=== PATIENT | female | born 1995 | race Caucasian/White ===

== ENCOUNTER 2022-01-24 14:50 | Outpatient (CLI) | payer OTHER, SELFPAY ==
--- NOTE | 2022-01-24 14:55 | RAD_ITS ---
STUDY: X-RAY - LEFT SHOULDER REASON FOR EXAM: Female, 26 years old. Left shoulder pain. TECHNIQUE: 4 view(s) of the shoulder. COMPARISON: None. FINDINGS: Normal glenohumeral articulation. Normal acromioclavicular joint. Normal acromion. Normal humeral head and visualized proximal humerus. The soft tissue structures are unremarkable. Normal visualized pulmonary apex. RAD/Shoulder min 2 Views IMPRESSION: Normal x-ray examination of the shoulder. Electronically Signed: Calderon Pemberton MD at 9:14 EDT ,
== END 2022-01-24 23:59 | disposition home or self-care (01) ==
LOC: RAD 14:53
PROVIDERS: PCP Internal Medicine; Referring Provider Internal Medicine; Visit Provider Internal Medicine
DX: M25.512 Pain in left shoulder (principal)
CPT/HCPCS: 73030

== ENCOUNTER → 2022-02-28 | Outpatient (CLI) | payer OTHER, SELFPAY ==
[2022-03-02 22:06] LABS: Chlamydia By Nucleic Acid AMP Negative (Negative)
[2022-03-03 09:58] LABS: Gonococcus By Nucleic Acid AMP Negative (Negative)
[2022-03-07 13:19] LABS: HPV Reflexed? NOT INDICATED
== END | disposition home or self-care (01) ==
LOC: LABSPEC 16:58
PROVIDERS: PCP Internal Medicine; Visit Provider Nurse Practitioner Women's Health
DX: Z11.3 Encounter for screening for infections with a predominantly sexual mode of transmission (principal)
CPT/HCPCS: 87491; 87591; 88175; G0145

== ENCOUNTER 2022-04-06 15:00 | Outpatient (RCR) | payer OTHER, SELFPAY ==
--- NOTE | 2022-02-02 14:57 | HP.PTEVAL_ITS ---
Patient's Visit Information MARITA BARNES is a 26 year old F referred to Physical Therapy by Dr. Coby Carmona MD with a diagnosis of L shoulder pain, tendinitis. Date of Evaluation: 02/02/22 Physical Therapist: Charles Estes DPT - Visit Plan Frequency: 1-2x /Week Duration: 4 Weeks Plan: Start with GH mobs (inferior glides) to restore non painful OH motions. Add in scapular and lea scapular strengthneing. - Subjective Pt. is here today for her initial evaluation with diagnosis of L shoulder tendonitis. She reports having pain for years. She reports pain at anterior shoulder and down her arm to medial elbow at times. Pt. reports having difficulty sleeping, increased pain as the day goes on. No specific movement that causing increase symptoms. 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 Pt. does report some neck pain, but decreases with postural changes. Pt. reports some tingling, along ulnar aspect, but comes and goes. Pt. is hopeful to reduce symptoms in order to get back to all recreational acti vities without increase in symptoms. She does report having some weakness in her shoulder, but no distal weakness noted. P= - Pain L shoulder Pain Intensity (Out of 10): 1 Pain Intensity Range: 0, 5 - Objective POSTURE: Pt. has slight FH posture, slight rounded shoulder positioning bilaterally. Pt. is able to correct with VC/TCing. PALPATION: pt. has tenderness along biceps in bicpital groove. Pt. has pain at anterior sub acromial space. Slight tenderness along L UT. NEURO: normal throughout BUEs. ROM: Pt. has good ROM of bilateral shoulders, slight increase in symptoms with OH motions, otherwise normal. MMT: Pt. has slight weakness with shoulder ER and abd motions (4+/5), rest is 5/5 throughout L shoulder. 5/5 throughout R shoulder. - Special Tests L Shoulder External Rotation Lag Test - RC Tear: Negative L Shoulder Lift Off Test - Subscapular Tear: Negative L Shoulder Drop Sign - IS Test: Negative L Shoulder Empty Can - SS: Positive L Shoulder Belly Press - SupScap: Negative L Shoulder Neer - Impingement: Positive L Shoulder Rios Renard - Impingement: Positive L Shoulder Biceps Load Test - Labrum: Negative L Shoulder Yeargasons - SLAP: Negative L Shoulder Apprehension Test - Anterior Instability: Negative L Shoulder Speeds Test - Labrum/Biceps: Positive - Balance/Special Test Scores Quick DASH Score: 29.5450 - Goals Goal 1:: LTG: Pt. to be I with HEP for R RTC and periscapular strengthening. Goal Time Frame: 4-6 Weeks Goal 2:: STG: pt. to be able to sleep without increase in symptoms. Goal Time Frame: 2-4 Weeks Goal 3:: LTG: Pt. have no pain with all work and recreational activities. Goal Time Frame: 4-6 Weeks Goal 4:: LTG: pt. to have symmetrical strength of BUEs. Goal Time Frame: 4-6 Weeks Goal 5:: LTG: Pt. to have full motion of L shoulder with out increase in symptoms. Goal Time Frame: 4-6 Weeks - Rehabilitation Potential Physical Therapy Diagnosis: Pt. has signs and symptoms consistent with L shoulder tendinitis. Pt. has special testing suggesting RTC/biceps tenditis vs impingement. Pt. would benefit from scapular and periscapular strengthening to reduce positioning issues of her GH complex. Rehabilitation Potential: Excellent - Anticipated Interventions Patient/Client Instruction: Educate patient on: Condition, Plan of Care, Benefits of Fitness Program For the Purpose of:: To improve decision making, To facilitate caregiver knowledge, To improve self management, To prevent re-injury, To improve ability to perform tasks related to life management, To improve tolerance to ADL's Therapeutic Exercise to Include: Strength training, Power training, Body mechanics, Postural training, Flexibilty training, Passive ROM, Active ROM, Scapular Strength/Stabilization For the Purpose of:: To decrease pain, To increase ROM, To improve nutrient delivery to tissue, To improve muscle performance and motor function, To improve ability to perform ADL's, To improve gait and locomotor functions, To improve health of tissue, To increase flexibility/ROM Manual Therapy Techniques to Include: Mobilization, Passive ROM, Soft tissue mobilization For the Purpose of:: To decrease pain, To decrease swelling/inflammation, To increase ROM Thank you for the opportunity to evaluate your patient. For Medicare and Medicare HMO plans, please review the plan of care and approve it. It will need to be FAXED BACK to us at [phone] for Medicare purposes. For Medicare only, by signing this I certify the plan of care. Please let me know if there are questions or concerns regarding this plan of care. Physician Signature: Date:
--- NOTE | 2022-03-02 10:19 | HP.PTREVAL_ITS ---
Dr. Coby Carmona MD, It has been my pleasure to treat MARITA BARNES over the last 4 visits for L shoulder pain, tendinitis. Please see the progress note below for an update on the physical therapy plan of care! Subjective: Pt. reports having some soreness in her shoulder and scapular region 3/10 pain today. Mostly at proximal biceps, but does complain have some medial elbow pain at times. She has been doing HEP without issues. Objective/Function: AROM: Pt. has full ROM of L shoulder with mild irritation with functional ER. MMT: L shoulder: flexion 5/5 NE, abd 5-/5 mild increase NW, ER 5/5 NE, IR 5/5 mild increase NW, ext 5/5 NE. SPECIAL TESTING: + speeds test, + biceps load, + horn blowers. -. She does feel better with thoracic extended positioning, getting out of fwrd shoulder positioning. She is point tender to biceps tendon in bicipital groove. She reports some progress, but has not been able to be very consistent with exercises due to very packed schedule with school and work. Pt. to add in new exercises to HEP. Pt. consents. Plan Plan: Cont. with DFM, followed by thoracic extension for postural flexibility. Add in supine shoulder extended bicep curls to load proximal biceps tend to reinforce remodeling. Add in shoulder ER for stability. May use modalities if needed is short term. Add in 1-2 per week for a few weeks. She does have a week where she is at school so may have slightly more sporadic scheduling., Balance/Gait/Functional tests - Balance/Special Test Scores Quick DASH Score: 27.2725 Goals Goal 1:: LTG: Pt. to be I with HEP for R RTC and periscapular strengthening. Goal Time Frame: 4-6 Weeks Goal Progress: Progressing Goal 2:: STG: pt. to be able to sleep without increase in symptoms. Goal Time Frame: 2-4 Weeks Goal Progress: Progressing Goal 3:: LTG: Pt. have no pain with all work and recreational activities. Goal Time Frame: 4-6 Weeks Goal Progress: Progressing Goal 4:: LTG: pt. to have symmetrical strength of BUEs. Goal Time Frame: 4-6 Weeks Goal Progress: Progressing Goal 5:: LTG: Pt. to have full motion of L shoulder with out increase in symptoms. Goal Time Frame: 4-6 Weeks Goal Progress: Progressing Anticipated Interventions Patient/Client Instruction: Educate patient on: Condition, Plan of Care, Benefits of Fitness Program For the Purpose of:: To improve decision making, To facilitate caregiver knowle dge, To improve self management, To prevent re-injury, To improve ability to perform tasks related to life management, To improve tolerance to ADL's Therapeutic Exercise to Include: Strength training, Power training, Body mechanics, Postural training, Flexibilty training, Passive ROM, Active ROM, Scapular Strength/Stabilization For the Purpose of:: To decrease pain, To increase ROM, To improve nutrient delivery to tissue, To improve muscle performance and motor function, To improve ability to perform ADL's, To improve gait and locomotor functions, To improve health of tissue, To increase flexibility/ROM Manual Therapy Techniques to Include: Mobilization, Passive ROM, Soft tissue mobilization For the Purpose of:: To decrease pain, To decrease swelling/inflammation, To increase ROM Please do not hesitate to contact me at [phone] by phone or if you have questions or concerns regarding this new plan of care! Sincerely, TANNER DunhamT
--- NOTE | 2022-04-06 15:24 | HP.PTREVAL ---
Dr. Coby Carmona MD, It has been my pleasure to treat MARITA BARNES over the last 8 visits for L shoulder pain, tendinitis. Please see the progress note below for an update on the physical therapy plan of care! Subjective: Pt. reports overall being 70% better overall. She reports being compliant and I with HEP for scapular stability and stressing her proximal biceps tendon. Objective/Function: ROM: pt. has full ROM of her L shoulder with no pain with over pressure into all motions (flexion, extension, Abduction, functional ER, and functional IR.). MMT: Pt. has full symmetrical strength of bilateral UEs. Pt. reports mild soreness with ABD testing, increase NW. SPECIAL TESTING: Slight + speeds test, no other + with all RTC and labral testing. Overall she is doing well. She is to continue working on increasing resistances applied to proximal biceps along with strengthening her supraspinatus and other RTC musculature. She is able to complete all activities, but does notice some soreness when studying at school, patient describes being in a more slumped flexed posture while studying most likely reinforcing an impingement of her anterior shoulder with rest of her activities. Pt. reports understanding and agrees to work on this as well. Plan Plan: Pt. to trial exercises on her own for 3-4 weeks to determine if able to self manage. She is to return if unable to do so in this time frame. If I do not hear from her during this time I will DC back to physician. Balance/Gait/Functional tests - Balance/Special Test Scores Quick DASH Score: 6.8175 Goals Goal 1:: LTG: Pt. to be I with HEP for R RTC and periscapular strengthening. Goal Time Frame: 4-6 Weeks Goal Progress: Goal Met Goal 2:: STG: pt. to be able to sleep without increase in symptoms. Goal Time Frame: 2-4 Weeks Goal Progress: Goal Met Goal 3:: LTG: Pt. have no pain with all work and recreational activities. Goal Time Frame: 4-6 Weeks Goal Progress: Goal Met Goal 4:: LTG: pt. to have symmetrical strength of BUEs. Goal Time Frame: 4-6 Weeks Goal Progress: Goal Met Goal 5:: LTG: Pt. to have full motion of L shoulder with out increase in symptoms. Goal Time Frame: 4-6 Weeks Goal Progress: Goal Met Anticipated Interventions Patient/Client Instruction: Educate patient on: Condition, Plan of Care, Benefits of Fitness Program For the Purpose of:: To improve decision making, To facilitate caregiver knowledge, To improve self management, To prevent re-injury, To improve ability to perform tasks related to life management, To improve tolerance to ADL's Therapeutic Exercise to Include: Strength training, Power training, Body mechanics, Postural training, Flexibilty training, Passive ROM, Active ROM, Scapular Strength/Stabilization For the Purpose of:: To decrease pain, To increase ROM, To improve nutrient delivery to tissue, To improve muscle performance and motor function, To improve ability to perform ADL's, To improve gait and locomotor functions, To improve health of tissue, To increase flexibility/ROM Manual Therapy Techniques to Include: Mobilization, Passive ROM, Soft tissue mobilization For the Purpose of:: To decrease pain, To decrease swelling/inflammation, To increase ROM Please do not hesitate to contact me at [phone] by phone or if you have questions or concerns regarding this new plan of care! Sincerely, Charles Estes DPT
== END 2022-04-06 19:00 | disposition home or self-care (01) ==
LOC: PT 15:00
PROVIDERS: PCP Internal Medicine; Referring Provider Internal Medicine; Visit Provider Internal Medicine
DX: M75.22 Bicipital tendinitis, left shoulder
CPT/HCPCS: 97110; 97161; 97164

== ENCOUNTER → 2022-08-15 | Outpatient (CLI) | payer OTHER, SELFPAY ==
--- NOTE | 2022-08-15 16:31 | EKG12_ITS ---
Test Reason : HR HIGH Blood Pressure : / mmHG Vent. Rate : 102 BPM Atrial Rate : 102 BPM P-R Int : 142 ms QRS Dur : 078 ms QT Int : 324 ms P-R-T Axes : 044 018 028 degrees QTc Int : 422 ms Sinus tachycardia Otherwise normal ECG Confirmed by TONY MANUEL, LAUREL ([id number]), production editor KIRSTY PAINTING ([id number]) on 08/16/2022 11:01:31 AM Referred By: NOY Confirmed By:LAUREL JIMENEZ MD
[2022-08-15 17:20] LABS: Absolute Lymphocyte Count 3.05 X10^3/uL (0.83-4.51); Absolute Neutrophil Count 6.6 X10^3/uL (2.0-7.7); Basophil# 0.05 X10^3/uL; Basophil% 0.5 % (0-1); Eosinophil# 0.31 X10^3/uL; Eosinophils% 2.9 % (0-5); Hematocrit 41.2 % (37-47); Hemoglobin 13.6 g/dL (12.0-15.0); Lymphocyte # 3.05 X10^3/ul (0.83-4.51); Lymphocyte % 28.8 % (19-41); Mean Corpuscular Hgb 28.6 pg (27.0-32.0); Mean Corpuscular Volume 86.6 fL (81-99); Mean Platelet Vol. 9.7 fl (6.2-12.0); Monocyte# 0.59 X10^3/uL; Monocyte% 5.6 % (0-10); NRBC Flagged by Analyzer 0 % (0-5); Neutrophil # 6.56 X10^3/uL (2.7-7.7); Neutrophil % 61.9 % (47-70); Platelet Count 352 K/mm3 (150-450); RBC Distribution Width CV 11.8 % (11.6-14.6); RBC Distribution Width SD 37.4 fl (35.1-43.9); Red Blood Count 4.76 M/mm3 (4.2-5.4); White Blood Count 10.6 K/mm3 (4.4-11.0)
[2022-08-15 18:31] LABS: ALB/GLOB Ratio 0.8 RATIO (0.9-2.4); AST(SGOT) 12 U/L (15-37); Alanine Aminotransfer ALT/SGPT 20 U/L (13-56); Albumin, Serum 3.3 g/dL (3.2-5.0); Alkaline Phosphatase 80 U/L (45-117); Anion Gap 7 (5-15); BUN 11 mg/dL (7-18); BUN/Creat Ratio 14.3 RATIO (10-20); Calcium,Total 8.7 mg/dL (8.5-10.1); Chloride 104 mmol/L (98-107); Creatinine, Serum 0.77 mg/dL (0.55-1.02); EST Glomerular Filtration Rate 96 mL/min (>60); Est Glom Filt Rate - Afr Amer 116 mL/min (>60); Globulin 3.9 g/dL (2.2-4.2); Glucose 89 mg/dL (74-106); Potassium 3.5 mmol/L (3.5-5.1); Protein, Total 7.2 g/dL (6.4-8.2); Sodium Level 138 mmol/L (136-145)
== END | disposition home or self-care (01) ==
PROVIDERS: PCP Internal Medicine; Visit Provider Obstetrics & Gynecology
DX: R00.2 Palpitations (principal)
CPT/HCPCS: 36415; 80053; 85025; 93005

== ENCOUNTER → 2023-06-21 | Outpatient (CLI) | payer OTHER, SELFPAY ==
--- NOTE | 2023-06-21 09:20 | RAD_ITS ---
INDICATION: Right shoulder pain EXAMINATION/TECHNIQUE: X-RAY - RIGHT XR Shoulder Min 2 Views 4 VIEWS COMPARISON: None. FINDINGS: No acute fracture or dislocation. Joint spaces are intact. No significant degenerative or destructive changes. Soft tissues are unremarkable. Visualized right lung is clear. RAD/Shoulder min 2 Views IMPRESSION: No acute findings. Electronically Signed: Ignacio Sierra DO at 9:03 EDT ,
== END | disposition home or self-care (01) ==
LOC: RAD 09:18
PROVIDERS: PCP Internal Medicine; Referring Provider Internal Medicine; Visit Provider Internal Medicine
DX: M25.511 Pain in right shoulder (principal)
CPT/HCPCS: 73030

== ENCOUNTER 2023-09-04 10:00 | Outpatient (RCR) | payer OTHER, SELFPAY ==
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
--- NOTE | 2023-10-26 09:07 | HP.PT.NRP ---
Patient Information Patient Information: MARITA BOUDREAUX was seen in my office for initial evaluation on 06/26/23. The following Plan of Care was established for this patient: POC Established Initial Frequency: 2x /Week Initial Duration: 4 Weeks Anticipated Interventions Patient/Client Instruction: Educate patient on: Benefits of Fitness Program Therapeutic Exercise to Include: Strength training, Endurance training, Agility training, Body mechanics, Postural training, Flexibilty training, Neuromotor development, Passive ROM, Active ROM, Dynamic Lumbar Stabilization and Scapular Strength/Stabilization For the Purpose of:: To improve muscle performance and motor function TENS: Yes Cryotherapy (ice pack, ice massage): Yes Thermo therapy (hot pack): Yes Ultrasound (thermal/non thermal): Yes Last Seen Last Seen: This patient was last seen in our office . Pertinent comments regarding their Physical therapy will appear below: Patient appropriate to be d/c and continue home exercise program At this point I will be discontinuing this patient from physical therapy. I would be happy to see this patient again in the future if found appropriate by the physician. Thank you! Chela Almaguer DPT Balance/Gait/Functional tests Balance/Special Test Scores Quick DASH Score: 31.8185
== END 2023-09-04 19:00 | disposition home or self-care (01) ==
LOC: PT 10:00
PROVIDERS: PCP Internal Medicine; Referring Provider Internal Medicine; Visit Provider Internal Medicine
DX: M25.511 Pain in right shoulder (principal)
CPT/HCPCS: 97110; 97140; 97162; 97164

== ENCOUNTER → 2023-09-18 | Outpatient (CLI) | payer OTHER, SELFPAY ==
[2023-09-18 12:58] LABS: Absolute Lymphocyte Count 3.06 X10^3/uL (0.83-4.51); Absolute Neutrophil Count 6.2 X10^3/uL (2.0-7.7); Basophil# 0.05 X10^3/uL; Basophil% 0.5 % (0-1); Eosinophil# 0.11 X10^3/uL; Eosinophils% 1.1 % (0-5); Hematocrit 42.1 % (37-47); Hemoglobin 13.6 g/dL (12.0-15.0); Lymphocyte # 3.06 X10^3/ul (0.83-4.51); Mean Corp Hgb Conc 32.3 g/dL (32-36); Mean Corpuscular Hgb 27.8 pg (27.0-32.0); Mean Corpuscular Volume 86.1 fL (81-99); Mean Platelet Vol. 10.1 fl (6.2-12.0); Monocyte# 0.44 X10^3/uL; Monocyte% 4.5 % (0-10); NRBC Flagged by Analyzer 0 % (0-5); Neutrophil # 6.18 X10^3/uL (2.7-7.7); Neutrophil % 62.6 % (47-70); Platelet Count 332 K/mm3 (150-450); RBC Distribution Width CV 11.9 % (11.6-14.6); RBC Distribution Width SD 37.3 fl (35.1-43.9); Red Blood Count 4.89 M/mm3 (4.2-5.4); White Blood Count 9.9 K/mm3 (4.4-11.0)
[2023-09-18 13:37] LABS: Vitamin B12 317 pg/mL (211-911)
[2023-09-18 13:53] LABS: ALB/GLOB Ratio 0.9 RATIO (0.9-2.4); AST(SGOT) 13 U/L (15-37); Alanine Aminotransfer ALT/SGPT 16 U/L (13-56); Albumin, Serum 3.5 g/dL (3.2-5.0); Alkaline Phosphatase 78 U/L (45-117); Anion Gap 7 (5-15); BUN 11 mg/dL (7-18); BUN/Creat Ratio 12.2 RATIO (10-20); Calcium,Total 8.9 mg/dL (8.5-10.1); Chloride 104 mmol/L (98-107); EST Glomerular Filtration Rate 79 mL/min (>60); Est Glom Filt Rate - Afr Amer 96 mL/min (>60); Globulin 3.9 g/dL (2.2-4.2); Glucose 89 mg/dL (74-106); Protein, Total 7.4 g/dL (6.4-8.2); Sodium Level 137 mmol/L (136-145); Thyroid Stim Hormone (TSH) 2.57 uIU/mL (0.358-3.74)
== END | disposition home or self-care (01) ==
PROVIDERS: PCP Internal Medicine; Referring Provider Physician Assistant; Visit Provider Physician Assistant
DX: R00.0 Tachycardia, unspecified (principal)
CPT/HCPCS: 36415; 80053; 82607; 83735; 84443; 85025

== ENCOUNTER → 2023-09-22 | Outpatient (CLI) | payer OTHER, SELFPAY | END | disposition home or self-care (01) | LOC: PSN 10:48 | PROVIDERS: PCP Internal Medicine; Referring Provider Physician Assistant; Visit Provider Physician Assistant | DX: R00.0 Tachycardia, unspecified (principal); R00.2 Palpitations | CPT/HCPCS: 93225; 93226 ==

== ENCOUNTER → 2023-10-06 | Outpatient (CLI) | payer OTHER, SELFPAY ==
[2023-10-07 04:08] LABS: Thyroid Peroxidase AB < 9 IU/mL (0-34)
== END | disposition home or self-care (01) ==
LOC: LAB 10:25
PROVIDERS: PCP Internal Medicine; Referring Provider Internal Medicine Endocrinology, Diabetes & Metabolism; Visit Provider Internal Medicine Endocrinology, Diabetes & Metabolism
DX: E04.9 Nontoxic goiter, unspecified (principal)
CPT/HCPCS: 36415; 86376

== ENCOUNTER → 2025-02-28 | Outpatient (CLI) | payer OTHER, SELFPAY ==
[2025-02-28 16:07] LABS: Absolute Lymphocyte Count 2.48 X10^3/uL (0.83-4.51); Absolute Neutrophil Count 8.7 X10^3/uL (2.0-7.7); Basophil# 0.05 X10^3/uL; Basophil% 0.4 % (0-1); Eosinophil# 0.09 X10^3/uL; Eosinophils% 0.8 % (0-5); Hematocrit 38.6 % (37-47); Hemoglobin 13.2 g/dL (12.0-15.0); Lymphocyte # 2.48 X10^3/ul (0.83-4.51); Lymphocyte % 20.7 % (19-41); Mean Corp Hgb Conc 34.2 g/dL (32-36); Mean Corpuscular Hgb 29.3 pg (27.0-32.0); Mean Corpuscular Volume 85.6 fL (81-99); Mean Platelet Vol. 10.4 fl (6.2-12.0); Monocyte# 0.57 X10^3/uL; Monocyte% 4.8 % (0-10); NRBC Flagged by Analyzer 0 % (0-5); Neutrophil # 8.74 X10^3/uL (2.7-7.7); Neutrophil % 72.9 % (47-70); Platelet Count 284 K/mm3 (150-450); RBC Distribution Width CV 12.4 % (11.6-14.6); RBC Distribution Width SD 38.7 fl (35.1-43.9); Red Blood Count 4.51 M/mm3 (4.2-5.4)
[2025-02-28 16:22] LABS: Protein, Urine (Random) 16.9 mg/dL (0.0-12.0); Protein:Creat Ratio 76 mg/g CRE (0-200)
[2025-02-28 16:43] LABS: ALB/GLOB Ratio 1.6 RATIO (0.9-2.4); AST(SGOT) 15 U/L (<=31); Alanine Aminotransfer ALT/SGPT 19 U/L (<=34); Albumin, Serum 4.3 g/dL (3.5-5.0); Alkaline Phosphatase 68 U/L (35-104); Anion Gap 14 (5-15); BUN 12 mg/dL (4-19); BUN/Creat Ratio 16.6 RATIO (10-20); Calcium,Total 9.3 mg/dL (7.6-11.0); Carbon Dioxide 21.2 mmol/L (21.0-32.0); Chloride 99 mmol/L (98-108); EST Glomerular Filtration Rate 120 (>60); Globulin 2.7 g/dL (2.2-4.2); Glucose 75 mg/dL (70-99); HIV Nonreactive (Nonreactive); Hepatitis B Surface Antigen Nonreactive (Nonreactive); Hepatitis C Antibody Nonreactive (Nonreactive); Potassium 3.4 mmol/L (3.3-5.1); Rubella IgG REAC (Nonreactive); Sodium Level 135 mmol/L (133-145); Syphilis Antibodies Nonreactive (Nonreactive); Total Bilirubin 0.57 mg/dL (0.00-1.30)
[2025-02-28 16:52] LABS: Hemoglobin A1c 4.9 % (<=5.6)
[2025-03-03 21:07] LABS: Chlamydia By Nucleic Acid AMP Negative (Negative); Gonococcus By Nucleic Acid AMP Negative (Negative)
== END | disposition home or self-care (01) ==
PROVIDERS: PCP Internal Medicine; Referring Provider Obstetrics & Gynecology; Visit Provider Obstetrics & Gynecology
DX: O09.90 Supervision of high risk pregnancy, unspecified, unspecified trimester (principal); Z3A.00 Weeks of gestation of pregnancy not specified; Z12.4 Encounter for screening for malignant neoplasm of cervix
CPT/HCPCS: 36415; 80053; 82570; 83036; 84156; 85025; 86703; 86762; 86780; 86803; 86850; 86900; 86901; 87086; 87088; 87340; 87491; 87591; 88175; G0145

== ENCOUNTER → 2025-04-17 | Outpatient (CLI) | payer OTHER, SELFPAY ==
--- NOTE | 2025-04-17 13:44 | EKG12_ITS ---
Test Reason : HTN Blood Pressure : */* mmHG Vent. Rate : 92 BPM Atrial Rate : 92 BPM P-R Int : 148 ms QRS Dur : 70 ms QT Int : 338 ms P-R-T Axes : 36 52 7 degrees QTcB Int : 417 ms Normal sinus rhythm with sinus arrhythmia Normal ECG Confirmed by ANTONIO MANUEL, ROCIO ([id number]), editorial intern MICHAEL COLLINS ([id number]) on 04/18/2025 1:06:05 PM Referred By: Kaycee Pathak Confirmed By: ROCIO ALVAREZ MD
--- OUTSIDE RECORDS SUMMARY | 2025-04-17 14:46 | XMS RPT_ITS | CCD ---
Author Organization [facility] CliniSywy Care Team Providers Care Compliance Advisor Name Role Phone Morgan Ta Jalloh Primary Care Provider Dr. Coby Carmona Attending Provider [phone] Karena DICTAPHONE MECHANIC, ALICIA Miranda Attending Provider [phone] Dr. Coby Carmona Primary Care Provider [phone] Dr. Coby Carmona Referring Provider [phone] Dr. Coby Carmoan Primary Care Provider [phone] 0) Dr. Coby Carmona Referring Provider [phone] Dr. Kaycee Pathak Attending Provider [phone] [phone] Karena DICTAPHONE MECHANICALICIA Attending Provider [phone] [phone] Dr. Coby Carmona Attending Provider [phone] Dr. Coby Carmona Primary Care Provider 1(33 0) Dr. Coby Carmona Attending Provider [phone] Dr. Coby Carmona Referring Provider [phone] Dr. Coby Carmona Primary Care Provider 1(33 0) Dr. Coby Carmona Attending Provider [phone] Dr. Coby Carmona Referring Provider [phone] CHUY Avalos Attending Provider [phone]) NATALY Watkins Attending Provider 1(330) Dr. Alexey Good Attending Provider Dr. Coby Carmona Primary Care Provider [phone] Dr. Coby Carmona Referring Provider [phone] Mathew MANUEL, Dr. Tenorio Primary Care Provider Mathew MANUEL, Dr. Tenorio Referring Provider [phone] Karena ANGLIN-Marina, Ruth Attending Provider [phone] Yanet RN, Thuy Attending Provider [facility], Dr. Benoit Attending Provider Zo MANUEL, Dr. Benoit Referring Provider [phone] Georgette Avalos CNM Attending Provider [phone] Georgette Avalos Attending Unavailable Oleghe, Efewongbe Primary Care Unavailable Oleghe, Efewongbe Referring Unavailable Thuy Holt Attending Unavailable Oleghe, Efewongbe Primary Care Unavailable Oleghe, Efewongbe Primary Care Unavailable Kaycee Pathak Attending Unavailable Kaycee Pathak Referring Unavailable Ruth Thurston NP Attending Unavailable Oleghe, Efewongbe Primary Care Unavailable Oleghe, Efewongbe Referring Unavailable Oleghe, Efewongbe Primary Care Unavailable Kaycee Pathak Attending Unavailable Oleghe, Efewongbe Referring Unavailable Georgette Avalos Attending Unavailable Oleghe, Efewongbe Referring Unavailable Oleghe, Efewongbe Primary Care Unavailable Medications Current Medications Medication Drug Class(es) Dates Sig (Normalized) Sig (Original) docosahexaenoic acid 200 mg oral capsule (1 source) Start: 02-11-2025 Docosahexaenoic Acid ( Dha) 200 mg capsule Active mg PO February 11, 2025 12:00am Completed/Discontinued Medications Medication Drug Class(es) Dates Sig (Normalized) Sig (Original) citalopram 20 mg oral tablet (17 sources) Serotonin Reuptake Inhibitor Start: 02-28-2022 End: 05-26-2022 take 1 tablet by mouth once daily Citalopram (Celexa) 20 mg tablet Discontinued 20 mg PO DAILY 90 March 30, 2022 9:33am May 26, 2022 3:32pm Drospirenone-Ethin yl Estradiol (20 sources) Progestin, Estrogen Start: 09-06-2024 End: 02-11-2025 Drospirenone-Ethiny l Estradiol 3-0.03 mg tablet Discontinued 1 {tbl} PO DAILY September 06, 2024 12:14pm February 11, 2025 8:08am Start: 09-08-2023 End: 09-06-2024 Drospirenone-Ethinyl Estradi ol 3-0.03 mg tablet Discontinued 1 {tbl} PO DAILY September 08, 2023 5:11pm September 06, 2024 12:14pm Start: 09-08-2023 take 1 tablet by jia th once daily Drospirenone-Ethinyl Estradiol Active 1 TABLET PO DAILY September 08, 2023 4:11pm Start: 02-28-2022 End: 09-08-2023 Drospirenone-Ethinyl Estradi ol 3-0.03 mg tablet Discontinued 1 {tbl} PO DAILY February 28, 2022 2:49pm September 08, 2023 5:12pm Start: 02-28-2022 End: 09-08-2023 take 1 tablet by mouth once daily Drospirenone-Ethinyl Estradiol Discontinued 1 TABLET PO DAILY February 28, 2022 1:49pm September 08, 2023 4:12pm Start: 02-28-2022 take 1 tablet by jia th once daily Drospirenone-Ethinyl Estradiol Active 1 TABLET PO DAILY February 28, 2022 2:49pm Start: 01-24-2022 End: 02-28-2022 take 1 tablet by mouth once daily Drospirenone-Ethinyl Estradiol Discontinued 1 TABLET PO DAILY January 24, 2022 8:46am February 28, 2022 2:49pm Start: 01-24-2022 take 1 tablet by jia th once daily Drospirenone-Ethinyl Estradiol Active 1 TABLET PO DAILY January 24, 2022 8:46am Start: 01-24-2022 End: 01-24-2022 Drospirenone-Ethinyl Estradi ol (Karoline (28)) 3-0.02 mg tablet Discontinued 1 TABLET PO DAILY January 24, 2022 8:22am January 24, 2022 8:46am Start: 01-24-2022 End: 01-24-2022 take 3 tablets by mouth once daily Drospirenone-Ethinyl Estradiol (Karoline (28)) 3-0.02 mg tablet Discontinued 1 {tbl} PO DAILY January 24, 2022 12:00am January 24, 2022 8:46am Start: 01-24-2022 End: 02-28-2022 Drospirenone-Ethinyl Estradi ol 3-0.03 mg tablet Discontinued 1 {tbl} PO DAILY 84 January 24, 2022 12:00am February 28, 2022 2:49pm Start: 01-24-2022 End: 01-24-2022 Drospirenone-Ethinyl Estradi ol (Karoline (28)) 3-0.02 mg tablet Discontinued 1 TABLET PO DAILY January 23, 2022 11:00pm January 24, 2022 7:46am Start: 01-24-2022 End: 02-28-2022 take 1 tablet by mouth once daily Drospirenone-Ethinyl Estradiol Discontinued 1 TABLET PO DAILY January 23, 2022 11:00pm February 28, 2022 1:49pm Start: 01-24-2022 End: 01-24-2022 Drospirenone-Ethinyl Estradi ol (Karoline (28)) 3-0.02 mg tablet Discontinued 1 TABLET PO DAILY January 24, 2022 12:00am January 24, 2022 8:46am Start: 01-24-2022 End: 02-28-2022 take 1 tablet by mouth once daily Drospirenone-Ethinyl Estradiol Discontinued 1 TABLET PO DAILY 84 January 24, 2022 12:00am February 28, 2022 2:49pm Start: 04-24-2020 Drospirenone-E thinyl Estradiol 3-0.03 mg per tablet TAKE 1 TABLET ONCE DAILY 84 tablet 1 04/24/2020 Active Start: 10-04-2019 take 1 tablet by jia th once daily, then take 3 tablets by mouth once Drospirenone-Ethinyl Estradiol (JENNIFER) 3-0.03 mg per tablet Take 1 tablet by mouth once daily. 84 tablet 3 10/04/2019 Active Comment on above: Take 1 tablet by jia th once daily. TAKE 1 TABLET ONCE D AILY phentermine hydrochloride 37.5 mg oral capsule (20 sources) Sympathomimetic Amine Anorectic Start: End: take 1 capsule by mouth once daily 30 minutes after breakfast Phentermine (Adipex-P) 37.5 mg capsule Discontinued 37.5 mg PO DAILY July 28, 2022 9:16am August 15, 2022 3:33pm must administer 30 minutes before or 1-2 hours after breakfast weight 173. *note BMI incorrect on last script, patient has lost weight. 24 hr venlafaxine 37.5 mg extended release oral capsule (14 sources) Serotonin and Norepinephrine Reuptake Inhibitor Start: End: Venlafaxine 37.5 mg capsule,extended release 24hr Discontinued 37.5 mg PO As Directed September 30, 2022 1:00am June 21, 2023 8:34am 1 capsule daily x1 week then every other day x1 week Start: 05-26-2022 End: 09-30-2022 take 1 capsule by mouth once daily Venlafaxine (Effexor Xr) 75 mg capsule,extended release 24hr Discontinued 75 mg PO DAILY May 26, 2022 12:00am September 30, 2022 4:01pm Problems Active Problems Problem Classification Problem Date Documented Da te Episodic/Chronic Administrative/social admission (10 sources) Patient encounter status; Translations: [Encounter for examination for admission to educational institution] Episodic Anxiety disorders (12 sources) Anxiety; Translations: [Anxiety disorder, unspecified] Chronic Comment on above: start effexor stop c elexa Cardiac dysrhythmias (14 sources) Palpitations; Translations: [Palpitations] 09-15-2023 Episodic Essential hypertension (14 sources) Hypertensive disorder; Translations: [Essential (primary) hypertension] Onset: 02-21-2025 Chronic Comment on above: Nml BP readings x1ye ar, medicine in the past but not at present Menstrual disorders (1 source) Amenorrhea, unspecified; Translations: [Amenorrhea, unspecified] Onset: 02-21-2025 Chronic Other circulatory disease (10 sources) Elevated blood-pressure reading without diagnosis of hypertension; Translations: [Elevated blood-pressure reading, without diagnosis of hypertension] 01-24-2022 Episodic Other circulatory disease (3 sources) Elevated blood-pressure reading, without diagnosis of hypertension; Translations: [Elevated blood pressure reading without diagnosis of hypertension] Episodic Other circulatory disease (9 sources) Labile hypertension due to being in a clinical environment; Translations: [Elevated blood-pressure reading, without diagnosis of hypertension] 02-28-2022 Episodic Comment on above: Home BP readings WNL Other complications of (3 sources) Maternal obesity complicating , childbirth and the puerperium, antepartum; Translations: [Obesity complicating , unspecified trimester] 02-11-2025 Chronic Comment on above: BMI 38.7, HgBA1C ord ered with NOB Other complications of (2 sources) Obesity complicating , unspecified trimester; Translations: [Obesity complicating , unspecified trimester] Onset: 02-21-2025 Chronic Other complications of (3 sources) High risk ; Translations: [Supervision of high risk , unspecified, unspecified trimester] 02-28-2025 Episodic Comment on above: , KUNAL 10/12/25, : Radha Other complications of (2 sources) Supervision of high risk , unspecified, unspecified trimester; Translations: [Supervision of high risk , unspecified, unspecified trimester] Onset: 02-21-2025 Episodic Other connective tissue disease (10 sources) Tendinitis of shoulder region; Translations: [Other enthesopathies, not elsewhere classified] 01-24-2022 Episodic Other connective tissue disease (2 sources) Other enthesopathies, not elsewhere classified; Translations: [Disorders of bursae and tendons in shoulder region, unspecified] Episodic Other endocrine disorders (12 sources) Polycystic ovary syndrome; Translations: [Polycystic ovarian syndrome] 06-21-2023 Chronic Comment on above: hga1c. encouraged he althy weight gain Other endocrine disorders (13 sources) Polycystic ovarian syndrome; Translations: [Polycystic ovaries] Onset: 03-25-2025 Chronic Other non-traumatic joint disorders (4 sources) Shoulder pain; Translations: [Pain in left shoulder] Episodic Other non-traumatic joint disorders (8 sources) Pain in left shoulder; Translations: [Pain in joint, shoulder region] Episodic Other non-traumatic joint disorders (10 sources) Pain in right shoulder; Translations: [Right shoulder pain] 06-21-2023 Episodic Other nutritional; endocrine; and metabolic disorders (8 sources) Obesity; Translations: [Other obesity] 05-26-2022 Chronic Other nutritional; endocrine; and metabolic disorders (8 sources) Metabolic syndrome X; Translations: [Metabolic syndrome] 08-15-2022 Chronic Comment on above: Likely secondary to PCOS, discussed weight management/ s/p Adipex stopped due to elev HR. following intermittent fasting 16:8 every day. EKG and labs ordered. no meds at this point but consider metformin in future. Other nutritional; endocrine; and metabolic disorders (4 sources) Metabolic syndrome; Translations: [Dysmetabolic syndrome X] Chronic Other nutritional; endocrine; and metabolic disorders (4 sources) Other obesity; Translations: [Obesity, unspecified] Chronic Other nutritional; endocrine; and metabolic disorders (2 sources) Obesity, unspecified; Translations: [Obesity, unspecified] 10-06-2023 Chronic Other and delivery including normal (3 sources) ; Translations: [Encounter for supervision of normal , unspecified, unspecified trimester] 03-25-2025 Episodic Comment on above: Discussed genetic/ca rrier testing - undecided Other screening for suspected conditions (not mental disorders or infectious disease) (2 sources) Encounter for other screening follow-up; Translations: [Encounter for screening for malignant neoplasm of cervix] Onset: 02-21-2025 Episodic Residual codes; unclassified (1 source) 12 weeks gestation of ; Translations: [12 weeks gestation of ] Onset: 03-25-2025 Episodic Residual codes; unclassified (1 source) 8 weeks gestation of ; Translations: [8 weeks gestation of ] Onset: 02-28-2025 Episodic Spondylosis; intervertebral disc disorders; other back problems (14 sources) Chronic back pain ; Translations: [Dorsalgia, unspecified] Episodic Unclassified (2 sources) Patient encounter status; Translations: [Routine cervical smear] Onset: 04-26-2016 04-26-2016 Past or Other Problems Problem Classification Problem Date Documented Date Episodic/Chronic Contraceptive and procreative management (1 source) Oral contraception; Translations: [Oral contraceptive pill surveillance] Onset: 04-26-2016 04-26-2016 Episodic Results Test Name Value Interpretation Reference Range Facility Textile Technical Officer Office Visit Reporton 03-25-2025 Textile Technical Officer Office Visit Report [facility] [address], [address] [place] [id number] OFFICE VISIT Date of Service: 03/25/25 MR#: [id number] Acct: [id number] Name: MARITA BERGERON Rep #: [id number] : 1995 Provider: CHUY Li ams Age/Sex: 29/F Location[place] [facility] Status: Signed Intake Vital Signs 09/06/24 10:59 02/28/25 13:03 03/25/25 13:40 Height 4 ft 10 in 4 ft 10 in 4 ft 10 in Weight: 186 lb 4 oz BMI 38.9 BP 138/87 H Intake Visit Reasons: 11 wk OB Chief Complaint: 11wk 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: No Is patient in pain?: No Allergies No Known Allergies Allergy (Verified 03/25/25 13:38) Medications ???Medication ???Instructions ???Recorded ???Confirmed ???Type docosahexaenoic acid 200 mg mg PO 02/11/25 03/25/25 History capsule ( DHA) Last Menstrual Period: 12/29/24 : No Have you fallen in the past year?: No PFSH PFSH Medical History Palpitations Sinus tachycardia by electrocardiogram Hypertension PCOS (polycystic ovarian syndrome) Chronic back pain Surgical History S/P wisdom tooth extraction Family History Grandmother Myocardial infarction Diabetes Grandfather Myocardial infarction Grandmother Colon cancer Social History adopted: No household members: spouse housing: house current occupational status: employed 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 current occupational exposures/hazards: No pets and animals: Yes (Not managing litterbox) pets and animals: cat(s) history of recent travel: No sexually active: Yes Smoking Status: Never smoker alcohol intake: current alcohol intake frequency: holidays/special occasions only details: Not while substance use type: does not use well-balanced diet: about half the time caffeine: Yes Type: tea eating out: 1-3 times/week during the past year weight has: remained stable what type of physical activity do you participate in: walking and weight training frequency: 3-4 times per week duration: 15-30 minutes/day josselyn/adventism: Baptism seatbelt use: always do you feel safe at home: Yes 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 OB Visit KUNAL Calculator Estimated Delivery Date Method Current WG Current Estimate 10/06/25 LMP (Certain) 12w 1d Other Estimates 10/12/25 Ultrasound #1 11w 2d Expected Delivery Route/Plan Labor Preferences- CB/BF classes: [] labor support person: [] labor intervention preferences: [] pain management options preferred: [] cut cord/dad catch: [] : [] PP control planned: [] discussed possible routes of delivery and associated risks: [] special requests: [] Specific Issue/Plans Covid status: [] Flu vaccine: [] Tdap vaccine: [] Rhogam: [] LARC form signed: [] Problem list reviewed and updated with the most current plan of care details and appropriate orders placed. Relevant counseling for the gestational age provided. Continue routine care and follow up unless otherwise noted in visit notes/problem list details Initial Weight: Not Recorded Date -???-???-???-???-??? -???-???-???-???-??? -???-???- EGA Weight BP Urine Prot -???-???-???-???-??? -???-???-???-???-??? -???-???- Glucose FHR FuHt Pres Dilation -???-???-???-???-??? -???-???-???-???-??? -???-???- Effaced St Visit Note 02/28/25 -???-???-???-???-??? -???-???-???-???-??? -???-???- 8w 4d 186 lb 8 oz 123/80 -???-???-???-???-??? -???-???-???-???-??? -???-???- 170 -???-???-???-???-??? -???-???-???-???-??? -???-???- SM- crl 1.4 cm not cons with lmp 03/25/25 -???-???-???-???-??? -???-???-???-???-??? -???-???- 12w 1d 186 lb 4 oz 138/87 Negative -???-???-???-???-??? -???-???-???-???-??? -???-???- Negative 168 -???-???-???-???-??? -???-???-???-???-??? -???-???- KW- no vb/cr amping. US ordered. start asa 81 mg. ACOG First Trimester First Trimester: Discussed ROS Const Reports system reviewed and no additional complaints, except as documented Eyes Reports system reviewed and no additional complaints, except as documented ENT Reports system reviewed and no additional complaints, except as documented Card Reports system reviewed and no additional complaints, except as documented Resp Report (more content not included)... Normal [facility] PAP I-G w/rfx hrHPV-Aptimaon 03-04-2025 ADEQ Comment Normal . [facility] Comment on above: Order Comment: Speci men Comment: [id number] Specimen Comment: Source.............Cervix Specimen Comment: Other.............. Specimen Comment: No. of containers..01 ThinPrep Vial Result Comment: Sati sfactory for evaluation. Endocervical and/or squamous metaplastic cells (endocervical component) are present. Performed By: #### L 7000.1800, M100.2200, L7400.0353, L501.0900 #### [facility] [address] [place], [place], [address] COMM . Normal . [facility] Comment on above: Order Comment: Speci men Comment: [id number] Specimen Comment: Source.............Cervix Specimen Comment: Other.............. Specimen Comment: No. of containers..01 ThinPrep Vial Performed By: #### L 7000.1800, M100.2200, L7400.0353, L501.0900 #### [facility] [address] [place], [place], [id number] COMMENT Comment Normal . [facility] Comment on above: Order Comment: Speci men Comment: [id number] Specimen Comment: Source.............Cervix Specimen Comment: Other.............. Specimen Comment: No. of containers..01 ThinPrep Vial Result Comment: This liquid based ThinPrep(R) pap test was screened with the use of an image guided system. Performed By: #### L 0.1800, M100.2200, L7400.0353, L501.0900 #### [facility] [address] [place], [place], [address] DIAG Comment Normal . [facility] Comment on above: Order Comment: Speci men Comment: [id number] Specimen Comment: Source.............Cervix Specimen Comment: Other.............. Specimen Comment: No. of containers..01 ThinPrep Vial Result Comment: NEGA TIVE FOR INTRAEPITHELIAL LESION OR MALIGNANCY. Performed By: #### L 7000.1800, M100.2200, L7400.0353, L501.0900 #### [facility] [address] [place], [place], [id number] HPV RFLX Comment Normal . [facility] Comment on above: Order Comment: Speci men Comment: [id number] Specimen Comment: Source.............Cervix Specimen Comment: Other.............. Specimen Comment: No. of containers..01 ThinPrep Vial Result Comment: The HPV DNA reflex criteria were not met with this specimen result therefore, no HPV testing was performed. Performed at: [address] [id number] Cigar Maker: Neda Marie MD, Phone: [phone] Performed By: #### L 7000.1800, M100.2200, L7400.0353, L501.0900 #### [facility] [address] [place], [place], [id number] PAPSMR Comment Normal . [facility] Comment on above: Order Comment: Speci men Comment: [id number] Specimen Comment: Source.............Cervix Specimen Comment: Other.............. Specimen Comment: No. of containers..01 ThinPrep Vial Result Comment: The Pap smear is a screening test designed to aid in the detection of premalignant and malignant conditions of the uterine cervix. It is not a diagnostic procedure and should not be used as the sole means of detecting cervical cancer. Both false-positive and false-negative reports do occur. Performed By: #### L 7000.1800, M100.2200, L7400.0353, L501.0900 #### [facility] [address] [place], [place], [id number] PERFORM Comment Normal . [facility] Comment on above: Order Comment: Speci men Comment: [id number] Specimen Comment: Source.............Cervix Specimen Comment: Other.............. Specimen Comment: No. of containers..01 ThinPrep Vial Result Comment: Brenda Alexandre, Airplane Flight Attendant Performed By: #### L 7000.1800, M100.2200, L7400.0353, L501.0900 #### [facility] [address] [place], [address] Chlamydia/GC RASHEED aptimaon CHLAMY,NUC ACID Negative Normal Negative [facility] Comment on above: Performed By: #### L 7000.1800, M100.2200, L7400.0353, L501.0900 #### [facility] [address] [place], [address] GC BY NUC ACID Negative Normal Negative [facility] Comment on above: Result Comment: Perf ormed at: =G - [facility] [address] [id number] Cigar Maker: Neda Marie MD, Phone: [phone] Performed By: #### L 7000.1800, M100.2200, L7400.0353, L501.0900 #### [facility] [address] [place], [address] Urine Cultureon 03-01-2025 [facility] Mixed Gram Positive Organisms [place] Count 80,000-100,000 MIXC Mixed contaminants. Submit a new specimen if indicated. Normal [facility] Comment on above: Performed By: #### L 7000.1800, M100.2200, L7400.0353, L501.0900 #### [facility] [address] [place], [address] Absolute lymphocyte countOrd ered By: Kaycee Pathak on 02-28-2025 Lymphocytes Auto (Unsp spec) [#/Vol] 2.48 10*3/uL 0.83-4.51 [facility] Absolute neutrophil countOrd ered By: Kaycee Alyanabella on 02-28-2025 Neutrophils (Bld) [#/Vol] 8.7 10*3/uL High 2.0-7.7 [facility] Anion gap in Serum or Plasma Ordered By: Kaycee Annguille on 02-28-2025 Anion gap [Moles/Vol] 14 mmol/L 5-15 [facility] Automated lymphocyte count a s percentage of total leukocytesOrdered By: Kaycee Annguille on 02-28-2025 Lymphocytes/100 WBC Auto (Unsp spec) 20.7 % 19- [facility] BUN/creatinine ratioOrdered By: Kaycee Annguille on 02-28-2025 Urea nitrogen/Creatinine [Mass ratio] 16.6 mg/mg 10-20 [facility] Basophil percentageOrdered B y: Kaycee Zo on 02-28-2025 Basophils/100 WBC (Bld) 0.4 % 0-1 [facility] Bilirubin, totalOrdered By: Kayceenorma Pathak on 02-28-2025 Bilirubin [Mass/Vol] 0.57 mg/dL 0.00-1.30 [facility] CBC W/Diff, Automatedon Absolute Lymph 2.48 X10 3/uL Normal 0.83-4.51 [facility] Comment on above: Performed By: #### L 3890.6301, BTS, L509.8002, L3890.6006, L509.4006, L100.0100, L501.9985, L500.4050, L3890.6102 #### [facility] [address] [place], [address] Absolute Neut 8.7 X10 3/uL High 2.0-7.7 [facility] Comment on above: Performed By: #### L 3890.6301, BTS, L509.8002, L3890.6006, L509.4006, L100.0100, L501.9985, L500.4050, L3890.6102 #### [facility] [address] [place], [address] Basophils/100 WBC (Bld) 0.4 % Normal 0-1 [facility] Comment on above: Performed By: #### L 3890.6301, BTS, L509.8002, L3890.6006, L509.4006, L100.0100, L501.9985, L500.4050, L3890.6102 #### [facility] [facility] Laboratory [address] [place], [place], [phone] ([phone] Eosinophils/100 WBC (Bld) 0.8 % Normal 0-5 [facility] Comment on above: Performed By: #### L 3890.6301, BTS, L509.8002, L3890.6006, L509.4006, L100.0100, L501.9985, L500.4050, L3890.6102 #### [facility] Laboratory [address] [place], [address] (203) Erythrocyte distribution width (RBC) [Ratio] 12.4 % Normal 11.6-14.6 [facility] Comment on above: Performed By: #### L 3890.6301, BTS, L509.8002, L3890.6006, L509.4006, L100.0100, L501.9985, L500.4050, L3890.6102 #### [facility] Laboratory [address] [place], [address] (826) Hematocrit (Bld) [Volume fraction] 38.6 % Normal 37-47 [facility] Comment on above: Performed By: #### L 3890.6301, BTS, L509.8002, L3890.6006, L509.4006, L100.0100, L501.9985, L500.4050, L3890.6102 #### [facility] [address] [place], [address] (608) Hemoglobin (Bld) [Mass/Vol] 13.2 g/dL Normal 12.0-15.0 [facility] Comment on above: Performed By: #### L 3890.6301, BTS, L509.8002, L3890.6006, L509.4006, L100.0100, L501.9985, L500.4050, L3890.6102 #### [facility] Laboratory [address] [place], [address] IG% 0.400 Normal 0.0-0.9 [facility] Comment on above: Result Comment: IG% - Immature Granulocytes (promyelocytes, myelocytes and metamyelocytes) > 1% indicates that a LEFT SHIFT is Present. Performed By: #### L 3890.6301, BTS, L509.8002, L3890.6006, L509.4006, L100.0100, L501.9985, L500.4050, L3890.6102 #### [facility] [address] [place], [address] Lymphocytes/100 WBC (Bld) 20.7 % Normal 19-41 [facility] Comment on above: Performed By: #### L 3890.6301, BTS, L509.8002, L3890.6006, L509.4006, L100.0100, L501.9985, L500.4050, L3890.6102 #### [facility] Laboratory [address] [place], [address] MCH (RBC) [Entitic mass] 29.3 pg Normal 27.0-32.0 [facility] Comment on above: Performed By: #### L 3890.6301, BTS, L509.8002, L3890.6006, L509.4006, L100.0100, L501.9985, L500.4050, L3890.6102 #### [facility] [address] [place], [address] MCHC (RBC) [Mass/Vol] 34.2 g/dL Normal 32-36 [facility] Comment on above: Performed By: #### L 3890.6301, BTS, L509.8002, L3890.6006, L509.4006, L100.0100, L501.9985, L500.4050, L3890.6102 #### [facility] Laboratory [address] [place], [address] MCV (RBC) [Entitic vol] 85.6 fL Normal 81-99 [facility] Comment on above: Performed By: #### L 3890.6301, BTS, L509.8002, L3890.6006, L509.4006, L100.0100, L501.9985, L500.4050, L3890.6102 #### [facility] [address] [place], [address] Monocytes/100 WBC (Bld) 4.8 % Normal 0-10 [facility] Comment on above: Performed By: #### L 3890.6301, BTS, L509.8002, L3890.6006, L509.4006, L100.0100, L501.9985, L500.4050, L3890.6102 #### [facility] [address] [facility] [place], [address] Neutrophils/100 WBC (Bld) 72.9 % High 47-70 [facility] Comment on above: Performed By: #### L 3890.6301, BTS, L509.8002, L3890.6006, L509.4006, L100.0100, L501.9985, L500.4050, L3890.6102 #### [facility] Laboratory [address] [facility] [place], [address] Nucleated RBC (Bld) [#/Vol] 0 10*3/uL Normal 0-5 [facility] Comment on above: Performed By: #### L 3890.6301, BTS, L509.8002, L3890.6006, L509.4006, L100.0100, L501.9985, L500.4050, L3890.6102 #### [facility] [address] [place], [address] ( Platelet mean volume (Bld) [Entitic vol] 10.4 fL Normal 6.2-12.0 [facility] Comment on above: Performed By: #### L 3890.6301, BTS, L509.8002, L3890.6006, L509.4006, L100.0100, L501.9985, L500.4050, L3890.6102 #### [facility] [address] [place], [address] (905) Platelets (Bld) [#/Vol] 284 10*3/uL Normal 150-450 [facility] Comment on above: Performed By: #### L 3890.6301, BTS, L509.8002, L3890.6006, L509.4006, L100.0100, L501.9985, L500.4050, L3890.6102 #### [facility] [address] [place], [address] RBC (Bld) [#/Vol] 4.51 10*6/uL Normal 4.2-5.4 [facility] Comment on above: Performed By: #### L 3890.6301, BTS, L509.8002, L3890.6006, L509.4006, L100.0100, L501.9985, L500.4050, L3890.6102 #### [facility] [address] [place], [address] ( RDW SD 38.7 fl Normal 35.1-43.9 [facility] Comment on above: Performed By: #### L 3890.6301, BTS, L509.8002, L3890.6006, L509.4006, L100.0100, L501.9985, L500.4050, L3890.6102 #### [facility] Laboratory [address] [place], [address] WBC (Bld) [#/Vol] 12.0 10*3/uL High 4.4-11.0 [facility] Comment on above: Performed By: #### L 3890.6301, BTS, L509.8002, L3890.6006, L509.4006, L100.0100, L501.9985, L500.4050, L3890.6102 #### [facility] Laboratory [address] [place], [place], [phone] Carbon dioxide, total [Moles /volume] in Central venous bloodOrdered By: Kaycee Pathak on 02-28-2025 CO2 [Moles/Vol] 21.2 mmol/L 21.0-32.0 [facility] Cervical or vagninal specime n microscopic examination by cytology stain (reported asOrdered By: Kaycee Pathak on 02-28-2025 Cytology report Cyto stain Doc (Cvx/Vag) Comment . [facility] Comment on above: The Pap smear is a s creening test designed to aid in thedetection of premalignant and malignant conditions of theuterine cervix. It is not a diagnostic procedure andshould not be used as the sole means of detecting cervicalcancer. Both false-positive and false-negative reports dooccur. Chlamydia trachomatis rRNA d etection by probe and target amplification methodOrdered By: Kaycee Pathak on 02-28-2025 C. trachomatis rRNA RASHEED+probe Ql (Unsp spec) Negative Negative [facility] Chloride assayOrdered By: Akbar Pathak on 02-28-2025 Chloride [Moles/Vol] 99 mmol/L 98-108 [facility] Comprehensive Metabolic Prof ilon 02-28-2025 Albumin [Mass/Vol] 4.3 g/dL Normal 3.5-5.0 [facility] Comment on above: Performed By: #### L 3890.6301, BTS, L509.8002, L3890.6006, L509.4006, L100.0100, L501.9985, L500.4050, L3890.6102 #### [facility] [address] [place], [place], [id number] Albumin/Globulin [Mass ratio] 1.6 {ratio} Normal 0.9-2.4 [facility] Comment on above: Performed By: #### L 3890.6301, BTS, L509.8002, L3890.6006, L509.4006, L100.0100, L501.9985, L500.4050, L3890.6102 #### [facility] Laboratory [address] [place], [place], [id number] ALK PHOS 68 U/L Normal 35-104 [facility] Comment on above: Performed By: #### L 3890.6301, BTS, L509.8002, L3890.6006, L509.4006, L100.0100, L501.9985, L500.4050, L3890.6102 #### [facility] Laboratory [address] [place], [place], [id number] ALT [Catalytic activity/Vol] 19 U/L Normal <=34 [facility] Comment on above: Performed By: #### L 3890.6301, BTS, L509.8002, L3890.6006, L509.4006, L100.0100, L501.9985, L500.4050, L3890.6102 #### [facility] Laboratory [address] [place], [place], [id number] AST [Catalytic activity/Vol] 15 U/L Normal <=31 [facility] Comment on above: Performed By: #### L 3890.6301, BTS, L509.8002, L3890.6006, L509.4006, L100.0100, L501.9985, L500.4050, L3890.6102 #### [facility] Laboratory [address] [place], [address] Bilirubin [Mass/Vol] 0.57 mg/dL Normal 0.00-1.30 [facility] Comment on above: Performed By: #### L 3890.6301, BTS, L509.8002, L3890.6006, L509.4006, L100.0100, L501.9985, L500.4050, L3890.6102 #### [facility] [address] [place], [address] BUN/CRE 16.6 RATIO Normal 10-20 [facility] Comment on above: Performed By: #### L 3890.6301, BTS, L509.8002, L3890.6006, L509.4006, L100.0100, L501.9985, L500.4050, L3890.6102 #### [facility] Laboratory [address] [place], [address] Calcium [Mass/Vol] 9.3 mg/dL Normal 7.6-11.0 [facility] Comment on above: Performed By: #### L 3890.6301, BTS, L509.8002, L3890.6006, L509.4006, L100.0100, L501.9985, L500.4050, L3890.6102 #### [facility] Laboratory [address] [place], [address] Chloride [Moles/Vol] 99 mmol/L Normal 98-108 [facility] Comment on above: Performed By: #### L 3890.6301, BTS, L509.8002, L3890.6006, L509.4006, L100.0100, L501.9985, L500.4050, L3890.6102 #### [facility] [address] [place], [address] CO2 [Moles/Vol] 21.2 mmol/L Normal 21.0-32.0 [facility] Comment on above: Performed By: #### L 3890.6301, BTS, L509.8002, L3890.6006, L509.4006, L100.0100, L501.9985, L500.4050, L3890.6102 #### [facility] Laboratory [address] [place], [address] Creatinine [Mass/Vol] 0.70 mg/dL Normal 0.70-1.20 [facility] Comment on above: Performed By: #### L 3890.6301, BTS, L509.8002, L3890.6006, L509.4006, L100.0100, L501.9985, L500.4050, L3890.6102 #### [facility] Laboratory [address] [place], [place], [phone] (665) GAP 14 Normal 5-15 [facility] Comment on above: Performed By: #### L 3890.6301, BTS, L509.8002, L3890.6006, L509.4006, L100.0100, L501.9985, L500.4050, L3890.6102 #### [facility] Laboratory [address] [place], [address] GFR/1.73 sq M.predicted among non-blacks MDRD (S/P/Bld) [Vol rate/Area] 120 mL/min/{1.73_m2} Normal >60 [facility] Comment on above: Result Comment: mL/m in/1.73m2 CKD-EPI Creatinine Equation (2020) Performed By: #### L 3890.6301, BTS, L509.8002, L3890.6006, L509.4006, L100.0100, L501.9985, L500.4050, L3890.6102 #### [facility] Laboratory [address] [place], [place], [phone] (332) Globulin (S) [Mass/Vol] 2.7 g/dL Normal 2.2-4.2 [facility] Comment on above: Performed By: #### L 3890.6301, BTS, L509.8002, L3890.6006, L509.4006, L100.0100, L501.9985, L500.4050, L3890.6102 #### [facility] Laboratory [address] [place], [address] Glucose [Mass/Vol] 75 mg/dL Normal 70-99 [facility] Comment on above: Performed By: #### L 3890.6301, BTS, L509.8002, L3890.6006, L509.4006, L100.0100, L501.9985, L500.4050, L3890.6102 #### [facility] Laboratory [address] [place], [address] Potassium [Moles/Vol] 3.4 mmol/L Normal 3.3-5.1 [facility] Comment on above: Performed By: #### L 3890.6301, BTS, L509.8002, L3890.6006, L509.4006, L100.0100, L501.9985, L500.4050, L3890.6102 #### [facility] Laboratory [address] [place], [address] Sodium [Moles/Vol] 135 mmol/L Normal 133-145 [facility] Comment on above: Performed By: #### L 3890.6301, BTS, L509.8002, L3890.6006, L509.4006, L100.0100, L501.9985, L500.4050, L3890.6102 #### [facility] Laboratory [address] [place], [address] T PROT 7.0 g/dL Normal 5.9-8.4 [facility] Comment on above: Performed By: #### L 3890.6301, BTS, L509.8002, L3890.6006, L509.4006, L100.0100, L501.9985, L500.4050, L3890.6102 #### [facility] Laboratory [address] [place], [place], [id number] Urea nitrogen [Mass/Vol] 12 mg/dL Normal 4-19 [facility] Comment on above: Performed By: #### L 3890.6301, BTS, L509.8002, L3890.6006, L509.4006, L100.0100, L501.9985, L500.4050, L3890.6102 #### [facility] Laboratory [address] [facility] [place], [place], [id number] Eosinophil percentageOrdered By: Kaycee Pathak on 02-28-2025 Eosinophils/100 WBC (Bld) 0.8 % 0-5 [facility] Erythrocyte distribution wid th ratioOrdered By: Kaycee Pathak on 02-28-2025 Erythrocyte distribution width (RBC) [Ratio] 12.4 % 11.6-14.6 [facility] Erythrocyte distribution wid th standard deviationOrdered By: Kaycee Pathak on 02-28-2025 Erythrocyte distribution width (RBC) [Ratio] 38.7 fl 35.1-43.9 [facility] Glomerular filtration rate ( GFR) estimation/1.73 sq m using serum, plasma, or whole bOrdered By: Kaycee Pathak on 02-28-2025 GFR/1.73 sq M.predicted among non-blacks MDRD (S/P/Bld) [Vol rate/Area] 120 mL/min/{1.73_m2} >60 [facility] Comment on above: mL/min/1.73m2 CKD-EP I Creatinine Equation (2020) HIVon 02-28-2025 HIV Non-Reactive Normal Nonreactive [facility] Comment on above: Result Comment: Non- Reactive Reactive Repeatedly reactive samples must be confirmed according to CDC recommended confirmatory algorithms. The subresults for either HIVAG or AHIV can be used as an aid in the selection of the confirmation algorithm for reactive samples. Send out specimens with Reactive results to [facility] for confirmation. Order the HIV antibody detection and differentiation: lc#[id number] Performed By: #### L 3890.6301, BTS, L509.8002, L3890.6006, L509.4006, L100.0100, L501.9985, L500.4050, L3890.6102 ####[facility] [id number] [place], [address] Hematocrit Auto (Bld) [Volum e fraction]Ordered By: Kaycee Pathak on 02-28-2025 Hematocrit (Bld) [Volume fraction] 38.6 % 37-47 [facility] Hemoglobin A1con 02-28-2025 HbA1c (Bld) [Mass fraction] 4.9 % Normal <=5.6 [facility] Comment on above: Result Comment: Norm al < 5.7 % Prediabetic 5.7 - 6.4 % Diabetic >or= 6.5 % Please note range changes. Performed By: #### L 3890.6301, BTS, L509.8002, L3890.6006, L509.4006, L100.0100, L501.9985, L500.4050, L3890.6102 ####[facility] [id number] [place], [address] Hemoglobin A1c percentageOrd ered By: Kaycee Pathak on 02-28-2025 HbA1c (Bld) [Mass fraction] 4.9 % <5.7 [facility] Comment on above: Normal < 5.7 % Predi abetic 5.7 - 6.4 % Diabetic >or= 6.5 % Please note range changes. Hemoglobin measurementOrdere d By: Kaycee Pathak on 02-28-2025 Hemoglobin (Bld) [Mass/Vol] 13.2 g/dL 12.0-15.0 [facility] Hepatitis C Antibodyon 02-28 Hepatitis C Ab Non-Reactive Normal Nonreactive [facility] Comment on above: Result Comment: Reac tive: Presumptive evidence of antibodies to HCV. Follow CDC recommendations for supplemental testing. Non-Reactive: Antibodies to HCV were not detected; does not exclude the possibility of exposure to HCV Reactive Results are presumptive evidence of antibodies to HCV. Follow CDC recommendations for supplemental testing. Order confirmation testing: HCV Quant by PCR testing - HCVPCR lc#[id number] Non Reactive: < 0.8 Equivocal: >/= 0.8 to < 1.0 Reactive: >/= 1.0 The CDC requires that a reactive/equivocal HCV antibody result be sent out for confirmation. HCV Quant by PCR testing. Performed By: #### L 3890.6301, BTS, L509.8002, L3890.6006, L509.4006, L100.0100, L501.9985, L500.4050, L3890.6102 ####[facility] [id number] [place], [address] Immature granulocytes/100 WB C Auto (Bld)Ordered By: Kaycee Pathak on 02-28-2025 Immature granulocytes/100 WBC (Bld) 0.400 % 0.0-0.9 [facility] Comment on above: IG% - Immature Granu locytes (promyelocytes, myelocytes and metamyelocytes) > 1% indicates that a LEFT SHIFT is Present. L3890.6102on 02-28-2025 HEP B Surf Ag Non-Reactive Normal Nonreactive [facility] Comment on above: Result Comment: Reac tive: Presumptive evidence of HBV. Repeatedly reactive samples must be confirmed using a neutralization test ([employer] HBsAg Confirmatory Test) Non-Reactive: HBsAg not detected; does not exclude the possibility of exposure to HBV Performed By: #### L 3890.6301, BTS, L509.8002, L3890.6006, L509.4006, L100.0100, L501.9985, L500.4050, L3890.6102 ####[facility] [id number] [place], [place], [id number] L509.4006on 02-28-2025 Rubella IgG REAC Normal Nonreactive [facility] Comment on above: Result Comment: Anti body Result: Interpretation Non-Reactive: Non-Immune Reactive: Immune The following results were obtained with the [employer] Rubella IgG assay. Results from assays of other manufacturers cannot be used interchangeably. Performed By: #### L 3890.6301, BTS, L509.8002, L3890.6006, L509.4006, L100.0100, L501.9985, L500.4050, L3890.6102 ####[facility] [id number] [place], [address] Laboratory - Chemistry and C hemistry - challengeOrdered By: Kaycee Pathak on 02-28-2025 AST [Catalytic activity/Vol] 15 U/L <32 [facility] Laboratory - CytologyOrdered By: Kaycee Pathak on 02-28-2025 Airplane Flight Attendant Cyto stain Nom (Cvx/Vag) [ID] Comment . [facility] Comment on above: Eleazar Yo tolcallie Laboratory - Microbiology an d Antimicrobial susceptibilityOrdered By: Kaycee Pathak on 02-28-2025 HBV surface Ag Ql (S) Non-Reactive Nonreactive [facility] Comment on above: Reactive: Presumptiv e evidence of HBV. Repeatedly reactive samples must be confirmed using a neutralization test ([employer] HBsAg Confirmatory Test)Non-Reactive: HBsAg not detected; does not exclude the possibility of exposure to HBV Laboratory - Miscellaneous t estsOrdered By: Kaycee Pathak on 02-28-2025 Service comment (Unsp spec) [Interp] . . [facility] MCV (mean corpuscular volume ) determinationOrdered By: Kaycee Pathak on 02-28-2025 MCV (RBC) [Entitic vol] 85.6 fL 81-99 [facility] Mean corpuscular hemoglobin (MCH) determinationOrdered By: Kaycee Pathak on 02-28-2025 MCH (RBC) [Entitic mass] 29.3 pg 27.0-32.0 [facility] Mean corpuscular hemoglobin concentration (MCHC) determinationOrdered By: Kaycee Pathak on 02-28-2025 MCHC (RBC) [Mass/Vol] 34.2 g/dL 32-36 [facility] Mean platelet volume determi nationOrdered By: Kaycee Pathak on 02-28-2025 Platelet mean volume (Bld) [Entitic vol] 10.4 fL 6.2-12.0 [facility] Monocyte percentageOrdered B y: Kaycee Pathak on 02-28-2025 Monocytes/100 WBC (Bld) 4.8 % 0-10 [facility] Neisseria gonorrhoeae nuclei c acid detection by amplified probe techniqueOrdered By: Kaycee Pathak on 02-28-2025 N. gonorrhoeae DNA RASHEED+probe Ql (Unsp spec) Negative Negative [facility] Comment on above: Performed at: =[address] [id number] Director: Neda Marie MD, Phone: [phone] Neutrophil percentageOrdered By: Kaycee Pathak on 02-28-2025 Neutrophils/100 WBC (Bld) 72.9 % High 47-70 [facility] No Panel InformationOrdered By: Kaycee Pathak on 02-28-2025 Pap Smear Specimen Adequacy Comment . [facility] Comment on above: Satisfactory for bobby luation. Endocervical and/or squamous metaplasticcells (endocervical component) are present. HIV (1&2) Antibody Non-Reactive Nonreactive [facility] Comment on above: Non-ReactiveReactive Repeatedly reactive samples must be confirmed according to CDC recommended confirmatory algorithms. The subresults for either HIVAG or AHIV can be used as an aid in the selection of the confirmation algorithm for reactive samples.Send out specimens with Reactive results to [facility] for confirmation.Order the HIV antibody detection and differentiation: #[id number] Nucleated red blood cell per centageOrdered By: Kaycee Pathak on 02-28-2025 Nucleated RBC/100 WBC (Bld) [Ratio] 0 % 0-5 [facility] Textile Technical Officer Office Visit Reporton 02-28-2025 Textile Technical Officer Office Visit Report [facility] [address], [address] [place] [address] OFFICE VISIT Date of Service: 02/28/25 MR#: [id number] Acct: [id number] Name: CAMERONDAYAMI BOUDREAUXMARITAKRISTA STEPHENSON Rep #: [id number] : 1995 Provider: Dr. 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 current occupational exposures/hazards: No pets and animals: Yes (Not managing litterbox) pets and animals: cat(s) history of recent travel: No sexually active: Yes Smoking Status: Never smoker alcohol intake: current alcohol intake frequency: holidays/special occasions only details: Not while substance use type: does not use well-balanced diet: about half the time caffeine: Yes Type: tea eating out: 1-3 times/week during the past year weight has: remained stable what type of physical activity do you participate in: walking and weight training frequency: 3-4 times per week duration: 15-30 minutes/day josselyn/adventism: Baptism seatbelt use: always do you feel safe at home: Yes 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: : 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 OB Visit KUNAL Calculator Estimated Delivery Date Method Current WG Current Estimate 10/06/25 LMP (Certain) 8w 4d Other Estimates 10/12/25 Ultrasound #1 7w 5d Estimated Due Date: 10/06/25 Expected Delivery Route/Plan Labor Preferences- CB/BF classes: [] labor support person: [] labor intervention preferences: [] pain management options preferred: [] cut cord/dad catch: [] : [] PP control planned: [] discussed possible routes of delivery and associated risks: [] special requests: [] Specific Issue/Plans Covid status: [] Flu vaccine: [] Tdap vaccine: [] Rhogam: [] LARC form signed: [] Problem list reviewed and updated with the most current plan of care details and appropriate orders placed. Relevant counseling for the gestational age provided. Continue routine care and follow up unless otherwise noted in visit notes/problem list details Initial Weight: Not Recorded Date -???-???-???-???-??? -???-???-???-???-??? -???-???- EGA Weight BP Urine Prot -???-???-???-???-??? -???-???-???-???-??? -???-???- Glucose FHR FuHt Pres Dilation -???-???-???-???-??? -???-???-???-???-??? -???-???- Effaced St Visit Note 02/28/25 -???-???-???-???-??? -???-???-???-???-??? -???-???- 8w 4d 186 lb 8 oz 123/80 -???-???-???-???-??? -???-???-???-???-??? -???-???- 170 -???-???-???-???-??? -???-???-???-???-??? -???-???- SM- crl 1.4 cm not cons with lmp Menstrual History Last Menstrual Period: 12/29/24 Reported LMP: definite Normal amount/duration: Yes Frequency in days: 29 On hormonal BC at conception: No hCG+: 01/28/25 Antepartum Record Genetic Screening: Congenital Heart Defect: Other, Neural Tube Defect: Other, Hemoglobinopathy Or Carrier: Other, Cystic Fibrosis: Other, Chromosome Abnormality: Other, Segundo-Sachs: Other, Hemophilia: Other, Intellectual Disability/Autism: Other, Recurrent Loss/Stillbirth: Other, Other Structural Defect: Other, Other Genetic Disease: Other and Maternal Metabolic Disorder: Other Infection History: Live with someone with TB or Exposed to TB: (more content not included)... Normal [facility] Platelet countOrdered By: Akbar Pathak on 02-28-2025 Platelets (Bld) [#/Vol] 284 10*3/uL 150-450 [facility] Potassium measurement (mass/ volume)Ordered By: Kaycee Pathak on 02-28-2025 Potassium (Unsp spec) [Mass/Vol] 3.4 mmol/L 3.3-5.1 [facility] Protein+Creatinine Ratio,Uri neon 02-28-2025 PROT:CRE RATIO 76 mg/g CRE Normal 0-200 [facility] Comment on above: Performed By: #### L 7000.1800, M100.2200, L7400.0353, L501.0900 #### [facility] Laboratory [address] [place], [place], [id number] Protein (U) [Mass/Vol] 16.9 mg/dL High 0.0-12.0 [facility] Comment on above: Performed By: #### L 7000.1800, M100.2200, L7400.0353, L501.0900 #### [facility] Laboratory [address] [place], [address] UR CREAT 223.00 mg/dL High 28.00-217.00 [facility] Comment on above: Performed By: #### L 7000.1800, M100.2200, L7400.0353, L501.0900 #### [facility] Laboratory [address] [place], [address] RBC Auto (Bld) [#/Vol]Ordere d By: Kaycee Pathak on 02-28-2025 RBC (Bld) [#/Vol] 4.51 10*6/uL 4.2-5.4 [facility] Random urine creatinine mann urement (mass/volume)Ordered By: Kaycee Pathak on 02-28-2025 Creatinine Unsp time (U) [Mass/Vol] 223.00 mg/dL High 28.00-217.00 [facility] Serum creatinine measurement (mass/volume)Ordered By: Kaycee Pathak on 02-28-2025 Creatinine [Mass/Vol] 0.70 mg/dL 0.70-1.20 [facility] Serum globulin measurementOr dered By: Kaycee Pathak on 02-28-2025 Globulin (S) [Mass/Vol] 2.7 g/dL 2.2-4.2 [facility] Serum glucose measurement (m ass/volume)Ordered By: Kaycee Pathak on 02-28-2025 Glucose [Mass/Vol] 75 mg/dL 70-99 [facility] Serum or plasma alanine mendoza otransferase (ALT) measurementOrdered By: Kaycee Pathak on 02-28-2025 ALT [Catalytic activity/Vol] 19 U/L <35 [facility] Serum or plasma albumin mann urement (mass/volume)Ordered By: Kaycee Pathak on 02-28-2025 Albumin [Mass/Vol] 4.3 g/dL 3.5-5.0 [facility] Serum or plasma albumin/glob ulin mass ratioOrdered By: Kaycee Pathak on 02-28-2025 Albumin/Globulin [Mass ratio] 1.6 {ratio} 0.9-2.4 [facility] Serum or plasma alkaline peng sphatase measurementOrdered By: Kaycee Pathak on 02-28-2025 ALP [Catalytic activity/Vol] 68 U/L 35-104 [facility] Serum or plasma calcium mann urement (mass/volume)Ordered By: Kaycee Pathak on 02-28-2025 Calcium [Mass/Vol] 9.3 mg/dL 7.6-11.0 [facility] Serum or plasma urea nitroge n measurement (mass/volume)Ordered By: Kaycee Pathak on 02-28-2025 Urea nitrogen [Mass/Vol] 12 mg/dL 4-19 [facility] Sodium levelOrdered By: Dorian Pathak on 02-28-2025 Sodium [Moles/Vol] 135 mmol/L 133-145 [facility] Syphilis Antibodieson 2024 Syphilis Abs Non-Reactive Normal Nonreactive [facility] Comment on above: Performed By: #### L 3890.6301, BTS, L509.8002, L3890.6006, L509.4006, L100.0100, L501.9985, L500.4050, L3890.6102 ####[facility] [id number] [facility] [place], [place], [id number] Total proteinOrdered By: Casimiro Pathak on 02-28-2025 Protein [Mass/Vol] 7.0 g/dL 5.9-8.4 [facility] Type AND Screenon 02-28-2025 Ab SCREEN GEL Negative Normal [facility] Comment on above: Order Comment: PN Performed By: #### L 3890.6301, BTS, L509.8002, L3890.6006, L509.4006, L100.0100, L501.9985, L500.4050, L3890.6102 #### [facility] Laboratory [address] [place], [address] Urine cultureOrdered By: Casimiro Pathak on 02-28-2025 Bacteria identified Cx Nom (U) Positive Abnormal [facility] Urine protein measurement (m ass/volume)Ordered By: Kaycee Alyony on 02-28-2025 Protein (U) [Mass/Vol] 16.9 mg/dL High 0.0-12.0 [facility] Urine protein/creatinine mas s ratioOrdered By: Kaycee Annguille on 02-28-2025 Protein/Creatinine (U) [Mass ratio] 76 mg/g CRE 0-200 [facility] White blood cell (WBC) count Ordered By: Kaycee Zo on 02-28-2025 WBC (Bld) [#/Vol] 12.0 10*3/uL High 4.4-11.0 [facility] Laboratory - Chemistry and C hemistry - challengeOrdered By: Kaycee Pathak on 02-11-2025 HCG ( test) Ql (U) Positive [facility] Office Visit Reporton 2024 Office Visit Report [facility] [address] [place] [address] OFFICE VISIT Date of Service: MR#: [id number] Acct: [id number] Patient: MARITA BERGERON Rep # : [id number] : 1995 Provider: Thuy Holt RN Age/Sex: 29/F Location: [facility] Status: Signed Intake Vital Signs 09/06/24 10:59 02/11/25 08:43 Height 4 ft 10 in 4 ft 10 in Weight: 185 lb 8 oz BMI 38.7 BP 120/72 Intake Visit Reasons: Amb Documentation Chief Complaint: In person PN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: No Is patient in pain?: No Allergies No Known Allergies Allergy (Verified 02/11/25 08:07) Medications ???Medication ???Instructions ???Recorded ???Confirmed ???Type docosahexaenoic acid 200 mg mg PO 02/11/25 02/11/25 History capsule ( DHA) Is last menstrual period known: Yes Post menopausal: No Patient : Yes Nurse's Note: Pt here for PNOB. Office UPT: positive/negative. Vitals WNL. PNOB questions completed. Problem list, allergies, and medications updated. Results POC Urine Office , Urine Positive Last Edit by Thuy Holt RN on 02/11/25 08:45 Assessment and Plan Assessment and Plan (1) Amenorrhea: Orders: Orders POC Urine Today N91.2 - Amenorrhea, unspecified CBC W/Diff, Automated Today O09.90 - Supervision of high risk , unspecified, unspecified trimester Type Screen Today O09.90 - Supervision of high risk , unspecified, unspecified trimester Rubella IgG Today O09.90 - Supervision of high risk , unspecified, unspecified trimester Hepatitis C Antibody Today O09.90 - Supervision of high risk , unspecified, unspecified trimester Hepatitis B Surface Antigen Today O09.90 - Supervision of high risk , unspecified, unspecified trimester Culture, Urine Today O09.90 - Supervision of high risk , unspecified, unspecified trimester Syphilis Antibodies Today O09.90 - Supervision of high risk , unspecified, unspecified trimester Chlamydia/GC RASHEED aptima Today O09.90 - Supervision of high risk , unspecified, unspecified trimester HIV Today O09.90 - Supervision of high risk , unspecified, unspecified trimester Hemoglobin A1c Today O09.90 - Supervision of high risk , unspecified, unspecified trimester, O99.210 - Obesity complicating , unspecified trimester Comprehensive Metabolic Profil Today I10 - Essential (primary) hypertension, O09.90 - Supervision of high risk , unspecified, unspecified trimester Protein+Creatinine Ratio,Urine Today I10 - Essential (primary) hypertension, O09.90 - Supervision of high risk , unspecified, unspecified trimester PAP I-G w/rfx hrHPV-Aptima Today Z12.4 - Encounter for screening for malignant neoplasm of cervix Plan confirmed and NOB scheduled. 02/11/25 1057 Date Ruth Thurston NP DICTAPHONE MECHANIC-C Pauly Signature: Date (if applicable) CC: Normal [facility] Textile Technical Officer Office Visit Reporton 09-06-2024 Textile Technical Officer Office Visit Report [facility] [address] [place] [address], [address] [place] [address] OFFICE VISIT Date of Service: 09/06/24 MR#: [id number] Acct: [id number] Name: MARITA BERGERON Rep #: [id number] : 1995 Provider: CHUY Li ams Age/Sex: 29/F Location: [facility] Status: Signed Intake Vital Signs 09/08/23 15:58 10/06/23 08:47 09/06/24 10:56 09/06/24 10:59 Height 4 ft 10 in 4 ft 10 in 4 ft 10 in 4 ft 10 in Weight: 190 lb 6 oz 179 lb BMI 39.7 37.4 BP 126/82 H 117/80 Blood Pressure Location Rt brachial Position Sitting Respiration 18 Pulse 78 Pulse Source Monitor Temp 98.7 F Pulse Oximetry (%) 98 Oxygen Delivery Method room air 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) Strawhat Inspector And Packer Required: No Is patient in pain?: No Allergies No Known Allergies Allergy (Verified 09/06/24 10:57) Medications ???Medication ???Instructions ???Recorded ???Confirmed ???Type drospirenone 3 mg-ethinyl 1 tab PO DAILY #84 tabs 09/06/24 09/06/24 Rx estradiol 0.03 mg tablet Is last menstrual period known: Yes Last Menstrual Period: 08/09/24 Post menopausal: No Patient : No : No Control Method[facility] Medical History Obesity Preventative health care Right shoulder pain Encounter for school health examination Hypertension Elevated blood-pressure reading without diagnosis of hypertension PCOS (polycystic ovarian syndrome) Chronic back pain Shoulder tendinitis Left shoulder pain Family History Other CVA (cerebral vascular accident) Colon cancer Diabetes Heart disease Social History household members: spouse current occupational status: employed 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 Smoking Status: Never smoker alcohol intake: current alcohol intake frequency: holidays/special occasions only substance use type: does not use what type of physical activity do you participate in: walking frequency: 1-2 times per week seatbelt use: always do you feel safe at home: Yes 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: - Joah History 0 Elective abortions Hx Para Spontaneous abortions Hx # Term Pregnancies Ectopic pregnancies Hx # Pregnancies Multiple births # of living children HPI Encounter for routine gynecological examination Details: MARITA BOUDREAUX is a 29 year old who presents for annual exam. considering TTC in the next year. Last PAP: 2021 History of abnormal PAP: Last mammogram: due at 40 History of abnormal mammogram: Colon cancer screening: due at 45 Other preventative health care screenings: Mathew Female Reproductive History Last Menstrual Period: 08/09/24 Cycle Length: 21-35 Bleeding Duration: 3 Questions: metorrhagia: Yes, sexually active: Yes, dyspareunia: No and PCB: No Menopausal Symptoms: No hot flashes, No night sweats and No mood changes ROS Const Constitutional: Reports system reviewed and no additional complaints, except as documented; Denies night sweats Cardio Card: Reports system reviewed and no additional complaints, except as documented Resp Resp: Reports system reviewed and no additional complaints, except as documented GI GI: Reports system reviewed and no additional complaints, except as documented : Reports system reviewed and no additional complaints, except as documented; Denies difficulty voiding, dysuria, hot flashes or urinary frequency Skin Skin/Breast: Reports system reviewed and no additional complaints, except as documented Neuro Neuro: Reports system reviewed and no additional complaints, except as documented Psych Psych: Reports system reviewed and no additional complaints, except as documented; Denies anhedonia, anxiety or depression Exam Const General: cooperative, healthy appearing, comfortable and no acute distress Orientation: alert, awake and oriented x3 Neck Neck: normal visual inspection and full ROM Thyroid: thyroid normal Chest Breast inspection: normal inspection of the breasts and normal inspection of the axillae Breast palpation: normal palpation of the breasts and normal palpation of the axillae Resp Effort Inspection: normal respiratory effort, able to speak in complete sentences and symmetric chest movement GI Inspection: normal to inspection Palpation: soft Rectal Exam: visual inspection normal External Female Exam: normal external appearance and normal appearance of the urethra Urethra: normal appearance of the urethra Speculum Exam - Vagina: normal appearance of the vagina and normal vaginal discharge Speculum Exam - Cervix: normal appearance of the cervix and nontender (more content not included)... Normal [facility] Serum or plasma thyroperoxid ase antibody assay (units/volume)Ordered By: Alexey Good on 10-06-2023 TPO Ab Qn [IU]/mL 0-34 [facility] Comment on above: Performed at: [address] [id number] Director: Nilo Flores PhD, Phone: [phone] Absolute lymphocyte countOrd ered By: Ralph Bateman on 09-18-2023 Lymphocytes Auto (Unsp spec) [#/Vol] 3.06 10*3/uL 0.83-4.51 [facility] Basophil percentageOrdered B y: Ralph Bateman on 09-18-2023 Basophils/100 WBC (Bld) 0.5 % 0-1 [facility] Bilirubin [Mass/Vol] 0.40 mg/dL 0.20-1.00 [facility] Comment on above: For patients on eltr ombopag therapy, use of Dimension [place] TBIL is not recommended. Chloride [Moles/Vol] 104 mmol/L 98-107 [facility] Eosinophils/100 WBC (Bld) 1.1 % 0-5 [facility] Glucose [Mass/Vol] 89 mg/dL 74-106 [facility] Neutrophils (Bld) [#/Vol] 6.2 10*3/uL 2.0-7.7 [facility] Neutrophils/100 WBC (Bld) 62.6 % 47-70 [facility] Potassium [Moles/Vol] 4.0 mmol/L 3.5-5.1 [facility] Protein [Mass/Vol] 7.4 g/dL 6.4-8.2 [facility] Sodium [Moles/Vol] 137 mmol/L 136-145 [facility] WBC (Bld) [#/Vol] 9.9 10*3/uL 4.4-11.0 [facility] Blood erythrocytes count (nu mber/volume)Ordered By: Ralph Bateman on 09-18-2023 RBC (Bld) [#/Vol] 4.89 10*6/uL 4.2-5.4 [facility] Blood hemoglobin measurement (mass/volume)Ordered By: Ralph Bateman on 09-18-2023 Hemoglobin (Bld) [Mass/Vol] 13.6 g/dL 12.0-15.0 [facility] Blood lymphocytes/100 leukoc ytesOrdered By: Ralph Bateman on 09-18-2023 Lymphocytes/100 WBC (Bld) 31.0 % 19-41 [facility] Blood monocytes/100 leukocyt esOrdered By: Ralph Bateman on 09-18-2023 Monocytes/100 WBC (Bld) 4.5 % 0-10 [facility] Blood platelet mean volumeOr dered By: Ralph Bateman on 09-18-2023 Platelet mean volume (Bld) [Entitic vol] 10.1 fL 6.2-12.0 [facility] Determination of erythrocyte mean corpuscular volume (MCV)Ordered By: Ralph Bateman on 09-18-2023 MCV (RBC) [Entitic vol] 86.1 fL 81-99 [facility] Hematocrit Auto (Bld) [Volum e fraction]Ordered By: Ralph Bateman on 09-18-2023 Hematocrit (Bld) [Volume fraction] 42.1 % 37-47 [facility] Laboratory - Chemistry and C hemistry - challengeOrdered By: Ralph Bateman on 09-18-2023 ALP [Catalytic activity/Vol] 78 U/L 45-117 [facility] ALT [Catalytic activity/Vol] 16 U/L 13-56 [facility] CO2 [Moles/Vol] 26.0 mmol/L 21.0-32.0 [facility] Cobalamin (Vitamin B12) [Mass/Vol] 317 pg/mL 211-911 [facility] Globulin (S) [Mass/Vol] 3.9 g/dL 2.2-4.2 [facility] Magnesium [Mass/Vol] 2.0 mg/dL 1.6-2.6 [facility] Urea nitrogen/Creatinine [Mass ratio] 12.2 mg/mg 08-18 [facility] Laboratory - Hematology and Cell countsOrdered By: Ralph Bateman on 09-18-2023 Erythrocyte distribution width (RBC) [Entitic vol] 37.3 fL 35.1-43.9 [facility] Erythrocyte distribution width (RBC) [Ratio] 11.9 % 11.6-14.6 [facility] Immature granulocytes/100 WBC (Bld) 0.300 % 0.0-0.9 [facility] Comment on above: IG% - Immature Granu locytes (promyelocytes, myelocytes and metamyelocytes) > 1% indicates that a LEFT SHIFT is Present. MCH (RBC) [Entitic mass] 27.8 pg 27.0-32.0 [facility] Nucleated RBC/100 WBC (Bld) [Ratio] 0 % 0-5 [facility] MCHC Auto (RBC) [Mass/Vol]Or dered By: Ralph Bateman on 09-18-2023 MCHC (RBC) [Mass/Vol] 32.3 g/dL 32-36 [facility] No Panel InformationOrdered By: Ralph Bateman on 09-18-2023 Estimated GFR (MDRD) Amer 96 mL/min >60 [facility] Comment on above: GFR Calc Estimated GFR (MDRD) Non-Af Amer 79 mL/min >60 [facility] Comment on above: Non- GFR Calc Thyroid Stimulating Hormone (TSH) 2.57 uIU/mL 0.358-3.74 [facility] Platelets bldOrdered By: Kj Bateman on 09-18-2023 Platelets (Bld) [#/Vol] 332 10*3/uL 150-450 [facility] Serum or plasma albumin mann urement (mass/volume)Ordered By: Ralph Bateman on 09-18-2023 Albumin [Mass/Vol] 3.5 g/dL 3.2-5.0 [facility] Serum or plasma albumin/glob ulin mass ratioOrdered By: Ralph Bateman on 09-18-2023 Albumin/Globulin [Mass ratio] 0.9 {ratio} 0.9-2.4 [facility] Serum or plasma calcium mann urement (mass/volume)Ordered By: Ralph Bateman on 09-18-2023 Calcium [Mass/Vol] 8.9 mg/dL 8.5-10.1 [facility] Serum or plasma creatinine m easurement (mass/volume)Ordered By: Ralph Bateman on 09-18-2023 Creatinine [Mass/Vol] 0.90 mg/dL 0.55-1.02 [facility] Comment on above: The validity of the calculated GFR & GFRAA in patients over 70 years has not been determined. Clinical correlation is essential. Serum or plasma urea nitroge n measurement (mass/volume)Ordered By: Ralph Bateman on 09-18-2023 Urea nitrogen [Mass/Vol] 11 mg/dL 7-18 [facility] Thin prep Papanicolaou smear with manual screeningOrdered By: Ralph Bateman on 09-18-2023 Thin prep Papanicolaou smear with manual screening 13 U/L 15-37 [facility] Thin prep Papanicolaou smear with manual screening 7 5-15 [facility] Absolute lymphocyte countOrd ered By: HEALTH ASSESSMENT on 06-12-2023 Lymphocytes Auto (Unsp spec) [#/Vol] 2.28 10*3/uL 0.83-4.51 [facility] Absolute reticulocyte countO rdered By: HEALTH ASSESSMENT on 06-12-2023 Reticulocytes (Bld) [#/Vol] 0.00 10*3/uL 0-5 [facility] Basophil percentageOrdered B y: HEALTH ASSESSMENT on 06-12-2023 Basophil percentage 3.2 mg/dL 2.5-4.9 [facility] Bilirubin [Mass/Vol] 0.40 mg/dL 0.20-1.00 [facility] Comment on above: For patients on eltr ombopag therapy, use of Dimension [place] TBIL is not recommended. Chloride [Moles/Vol] 105 mmol/L 98-107 [facility] Cholesterol [Mass/Vol] 173 mg/dL <200 [facility] Comment on above: <200 mg/dL Desirable 200-240 mg/dL Borderline >240 mg/dL High Risk Glucose [Mass/Vol] 84 mg/dL 74-106 [facility] LDH [Catalytic activity/Vol] 127 U/L 84-246 [facility] Neutrophils (Bld) [#/Vol] 6.5 10*3/uL 2.0-7.7 [facility] Potassium [Moles/Vol] 3.9 mmol/L 3.5-5.1 [facility] Protein [Mass/Vol] 7.3 g/dL 6.4-8.2 [facility] Sodium [Moles/Vol] 135 mmol/L 136-145 [facility] Triglyceride [Mass/Vol] 162 mg/dL <199 [facility] Comment on above: The drugs N-Acetylcy steine and Metamizole may falsely depress this assay.Serum Triglycerides Reference Interval Normal <150 mg/dL Borderline high 150 - 199 mg/dL High 200 - 499 mg/dL Very High > or = 500 mg/dL WBC (Bld) [#/Vol] 9.3 10*3/uL 4.4-11.0 [facility] Blood erythrocytes count (nu mber/volume)Ordered By: HEALTH ASSESSMENT on 06-12-2023 RBC (Bld) [#/Vol] 4.80 10*6/uL 4.2-5.4 [facility] Blood hemoglobin measurement (mass/volume)Ordered By: HEALTH ASSESSMENT on 06-12-2023 Hemoglobin (Bld) [Mass/Vol] 13.5 g/dL 12.0-15.0 [facility] Blood leukocytes count corre cted for nucleated erythrocytes (number/volume)Ordered By: HEALTH ASSESSMENT on 06-12-2023 WBC corrected for nucl RBC (Bld) [#/Vol] DICTAPHONE MECHANIC [facility] Blood platelet mean volumeOr dered By: HEALTH ASSESSMENT on 06-12-2023 Platelet mean volume (Bld) [Entitic vol] 10.4 fL 6.2-12.0 [facility] Determination of erythrocyte mean corpuscular volume (MCV)Ordered By: HEALTH ASSESSMENT on 06-12-2023 MCV (RBC) [Entitic vol] 86.7 fL 81-99 [facility] Direct bilirubinOrdered By: HEALTH ASSESSMENT on 06-12-2023 Bilirubin.direct [Mass/Vol] 0.11 mg/dL 0.00-0.30 [facility] Hematocrit Auto (Bld) [Volum e fraction]Ordered By: HEALTH ASSESSMENT on 06-12-2023 Hematocrit (Bld) [Volume fraction] 41.6 % 37-47 [facility] Laboratory - Chemistry and C hemistry - challengeOrdered By: HEALTH ASSESSMENT on 06-12-2023 ALP [Catalytic activity/Vol] 72 U/L 45-117 [facility] ALT [Catalytic activity/Vol] 17 U/L 13-56 [facility] Cholesterol.total/Choles terol in HDL [Mass ratio] 3.40 {ratio} [facility] [employer] CO2 [Moles/Vol] 23.0 mmol/L 21.0-32.0 [facility] Globulin (S) [Mass/Vol] 3.9 g/dL 2.2-4.2 [facility] Urea nitrogen/Creatinine [Mass ratio] 16.0 mg/mg 10-20 [facility] Laboratory - Hematology and Cell countsOrdered By: HEALTH ASSESSMENT on 06-12-2023 Erythrocyte distribution width (RBC) [Entitic vol] 38.6 fL 35.1-43.9 [facility] Erythrocyte distribution width (RBC) [Ratio] 12.2 % 11.6-14.6 [facility] MCH (RBC) [Entitic mass] 28.1 pg 27.0-32.0 [facility] Nucleated RBC/100 WBC (Bld) [Ratio] 0 % 0-5 [facility] MCHC Auto (RBC) [Mass/Vol]Or dered By: HEALTH ASSESSMENT on 06-12-2023 MCHC (RBC) [Mass/Vol] 32.5 g/dL 32-36 [facility] No Panel InformationOrdered By: HEALTH ASSESSMENT on 06-12-2023 Estimated Creatinine Clearance Calc DICTAPHONE MECHANIC [facility] Estimated GFR (MDRD) Amer 108 mL/min >60 [facility] Comment on above: GFR Calc Estimated GFR (MDRD) Non-Af Amer 90 mL/min >60 [facility] Comment on above: Non- GFR Calc Immature Granulocyte % (Auto) DICTAPHONE MECHANIC [facility] Platelets bldOrdered By: ROS [facility] ASSESSMENT on 06-12-2023 Platelets (Bld) [#/Vol] 336 10*3/uL 150-450 [facility] Review by pathologistOrdered By: HEALTH ASSESSMENT on 06-12-2023 Pathologist review Jose (Unsp spec) [Interp] DICTAPHONE MECHANIC [facility] Segmented neutrophils/100 WB C Auto (Bld)Ordered By: HEALTH ASSESSMENT on 06-12-2023 Segmented neutrophils/100 WBC (Bld) 69.8 % 47-70 [facility] Serum or plasma albumin mann urement (mass/volume)Ordered By: HEALTH ASSESSMENT on 06-12-2023 Albumin [Mass/Vol] 3.4 g/dL 3.2-5.0 [facility] Serum or plasma albumin/glob ulin mass ratioOrdered By: HEALTH ASSESSMENT on 06-12-2023 Albumin/Globulin [Mass ratio] 0.9 {ratio} 0.9-2.4 [facility] Serum or plasma calcium mann urement (mass/volume)Ordered By: HEALTH ASSESSMENT on 06-12-2023 Calcium [Mass/Vol] 9.0 mg/dL 8.5-10.1 [facility] Serum or plasma cholesterol in HDL measurement (mass/volume)Ordered By: HEALTH ASSESSMENT on 06-12-2023 Cholesterol in HDL [Mass/Vol] 51 mg/dL >40 [facility] Comment on above: The drugs N-Acetylcy steine and Metamizole may falsely depress this assay. Reference Range HDL <40 mg/dL Low HDL Cholesterol HDL >or= 60 mg/dL High HDL Cholesterol Serum or plasma cholesterol in VLDL measurement (mass/volume)Ordered By: HEALTH ASSESSMENT on 06-12-2023 Cholesterol in VLDL [Mass/Vol] 32 mg/dL 5-40 [facility] Serum or plasma creatinine m easurement (mass/volume)Ordered By: HEALTH ASSESSMENT on 06-12-2023 Creatinine [Mass/Vol] 0.81 mg/dL 0.55-1.02 [facility] Comment on above: The validity of the calculated GFR & GFRAA in patients over 70 years has not been determined. Clinical correlation is essential. Serum or plasma low density lipoprotein (LDL) cholesterol measurement (mass/volume)Ordered By: HEALTH ASSESSMENT on 06-12-2023 Cholesterol in LDL [Mass/Vol] 90 mg/dL 0-130 [facility] Serum or plasma urea nitroge n measurement (mass/volume)Ordered By: HEALTH ASSESSMENT on 06-12-2023 Urea nitrogen [Mass/Vol] 13 mg/dL 7-18 [facility] Serum or plasma uric acid me asurement (mass/volume)Ordered By: HEALTH ASSESSMENT on 06-12-2023 Urate [Mass/Vol] 5.0 mg/dL 2.6-6.0 [facility] Comment on above: The drugs N-Acetylcy steine and Metamizole may falsely depress this assay. Thin prep Papanicolaou smear with manual screeningOrdered By: HEALTH ASSESSMENT on 06-12-2023 Thin prep Papanicolaou smear with manual screening 12 U/L 15-37 [facility] Thin prep Papanicolaou smear with manual screening 7 5-15 [facility] Absolute lymphocyte counton 08-15-2022 Lymphocytes Auto (Unsp spec) [#/Vol] 3.05 10*3/uL 0.83-4.51 [facility] Work Phone: Basophil percentageon 2021 Basophils/100 WBC (Bld) 0.5 % 0-1 [facility] Work Phone: Bilirubin [Mass/Vol] 0.30 mg/dL 0.20-1.00 [facility] Work Phone: Comment on above: For patients on eltr ombopag therapy, use of Dimension [place] TBIL is not recommended. Chloride [Moles/Vol] 104 mmol/L 98-107 [facility] Work Phone: Eosinophils/100 WBC (Bld) 2.9 % 0-5 [facility] Work Phone: Glucose [Mass/Vol] 89 mg/dL 74-106 [facility] Work Phone: Neutrophils (Bld) [#/Vol] 6.6 10*3/uL 2.0-7.7 [facility] Work Phone: Neutrophils/100 WBC (Bld) 61.9 % 47-70 [facility] Work Phone: Potassium [Moles/Vol] 3.5 mmol/L 3.5-5.1 [facility] Work Phone: Protein [Mass/Vol] 7.2 g/dL 6.4-8.2 [facility] Work Phone: Sodium [Moles/Vol] 138 mmol/L 136-145 [facility] Work Phone: WBC (Bld) [#/Vol] 10.6 10*3/uL 4.4-11.0 [facility] Work Phone: Blood erythrocytes count (nu mber/volume)on 08-15-2022 RBC (Bld) [#/Vol] 4.76 10*6/uL 4.2-5.4 [facility] Work Phone: Blood hemoglobin measurement (mass/volume)on 08-15-2022 Hemoglobin (Bld) [Mass/Vol] 13.6 g/dL 12.0-15.0 [facility] Work Phone: [phone] Blood lymphocytes/100 leukoc yteson 08-15-2022 Lymphocytes/100 WBC (Bld) 28.8 % 19-41 [facility] Work Phone: [phone] Blood monocytes/100 leukocyt eson 08-15-2022 Monocytes/100 WBC (Bld) 5.6 % 0-10 [facility] Work Phone: Blood platelet mean volumeon 08-15-2022 Platelet mean volume (Bld) [Entitic vol] 9.7 fL 6.2-12.0 [facility] Work Phone: Determination of erythrocyte mean corpuscular volume (MCV)on 08-15-2022 MCV (RBC) [Entitic vol] 86.6 fL 81-99 [facility] Work Phone: Hematocrit Auto (Bld) [Volum e fraction]on 08-15-2022 Hematocrit (Bld) [Volume fraction] 41.2 % 37-47 [facility] Work Phone: Laboratory - Chemistry and C hemistry - challengeon 08-15-2022 ALP [Catalytic activity/Vol] 80 U/L 45-117 [facility] Work Phone: ALT [Catalytic activity/Vol] 20 U/L 13-56 [facility] Work Phone: CO2 [Moles/Vol] 27.0 mmol/L 21.0-32.0 [facility] Work Phone: Globulin (S) [Mass/Vol] 3.9 g/dL 2.2-4.2 [facility] Work Phone: Urea nitrogen/Creatinine [Mass ratio] 14.3 mg/mg 1020 [facility] Work Phone: [phone] Laboratory - Hematology and Cell countson 08-15-2022 Erythrocyte distribution width (RBC) [Entitic vol] 37.4 fL 35.1-43.9 [facility] Work Phone: [phone] Erythrocyte distribution width (RBC) [Ratio] 11.8 % 11.6-14.6 [facility] Work Phone: [phone] Immature granulocytes/100 WBC (Bld) 0.300 % 0.0-0.9 [facility] Work Phone: [phone] Comment on above: IG% - Immature Granu locytes (promyelocytes, myelocytes and metamyelocytes) > 1% indicates that a LEFT SHIFT is Present. MCH (RBC) [Entitic mass] 28.6 pg 27.0-32.0 [facility] Work Phone: [phone] Nucleated RBC/100 WBC (Bld) [Ratio] 0 % 0-5 [facility] Work Phone: [phone] MCHC Auto (RBC) [Mass/Vol]on 08-15-2022 MCHC (RBC) [Mass/Vol] 33.0 g/dL 32-36 [facility] Work Phone: [phone] Panel Informationon 08-15 Estimated GFR (MDRD) Amer 116 mL/min >60 [facility] Work Phone: [phone] Comment on above: GFR Calc Estimated GFR (MDRD) Non-Af Amer 96 mL/min >60 [facility] Work Phone: [phone] Comment on above: Non- GFR Calc Platelets bldon 08-15-2022 Platelets (Bld) [#/Vol] 352 10*3/uL 150-450 [facility] Work Phone: [phone] Serum or plasma albumin mann urement (mass/volume)on 08-15-2022 Albumin [Mass/Vol] 3.3 g/dL 3.2-5.0 [facility] Work Phone: [phone] Serum or plasma albumin/glob ulin mass ratioon 08-15-2022 Albumin/Globulin [Mass ratio] 0.8 {ratio} 0.9-2.4 [facility] Work Phone: Serum or plasma calcium mann urement (mass/volume)on 08-15-2022 Calcium [Mass/Vol] 8.7 mg/dL 8.5-10.1 [facility] Work Phone: Serum or plasma creatinine m easurement (mass/volume)on 08-15-2022 Creatinine [Mass/Vol] 0.77 mg/dL 0.55-1.02 [facility] Work Phone: Comment on above: The validity of the calculated GFR & GFRAA in patients over 70 years has not been determined. Clinical correlation is essential. Serum or plasma urea nitroge n measurement (mass/volume)on 08-15-2022 Urea nitrogen [Mass/Vol] 11 mg/dL 7-18 [facility] Work Phone: Thin prep Papanicolaou smear with manual screeningon 08-15-2022 Thin prep Papanicolaou smear with manual screening 12 U/L 15-37 [facility] Work Phone: Thin prep Papanicolaou smear with manual screening 7 5-15 [facility] Work Phone: No Panel Informationon 07-16 Hepatitis B Surface Antibody Non-Reactive [facility] Work Phone: Comment on above: Non Reactive: Incons istent with immunity less than <10 mIU/mL Reactive: Consistent with immunity greater than or equal to 10 mIU/mL Chlamydia trachomatis rRNA d etection by probe and target amplification methodon 02-28-2022 C. trachomatis rRNA RASHEED+probe Ql (Unsp spec) Negative Negative [facility] Work Phone: Laboratory - Microbiology an d Antimicrobial susceptibilityon 02-28-2022 N. gonorrhoeae DNA RASHEED+probe Ql (Unsp spec) Negative Negative [facility] Work Phone: Comment on above: Performed at: =[address] [id number] Director: Neda Marie MD, Phone: [phone] Absolute lymphocyte counton 01-24-2022 Lymphocytes Auto (Unsp spec) [#/Vol] 2.72 10*3/uL 0.83-4.51 [facility] Work Phone: Absolute reticulocyte counto n 01-24-2022 Reticulocytes (Bld) [#/Vol] 0.00 10*3/uL 0-5 [facility] Work Phone: Basophil percentageon 2021 Basophil percentage 2.7 mg/dL 2.5-4.9 [facility] Work Phone: Bilirubin [Mass/Vol] 0.30 mg/dL 0.20-1.00 [facility] Work Phone: Comment on above: For patients on eltr ombopag therapy, use of Dimension [place] TBIL is not recommended. Chloride [Moles/Vol] 106 mmol/L 98-107 [facility] Work Phone: Cholesterol [Mass/Vol] 174 mg/dL <200 [facility] Work Phone: Comment on above: <200 mg/dL Desirable 200-240 mg/dL Borderline >240 mg/dL High Risk Glucose [Mass/Vol] 77 mg/dL 74-106 [facility] Work Phone: Neutrophils (Bld) [#/Vol] 5.6 10*3/uL 2.0-7.7 [facility] Work Phone: Potassium [Moles/Vol] 3.7 mmol/L 3.5-5.1 [facility] Work Phone: Protein [Mass/Vol] 7.9 g/dL 6.4-8.2 [facility] Work Phone: Sodium [Moles/Vol] 137 mmol/L 136-145 [facility] Work Phone: Triglyceride [Mass/Vol] 153 mg/dL [facility] Work Phone: Comment on above: The drugs N-Acetylcy steine and Metamizole may falsely depress this assay.Serum Triglycerides Reference Interval Normal <150 mg/dL Borderline high 150 - 199 mg/dL High 200 - 499 mg/dL Very High > or = 500 mg/dL WBC (Bld) [#/Vol] 8.8 10*3/uL 4.4-11.0 [facility] Work Phone: Bilirubin Test strip Ql (U)o n 01-24-2022 Bilirubin Ql (U) Negative Negative [facility] Work Phone: Blood erythrocytes count (nu mber/volume)on 01-24-2022 RBC (Bld) [#/Vol] 4.97 10*6/uL 4.2-5.4 [facility] Work Phone: Blood hemoglobin measurement (mass/volume)on 01-24-2022 Hemoglobin (Bld) [Mass/Vol] 14.6 g/dL 12.0-15.0 [facility] Work Phone: Blood platelet mean volumeon 01-24-2022 Platelet mean volume (Bld) [Entitic vol] 11.0 fL 6.2-12.0 [facility] Work Phone: Determination of erythrocyte mean corpuscular volume (MCV)on 01-24-2022 MCV (RBC) [Entitic vol] 85.7 fL 81-99 [facility] Work Phone: Direct bilirubinon Bilirubin.direct [Mass/Vol] 0.11 mg/dL 0.00-0.30 [facility] Work Phone: Hematocrit Auto (Bld) [Volum e fraction]on 01-24-2022 Hematocrit (Bld) [Volume fraction] 42.6 % 37-47 [facility] Work Phone: Ketones Test strip Ql (U)on 01-24-2022 Ketones Ql (U) Negative Negative [facility] Work Phone: Laboratory - Chemistry and C hemistry - challengeon 01-24-2022 ALP [Catalytic activity/Vol] 71 U/L 45-117 [facility] Work Phone: [phone] ALT [Catalytic activity/Vol] 16 U/L 13-56 [facility] Work Phone: [phone] Cholesterol.total/Choles terol in HDL [Mass ratio] 3.30 {ratio} [facility] Work Phone: [phone] CO2 [Moles/Vol] 22.0 mmol/L 21.0-32.0 [facility] Work Phone: [phone] Globulin (S) [Mass/Vol] 4.2 g/dL 2.2-4.2 [facility] Work Phone: [phone] Urea nitrogen/Creatinine [Mass ratio] 14.2 mg/mg 10-20 [facility] Work Phone: [phone] Laboratory - Hematology and Cell countson 01-24-2022 Erythrocyte distribution width (RBC) [Entitic vol] 36.4 fL 35.1-43.9 [facility] Work Phone: [phone] Erythrocyte distribution width (RBC) [Ratio] 11.7 % 11.6-14.6 [facility] Work Phone: [phone] MCH (RBC) [Entitic mass] 29.4 pg 27.0-32.0 [facility] Work Phone: [phone] Nucleated RBC/100 WBC (Bld) [Ratio] 0 % 0-5 [facility] Work Phone: [phone] MCHC Auto (RBC) [Mass/Vol]on 01-24-2022 MCHC (RBC) [Mass/Vol] 34.3 g/dL 32-[address] [facility] Work Phone: [phone] Nitrite Test strip Ql (U)on 01-24-2022 Nitrite Ql (U) Negative Negative [facility] Work Phone: [phone] Panel Informationon 01-24 Estimated GFR (MDRD) Amer 104 mL/min >60 [facility] Work Phone: [phone] Comment on above: GFR Calc Estimated GFR (MDRD) Non-Af Amer 86 mL/min >60 [facility] Work Phone: [phone] Comment on above: Non- GFR Calc Platelets bldon 01-24-2022 Platelets (Bld) [#/Vol] 317 10*3/uL 150-450 [facility] Work Phone: [phone] Protein Test strip Ql (U)on 01-24-2022 Protein Ql (U) Negative Negative [facility] Work Phone: [phone] Segmented neutrophils/100 WB C Auto (Bld)on 01-24-2022 Segmented neutrophils/100 WBC (Bld) 64.0 % 47-70 [facility] Work Phone: [phone] Serum or plasma albumin mann urement (mass/volume)on 01-24-2022 Albumin [Mass/Vol] 3.7 g/dL 3.2-5.0 [facility] Work Phone: [phone] Serum or plasma albumin/glob ulin mass ratioon 01-24-2022 Albumin/Globulin [Mass ratio] 0.9 {ratio} 0.9-2.4 [facility] Work Phone: [phone] Serum or plasma calcium mann urement (mass/volume)on 01-24-2022 Calcium [Mass/Vol] 8.9 mg/dL 8.5-10.1 [facility] Work Phone: [phone] Serum or plasma cholesterol in HDL measurement (mass/volume)on 01-24-2022 Cholesterol in HDL [Mass/Vol] 52 mg/dL [facility] Work Phone: Comment on above: The drugs N-Acetylcy steine and Metamizole may falsely depress this assay. Reference Range HDL <40 mg/dL Low HDL Cholesterol HDL >or= 60 mg/dL High HDL Cholesterol Serum or plasma cholesterol in VLDL measurement (mass/volume)on 01-24-2022 Cholesterol in VLDL [Mass/Vol] 31 mg/dL 5-40 [facility] Work Phone: [phone] Serum or plasma creatinine m easurement (mass/volume)on 01-24-2022 Creatinine [Mass/Vol] 0.84 mg/dL 0.55-1.02 [facility] Work Phone: Comment on above: The validity of the calculated GFR & GFRAA in patients over 70 years has not been determined. Clinical correlation is essential. Serum or plasma low density lipoprotein (LDL) cholesterol measurement (mass/volume)on 01-24-2022 Cholesterol in LDL [Mass/Vol] 91 mg/dL 0-130 [facility] Work Phone: Serum or plasma urea nitroge n measurement (mass/volume)on 01-24-2022 Urea nitrogen [Mass/Vol] 12 mg/dL 7-18 [facility] Work Phone: Serum or plasma uric acid me asurement (mass/volume)on 01-24-2022 Urate [Mass/Vol] 5.3 mg/dL 2.6-6.0 [facility] Work Phone: Comment on above: The drugs N-Acetylcy steine and Metamizole may falsely depress this assay. Thin prep Papanicolaou smear with manual screeningon 01-24-2022 Thin prep Papanicolaou smear with manual screening 13 U/L 15-37 [facility] Work Phone: Thin prep Papanicolaou smear with manual screening 9 5-15 [facility] Work Phone: Thin prep Papanicolaou smear with manual screening 169 U/L 84-246 [facility] Work Phone: Urine blood detectionon 12-29 RBC Ql (U) Negative Negative [facility] Work Phone: Urine clarityon 01-24-2022 Clarity (U) Clear Clear [facility] Work Phone: Urine color determinationon 01-24-2022 Color (U) Yellow Yellow [facility] Work Phone: Urine glucose detectionon Glucose Ql (U) Normal mg/dl Normal [facility] Work Phone: Urine leukocyte esterase det ection by dipstickon 01-24-2022 Leukocyte esterase Test strip Ql (U) 25 /ul Negative [facility] Work Phone: Urine pHon 01-24-2022 pH (U) 5.0 [pH] [facility] Work Phone: Urine specific gravity measu rementon 01-24-2022 Specific gravity (U) [Rel density] 1.010 [facility] Work Phone: Urobilinogen Auto test strip Ql (U)on 01-24-2022 Urobilinogen Ql (U) Normal mg/dl Normal [facility] Work Phone: OBSOLETEon 10-07-2020 OBSOLETE Refill (AGGYNBMG) MARITA BARNES ([id number]) 1995 F Date Time Provider Department 10/07/20 JASMINE ONEILL During your visit today, we recorded the following information about you: Allergies As of Date: 10/07/2020 (No Known Allergies) Date Reviewed: 10/04/2019 Reviewed by: Jasmine Oneill - Fully Assessed Reason for Visit: Refill Request [94] Refill Request [94] Reason For Visit History Recorded Prescriptions as of 10/07/2020 Sig: DROSPIRENONE 3 MG-ETHINYL EST* TAKE 1 TABLET ONCE DAILY DROSPIRENONE 3 MG-ETHINYL EST* Take 1 tablet by mouth once d* Problem List As Of Date 10/07/2020 Noted Resolved Oral contraceptive pill surveillance [Z30.41] 04/26/2016 Routine cervical smear [Z12.4] 04/26/2016 Visit for pelvic exam [Z01.419] 08/28/2018 Encounter Status:Closed by MECCA ROMERO on 10/28/20 [facility] OBSOLETEon 04-24-2020 OBSOLETE Refill (AGOBHUD) CAMERONMARITA ([id number]) 1995 F Date Time Provider Department 04/24/20 JASMINE ONEILL During your visit today, we recorded the following information about you: Amalia Grier RN 04/24/2020 8:29 AM Signed Due for annual 09/2020. Allergies As of Date: 04/24/2020 (No Known Allergies) Date Reviewed: 10/04/2019 Reviewed by: Jasmine Oneill - Fully Assessed Reason for Visit: Refill Request [94] Order(s):Drospirenon e-Ethinyl Estradiol 3-0.03 mg per tabletTAKE 1 TABLET ONCE DAILYDisp: 84 tabletRfl: 1 Prescriptions as of 04/24/2020 Sig: DROSPIRENONE 3 MG-ETHINYL EST* TAKE 1 TABLET ONCE DAILY DROSPIRENONE 3 MG-ETHINYL EST* Take 1 tablet by mouth once d* Problem List As Of Date 04/24/2020 Noted Resolved Oral contraceptive pill surveillance [Z30.41] 04/26/2016 Routine cervical smear [Z12.4] 04/26/2016 Visit for pelvic exam [Z01.419] 08/28/2018 Prescriptions ordered this encounter Disp Refills Start End DROSPIRENONE 3 MG-ETHINYL ESTRADIOL * 84 t* 1 04/24/2020 Sig: TAKE 1 TABLET ONCE DAILY Medications Discontinued During This Encounter Drospirenone-Ethinyl Estradiol 3-0.0* 84 t* 0 01/31/2020 04/24/2020 Sig: TAKE 1 TABLET ONCE DAILY Disc: Reason for discontinue is not on file. Encounter Status:Closed by JASMINE ONEILL MD on 04/24/20 [facility] OBSOLETEon 01-31-2020 OBSOLETE Refill (DARSHANA) CAMERONMARITA ([id number]) 1995 F Date Time Provider Department 01/31/20 JASMINE ONEILL During your visit today, we recorded the following information about you: Sera Mcbride LPN 01/31/2020 8:09 AM Signed Pharmacy faxed requesting the following refill Refill(s) Requested: Pending Prescriptions Disp Refills DROSPIRENONE 3 MG-ETHINYL ESTRADIOL 0.03 MG TABLET 84 tablet 0 Sig: TAKE 1 TABLET ONCE DAILY DAISY: Yes ALLERGIES No Known Allergies (home) [phone] (cell) Last Visit date: Visit date not found Future appointment: Visit date not found The patients preferred pharmacy has been captured for this encounter? yes Request is for script(s) to be escript to pharmacy. Sera Mcbride LPN Allergies As of Date: 01/31/2020 (No Known Allergies) Date Reviewed: 10/04/2019 Reviewed by: Jasmine Oneill - Fully Assessed Reason for Visit: Refill Request [94] Order(s):Drospirenon e-Ethinyl Estradiol 3-0.03 mg per tabletTAKE 1 TABLET ONCE DAILYDisp: 84 tabletRfl: 0 Prescriptions as of 01/31/2020 Sig: DROSPIRENONE 3 MG-ETHINYL EST* TAKE 1 TABLET ONCE DAILY DROSPIRENONE 3 MG-ETHINYL EST* Take 1 tablet by mouth once d* Problem List As Of Date 01/31/2020 Noted Resolved Oral contraceptive pill surveillance [Z30.41] 04/26/2016 Routine cervical smear [Z12.4] 04/26/2016 Visit for pelvic exam [Z01.419] 08/28/2018 Prescriptions ordered this encounter Disp Refills Start End DROSPIRENONE 3 MG-ETHINYL ESTRADIOL * 84 t* 0 01/31/2020 Sig: TAKE 1 TABLET ONCE DAILY Medications Discontinued During This Encounter Drospirenone-Ethinyl Estradiol 3-0.0* 84 t* 0 10/07/2019 01/31/2020 Route: ORAL Sig: Take 1 tablet by mouth once daily. Disc: Reason for discontinue is not on file. Encounter Status:Closed by JASMINE ONEILL MD on 01/31/20 Normal [facility] Pap,Cyto Gynon 10-04-2019 Pap,Cyto Spray Rig Operator Test performed at [place] [address] NAME: MARITA BARNES REQUESTING: JASMINE ONEILL M.D. SPECIMEN: TP CX REFLEX TO HPV ASCUS Relevant History: LMP: 09/26/2019 SPECIMEN ADEQUACY SATISFACTORY FOR EVALUATION. ENDOCERVICAL/TRANSFO RMATION ZONE COMPONENTS ABSENT. INTERPRETATION/RESUL T NEGATIVE FOR INTRAEPITHELIAL LESION OR MALIGNANCY. Electronically signed: 10/09/2019 Screened by: DIVYA BOYD(ASCP) Signed Out by: DIVYA BOYD(ASCP) The Pap test serves as a screening tool for early detection of cervical cancer. The Pap test does not represent a final diagnostic test for cervical cancer. Furthermore, the Pap test was not designed to screen for other malignancies (endometrial, ovarian cancer, etc....). False negatives and false positives have occurred. If clinically indicated, further patient evaluation is recommended. Printed on: October 09, 2019 Page 1 of 1 Normal [facility] Comment on above: Performed By: #### C YTOP #### [place] [address] Vital Signs Date Time Vital Sign Value Performing Clinician Giuseppe ramirez 03-25-2025 13:40-0400 Body height 147.[address] Coby Carmona MD Work Phone: [facility] 03-25-2025 13:40-0400 Body mass index (BMI) [Ratio] 38.9 kg/m2 Dr. Coby Carmona MD Work Phone: [facility] 03-25-2025 13:40-0400 Body weight 84.[address] Coby Carmona MD Work Phone: [facility] 03-25-2025 13:40-0400 Diastolic blood pressure 87 mm[Hg] Dr. Coby Carmona MD Work Phone: [facility] 03-25-2025 13:40-0400 Systolic blood pressure 138 mm[Hg] Dr. Coby Carmona MD Work Phone: [facility] 02-28-2025 13:03-0400 Body mass index (BMI) [Ratio] 38.9 kg/m2 Dr. Coby Carmona MD Work Phone: [facility] 02-28-2025 13:03-0400 Body weight 84.[address] Coby Carmona MD Work Phone: [facility] 02-28-2025 13:03-0400 Diastolic blood pressure 80 mm[Hg] Dr. Coby Carmona MD Work Phone: [facility] 02-28-2025 13:03-0400 Systolic blood pressure 123 mm[Hg] Dr. Coby Carmona MD Work Phone: [facility] 02-11-2025 08:43-0400 Body mass index (BMI) [Ratio] 38.7 kg/m2 Dr. Coby Carmona MD Work Phone: [facility] 02-11-2025 08:43-0400 Body weight 84.[address] Coby Carmona MD Work Phone: [facility] 02-11-2025 08:43-0400 Diastolic blood pressure 72 mm[Hg] Dr. Coby Carmona MD Work Phone: [facility] 02-11-2025 08:43-0400 Systolic blood pressure 120 mm[Hg] Dr. Coby Carmona MD Work Phone: [facility] 10-06-2023 08:47-0500 Body height 147.[address] Coby Carmona Work Phone: [facility] 10-06-2023 08:47-0500 Body mass index (BMI) [Ratio] 39.7 kg/m2 Dr. Coby Carmona Work Phone: [facility] 10-06-2023 08:47-0500 Body temperature 98.7 [degF] Dr. Coby Carmona Work Phone: [facility] 10-06-2023 08:47-0500 Body weight 86.[address] Coby Carmona Work Phone: [facility] 10-06-2023 08:47-0500 Diastolic blood pressure 82 mm[Hg] Dr. Coby Carmona Work Phone: [facility] 10-06-2023 08:47-0500 Heart rate 78 /min Dr. Coby Carmona Work Phone: [facility] 10-06-2023 08:47-0500 Respiratory rate 18 /min Dr. Coby Carmona Work Phone: [facility] 10-06-2023 08:47-0500 SaO2% (BldA) [Mass fraction] 98 % Dr. Coby Carmona Work Phone: [facility] 10-06-2023 08:47-0500 Systolic blood pressure 126 mm[Hg] Dr. Coby Carmona Work Phone: [facility] 09-15-2023 15:31-0500 Body height 147.[address] Coby Carmona Work Phone: [facility] 09-15-2023 15:31-0500 Body mass index (BMI) [Ratio] 39.5 kg/m2 Dr. Coby Carmona Work Phone: [facility] 09-15-2023 15:31-0500 Body temperature 98.8 [degF] Dr. Coby Carmona Work Phone: [facility] 09-15-2023 15:31-0500 Body weight 85.[address] Coby Carmona Work Phone: [facility] 09-15-2023 15:31-0500 Diastolic blood pressure 78 mm[Hg] Dr. Coby Carmona Work Phone: [facility] 09-15-2023 15:31-0500 Heart rate 98 /min Dr. Coby Carmona Work Phone: [facility] 09-15-2023 15:31-0500 Respiratory rate 16 /min Dr. Coby Carmona Work Phone: [facility] 09-15-2023 15:31-0500 SaO2% (BldA) [Mass fraction] 98 % Dr. Coby Carmona Work Phone: [facility] 09-15-2023 15:31-0500 Systolic blood pressure 122 mm[Hg] Dr. Coby Carmona Work Phone: [facility] 09-08-2023 15:57-0500 Body mass index (BMI) [Ratio] 39.9 kg/m2 Dr. Coby Carmona Work Phone: [facility] 09-08-2023 15:57-0500 Body weight 86.[address] Coby Carmona Work Phone: [facility] 09-08-2023 15:57-0500 Diastolic blood pressure 88 mm[Hg] Dr. Coby Carmona Work Phone: [facility] 09-08-2023 15:57-0500 Systolic blood pressure 124 mm[Hg] Dr. Coby Carmona Work Phone: [facility] 06-21-2023 08:35-0400 Body height 147.[address] Coby Carmona Work Phone: [facility] 06-21-2023 08:35-0400 Body mass index (BMI) [Ratio] 38.6 kg/m2 Dr. Coby Carmona Work Phone: [facility] 06-21-2023 08:35-0400 Body temperature 96.2 [degF] Dr. Coby Carmona Work Phone: [facility] 06-21-2023 08:35-0400 Body weight 83.[address] Coby Carmona Work Phone: [facility] 06-21-2023 08:35-0400 Diastolic blood pressure 86 mm[Hg] Dr. Coby Carmona Work Phone: [facility] 06-21-2023 08:35-0400 Heart rate 96 /min Dr. Coby Carmona Work Phone: [facility] 06-21-2023 08:35-0400 Respiratory rate 18 /min Dr. Coby Carmona Work Phone: [facility] 06-21-2023 08:35-0400 SaO2% (BldA) [Mass fraction] 99 % Dr. Coby Carmona Work Phone: [facility] 06-21-2023 08:35-0400 Systolic blood pressure 126 mm[Hg] Dr. Coby Carmona Work Phone: [facility] 08-15-2022 15:32-0400 Body height 147.[address] Coby Carmona Work Phone: [facility] Work Phone: 08-15-2022 15:32-0400 Heart rate 107 /min Dr. Coby Carmona Work Phone: [facility] Work Phone: 08-15-2022 15:32-0400 Body mass index (BMI) [Ratio] 37 kg/m2 Dr. Coby Carmona Work Phone: [facility] Work Phone: 08-15-2022 15:32-0400 Body weight 80.[address] Coby Carmona Work Phone: [facility] Work Phone: 08-15-2022 15:32-0400 Diastolic blood pressure 89 mm[Hg] Dr. Coby Carmona Work Phone: [facility] Work Phone: 08-15-2022 15:32-0400 Systolic blood pressure 126 mm[Hg] Dr. Coby Carmona Work Phone: [facility] Work Phone: 08-04-2022 13:24-0400 Body mass index (BMI) [Ratio] 37 kg/m2 Dr. Coby Carmona Work Phone: [facility] Work Phone: 08-04-2022 13:24-0400 Body temperature 97.7 [degF] Dr. Coby Carmona Work Phone: [facility] Work Phone: 08-04-2022 13:24-0400 Body weight 80.[address] Coby Carmona Work Phone: [facility] Work Phone: 08-04-2022 13:24-0400 Diastolic blood pressure 78 mm[Hg] Dr. Coby Carmona Work Phone: [facility] Work Phone: 08-04-2022 13:24-0400 Heart rate 101 /min Dr. Coby Carmona Work Phone: [facility] Work Phone: 08-04-2022 13:24-0400 Respiratory rate 14 /min Dr. Coby Carmona Work Phone: [facility] Work Phone: 08-04-2022 13:24-0400 SaO2% (BldA) [Mass fraction] 99 % Dr. Coby Carmona Work Phone: [facility] Work Phone: 08-04-2022 13:24-0400 Systolic blood pressure 114 mm[Hg] Dr. Coby Carmona Work Phone: [facility] Work Phone: 07-28-2022 08:55-0400 Body mass index (BMI) [Ratio] 36.2 kg/m2 Dr. Coby Carmona Work Phone: [facility] Work Phone: 07-28-2022 08:55-0400 Body weight 78.[address] Coby Carmona Work Phone: [facility] Work Phone: 07-28-2022 08:55-0400 Diastolic blood pressure 78 mm[Hg] Dr. Coby Carmona Work Phone: [facility] Work Phone: 07-28-2022 08:55-0400 Heart rate 80 /min Dr. Coby Carmona Work Phone: [facility] Work Phone: 07-28-2022 08:55-0400 Systolic blood pressure 112 mm[Hg] Dr. Coby Carmona Work Phone: [facility] Work Phone: 07-05-2022 11:19-0400 Body mass index (BMI) [Ratio] 33.3 kg/m2 Dr. Coby Carmona Work Phone: [facility] Work Phone: 07-05-2022 11:19-0400 Body weight [address] Coby Carmona Work Phone: [facility] Work Phone: 07-05-2022 11:19-0400 Diastolic blood pressure 75 mm[Hg] Dr. Coby Carmona Work Phone: [facility] Work Phone: 07-05-2022 11:19-0400 Systolic blood pressure 117 mm[Hg] Dr. Coby Carmona Work Phone: [facility] Work Phone: 05-26-2022 15:12-0400 Body mass index (BMI) [Ratio] 37.8 kg/m2 Dr. Coby Carmona Work Phone: [facility] Work Phone: 05-26-2022 15:12-0400 Body weight 82.[address] Coby Carmona Work Phone: [facility] Work Phone: 05-26-2022 15:12-0400 Diastolic blood pressure 86 mm[Hg] Dr. Coby Carmona Work Phone: [facility] Work Phone: 05-26-2022 15:12-0400 Systolic blood pressure 120 mm[Hg] Dr. Coby Carmona Work Phone: [facility] Work Phone: 02-28-2022 14:41-0400 Body height 147.[address] Coby Carmona Work Phone: [facility] Work Phone: 02-28-2022 14:41-0400 Body mass index (BMI) [Ratio] 36.6 kg/m2 Dr. Coby Carmona Work Phone: [facility] Work Phone: 02-28-2022 14:41-0400 Body weight 79.[address] Coby Carmona Work Phone: [facility] Work Phone: 02-28-2022 14:41-0400 Diastolic blood pressure 86 mm[Hg] Dr. Coby Carmona Work Phone: [facility] Work Phone: 02-28-2022 14:41-0400 Systolic blood pressure 138 mm[Hg] Dr. Coby Carmona Work Phone: [facility] Work Phone: 01-24-2022 08:23-0400 Body height 147.[address] Coby Carmona Work Phone: [facility] Work Phone: 01-24-2022 08:23-0400 Body mass index (BMI) [Ratio] 36.6 kg/m2 Dr. Coby Carmona Work Phone: [facility] Work Phone: 01-24-2022 08:23-0400 Body temperature 96.7 [degF] Dr. Coby Carmona Work Phone: [facility] Work Phone: 01-24-2022 08:23-0400 Body weight 79.[address] Coby Carmona Work Phone: [facility] Work Phone: 01-24-2022 08:23-0400 Diastolic blood pressure 80 mm[Hg] Dr. Coby Carmona Work Phone: [facility] Work Phone: 01-24-2022 08:23-0400 Heart rate 112 /min Dr. Coby Carmona Work Phone: [facility] Work Phone: 01-24-2022 08:23-0400 Respiratory rate 16 /min Dr. Coby Carmona Work Phone: [facility] Work Phone: 01-24-2022 08:23-0400 SaO2% (BldA) [Mass fraction] 99 % Dr. Coby Carmona Work Phone: [facility] Work Phone: 01-24-2022 08:23-0400 Systolic blood pressure 132 mm[Hg] Dr. Coby Carmona Work Phone: [facility] Work Phone: Encounters Encounter Date Encounter Type Care Provider Facility Start: 03-25-2025 End: 03-25-2025 Patient encounter procedure Georgette Avalos CNM -[facility] Work Phone: Start: 03-25-2025 End: 03-25-[address] Coby Carmona MD Work Phone: [facility] Work Phone: Start: 02-28-2025 End: 02-28-[address] Kaycee Pathak MD -[facility] Start: 02-28-2025 End: 02-28-[address] Kaycee Pathak MD -[facility] Work Phone: Start: 02-28-2025 End: 02-28-2025 ambulatory Aleena Mathew [place] Start: 02-28-2025 End: 02-28-2025 ambulatory Coby Carmona Facility:[facility] Start: 02-11-2025 Non-patient / Non-visit Thuy sharif RN -[facility] Work Phone: Start: 02-11-2025 End: 02-11-2025 Patient encounter procedure Ruth Thurston DICTAPHONE MECHANIC-C -[facility] Work Phone: Start: 02-11-2025 End: 02-11-2025 ambulatory Ruth Thurston NP [facility] Start: 09-06-2024 Encounter for gynecological examination (general) (routine) without abnormal findings Georgette Avalos [facility] Start: 09-06-2024 End: 09-06-2024 ambulatory Georgette Avalos [facility] Start: 10-06-2023 End: 10-06-[address] Coby Carmona Work Phone: [facility] Work Phone: Start: 10-06-2023 End: 10-06-[address] [facility] Start: 10-06-2023 End: 10-06-[address] Coby Carmona Work Phone: [facility] Endocrinology Work Phone: Start: 09-22-2023 End: 09-22-[address] Coby Carmona Work Phone: [facility] Work Phone: Start: 09-22-2023 End: 09-22-[address] [facility] Work [facility]: Start: 09-18-2023 End: 09-18-[address] Coby Carmona Work Phone: [facility] Work Phone: Start: 09-18-2023 End: 09-18-[address] [facility] Start: 09-15-2023 End: 09-15-[address] Coby Carmona Work Phone: [facility] Internal Medicine Work Phone: Start: 09-08-2023 End: 09-08-[address] Coby Carmona Work Phone: [facility] Women's Care Work Phone: Start: 09-04-2023 End: 09-04-[address] Coby Carmona Work Phone: [facility] Work Phone: Start: 09-04-2023 End: 09-04-[address] Coby Carmona Work Phone: [facility]-Physical Therapy Work Phone: Start: 09-04-[address] Carlos Carmona Work Phone: [facility]-Physical Therapy Work Phone: Start: 06-26-[address] Carlos Carmona Work Phone: [facility]-Physical Therapy Work Phone: Start: 06-21-2023 End: 06-21-[address] Coby Carmona Work Phone: [facility] Work Phone: Start: 06-21-[address] Coby Carmona Work Phone: [facility] Start: 06-21-2023 End: 06-21-2023 Encounter for general adult medical examination without abnormal findings Dr. Coby Carmona Work Phone: [facility] Start: 06-21-2023 End: 06-21-[address] Coby Carmona Work Phone: [facility] Internal Medicine Work Phone: Start: 06-12-[address] Kiley Carmona Work Phone: [facility]-Laboratory Work Phone: Start: 08-15-2022 End: 08-15-[address] Coby Carmona Work Phone: [facility] Work Phone: Start: 08-15-2022 End: 08-15-[address] Coby Santos Phone: [facility]-Pulmonary Services/Neurology Start: 08-15-2022 End: 08-15-[address] Coby Santos Phone: [facility] Start: 08-04-2022 End: 08-04-[address] Coby Santos Phone: [facility] Internal Medicine Start: 07-28-2022 End: 07-28-[address] Coby Santos Phone: [facility] Start: 07-15-[address] Kiley Santos Phone: [facility]-Employee Health Start: 07-05-2022 End: 07-05-[address] Coby Santos Phone: [facility] Start: 05-26-2022 End: 05-26-[address] Coby Santos Phone: [facility] Start: 03-02-[address] Carlos Santos Phone: [facility]-Physical Therapy Start: 02-28-2022 End: 02-28-[address] Coby Santos Phone: [facility]-Laboratory, Specimen Start: 02-28-2022 End: 02-28-[address] Coby Santos Phone: [facility] Start: 02-02-[address] Carlos Santos Phone: [facility]-Physical Therapy Start: 01-24-2022 End: 01-24-[address] Coby Carmona Work Phone: [facility]-Radiology, [facility] Start: 01-24-[address] Kiley Carmona Work Phone: [facility] Start: 01-24-2022 End: 01-24-[address] Coby Carmona Work Phone: [facility] Internal Medicine Start: 10-07-2020 End: 10-07-2020 Refill Jasmine Oneill Work Phone: [facility] Comment on above: Refill Request; Refi ll Request Procedures Date Procedure Procedure Detail Performing Clinician Start: 02-28-2025 Liquid based cervica l cytology screening Dr. Coby Carmona MD Work Phone: Comment on above: NEGATIVE FOR INTRAEP ITHELIAL LESION OR MALIGNANCY. This liquid based Th inPrep(R) pap test was screened withthe use of an image guided system. The HPV DNA reflex c riteria were not met with this specimenresult therefore, no HPV testing was performed.Performed at: [address] [id number] Director: Neda Marie MD, Phone: [phone] Start: 02-28-2025 Hepatitis C antibody measurement Dr. Coby Carmona MD Work Phone: Comment on above: Reactive: Presumptiv e evidence of antibodies to HCV. Follow CDC recommendations for supplemental testing.Non-Reactive: Antibodies to HCV were not detected; does not exclude the possibility of exposure to HCVReactive Results are presumptive evidence of antibodies to HCV. Follow CDC recommendations for supplemental testing.Order confirmation testing: HCV Quant by PCR testing - HCVPCR #[id number] Non Reactive: < 0.8 Equivocal: >/= 0.8 to < 1.0 Reactive: >/= 1.0The CDC requires that a reactive/equivocal HCV antibody result be sent out for confirmation. HCV Quant by PCR testing. Start: 02-28-[address] Coby Carmona MD Work Phone: Comment on above: Antibody Result: Int erpretationNon-Reactive: Non- ImmuneReactive: ImmuneThe following results were obtained with the [employer] Rubella IgG assay. Results from assays of other manufacturers cannot be used interchangeably. Start: 02-28-2025 Serologic test for syphilis Dr. Coby Carmona MD Work Phone: Start: 02-28-[address] Carlos Carmona MD Work Phone: Start: 06-21-2023 Plain X-ray of shoulder Dr. Coby Carmona Work Phone: Start: 01-24-2022 Plain X-ray of shoulder Dr. Coby Carmona Work Phone: Plan of Treatment Date Care Activity Detail Author Start: 06-21-2023 Patient referral [facility] Work Phone: Start: 10-04-2022 PAP TESTING PAP TESTING [facility] Start: 01-24-2022 Patient referral [facility] Work Phone: Start: 06-30-2020 Influenza vaccination INFLUENZA (#1) [facility] Start: 2014 Urine microalbumin profile DTAP,TDAP,TD (1 - Tdap) [facility] Start: 2013 HEPATITIS C SCREENING HEPATITIS C SCREENING [facility] Start: 2013 HIV SCREENING HIV SCREENING [facility] Start: 2006 HPV VACCINE (1 - 2-dose series) HPV VACCINE (1 - 2-dose series) [facility] Electrocardiographic procedure [facility] anatomy study [facility] Patient referral [facility] Work Phone: Immunizations Immunization Date Immunization Notes Care Provider Fa cili 08-30-2024 influenza, seasonal, injectable, preservative free Dr. Coby Carmona MD Work Phone: [facility] 08-07-2023 influenza, injectabl e, quadrivalent, preservative free Dr. Coby Carmona Work Phone: [facility] 2022 Hepatitis B vaccine (recombinant), CpG adjuvanted Dr. Coby Carmona Work Phone: [facility] 07-20-2022 Hepatitis B vaccine (recombinant), CpG adjuvanted Dr. Coby Carmona Work Phone: [facility] 07-15-2022 influenza, injectabl e, quadrivalent, preservative free Dr. Coby Carmona Work Phone: [facility] 07-15-2022 influenza, seasonal, injectable Dr. Coby Carmona Work Phone: [facility] Payers Date Payer Category Payer Unknown [id number] 2025 Unknown [id number] 2024 Self-pay [id number] 2018 Unknown [employer] PPO [id number] 2018-Present PPO [id number] Unknown [id number] Unknown [employer] [id number] Unknown [facility] [id number] Unknown [id number] Unknown [id number] Unknown [id number] Unknown [id number] Unknown [id number] Unknown [id number] Social History Date Type Detail Facility Start: 10-04-2019 End: 02-11-2025 Tobacco smoking status NHIS Never smoker [facility] Start: 10-04-2019 Tobacco use and exposure Never used [facility] Start: 10-04-2019 Alcohol intake 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 alcohol (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) [facility] Start: 1995 Sex Assigned At Not on file [facility] Start: 01-24-2022 End: 10-06-2023 Tobacco smoking status NEIS Unknown if ever smoked [facility] Start: 1995 Sex Assigned At Female W [facility] Clinical Notes 10-26-2023 to 03-25-2025 Note Date & Type Note Facility 03-25-2025 Progress note [place] Medical Services 03-25-2025 Progress note Note Date/Time March 25, 2025 2:15pm [facility] [address], [address] [place] [address] OFFICE VISIT Date of Service: 03/25/25 MR#: [id number] Acct: [id number] Name: MARITA BERGERON Rep #: [id number] : 1995 Provider: CHUY Avalos Age/Sex: 29/F Location: [facility] Status: Signed Intake Vital Signs 09/06/24 10:59 02/28/25 13:03 03/25/25 13:40 Height 4 ft 10 in 4 ft 10 in 4 ft 10 in Weight: 186 lb 4 oz BMI 38.9 BP 138/87 H Intake Visit Reasons: 11 wk OB Chief Complaint: 11wk 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: No Is patient in pain?: No Allergies No Known Allergies Allergy (Verified 03/25/25 13:38) Medications ?Medication ?Instructions ?Recorded ?Confirmed ?Type docosahexaenoic acid 200 mg mg PO 02/11/25 03/25/25 Hi story capsule ( DHA) Last Menstrual Period: 12/29/24 : No Have you fallen in the past year?: No PFSH PFSH Medical History Palpitations Sinus tachycardia by electrocardiogram Hypertension PCOS (polycystic ovarian syndrome) Chronic back pain Surgical History S/P wisdom tooth extraction Family History Grandmother Myocardial infarction Diabetes Grandfather Myocardial infarction Grandmother Colon cancer Social History adopted: No household members: spouse housing: house current occupational status: employed 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 current occupational exposures/hazards: No pets and animals: Yes (Not managing litterbox) pets and animals: cat(s) history of recent travel: No sexually active: Yes Smoking Status: Never smoker alcohol intake: current alcohol intake frequency: holidays/special occasions only details: Not while substance use type: does not use well-balanced diet: about half the time caffeine: Yes Type: tea eating out: 1-3 times/week during the past year weight has: remained stable what type of physical activity do you participate in: walking and weight training frequency: 3-4 times per week duration: 15-30 minutes/day josselyn/adventism: Baptism seatbelt use: always do you feel safe at home: Yes 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 OB Visit KUNAL Calculator Estimated Delivery Date Method Current WG Current Estimate 10/06/25 LMP (Certain) 12w 1d Other Estimates 10/12/25 Ultrasound #1 11w 2d Expected Delivery Route/Plan Labor Preferences- CB/BF classes: [] labor support person: [] labor intervention preferences: [] pain management options preferred: [] cut cord/dad catch: [] : [] PP control planned: [] discussed possible routes of delivery and associated risks: [] special requests: [] Specific Issue/Plans Covid status: [] Flu vaccine: [] Tdap vaccine: [] Rhogam: [] LARC form signed: [] Problem list reviewed and updated with the most current plan of care details and appropriate orders placed. Relevant counseling for the gestational age provided. Continue routine care and follow up unless otherwise noted in visit notes/problem list details Initial Weight: Not Recorded Date -?-?-?-?-?-?-?-?-?-?-?-?- EGA Weight BP Urine Prot -?-?-?-?-?-?-?-?-?-?-?-?- Glucose FHR FuHt Pres Dilation -?-?-?-?-?-?-?-?-?-?-?-?- Effaced St Visit Note 02/28/25 -?-?-?-?-?-?-?-?-?-?-?-?- 8w 4d 186 lb 8 oz 123/80 -?-?-?-?-?-?-?-?-?-?-?-?- 170 -?-?-?-?-?-?-?-?-?-?-?-?- SM- crl 1.4 cm n ot cons with lmp 03/25/25 -?-?-?-?-?-?-?-?-?-?-?-?- 12w 1d 186 lb 4 oz 138/87 Nega tive -?-?-?-?-?-?-?-?-?-?-?-?- Negative 168 -?-?-?-?-?-?-?-?-?-?-?-?- KW- no vb/crampi ng. US ordered. start asa 81 mg. ACOG First Trimester First Trimester: Discussed ROS Const Reports system reviewed and no additional complaints, except as documented Eyes Reports system reviewed and no additional complaints, except as documented ENT Reports system reviewed and no additional complaints, except as documented Card Reports system reviewed and no additional complaints, except as documented Resp Reports system reviewed and no additional complaints, except as documented GI Reports system reviewed and no additional complaints, except as documented, Denies nausea and Denies vomiting Reports system reviewed and no additional complaints, except as documented Musc Reports system reviewed and no additional complaints, except as documented Skin/Breast Reports system reviewed and no additional complaints, except as documented Neuro Yes system reviewed and no additional complaints, except as documented Psych Reports system reviewed and no additional complaints, except as documented Endo Reports system reviewed and no additional complaints, except as documented Otoniel/Lymph Reports system reviewed and no additional complaints, except as documented Aller/Immun Reports system reviewed and no additional complaints, except as documented Exam Const General: cooperative, healthy appearing and no acute distress Orientation: alert, awake and oriented x3 Neck Neck: normal visual inspection and full ROM Resp Effort & Inspection: normal respiratory effort, able to speak in complete sentences and symmetric chest movement GI Inspection: normal to inspection Palpation: soft and other Other: gravid Skin General: no rashes or lesions noted Neuro General: patient alert, patient awake and patient oriented x3 Cognition: normal cognition Speech: speech normal Gait: normal gait Motor: muscle tone normal throughout Extrem General: normal to inspection and full ROM Psych Appearance: grossly normal Mental Status: mental status grossly normal Mood: congruent mood Affect: normal affect Speech and Movement: speech and movement normal Attitude: cooperative Thought Process: normal Thought Content: normal Judgment: judgment good Results POC Urinalysis 2 Dip (Clinic) Office Urine Glucose Negative Last Edit by Fallon Disla on 03/25/25 13:45 Office Urine Protein Negative Last Edit by Fallon Disla on 03/25/25 13:45 Coding Level of Care Code OB Routine Diagnoses Obesity affecting O99.210 Supervision of high-risk O09.90 12 weeks gestation of Z3A.12 Weeks of gestation: 12 weeks Hypertension I10 PCOS (polycystic ovarian syndrome) E28.2 Assessment and Plan Assessment and Plan (1) Obesity affecting : Status: Acute Comment: BMI 38.7, HgBA1C ordered with NOB (2) Supervision of high-risk : Status: Acute Comment: , KUNAL 10/12/25, : Radha (3) : Status: Acute Qualifiers: Weeks of gestation: 12 weeks Qualified Code(s): Z3A.12 - 12 weeks gestation of Comment: Discussed genetic/carrier testing - undecided (4) Hypertension: Status: Chronic Comment: Nml BP readings x1year, medicine in the past but not at present (5) PCOS (polycystic ovarian syndrome): Status: Chronic Comment: hga1c. encouraged healthy weight gain Orders: Orders POC Urinalysis 2 Dip (Clinic) Today OB Anatomy Scan Today O09.90 - Supervision of high risk , unspecified, unspecified trimester, Z36.2 - Encounter for other screening follow-up Plan Details Additional Comments: ACOG trimester education reviewed and updated. see problem list details for updated plan management information and see below for orders placed at this visit. [place] appropriate handout given. Clinical Quality Measures Falls Risk Screening/Assistive Devices Have you fallen in the past year?: No 03/25/25 1415 <Electronically signed by Georgette abarca CNM> Date _ Georgette Avalos CNM Cosigner Signature: Date (if applicable) CC: ~ [facility] Work Phone: 1(547) 409-737705-02-2025 Evaluation note* Diagnosis Onset Date Resolution Status Admit Date Obesity affecting acute February 28, 2025 12:56pm acute February 28, 2025 12:56pm Supervision of high-risk acute February 28, 2025 12 :56pm Hypertension chronic February 28 12:56pm PCOS (polycystic ovarian syndrome) chronic February 28, 2025 12 :56pm Obesity affecting acute March 25, 2025 1:36pm acute March 25, 2025 1:36pm Supervision of high-risk acute March 25, 2025 1 :36pm Hypertension chronic March 25 1:36pm PCOS (polycystic ovarian syndrome) chronic March 25, 2025 1 :36pm [facility] Work Phone: 1(466) 131-418712-28-2023 Discharge summary Author Chela Almaguer [facility] October 26, 2023 9:07am Note Date/Time October 26, 2023 9:08am [facility] Physical Therapy [facility] [address] [place] [address]. [address] [place] [address] / REHABILITATION SERVICES DISCHARGE SUMMARY MR#: [id number] Acct: [id number] Name: MARITA BERGERON Rep #: [id number] : 1995 28 From: Chela HART T Referring Dr.: Dr. Coby Carmona MD Status : REG RCR Insurance: [employer] SELF PAY INSURANCE Patient Information Patient Information: MARITA BOUDREAUX was seen in my office for initial evaluation on 06/26/23. The following Plan of Care was established for this patient: POC Established Initial Frequency: 2x /Week Initial Duration: 4 Weeks Anticipated Interventions Patient/Client Instruction: Educate patient on: Benefits of Fitness Program Therapeutic Exercise to Include: Strength training, Endurance training, Agility training, Body mechanics, Postural training, Flexibilty training, Neuromotor development, Passive ROM, Active ROM, Dynamic Lumbar Stabilization and Scapular Strength/Stabilization For the Purpose of:: To improve muscle performance and motor function TENS: Yes Cryotherapy (ice pack, ice massage): Yes Thermo therapy (hot pack): Yes Ultrasound (thermal/non thermal): Yes Last Seen Last Seen: This patient was last seen in our office . Pertinent comments regarding their Physical therapy will appear below: Patient appropriate to be d/c and continue home exercise program At this point I will be discontinuing this patient from physical therapy. I would be happy to see this patient again in the future if found appropriate by the physician. Thank you! Chela Almaguer, TANNERT Balance/Gait/Functional tests Balance/Special Test Scores Quick DASH Score: 31.8175 <Electronically signed by Chela Almaguer DPT> 10/26/23 0907 CC: Dr. Coby Carmona MD ~ ELR Signed [facility] Work Phone: Evaluation note* Diagnosis Onset Date Resolution Status Elevated blood-pressure read ing without diagnosis of hypertension acute Chronic back pain chronic Left shoulder pain chronic PCOS (polycystic ovarian syndrome) chronic Shoulder tendinitis chronic [facility] Work Phone: Evaluation note* Diagnosis Onset Date Resolution Status Elevated blood-pressure read ing without diagnosis of hypertension acute Chronic back pain chronic Left shoulder pain chronic PCOS (polycystic ovarian syndrome) chronic Shoulder tendinitis chronic Anxiety acute White coat syndrome without diagnosis of hypertension acute [facility] Work Phone: Evaluation note* Diagnosis Onset Date Resolution Status Anxiety acute Metabolic syndrome acute Other obesity acute Chronic back pain chronic Hypertension chronic PCOS (polycystic ovarian syndrome) chronic Other obesity acute Encounter for school health examination acute Metabolic syndrome acute PCOS (polycystic ovarian syndrome) [facility] Work Phone: Evaluation note* Diagnosis Onset Date Resolution Status Preventative health care acu te PCOS (polycystic ovarian syndrome) chronic Right shoulder pain chronic [facility] Work Phone: Evaluation note* Diagnosis Onset Date Resolution Status Preventative health care acu te PCOS (polycystic ovarian syndrome) chronic Right shoulder pain chronic Encounter for routine gynecological examination noneactive Sinus tachycardia by electrocardiogram acute [facility] Work Phone: Evaluation note* Diagnosis Onset Date Resolution Status Preventative health care acu te PCOS (polycystic ovarian syndrome) chronic Right shoulder pain chronic Encounter for routine gynecological examination noneactive Sinus tachycardia by electrocardiogram acute Obesity chronic PCOS (polycystic ovarian syndrome) chronic [facility] Work Phone: Evaluation note* Diagnosis Onset Date Resolution Status Encounter for routine gynecological examination noneactive Sinus tachycardia by electrocardiogram acute Obesity chronic PCOS (polycystic ovarian syndrome) [facility] Work Phone: [facility] Work Phone: [facility] Work Phone: Reason for referral (narrative)No reason for referral information availableHenry [facility] Work Phone: Summary Purpose Family History No Family History Records Found Relationship Condition Age at Onset Recorded Date/T lurdes Not Specified Malignant neoplasm of colon Unknown Diabetes mellitus Unknown Cardiac disease Unknown Cerebrovascular accident (CVA) Unknown Relationship Condition Age at Onset Recorded Date/T lurdes grandmother Myocardial infarction Unknown Diabetes mellitus Unknown grandfather Myocardial infarction Unknown grandmother Malignant neoplasm of colon Unknown Advance Directives No Advanced Directives Records FoundNo Advanced Directives Records FoundNo Advanced Directives Records Found Chief Complaint and Reason for Visit 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 PN / RX HERE Reason for Visit Elevated blood-press ure reading without diagnosis of hypertension Chronic back pain Left shoulder pain PCOS (polycystic ovarian syndrome) Shoulder tendinitis Anxiety White coat syndrome without diagnosis of hypertension Chief Complaint PCOS concerns ADIPEX ADIPEX r/s from last week, school physical 3M F/U PALPS Reason for Visit Anxiety Metabolic syndrome Other obesity Chronic back pain Hypertension PCOS (polycystic ovarian syndrome) Other obesity Encounter for school health examination Metabolic syndrome PCOS (polycystic ovarian syndrome) Chief Complaint 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 Tachycardia, unspecified PCOS Reason for Visit Encounter for routin e gynecological examination Sinus tachycardia by electrocardiogram Obesity PCOS (polycystic ovarian syndrome) Chief Complaint Admit Date PNOB nurse visit February 11, 2025 7:5 6am Amb Documentation February 11, 2025 8:0 7am NOB LMP 12/29February 28, 2025 12:56p m 11 wk OB March 25, 2025 1:36p m Reason for Visit Admit Date Obesity affecting February 28 12:56pm February 28, 2025 12:56p m Supervision of high-risk February 282024 12:56pm Hypertension February 28, 2025 12:56p m PCOS (polycystic ovarian syndrome) February 282024 12:56pm Obesity affecting March 25 1:36pm March 25, 2025 1:36p m Supervision of high-risk February 282024 1:36pm Hypertension March 25, 2025 1:36p m PCOS (polycystic ovarian syndrome) May 2 7th, 2025 1:36pm Additional Source Comments INFORMATION SOURCE (unrecogn ized section and content) DATE CREATED AUTHOR 10/10/2019 [facility] DATE CREATED AUTHOR AUTHOR'S ORGANIZ ATION 10/29/2020 [facility] DATE CREATED AUTHOR AUTHOR'S ORGANIZ ATION 03/26/2025 [facility] Source Comments (unrecognize d section and content) In the event this informatio n is protected by the Federal Confidentiality of Alcohol and Drug Abuse Patient Records regulations: The Federal rules restrict any use of the information to criminally investigate or prosecute any alcohol or drug abuse patient.[facility] Reason for Visit (unrecogniz ed section and content) Reason Onset Date Comments Refill Request Refill Request 10/28/2020 Goals (unrecognized section and content) Goals may be documented in a n alternate sectionGoals may be documented in an alternate sectionGoals may be documented in an alternate sectionGoals may be documented in an alternate sectionGoals may be documented in an alternate sectionGoals may be documented in an alternate sectionGoals may be documented in an alternate sectionGoals may be documented in an alternate sectionGoals may be documented in an alternate sectionGoals may be documented in an alternate section Care Teams (unrecognized sec tion and content) Team Status: Active Member Role Status Dates Dr. Coby Carmona MD Primary Care Provider Active Team Status: Inactive Member Role Status Dates Dr. Coby Carmona MD Primary Care Mariama wang, Attending Provider, Referring Provider Active Team Status: Active Member Role Status Dates Dr. Coby Carmona MD Primary Care Provider Active Health Risk Assessment Attending Provider, Referring Mariama wang Active Team Status: Active Member Role Status Dates Dr. Coby Carmona MD Primary Care Provider, Atten ding Provider Active Team Status: Inactive Member Role Status Dates Dr. Coby Carmona MD Primary Care Provider, Refer ring Provider Active Georgette Avalos CNM Attending Provider Active Team Status: Inactive Member Role Status Dates Dr. Coby Carmona MD Primary Care Provider, Refer ring Provider Active Ralph INGRAM PA Attending Provider Active Team Status: Active Member Role Status Dates Dr. Coby Carmona MD Primary Care P rovider, Attending Provider, Referring Provider Active Team Status: Inactive Member Role Status Dates Dr. Coby Carmona MD Primary Care Provider Active Ralph INGRAM PA Attending Provider, Referring Prov ider Active Team Status: Active Member Role Status Dates Dr. Coby Carmona MD Primary Care Provider Active Ralph INGRAM PA Attending Provider, Referring Prov ider Active Team Status: Inactive Member Role Status Dates Dr. Coby Carmona MD Primary Care Provider, Refer ring Provider Active Dr. Alexey Good MD Attending Provider Active Team Status: Inactive Member Role Status Dates Dr. Coby Carmona MD Primary Care Provider Active Dr. Alexey Good MD Attending Provider, Referring Provi kd Active Team Status: Inactive Member Role Status Dates Dr. Coby Carmona MD Primary Care Provider Active Start: February 11, 2025 End: February 11, 2025 Dr. Coby Carmona MD Referring Provider Active Start: February 11, 2025 End: February 11, 2025 Ruth Thurston NP, DICTAPHONE MECHANIC-C Attending Provider Active Start: February 11, 2025 End: February 11, 2025 Team Status: Active Member Role Status Dates Dr. Coby Carmona MD Primary Care Provider Active Start: February 11, 2025 Thuy Holt RN Attending Provider Active St art: February 11, 2025 Team Status: Inactive Member Role Status Dates Dr. Coby Carmona MD Primary Care Provider Active Start: February 28, 2025 End: February 28, 2025 Dr. Coby Carmona MD Referring Provider Active Start: February 28, 2025 End: February 28, 2025 Dr. Kaycee Pathak MD Attending Provider Active Start: February 28, 2025 End: February 28, 2025 Team Status: Inactive Member Role Status Dates Dr. Coby Carmona MD Primary Care Provider Active Start: February 28, 2025 End: February 28, 2025 Dr. Kaycee Pathak MD Attending Provider Active Start: February 28, 2025 End: February 28, 2025 Dr. Kaycee Pathak MD Referring Provider Active Start: February 28, 2025 End: February 28, 2025 Team Status: Inactive Member Role Status Dates Dr. Coby Carmona MD Primary Care Provider Active Start: March 25, 2025 End: March 25, 2025 Dr. Coby Carmona MD Referring Provider Active Start: March 25, 2025 End: March 25, 2025 Georgette Avalos CNM Attending Provider Active S tart: March 25, 2025 End: March 25, 2025 FOR RECORDS PERTAINING TO PATIENTS WHO ARE OR HAVE BEEN ENROLLED IN A CHEMICAL DEPENDENCY/SUBSTANCEABUSE PROGRAM, SOME INFORMATION MAY BE OMITTED. This clinical summary was aggregated from multiple sources. Caution should be exercised in using it in the provision of clinical care. This summary normalizes information from multiple sources, and as a consequence, information in this document may materially change the coding, format and clinical context of patient data. In addition, data may be omitted in some cases. CLINICAL DECISIONS SHOULD BE BASED ON THE PRIMARY CLINICAL RECORDS. [employer] [facility]. provides no warranty or guarantee of the accuracy or completeness of information in this document.
== END | disposition home or self-care (01) ==
LOC: PSN 13:42
PROVIDERS: PCP Internal Medicine; Referring Provider Obstetrics & Gynecology; Visit Provider Obstetrics & Gynecology
DX: O09.90 Supervision of high risk pregnancy, unspecified, unspecified trimester (principal); I10 Essential (primary) hypertension; Z3A.00 Weeks of gestation of pregnancy not specified
CPT/HCPCS: 93005

== ENCOUNTER → 2025-05-26 | Outpatient (CLI) | payer OTHER, SELFPAY ==
--- NOTE | 2025-05-26 15:23 | US_ITS ---
PROCEDURE: OB ANATOMY SCAN 05/26/2025 REASON FOR EXAM: ANATOMY SCAN 18-20WKS TECHNIQUE: OB ANATOMY SCAN COMPARISON: None FINDINGS LMP: December 29, 2024. Number: 1 Position: Transverse lie right Placental Position: Posterior and not low-lying Placental Abnormalities: No evidence of previa. DIMENSIONS: Biparietal Diameter: 4.82 cm: 20 weeks and 4 days: 31%/ Head Circumference: 17.59 cm: 20 weeks and 1 day: 9%/ Abdominal Circumference: 15.47 cm: 20 weeks and 5 days: 32nd percentile. Femur Length: 3.19 cm: 20 weeks and 0 days: 12th percentile/ ESTIMATED WEIGHT: 350 g plus/-53 g ESTIMATED WEIGHT PERCENTILE (24+ weeks): 18 ESTIMATED GESTATIONAL AGE: Baseline: 21 weeks and 0 days By Ultrasound: 20 weeks and 2 days ESTIMATED DATE OF DELIVERY: Baseline: October 06, 2025 By Ultrasound: October 11, 2025 BIOPHYSICAL ASSESSMENT: Amniotic Fluid Volume: 6.2 cm Amniotic Fluid Index: Within normal limits. (8-24 cm normal range) Cardiac Motion: 153 beats per minute (average) Trunk and Limb Motion: Present. MATERNAL ANATOMY: Adnexa: Neither maternal ovary is successfully identified. Cervical Length (if measured): 4.2 cm ANATOMY: Spine: Unremarkable Cranium: Unremarkable Cerebellum: Unremarkable Cisterna Magna: Unremarkable Cavum Septum Pellucidi: Unremarkable Lateral Ventricles: Unremarkable Choroid Plexus: Unremarkable Midline Falx: Nuchal Fold: Unremarkable Heart: Unremarkable Stomach: Unremarkable Kidneys: Unremarkable Bladder: Unremarkable Umbilical Cord: Normal placental insertion. cord insertion not seen well. Extremities: Unremarkable US/OB Anatomy Scan IMPRESSION: Single live intrauterine gestation with a mean gestational age of 20 weeks and 2 days. Reading Location: [id number]
== END | disposition home or self-care (01) ==
LOC: US 15:21
PROVIDERS: PCP Internal Medicine; Referring Provider Advanced Practice Midwife; Visit Provider Advanced Practice Midwife
DX: O09.90 Supervision of high risk pregnancy, unspecified, unspecified trimester (principal); Z3A.00 Weeks of gestation of pregnancy not specified
CPT/HCPCS: 76805

== ENCOUNTER → 2025-07-09 | Outpatient (CLI) | payer OTHER, SELFPAY ==
[2025-07-09 16:32] LABS: Hematocrit 36.7 % (37-47); Hemoglobin 12.3 g/dL (12.0-15.0); Immature Granulocytes Count 0.080 X10^3/uL (0.0-0.0); Mean Corp Hgb Conc 33.5 g/dL (32-36); Mean Corpuscular Volume 88.0 fL (81-99); Mean Platelet Vol. 11.1 fl (6.2-12.0); NRBC Flagged by Analyzer 0 % (0-5); Platelet Count 243 K/mm3 (150-450); RBC Distribution Width CV 12.9 % (11.6-14.6); RBC Distribution Width SD 41.2 fl (35.1-43.9); Red Blood Count 4.17 M/mm3 (4.2-5.4); White Blood Count 12.9 K/mm3 (4.4-11.0)
[2025-07-09 17:15] LABS: Glucose Challenge Gest 1H 50g 145 mg/dL (70-140); HIV Nonreactive (Nonreactive); Syphilis Antibodies Nonreactive (Nonreactive)
== END | disposition home or self-care (01) ==
LOC: BWCLAB 14:16
PROVIDERS: PCP Internal Medicine; Referring Provider Obstetrics & Gynecology; Visit Provider Obstetrics & Gynecology
DX: O09.92 Supervision of high risk pregnancy, unspecified, second trimester (principal); Z3A.00 Weeks of gestation of pregnancy not specified
CPT/HCPCS: 36415; 82950; 85025; 86703; 86780

== ENCOUNTER → 2025-07-18 | Outpatient (CLI) | payer OTHER, SELFPAY ==
--- OUTSIDE RECORDS SUMMARY | 2025-07-18 07:08 | XMS RPT_ITS | CCD ---
Author Organization [facility] Care Team Providers Care County Administrator Name Role Phone Ta Mora Primary Care Provider Dr. Coby Carmona Attending Provider [phone] Karena TRACTOR OPERATOR HELPER, ALICIA Miranda Attending Provider [phone] [phone] Dr. Coby Carmona Primary Care Provider 1(33 0) Dr. Coby Carmona Referring Provider [phone])2 Dr. Coby Carmona Primary Care Provider 1(33 0) Dr. Coby Carmona Referring Provider [phone])2 Dr. Kaycee Pathak Attending Provider 1(330 ) Karena ANGLIN, ALICIA Miranda Attending Provider 1(330 ) Dr. [...] 0) Dr. Coby Carmona Referring Provider [phone] Mathew MANUEL, Dr. Tenorio Primary Care Provider Mathew MANUEL, Dr. Tenorio Referring Provider 1(33 0) Karena TRACTOR OPERATOR HELPER-C, Ruth Attending Provider [phone] Thuy Holt RN Attending Provider Unavailabl pawel Pathak MD, Dr. Benoit Attending Provider [phone] Zo MANUEL, Dr. Benoit Referring Provider [phone] Robbie VERA, Georgette Attending Provider 1(330) Carrie MANUEL, Dr. Marrero Attending Provider Robbie VERA, Georgette Referring Provider 1(330) Shawn Alonso DO, Dr. Nation Attending Provider Mathew MANUEL, Dr. Tenorio Primary Care Provider Mathew MANUEL, Dr. Tenorio Referring Provider 1([phone]) Zo MANUEL, Dr. Benoit Attending Provider Zo MANUEL, Dr. Benoit Referring Provider Karena TRACTOR OPERATOR HELPER-C, Ruth Attending Provider 1(330) Shawn Alonso DO, Dr. Nation Referring Provider Oleghe, Efewongbe Primary Care Unavailable [place] TRACTOR OPERATOR HELPER Ruth Referring Unavailable [place] TRACTOR OPERATOR HELPER, Ruth Attending Unavailable Oleghe, Efewongbe Primary Care Unavailable Georgette Avalos Referring Unavailable Georgette Avalos Attending Unavailable Oleghe, Efewongbe Primary Care Unavailable Kaycee Pathak Referring Unavailable Kaycee Pathak Attending Unavailable Oleghe, Efewongbe Primary Care Unavailable Kaycee Pathak Referring Unavailable Kaycee Pathak Attending Unavailable Thuy Holt Attending Unavailable Oleghe, Efewongbe Primary Care Unavailable Oleghe, Efewongbe Referring Unavailable Oleghe, Efewongbe Primary Care Unavailable Georgette Avalos Attending Unavailable Oleghe, Efewongbe Primary Care Unavailable Oleghe, Efewongbe Referring Unavailable Chapis Chavez Attending Unavailabl e Oleghe, Efewongbe Primary Care Unavailable Oleghe, Efewongbe Referring Unavailable Georgette Avalos Attending Unavailable Oleghe, Efewongbe Referring Unavailable Ruth Thurston NP Attending Unavailable Oleghe, Efewongbe Primary Care Unavailable Oleghe, Efewongbe Referring Unavailable Kaycee Pathak Attending Unavailable Oleghe, Efewongbe Primary Care Unavailable Oleghe, Efewongbe Primary Care Unavailable Oleghe, Efewongbe Referring Unavailable Georgette Avalos Attending Unavailable Oleghe, Efewongbe Primary Care Unavailable Oleghe, Efewongbe Referring Unavailable Ruth Thurston NP Attending Unavailable Oleghe, Efewongbe Primary Care Unavailable Oleghe, Efewongbe Referring Unavailable Kaycee Pathak Attending Unavailable Oleghe, Efewongbe Primary Care Unavailable Kaycee Pathak Referring Unavailable Janes Butler Attending Unavailable Oleghe, Efewongbe Primary Care Unavailable Chapis Chavez Referring Unavailabl e Chapis Chavez Attending Unavailabl e Medications Current Medications Medication Drug Class(es) Dates Sig (Normalized) Sig (Original) aspirin 81 mg oral tablet (2 sources) Platelet Aggregation Inhibitor, Nonsteroidal Anti-inflammatory Drug Start: 06-11-2025 take 1 tablet by mouth once daily Aspirin 81 mg tablet Active 81 mg PO daily June 11, 2025 12:00am docosahexaenoic acid 200 mg oral capsule (7 sources) Start: 02-11-2025 Docosahexaenoic Acid ( Dha) 200 mg capsule Active mg PO February 11, 2025 12:00am Completed/Discontinued Medications Medication Drug Class(es) Dates Sig (Normalized) Sig (Original) citalopram 20 mg oral tablet (20 sources) Serotonin Reuptake Inhibitor Start: 02-28-2022 End: 05-26-2022 take 1 tablet by mouth once daily Citalopram (Celexa) 20 mg tablet Discontinued 20 mg PO DAILY 90 3 March 30, 2022 9:33am May 26, 2022 3:32pm Drospirenone-Ethin yl Estradiol (20 sources) Progestin, Estrogen Start: 09-06-2024 End: 02-11-2025 Drospirenone-Ethiny l Estradiol 3-0.03 mg tablet Discontinued 1 {tbl} PO DAILY 84 September 06, 2024 12:14pm February 11, 2025 8:08am Start: 09-06-2024 End: 02-11-2025 Drospirenone-Ethinyl Estradi ol 3-0.03 mg tablet Discontinued 1 {tbl} PO DAILY 84 September 06, 2024 12:14pm February 11, 2025 8:08am Start: 09-08-2023 End: 09-06-2024 Drospirenone-Ethinyl Estradi ol 3-0.03 mg tablet Discontinued 1 {tbl} PO DAILY 84 September 08, 2023 5:11pm September 06, 2024 12:14pm Start: 09-08-2023 End: 09-06-2024 Drospirenone-Ethinyl Estradi ol 3-0.03 mg tablet Discontinued 1 {tbl} PO DAILY September 08, 2023 5:11pm September 06, 2024 12:14pm Start: 09-08-2023 take 1 tablet by jia th once daily Drospirenone-Ethinyl Estradiol Active 1 TABLET PO DAILY September 08, 2023 4:11pm Start: 02-28-2022 End: 09-08-2023 Drospirenone-Ethinyl Estradi ol 3-0.03 mg tablet Discontinued 1 {tbl} PO DAILY 84 February 28, 2022 2:49pm September 08, 2023 5:12pm Start: 02-28-2022 End: 09-08-2023 Drospirenone-Ethinyl Estradi ol [...] 28, 2022 2:49pm Start: 01-24-2022 End: 01-24-2022 take 3 tablets by mouth once daily Drospirenone-Ethinyl Estradiol (Karoline (28)) 3-0.02 mg tablet Discontinued 1 {tbl} PO DAILY January 24, 2022 12:00am January 24, 2022 8:46am Start: 01-24-2022 End: 02-28-2022 Drospirenone-Ethinyl Estradi ol 3-0.03 mg tablet Discontinued 1 {tbl} PO DAILY January 24, 2022 12:00am February 28, 2022 [...] 28, 2022 9:16am August 15, 2022 3:33pm BMI 37.9 must administer 30 minutes before or 1-2 hours after breakfast weight 173. *note BMI incorrect on last script, patient has lost weight. 24 hr venlafaxine 37.5 mg extended release oral capsule (20 sources) Serotonin and Norepinephrine Reuptake Inhibitor Start: End: 023 Venlafaxine 37.5 mg capsule,extended release 24hr Discontinued 37.5 mg PO As Directed 14 September 30, 2022 1:00am June 21, 2023 8:34am 1 capsule daily x1 week then every other day x1 week Start: 05-26-2022 End: 09-30-2022 take 1 capsule by mouth once daily Venlafaxine (Effexor Xr) 75 mg capsule,extended release 24hr Discontinued 75 mg PO DAILY 28 10May 26, 2022 12:00am September 30, 2022 4:01pm Problems Active Problems Problem Classification Problem Date Documented Da te Episodic/Chronic Administrative/social admission (16 sources) Patient encounter status; Translations: [Encounter for examination for admission to educational institution] Episodic Anxiety disorders (18 sources) Anxiety; Translations: [Anxiety disorder, unspecified] Chronic Comment on above: start effexor stop c elexa Cardiac dysrhythmias (20 sources) Palpitations; Translations: [Palpitations] 09-15-2023 Episodic Essential hypertension (20 sources) Hypertensive disorder; Translations: [Essential (primary) hypertension] Onset: 02-21-2025 Chronic Comment on above: Nml BP readings x1ye ar, medicine in the past but not at present Menstrual disorders (1 source) Amenorrhea, unspecified; Translations: [Amenorrhea, unspecified] Onset: 02-21-2025 Chronic Other circulatory disease (16 sources) Elevated blood-pressure reading without diagnosis of hypertension; Translations: [Elevated blood-pressure reading, without diagnosis of hypertension] 01-24-2022 Episodic Other circulatory disease (3 sources) Elevated blood-pressure reading, without diagnosis of hypertension; Translations: [Elevated blood pressure reading without diagnosis of hypertension] Episodic Other circulatory disease (15 sources) Labile hypertension due to being in a clinical environment; Translations: [Elevated blood-pressure reading, without diagnosis of hypertension] 02-28-2022 Episodic Comment on above: Home BP readings WNL Other complications of (20 sources) Maternal obesity complicating , childbirth and the puerperium, antepartum; Translations: [Obesity complicating , unspecified trimester] 02-11-2025 Chronic Comment on above: BMI 38.7, HgBA1C ord ered with NOB Other complications of (1 source) Obesity complicating , second trimester; Translations: [Obesity complicating , second trimester] Onset: 07-09-2025 Chronic Other complications of (2 sources) Obesity complicating , unspecified trimester; Translations: [Obesity complicating , unspecified trimester] Onset: 02-21-2025 Chronic Other complications of (20 sources) High risk ; Translations: [Supervision of high risk , unspecified, unspecified trimester] 02-28-2025 Episodic Comment on above: , KUNAL 10/12/25, : Radha PRR , KUNAL , boy : Radha Other complications of (2 sources) Supervision of high risk , unspecified, second trimester; Translations: [Supervision of high risk , unspecified, second trimester] Onset: 07-09-2025 Episodic Other complications of (2 sources) Supervision of high risk , unspecified, unspecified trimester; Translations: [Supervision of high risk , unspecified, unspecified trimester] Onset: 02-21-2025 Episodic Other connective tissue disease (16 sources) Tendinitis of shoulder region; Translations: [Other enthesopathies, not elsewhere classified] 01-24-2022 Episodic Other connective tissue disease (2 sources) Other enthesopathies, not elsewhere classified; Translations: [Disorders of bursae and tendons in shoulder region, unspecified] Episodic Other endocrine disorders (20 sources) Polycystic ovary syndrome; Translations: [Polycystic ovarian syndrome] 06-21-2023 Chronic Comment on above: hga1c. encouraged he althy weight gain Other endocrine disorders (13 sources) Polycystic ovarian syndrome; Translations: [Polycystic ovaries] Onset: 07-09-2025 Chronic Other non-traumatic joint disorders (4 sources) Shoulder pain; Translations: [Pain in left shoulder] Episodic Other non-traumatic joint disorders (14 sources) Pain in left shoulder; Translations: [Pain in joint, shoulder region] Episodic Other non-traumatic joint disorders (16 sources) Pain in right shoulder; Translations: [Right shoulder pain] 06-21-2023 Episodic Other nutritional; endocrine; and metabolic disorders (14 sources) Obesity; Translations: [Other obesity] 05-26-2022 Chronic Other nutritional; endocrine; and metabolic disorders (14 sources) Metabolic syndrome X; Translations: [Metabolic syndrome] [...] 10-06-2023 Chronic Other and delivery including normal (20 sources) ; Translations: [Encounter for supervision of normal , unspecified, unspecified trimester] 03-25-2025 Episodic Comment on above: Discussed genetic/ca rrier testing - undecided Discussed genetic/ca rrier/ntd testing - declined. normal anatomy, Disc ussed genetic/carrier/ntd testing - declined. Other screening for suspected conditions (not mental disorders or infectious disease) (3 sources) Encounter for screening for diabetes mellitus; Translations: [Encounter for other screening follow-up] Onset: 02-21-2025 Episodic Residual codes; unclassified (1 source) 27 weeks gestation of ; Translations: [27 weeks gestation of ] Onset: 07-09-2025 Episodic Residual codes; unclassified (1 source) 19 weeks gestation of ; Translations: [19 weeks gestation of ] Onset: 05-16-2025 Episodic Spondylosis; intervertebral disc disorders; other back problems (20 sources) Chronic back pain ; Translations: [Dorsalgia, unspecified] Episodic Unclassified (2 sources) Patient encounter status; Translations: [Routine cervical smear] Onset: 04-26-2016 04-26-2016 Past or Other Problems Problem Classification Problem Date Documented Date Episodic/Chronic Contraceptive and procreative management (1 source) Oral contraception; Translations: [Oral contraceptive pill surveillance] Onset: 04-26-2016 04-26-2016 Episodic Residual codes; unclassified (1 source) 12 weeks gestation of ; Translations: [12 weeks gestation of ] Onset: 03-25-2025 Episodic Residual codes; unclassified (1 source) 8 weeks gestation of ; Translations: [8 weeks gestation of ] Onset: 02-28-2025 Episodic Results Test Name Value Interpretation Reference Range Facility CBC W/Diff, Automatedon 09-1 Absolute Lymph 2.04 X10 3/uL Normal 0.83-4.51 [facility] Comment on above: Performed By: #### L 3890.6006, L100.0100, L509.8002, L501.0250 ####[facility] [address] [place], [address] Absolute Neut 10.1 X10 3/uL High 2.0-7.7 [facility] Comment on above: Performed By: #### L 3890.6006, L100.0100, L509.8002, L501.0250 ####[facility] [address] [place], [address] Basophils/100 WBC (Bld) 0.2 % Normal 0-1 [facility] Comment on above: Performed By: #### L 3890.6006, L100.0100, L509.8002, L501.0250 ####[facility] [address] [place], [address] Eosinophils/100 WBC (Bld) 0.7 % Normal 0-5 [facility] Comment on above: Performed By: #### L 3890.6006, L100.0100, L509.8002, L501.0250 ####[facility] [address] [place], [address] Erythrocyte distribution width (RBC) [Ratio] 12.9 % Normal 11.6-14.6 [facility] Comment on above: Performed By: #### L 3890.6006, L100.0100, L509.8002, L501.0250 ####[facility] [address] [place], [address] Hematocrit (Bld) [Volume fraction] 36.7 % Low 37-47 [facility] Comment on above: Performed By: #### L 3890.6006, L100.0100, L509.8002, L501.0250 ####[facility] [address] [place], [address] Hemoglobin (Bld) [Mass/Vol] 12.3 g/dL Normal 12.0-15.0 [facility] Comment on above: Performed By: #### L 3890.6006, L100.0100, L509.8002, L501.0250 ####[facility] [address] [place], [address] IG% 0.600 Normal 0.0-0.9 [facility] Comment on above: Result Comment: IG% - Immature Granulocytes (promyelocytes, myelocytes and metamyelocytes) > 1% indicates that a LEFT SHIFT is Present. Performed By: #### L 3890.6006, L100.0100, L509.8002, L501.0250 ####[facility] [address] [place], [address] Lymphocytes/100 WBC (Bld) 15.8 % Low 19-41 [facility] Comment on above: Performed By: #### L 3890.6006, L100.0100, L509.8002, L501.0250 ####[facility] [address] [place], [address] MCH (RBC) [Entitic mass] 29.5 pg Normal 27.0-32.0 [facility] Comment on above: Performed By: #### L 3890.6006, L100.0100, L509.8002, L501.0250 ####[facility] [address] [place], [address] MCHC (RBC) [Mass/Vol] 33.5 g/dL Normal 32-36 [facility] Comment on above: Performed By: #### L 3890.6006, L100.0100, L509.8002, L501.0250 ####[facility] [address] [place], [address] MCV (RBC) [Entitic vol] 88.0 fL Normal 81-99 [facility] Comment on above: Performed By: #### L 3890.6006, L100.0100, L509.8002, L501.0250 ####[facility] [address] [place], [address] Monocytes/100 WBC (Bld) 4.0 % Normal 0-10 [facility] Comment on above: Performed By: #### L 3890.6006, L100.0100, L509.8002, L501.0250 ####[facility] [address] [place], [address] Neutrophils/100 WBC (Bld) 78.7 % High 47-70 [facility] Comment on above: Performed By: #### L 3890.6006, L100.0100, L509.8002, L501.0250 ####[facility] [address] [place], [address] Nucleated RBC (Bld) [#/Vol] 0 10*3/uL Normal 0-5 [facility] Comment on above: Performed By: #### L 3890.6006, L100.0100, L509.8002, L501.0250 ####[facility] [address] [place], [address] Platelet mean volume (Bld) [Entitic vol] 11.1 fL Normal 6.2-12.0 [facility] Comment on above: Performed By: #### L 3890.6006, L100.0100, L509.8002, L501.0250 ####[facility] [address] [place], [address] Platelets (Bld) [#/Vol] 243 10*3/uL Normal 150-450 [facility] Comment on above: Performed By: #### L 3890.6006, L100.0100, L509.8002, L501.0250 ####[facility] [address] [place], [address] RBC (Bld) [#/Vol] 4.17 10*6/uL Low 4.2-5.4 [facility] Comment on above: Performed By: #### L 3890.6006, L100.0100, L509.8002, L501.0250 ####[facility] [address] [place], [address] RDW SD 41.2 fl Normal 35.1-43.9 [facility] Comment on above: Performed By: #### L 3890.6006, L100.0100, L509.8002, L501.0250 ####[facility] [address] [place], [address] WBC (Bld) [#/Vol] 12.9 10*3/uL High 4.4-11.0 [facility] Comment on above: Performed By: #### L 3890.6006, L100.0100, L509.8002, L501.0250 ####[facility] [address] [place], [address] Glucose Challenge Gest 1H 50 jaspal 07-09-2025 GLU GEST 50g 1H 145 mg/dL High 70-140 [facility] Comment on above: Performed By: #### L 3890.6006, L100.0100, L509.8002, L501.0250 ####[facility] [address] [place], [address] HIVon 07-09-2025 HIV Non-Reactive Normal Nonreactive [facility] Comment on above: Result Comment: Non- Reactive Reactive Repeatedly reactive samples must be confirmed according to CDC recommended confirmatory algorithms. The subresults for either HIVAG or AHIV can be used as an aid in the selection of the confirmation algorithm for reactive samples. Send out specimens with Reactive results to [facility] for confirmation. Order the HIV antibody detection and differentiation: [id number] Performed By: #### L 3890.6006, L100.0100, L509.8002, L501.0250 ####[facility] [address] [place], [address] Digital Composer Office Visit Reporton 07-09-2025 Digital Composer Office Visit Report [facility] [address], [address] [place] [address] OFFICE VISIT Date of Service: 07/09/25 MR#: [id number] Acct: [id number] Name: MARITA BERGERON Rep #: [id number] : 1995 Provider: CHUY Li ams Age/Sex: 29/F Location: [facility] [place] Status: Signed Intake Vital Signs 05/16/25 14:39 06/11/25 14:12 07/09/25 14:27 Height 4 ft 10 in 4 ft 10 in 4 ft 10 in Weight: 190 lb 7 oz BMI 39.8 BP 136/83 H Intake Visit Reasons: 27wk ob/glucose Chief Complaint: 27wk OB/Glucose Respooler Required: No Is patient in pain?: No Allergies No Known Allergies Allergy (Verified 07/09/25 14:24) Medications ???Medication ???Instructions ???Recorded ???Confirmed ???Type docosahexaenoic acid 200 mg mg PO 02/11/25 07/09/25 History capsule ( DHA) aspirin 81 mg tablet 81 mg PO QDAY 06/11/25 07/09/25 Hi story Last Menstrual Period: 12/29/24 : No PFSH PFSH Medical History Palpitations Sinus tachycardia by electrocardiogram Hypertension PCOS (polycystic ovarian syndrome) Chronic back pain Surgical History S/P wisdom tooth extraction Family History Grandmother Myocardial infarction Diabetes Grandfather Myocardial infarction Grandmother Colon cancer Social History adopted: No household members: spouse housing: house current occupational status: 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 OB Visit KUNAL Calculator Estimated Delivery Date Method Current WG Current Estimate 10/06/25 LMP (Certain) 27w 2d Other Estimates 10/12/25 Ultrasound #1 26w 3d Expected Delivery Route/Plan Labor Preferences- CB/BF classes: [...] in visit notes/problem list details Initial Weight: 186 lb Date -???-???-???-???-??? -???-???-???-???-??? -???-???- EGA Weight BP Urine Prot -???-???-???-???-??? -???-???-???-???-??? -???-???- Glucose FHR FuHt Pres Dilation -???-???-???-???-??? -???-???-???-???-??? -???-???- Effaced St Visit Note 02/28/25 -???-???-???-???-??? -???-???-???-???-??? -???-???- 8w 4d 186 lb 8 oz (+8 oz) 123/80 -???-???-???-???-??? -???-???-???-???-??? -???-???- 170 -???-???-???-???-??? -???-???-???-???-??? -???-???- SM- crl 1.4 cm not cons with lmp 03/25/25 -???-???-???-???-??? -???-???-???-???-??? -???-???- 12w 1d 186 lb 4 oz (+4 oz) 138/87 Negative -???-???-???-???-??? -???-???-???-???-??? -???-???- Negative 168 -???-???-???-???-??? -???-???-???-???-??? -???-???- KW- no vb/cr amping. US ordered. start asa 81 mg. 04/21/25 -???-???-???-???-??? -???-???-???-???-??? -???-???- 16w 0d 188 lb (+2 lb) 118/78 -???-???-???-???-??? -???-???-???-???-??? -???-???- 151 -???-???-???-???-??? -???-???-???-???-??? -???-???- MH-No VB. Fe els well. No nausea. Denies concerns 05/16/25 -???-???-???-???-??? -???-???-???-???-??? -???-???- 19w 4d 189 lb 2 oz (+3 lb 2 oz) 126/81 N (more content not included)... Normal [facility] Syphilis Antibodieson 2024 Syphilis Abs Non-Reactive Normal Nonreactive [facility] Comment on above: Performed By: #### L 3890.6006, L100.0100, L509.8002, L501.0250 ####[facility] [address] [place], [address] Laboratory - Chemistry and C hemistry - challengeOrdered By: Chapis Alonso on 06-11-2025 Glucose Ql (U) Negative [facility] Laboratory - UrinalysisOrder ed By: Chapis Alonso on 06-11-2025 Protein Ql (U) Negative [facility] Digital Composer Office Visit Reporton 06-11-2025 Digital Composer Office Visit Report [facility], [address] [place] [address] OFFICE VISIT Date of Service: 06/11/25 MR#: [id number] Acct: [id number] Name: MARITA BERGERON Rep #: [id number] : 1995 Provider: Dr. Chapis Smith DO Age/Sex: 29/F Location: [facility] Status: Signed Intake Vital Signs 04/21/25 14:54 05/16/25 14:39 06/11/25 14:11 06/11/25 14:12 Height 4 ft 10 in 4 ft 10 in 4 ft 10 in 4 ft 10 in Weight: 190 lb 5 oz BMI 39.7 BP 120/78 Intake Visit Reasons: 23 wk ob Respooler Required: No Is patient in pain?: No Allergies No Known Allergies Allergy (Verified 06/11/25 14:11) Medications ???Medication ???Instructions ???Recorded ???Confirmed ???Type docosahexaenoic acid 200 mg mg PO 02/11/25 06/11/25 History capsule ( DHA) aspirin 81 mg tablet 81 mg PO QDAY 06/11/25 06/11/25 Hi story Last Menstrual Period: 12/29/24 Zika: Zika virus screening: Negative : No PFSH PFSH Medical History Palpitations Sinus tachycardia by electrocardiogram Hypertension PCOS (polycystic ovarian syndrome) Chronic back pain Surgical History S/P wisdom tooth extraction Family History Grandmother Myocardial infarction Diabetes Grandfather Myocardial infarction Grandmother Colon cancer Social History adopted: No household members: spouse housing: house current occupational status: employed 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 OB Visit KUNAL Calculator Estimated Delivery Date Method Current WG Current Estimate 10/06/25 LMP (Certain) 23w 2d Other Estimates 10/12/25 Ultrasound #1 22w 3d Expected Delivery Route/Plan Labor Preferences- CB/BF classes: [...] amping. US ordered. start asa 81 mg. 04/21/25 -???-???-???-???-??? -???-???-???-???-??? -???-???- 16w 0d 188 lb 118/78 -???-???-???-???-??? -???-???-???-???-??? -???-???- 151 -???-???-???-???-??? -???-???-???-???-??? -???-???- MH-No VB. Fe els well. No nausea. Denies concerns 05/16/25 -???-???-???-???-??? -???-???-???-???-??? -???-???- 19w 4d 189 lb 2 oz (more content not included)... Normal [facility] OB Anatomy Scanon 05-26-2025 OB Anatomy Scan [facility] Imaging [place] [address] OB Anatomy Scan MR#: [id number] Acct: [id number] Name: MARITA BERGERON Rep #: [id number] : 1995 F 29 From: Bernardo phan MD PCP: Dr. Coby Carmona MD Status: REG CLI Study: OB Anatomy Scan Date of Exam: 05/26/25 Exam# [id number] Ordering Dr: Georgette Avalos CNM PROCEDURE: OB ANATOMY SCAN 05/26/2025 REASON FOR EXAM: ANATOMY SCAN 18-20WKS TECHNIQUE: OB ANATOMY SCAN COMPARISON: None FINDINGS LMP: December 29, 2024. Number: 1 Position: Transverse lie right Placental Position: Posterior and not low-lying Placental Abnormalities: No evidence of previa. DIMENSIONS: Biparietal Diameter: 4.82 cm: 20 weeks and 4 days: 31%/ Head Circumference: 17.59 cm: 20 weeks and 1 day: 9%/ Abdominal Circumference: 15.47 cm: 20 weeks and 5 days: 32nd percentile. Femur Length: 3.19 cm: 20 weeks and 0 days: 12th percentile/ ESTIMATED WEIGHT: 350 g plus/-53 g ESTIMATED WEIGHT PERCENTILE (24+ weeks): 18 ESTIMATED GESTATIONAL AGE: Baseline: 21 weeks and 0 days By Ultrasound: 20 weeks and 2 days ESTIMATED DATE OF DELIVERY: Baseline: October 06, 2025 By Ultrasound: October 11, 2025 BIOPHYSICAL ASSESSMENT: Amniotic Fluid Volume: 6.2 cm Amniotic Fluid Index: Within normal limits. (8-24 cm normal range) Cardiac Motion: 153 beats per minute (average) Trunk and Limb Motion: Present. MATERNAL ANATOMY: Adnexa: Neither maternal ovary is successfully identified. Cervical Length (if measured): 4.2 cm ANATOMY: Spine: Unremarkable Cranium: Unremarkable Cerebellum: Unremarkable Cisterna Magna: Unremarkable Cavum Septum Pellucidi: Unremarkable Lateral Ventricles: Unremarkable Choroid Plexus: Unremarkable Midline Falx: Nuchal Fold: Unremarkable Heart: Unremarkable Stomach: Unremarkable Kidneys: Unremarkable Bladder: Unremarkable Umbilical Cord: Normal placental insertion. cord insertion not seen well. Extremities: Unremarkable US/OB Anatomy Scan IMPRESSION: Single live intrauterine gestation with a mean gestational age of 20 weeks and 2 days. Reading Location: [facility] CC: CHUY Avalos; Dr. Coby Carmona MD Service Station Attendant: Signed Normal [facility] Laboratory - Chemistry and C hemistry - challengeOrdered By: Kaycee Pathak on 05-16-2025 Glucose Ql (U) Negative [facility] - UrinalysisOrder ed By: Kaycee Pathak on 05-16-2025 Protein Ql (U) Negative [facility] Digital Composer Office Visit Reporton 05-16-2025 Digital Composer Office Visit Report [facility] [address], [address] [place] [address] OFFICE VISIT Date of Service: 05/16/25 MR#: [id number] Acct: [id number] Name: MARITA BERGERON Rep #: [id number] : 1995 Provider: Dr. Kaycee snow MD Age/Sex: 29/F Location: [facility] Status: Signed Intake Vital Signs 03/25/25 13:40 03/25/25 14:18 04/21/25 14:54 05/16/25 14:39 Height 4 ft 10 in 4 ft 10 in 4 ft 10 in 4 ft 10 in Weight: 189 lb 2 oz BMI 39.5 BP 126/81 H Intake Visit Reasons: 19 wk ob Respooler Required: No Is patient in pain?: No Allergies No Known Allergies Allergy (Verified 05/16/25 14:39) Medications ???Medication ???Instructions ???Recorded ???Confirmed ???Type docosahexaenoic acid 200 mg mg PO 02/11/25 05/16/25 History capsule ( DHA) Last Menstrual Period: 12/29/24 Zika: Zika virus screening: Negative : No PFSH PFSH Medical History Palpitations Sinus tachycardia by electrocardiogram Hypertension PCOS (polycystic ovarian syndrome) Chronic back pain Surgical History S/P wisdom tooth extraction Family History Grandmother Myocardial infarction Diabetes Grandfather Myocardial infarction Grandmother Colon cancer Social History adopted: No household members: spouse housing: house current occupational status: employed 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 OB Visit KUNAL Calculator Estimated Delivery Date Method Current WG Current Estimate 10/06/25 LMP (Certain) 19w 4d Other Estimates 10/12/25 Ultrasound #1 18w 5d Expected Delivery Route/Plan Labor Preferences- CB/BF classes: [...] amping. US ordered. start asa 81 mg. 04/21/25 -???-???-???-???-??? -???-???-???-???-??? -???-???- 16w 0d 188 lb 118/78 -???-???-???-???-??? -???-???-???-???-??? -???-???- 151 -???-???-???-???-??? -???-???-???-???-??? -???-???- -No VB. Fe els well. No nausea. Denies concerns 05/16/25 -???-???-???-???-??? -???-???-???-???-??? -???-???- 19w 4d 189 lb 2 oz 126/81 -???-???-???-???-??? -???-???-???-???-??? -???-???- 145 -???-??? (more content not included)... Normal [facility] Digital Composer Office Visit Reporton 04-21-2025 Digital Composer Office Visit Report [facility] [address], [address] [place] [address] OFFICE VISIT Date of Service: 04/21/25 MR#: [id number] Acct: [id number] Name: CAMERON BOUDREAUXMARITA SEEMA Rep #: [id number] : 1995 Provider: ALICIA torres Age/Sex: 29/F Location: [facility] Status: Signed Intake Vital Signs 02/28/25 13:03 03/25/25 14:18 04/21/25 14:54 Height 4 ft 10 in 4 ft 10 in 4 ft 10 in Weight: 188 lb BMI 39.2 BP 118/78 Intake Visit Reasons: 15 wk ob Chief Complaint: 15 Week OB Respooler Required: No Is patient in pain?: No Allergies No Known Allergies Allergy (Verified 04/21/25 14:54) Medications ???Medication ???Instructions ???Recorded ???Confirmed ???Type docosahexaenoic acid 200 mg mg PO 02/11/25 04/21/25 History capsule ( DHA) Last Menstrual Period: 12/29/24 Zika: Zika virus screening: Negative : No PFSH PFSH Medical History Palpitations Sinus tachycardia by electrocardiogram Hypertension PCOS (polycystic ovarian syndrome) Chronic back pain Surgical History S/P wisdom tooth extraction Family History Grandmother Myocardial infarction Diabetes Grandfather Myocardial infarction Grandmother Colon cancer Social History adopted: No household members: spouse housing: house current occupational status: employed 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 OB Visit KUNAL Calculator Estimated Delivery Date Method Current WG Current Estimate 10/06/25 LMP (Certain) 16w 0d Other Estimates 10/12/25 Ultrasound #1 15w 1d Expected Delivery Route/Plan Labor Preferences- CB/BF classes: [...] amping. US ordered. start asa 81 mg. 04/21/25 -???-???-???-???-??? -???-???-???-???-??? -???-???- 16w 0d 188 lb 118/78 -???-???-???-???-??? -???-???-???-???-??? -???-???- 151 -???-???-???-???-??? -???-???-???-???-??? -???-???- MH-No VB. Fe els well. No nausea. Denies concerns ACOG First Trimester First Trimester: Discussed ROS Const Reports system reviewed and no additional complaints, except as docum (more content not included)... Normal [facility] Electrocardiogram reportOrde red By: Colton Ibanez on 04-18-2025 EKG study [facility] Cardiovascular Services [address] [place] [address] 12 Lead EKG 04/17/25 1353 MR#: [id number] Acct: [id number] Name: MARITA BERGERON p #:[id number] : 1995 29 From: Colton torrez MD Attending Dr: Dr. Kaycee Pathak MD Status: REG CLI Ordering Dr: Kaycee Pathak MD Robert e: 04/17/25 Location: [facility] Sex: F C Admitted: Test Reason : HTN Blood Pressure : */* mmHG Vent. Rate : 92 BPM Atrial Rate : 92 BPM P-R Int : 148 ms QRS Dur : 70 ms QT Int : 338 ms P-R-T Axes : 36 52 7 degrees QTcB Int : 417 ms Normal sinus rhythm with sinus arrhythmia Normal ECG Confirmed by ANTONIO MANUEL, ROCIO ([id number]), editor farm journal MICHAEL COLLINS ([id number]) on 04/18/2025 1:06:05 PM Referred By: Kaycee Pathak Confirmed By: ROCIO IBANEZ MD 04/18/25 1306 Date _ Colton Ibanez MD CC: Dr. Coby Carmona MD; Dr. Kaycee Pathak MD ~ [facility] Other Phone: 12 Lead EKGon 04-17-2025 12 Lead EKG [facility] [address] [place] [address] 12 Lead EKG 04/17/25 1353 MR#: [id number] Acct: [id number] Name: MARITA BERGERON Rep #: [id number] : 1995 29 From: Colton Ibanez MD Attending Dr: Dr. Kaycee Pathak MD Status: REG CLI Ordering Dr: Kaycee Pathak MD Date: 04/17/25 Location: [facility] Sex: F C Admitted: Test Reason : HTN Blood Pressure : */* mmHG Vent. Rate : 92 BPM Atrial Rate : 92 BPM P-R Int : 148 ms QRS Dur : 70 ms QT Int : 338 ms P-R-T Axes : 36 52 7 degrees QTcB Int : 417 ms Normal sinus rhythm with sinus arrhythmia Normal ECG Confirmed by ROCIO IBANEZ MD ([id number]), editor farm journal MICHAEL COLLINS ([id number]) on 04/18/2025 1:06:05 PM Referred By: Kaycee Pathak Confirmed By: ROCIO IBANEZ MD 04/18/25 1306 Date Colton Ibanez MD CC: Dr. Coby Carmona MD; Dr. Kaycee Pathak MD Signed Normal [facility] Laboratory - Chemistry and C hemistry - challengeOrdered By: Georgette Avalos on 03-25-2025 Glucose Ql (U) Negative [facility] - UrinalysisOrder ed By: Georgette Avalos on 03-25-2025 Protein Ql (U) Negative [facility] Digital Composer Office Visit Reporton 03-25-2025 Digital Composer Office Visit Report [facility] [address], [address] [place] [address] OFFICE VISIT Date of Service: 03/25/25 MR#: [id number] Acct: [id number] Name: MARITA BERGERON Rep #: [id number] : 1995 Provider: CHUY Li ams Age/Sex: 29/F Location: [facility] Status: Signed Intake Vital Signs 09/06/24 10:59 02/28/25 13:03 03/25/25 13:40 Height 4 ft 10 in 4 ft 10 in 4 ft 10 in Weight: 186 lb 4 oz BMI 38.9 BP 138/87 H Intake Visit Reasons: 11 wk OB Chief Complaint: 11wk OB Respooler Required: No Is patient in pain?: No [...] occupational status: employed 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 Normal [facility] PAP I-G w/rfx hrHPV-Aptimaon 03-04-2025 ADEQ Comment Normal . [facility] Comment on above: Order Comment: Speci men Comment: [id number] Comment: Source.............CervixSpecimen Comment: Other..............Specimen Comment: No. of containers..01 ThinPrep Vial Result Comment: Sati sfactory for evaluation. Endocervical and/or squamous metaplastic cells (endocervical component) are present. Performed By: #### L 7000.1800, M100.2200, L7400.0353, L501.0900 ####[facility] [address] [place], [place], [id number] COMM . Normal . [facility] Comment on above: Order Comment: [facility] Comment: [id number] Comment: Source.............CervixSpecimen Comment: Other..............Specimen Comment: No. of containers..01 ThinPrep Vial Performed By: #### L 7000.1800, M100.2200, L7400.0353, L501.0900 ####[facility] [address] [place], [place], [id number] COMMENT Comment Normal . [facility] Comment on above: Order Comment: Speci men Comment: [id number] Comment: Source.............CervixSpecimen Comment: Other..............Specimen Comment: No. of containers..01 ThinPrep Vial Result Comment: This liquid based ThinPrep(R) pap test was screened with the use of an image guided system. Performed By: #### L 7000.1800, M100.2200, L7400.0353, L501.0900 ####[facility] [address] [place], [address] DIAG Comment Normal . [facility] Comment on above: Order Comment: Speci men Comment: [id number] Comment: Source.............CervixSpecimen Comment: Other..............Specimen Comment: No. of containers..01 ThinPrep Vial Result Comment: NEGA TIVE FOR INTRAEPITHELIAL LESION OR MALIGNANCY. Performed By: #### L 7000.1800, M100.2200, L7400.0353, L501.0900 ####[facility] [address] [place], [place], [phone] HPV RFLX Comment Normal . [facility] Comment on above: Order Comment: Speci men Comment: [id number] Comment: Source.............CervixSpecimen Comment: Other..............Specimen Comment: No. of containers..01 ThinPrep Vial Result Comment: The HPV DNA reflex criteria were not met with this specimen result therefore, no HPV testing was performed. Performed at: [address] [id number] [address] Justice: Neda Marie MD, Phone: [phone] Performed By: #### L 7000.1800, M100.2200, L7400.0353, L501.0900 ####[facility] [address] [place], [place], [address] PAPSMR Comment Normal . [facility] Comment on above: Order Comment: Speci men Comment: [id number] Comment: Source.............CervixSpecimen Comment: Other..............Specimen Comment: No. of containers..01 ThinPrep Vial Result [...] By: #### L 7000.1800, M100.2200, L7400.0353, L501.0900 ####[facility] [address] [place], [place], [phone] PERFORM Comment Normal . [facility] Comment on above: Order Comment: Speci men Comment: [id number] Comment: Source.............CervixSpecimen Comment: Other..............Specimen Comment: No. of containers..01 ThinPrep Vial Result Comment: Brenda Alexandre, Waiter/[employer] Performed By: #### L 7000.1800, M100.2200, L7400.0353, L501.0900 ####[facility] [address] [place], [address] Chlamydia/GC RASHEED aptimaon CHLAMY,NUC ACID Negative Normal Negative [facility] Comment on above: Performed By: #### L 7000.1800, M100.2200, L7400.0353, L501.0900 ####[facility] [address] [place], [address] GC BY NUC ACID Negative Normal Negative [facility] Comment on above: Result Comment: Perf ormed at: =G - [facility] [id number] Justice: Neda Marie MD, Phone: [phone] Performed By: #### L 7000.1800, M100.2200, L7400.0353, L501.0900 ####[facility] [address] [place], [place], [phone] Urine Cultureon 03-01-2025 URC Mixed Gram Positive Organisms Magdalena Count 80,000-100,000 MIXC Mixed contaminants. Submit a new specimen if indicated. Normal [facility] Comment on above: Performed By: #### L 7000.1800, M100.2200, L7400.0353, L501.0900 ####[facility] [address] [place], [place], [phone] Absolute lymphocyte countOrd ered By: Kaycee Pathak on 02-28-2025 Lymphocytes Auto (Unsp spec) [#/Vol] 2.48 10*3/uL 0.83-4.51 [facility] Absolute neutrophil countOrd ered By: Kaycee Pathak on 02-28-2025 Neutrophils (Bld) [#/Vol] 8.7 10*3/uL High 2.0-7.7 [facility] Anion gap in Serum or Plasma Ordered By: Kaycee Pathak on 02-28-2025 Anion gap [Moles/Vol] 14 mmol/L 5-15 [facility] Automated lymphocyte count a s percentage of total leukocytesOrdered By: Kaycee Pathak on 02-28-2025 Lymphocytes/100 WBC Auto (Unsp spec) 20.7 % 19-41 [facility] BUN/creatinine ratioOrdered By: Kaycee Pathak on 02-28-2025 Urea nitrogen/Creatinine [Mass ratio] 16.6 mg/mg 10-20 [facility] Basophil percentageOrdered B y: Kaycee Pathak on 02-28-2025 Basophils/100 WBC (Bld) 0.4 % 0-1 [facility] Bilirubin, totalOrdered By: Kaycee Pathak on 02-28-2025 Bilirubin [Mass/Vol] 0.57 mg/dL 0.00-1.30 [facility] CBC W/Diff, Automatedon 05-0 2-2024 Absolute Lymph 2.48 X10 3/uL Normal 0.83-4.51 [facility] Comment on above: Performed By: #### L 500.4050, L3890.6102, L3890.6301, BTS, L509.8002, L3890.6006, L509.4006, L100.0100, L501.9985 #### [facility] [address] [place], [address] Absolute Neut 8.7 X10 3/uL High 2.0-7.7 [facility] Comment on above: Performed By: #### L 500.4050, L3890.6102, L3890.6301, BTS, L509.8002, L3890.6006, L509.4006, L100.0100, L501.9985 #### [facility] [address] [place], [address] Basophils/100 WBC (Bld) 0.4 % Normal 0-1 [facility] Comment on above: Performed By: #### L 500.4050, L3890.6102, L3890.6301, BTS, L509.8002, L3890.6006, L509.4006, L100.0100, L501.9985 #### [facility] [address] [place], [address] Eosinophils/100 WBC (Bld) 0.8 % Normal 0-5 [facility] Comment on above: Performed By: #### L 500.4050, L3890.6102, L3890.6301, BTS, L509.8002, L3890.6006, L509.4006, L100.0100, L501.9985 #### [facility] [address] [place], [address] Erythrocyte distribution width (RBC) [Ratio] 12.4 % Normal 11.6-14.6 [facility] Comment on above: Performed By: #### L 500.4050, L3890.6102, L3890.6301, BTS, L509.8002, L3890.6006, L509.4006, L100.0100, L501.9985 #### [facility] [address] [facility] [place], [address] Hematocrit (Bld) [Volume fraction] 38.6 % Normal 37-47 [facility] Comment on above: Performed By: #### L 500.4050, L3890.6102, L3890.6301, BTS, L509.8002, L3890.6006, L509.4006, L100.0100, L501.9985 #### [facility] [address] [facility] [place], [address] Hemoglobin (Bld) [Mass/Vol] 13.2 g/dL Normal 12.0-15.0 [facility] Comment on above: Performed By: #### L 500.4050, L3890.6102, L3890.6301, BTS, L509.8002, L3890.6006, L509.4006, L100.0100, L501.9985 #### [facility] [address] [facility] [place], [address] IG% 0.400 Normal 0.0-0.9 [facility] Comment on above: Result Comment: IG% - Immature Granulocytes (promyelocytes, myelocytes and metamyelocytes) > 1% indicates that a LEFT SHIFT is Present. Performed By: #### L 500.4050, L3890.6102, L3890.6301, BTS, L509.8002, L3890.6006, L509.4006, L100.0100, L501.9985 #### [facility] [address] [facility] [place], [address] Lymphocytes/100 WBC (Bld) 20.7 % Normal 19-41 [facility] Comment on above: Performed By: #### L 500.4050, L3890.6102, L3890.6301, BTS, L509.8002, L3890.6006, L509.4006, L100.0100, L501.9985 #### [facility] [address] [place], [address] MCH (RBC) [Entitic mass] 29.3 pg Normal 27.0-32.0 [facility] Comment on above: Performed By: #### L 500.4050, L3890.6102, L3890.6301, BTS, L509.8002, L3890.6006, L509.4006, L100.0100, L501.9985 #### [facility] [address] [facility] [place], [address] MCHC (RBC) [Mass/Vol] 34.2 g/dL Normal 32-36 [facility] Comment on above: Performed By: #### L 500.4050, L3890.6102, L3890.6301, BTS, L509.8002, L3890.6006, L509.4006, L100.0100, L501.9985 #### [facility] [address] [facility] [place], [address] MCV (RBC) [Entitic vol] 85.6 fL Normal 81-99 [facility] Comment on above: Performed By: #### L 500.4050, L3890.6102, L3890.6301, BTS, L509.8002, L3890.6006, L509.4006, L100.0100, L501.9985 #### [facility] [address] [place], [address] Monocytes/100 WBC (Bld) 4.8 % Normal 0-10 [facility] [place] [facility] Comment on above: Performed By: #### L 500.4050, L3890.6102, L3890.6301, BTS, L509.8002, L3890.6006, L509.4006, L100.0100, L501.9985 #### [facility] [address] [place], [address] Neutrophils/100 WBC (Bld) 72.9 % High 47-70 [facility] Comment on above: Performed By: #### L 500.4050, L3890.6102, L3890.6301, BTS, L509.8002, L3890.6006, L509.4006, L100.0100, L501.9985 #### [facility] [address] [facility] [place], [address] Nucleated RBC (Bld) [#/Vol] 0 10*3/uL Normal 0-5 [facility] Comment on above: Performed By: #### L 500.4050, L3890.6102, L3890.6301, BTS, L509.8002, L3890.6006, L509.4006, L100.0100, L501.9985 #### [facility] [address] [place], [address] Platelet mean volume (Bld) [Entitic vol] 10.4 fL Normal 6.2-12.0 [facility] Comment on above: Performed By: #### L 500.4050, L3890.6102, L3890.6301, BTS, L509.8002, L3890.6006, L509.4006, L100.0100, L501.9985 #### [facility] [address] [place], [address] Platelets (Bld) [#/Vol] 284 10*3/uL Normal 150-450 [facility] Comment on above: Performed By: #### L 500.4050, L3890.6102, L3890.6301, BTS, L509.8002, L3890.6006, L509.4006, L100.0100, L501.9985 #### [facility] [address] [place], [address] RBC (Bld) [#/Vol] 4.51 10*6/uL Normal 4.2-5.4 [facility] Comment on above: Performed By: #### L 500.4050, L3890.6102, L3890.6301, BTS, L509.8002, L3890.6006, L509.4006, L100.0100, L501.9985 #### [facility] [address] [place], [address] (403) RDW SD 38.7 fl Normal 35.1-43.9 [facility] Comment on above: Performed By: #### L 500.4050, L3890.6102, L3890.6301, BTS, L509.8002, L3890.6006, L509.4006, L100.0100, L501.9985 #### [facility] [address] [place], [address] WBC (Bld) [#/Vol] 12.0 10*3/uL High 4.4-11.0 [facility] Comment on above: Performed By: #### L 500.4050, L3890.6102, L3890.6301, BTS, L509.8002, L3890.6006, L509.4006, L100.0100, L501.9985 #### [facility] [address] [place], [address] Carbon dioxide, total [Moles /volume] in Central venous bloodOrdered By: Kaycee Pathak on 02-28-2025 CO2 [Moles/Vol] 21.2 mmol/L 21.0-32.0 [facility] Cervical or vagninal specime n microscopic examination by cytology stain (reported asOrdered By: Kaycee Pathak on 02-28-2025 Cytology report Cyto stain Doc (Cvx/Vag) Comment . [facility] Comment on above: The Pap smear is [...] rRNA RASHEED+probe Ql (Unsp spec) Negative Negative [facility] Chloride assayOrdered By: Akbar Pathak on 02-28-2025 Chloride [Moles/Vol] 99 mmol/L 98-108 [facility] Comprehensive Metabolic Prof ilon 02-28-2025 Albumin [Mass/Vol] 4.3 g/dL Normal 3.5-5.0 [facility] Comment on above: Performed By: #### L 500.4050, L3890.6102, L3890.6301, BTS, L509.8002, L3890.6006, L509.4006, L100.0100, L501.9985 #### [facility] [address] [place], [address] Albumin/Globulin [Mass ratio] 1.6 {ratio} Normal 0.9-2.4 [facility] Comment on above: Performed By: #### L 500.4050, L3890.6102, L3890.6301, BTS, L509.8002, L3890.6006, L509.4006, L100.0100, L501.9985 #### [facility] [address] [place], [address] ALK PHOS 68 U/L Normal 35-104 [facility] Comment on above: Performed By: #### L 500.4050, L3890.6102, L3890.6301, BTS, L509.8002, L3890.6006, L509.4006, L100.0100, L501.9985 #### [facility] [address] [place], [address] ALT [Catalytic activity/Vol] 19 U/L Normal <=34 [facility] Comment on above: Performed By: #### L 500.4050, L3890.6102, L3890.6301, BTS, L509.8002, L3890.6006, L509.4006, L100.0100, L501.9985 #### [facility] [address] [place], [address] AST [Catalytic activity/Vol] 15 U/L Normal <=31 [facility] Comment on above: Performed By: #### L 500.4050, L3890.6102, L3890.6301, BTS, L509.8002, L3890.6006, L509.4006, L100.0100, L501.9985 #### [facility] [address] [place], [address] Bilirubin [Mass/Vol] 0.57 mg/dL Normal 0.00-1.30 [facility] Comment on above: Performed By: #### L 500.4050, L3890.6102, L3890.6301, BTS, L509.8002, L3890.6006, L509.4006, L100.0100, L501.9985 #### [facility] [address] [place], [address] BUN/CRE 16.6 RATIO Normal 10-20 [facility] Comment on above: Performed By: #### L 500.4050, L3890.6102, L3890.6301, BTS, L509.8002, L3890.6006, L509.4006, L100.0100, L501.9985 #### [facility] [address] [place], [address] Calcium [Mass/Vol] 9.3 mg/dL Normal 7.6-11.0 [facility] Comment on above: Performed By: #### L 500.4050, L3890.6102, L3890.6301, BTS, L509.8002, L3890.6006, L509.4006, L100.0100, L501.9985 #### [facility] [address] [place], [address] Chloride [Moles/Vol] 99 mmol/L Normal 98-108 [facility] Comment on above: Performed By: #### L 500.4050, L3890.6102, L3890.6301, BTS, L509.8002, L3890.6006, L509.4006, L100.0100, L501.9985 #### [facility] [address] [place], [address] CO2 [Moles/Vol] 21.2 mmol/L Normal 21.0-32.0 [facility] Comment on above: Performed By: #### L 500.4050, L3890.6102, L3890.6301, BTS, L509.8002, L3890.6006, L509.4006, L100.0100, L501.9985 #### [facility] [address] [place], [address] Creatinine [Mass/Vol] 0.70 mg/dL Normal 0.70-1.20 [facility] Comment on above: Performed By: #### L 500.4050, L3890.6102, L3890.6301, BTS, L509.8002, L3890.6006, L509.4006, L100.0100, L501.9985 #### [facility] [address] [place], [address] GAP 14 Normal 5-15 [facility] Comment on above: Performed By: #### L 500.4050, L3890.6102, L3890.6301, BTS, L509.8002, L3890.6006, L509.4006, L100.0100, L501.9985 #### [facility] [address] [place], [address] GFR/1.73 sq M.predicted among non-blacks MDRD (S/P/Bld) [Vol rate/Area] 120 mL/min/{1.73_m2} Normal >60 [facility] Comment on above: Result Comment: mL/m in/1.73m2 CKD-EPI Creatinine Equation (2020) Performed By: #### L 500.4050, L3890.6102, L3890.6301, BTS, L509.8002, L3890.6006, L509.4006, L100.0100, L501.9985 #### [facility] [address] [place], [address] Globulin (S) [Mass/Vol] 2.7 g/dL Normal 2.2-4.2 [facility] Comment on above: Performed By: #### L 500.4050, L3890.6102, L3890.6301, BTS, L509.8002, L3890.6006, L509.4006, L100.0100, L501.9985 #### [facility] [address] [place], [address] Glucose [Mass/Vol] 75 mg/dL Normal 70-99 [facility] Comment on above: Performed By: #### L 500.4050, L3890.6102, L3890.6301, BTS, L509.8002, L3890.6006, L509.4006, L100.0100, L501.9985 #### [facility] [address] [place], [address] Potassium [Moles/Vol] 3.4 mmol/L Normal 3.3-5.1 [facility] Comment on above: Performed By: #### L 500.4050, L3890.6102, L3890.6301, BTS, L509.8002, L3890.6006, L509.4006, L100.0100, L501.9985 #### [facility] [address] [place], [address] Sodium [Moles/Vol] 135 mmol/L Normal 133-145 [facility] Comment on above: Performed By: #### L 500.4050, L3890.6102, L3890.6301, BTS, L509.8002, L3890.6006, L509.4006, L100.0100, L501.9985 #### [facility] [address] [place], [address] T PROT 7.0 g/dL Normal 5.9-8.4 [facility] Comment on above: Performed By: #### L 500.4050, L3890.6102, L3890.6301, BTS, L509.8002, L3890.6006, L509.4006, L100.0100, L501.9985 #### [facility] [address] [place], [address] Urea nitrogen [Mass/Vol] 12 mg/dL Normal 4-19 [facility] Comment on above: Performed By: #### L 500.4050, L3890.6102, L3890.6301, BTS, L509.8002, L3890.6006, L509.4006, L100.0100, L501.9985 #### [facility] [address] [place], [address] Eosinophil percentageOrdered By: Kaycee Pathak on 02-28-2025 Eosinophils/100 WBC (Bld) 0.8 % 0-5 [facility] Erythrocyte distribution wid th ratioOrdered By: Kaycee Pathak on 02-28-2025 Erythrocyte distribution width (RBC) [Ratio] 12.4 % 11.6-14.6 [facility] Erythrocyte distribution wid th standard deviationOrdered By: Kaycee Pathak on 02-28-2025 Erythrocyte distribution width (RBC) [Ratio] 38.7 fl 35.1-43.9 [facility] Glomerular filtration rate ( GFR) estimation/1.73 sq m using serum, plasma, or whole bOrdered By: Kaycee Pathak on 02-28-2025 GFR/1.73 sq M.predicted among non-blacks MDRD (S/P/Bld) [Vol rate/Area] 120 mL/min/{1.73_m2} >60 [facility] Comment on above: mL/min/1.73m2 CKD-EP I Creatinine Equation (2020) HIVon 02-28-2025 HIV Non-Reactive Normal Nonreactive [facility] Comment on above: Result Comment: Non- Reactive Reactive Repeatedly reactive samples must be confirmed according to CDC recommended confirmatory algorithms. The subresults for either HIVAG or AHIV can be used as an aid in the selection of the confirmation algorithm for reactive samples. Send out specimens with Reactive results to [facility] for confirmation. Order the HIV antibody detection and differentiation: lc#[id number] Performed By: #### L 500.4050, L3890.6102, L3890.6301, BTS, L509.8002, L3890.6006, L509.4006, L100.0100, L501.9985 #### [facility] [address] [place], [address] Hematocrit Auto (Bld) [Volum e fraction]Ordered By: Kaycee Pathak on 02-28-2025 Hematocrit (Bld) [Volume fraction] 38.6 % 37-47 [facility] Hemoglobin A1con 02-28-2025 HbA1c (Bld) [Mass fraction] 4.9 % Normal <=5.6 [facility] Comment on above: Result Comment: Norm al < 5.7 % Prediabetic 5.7 - 6.4 % Diabetic >or= 6.5 % Please note range changes. Performed By: #### L 500.4050, L3890.6102, L3890.6301, BTS, L509.8002, L3890.6006, L509.4006, L100.0100, L501.9985 ####[facility] [address] [place], [place], [address] Hemoglobin A1c percentageOrd ered By: Kaycee Pathak on 02-28-2025 HbA1c (Bld) [Mass fraction] 4.9 % <5.7 [facility] Comment on above: Normal < 5.7 % Predi abetic 5.7 - 6.4 % Diabetic >or= 6.5 % Please note range changes. Hemoglobin measurementOrdere d By: Kaycee Pathak on 02-28-2025 Hemoglobin (Bld) [Mass/Vol] 13.2 g/dL 12.0-15.0 [facility] Hepatitis C Antibodyon 02-28 Hepatitis C Ab Non-Reactive Normal Nonreactive [facility] Comment on above: Result Comment: Reac tive: Presumptive evidence of antibodies to HCV. Follow CDC recommendations for supplemental testing. Non-Reactive: Antibodies to HCV were not detected; does not exclude the possibility of exposure to HCV Reactive Results are presumptive evidence of antibodies to HCV. Follow CDC recommendations for supplemental testing. Order confirmation testing: HCV Quant by PCR testing - HCVPCR #[id number] Non Reactive: < 0.8 Equivocal: >/= 0.8 to < 1.0 Reactive: >/= 1.0 The CDC requires that a reactive/equivocal HCV antibody result be sent out for confirmation. HCV Quant by PCR testing. Performed By: #### L 500.4050, L3890.6102, L3890.6301, BTS, L509.8002, L3890.6006, L509.4006, L100.0100, L501.9985 #### [facility] [address] [place], [address] Immature granulocytes/100 WB C Auto (Bld)Ordered By: Kaycee Pathak on 02-28-2025 Immature granulocytes/100 WBC (Bld) 0.400 % 0.0-0.9 [facility] Comment on above: IG% - Immature Granu locytes (promyelocytes, myelocytes and metamyelocytes) > 1% indicates that a LEFT SHIFT is Present. L3890.6102on 02-28-2025 HEP B Surf Ag Non-Reactive Normal Nonreactive [facility] Comment on above: Result Comment: Reac tive: Presumptive evidence of HBV. Repeatedly reactive samples must be confirmed using a neutralization test ([employer] HBsAg Confirmatory Test) Non-Reactive: HBsAg not detected; does not exclude the possibility of exposure to HBV Performed By: #### L 500.4050, L3890.6102, L3890.6301, BTS, L509.8002, L3890.6006, L509.4006, L100.0100, L501.9985 #### [facility] [address] [place], [place], [address] L509.4006on 02-28-2025 Rubella IgG REAC Normal Nonreactive [facility] Comment on above: Result Comment: Anti body Result: Interpretation Non-Reactive: Non-Immune Reactive: Immune The following results were obtained with the [employer] Rubella IgG assay. Results from assays of other manufacturers cannot be used interchangeably. Performed By: #### L 500.4050, L3890.6102, L3890.6301, BTS, L509.8002, L3890.6006, L509.4006, L100.0100, L501.9985 #### [facility] [address] [place], [address] Laboratory - Chemistry and C hemistry - challengeOrdered By: Kaycee Pathak on 02-28-2025 AST [Catalytic activity/Vol] 15 U/L <32 [facility] - CytologyOrdered By: Kaycee Pathak on 02-28-2025 [employer] Cyto stain Nom (Cvx/Vag) [ID] Comment . [facility] Comment on above: [facility] Laboratory - Microbiology an d Antimicrobial susceptibilityOrdered By: Kaycee Pathak on 02-28-2025 HBV surface Ag Ql (S) Non-Reactive Nonreactive [facility] Comment on above: Reactive: Presumptiv e evidence of HBV. Repeatedly reactive samples must be confirmed using a neutralization test ([employer] HBsAg Confirmatory Test)Non-Reactive: HBsAg not detected; does not exclude the possibility of exposure to HBV Laboratory - Miscellaneous t estsOrdered By: Kaycee Pathak on 02-28-2025 Service comment (Unsp spec) [Interp] . . [facility] MCV (mean corpuscular volume ) determinationOrdered By: Kaycee Pathak on 02-28-2025 MCV (RBC) [Entitic vol] 85.6 fL 81-99 [facility] Mean corpuscular hemoglobin (MCH) determinationOrdered By: Kaycee Pathak on 02-28-2025 MCH (RBC) [Entitic mass] 29.3 pg 27.0-32.0 [facility] Mean corpuscular hemoglobin concentration (MCHC) determinationOrdered By: Kaycee Pathak on 02-28-2025 MCHC (RBC) [Mass/Vol] 34.2 g/dL 32-36 [facility] Mean platelet volume determi nationOrdered By: Kaycee Pathak on 02-28-2025 Platelet mean volume (Bld) [Entitic vol] 10.4 fL 6.2-12.0 [facility] Monocyte percentageOrdered B y: Kaycee Pathak on 02-28-2025 Monocytes/100 WBC (Bld) 4.8 % 0-10 [facility] Neisseria gonorrhoeae nuclei c acid detection by amplified probe techniqueOrdered By: Kaycee Pathak on 02-28-2025 N. gonorrhoeae DNA RASHEED+probe Ql (Unsp spec) Negative Negative [facility] Comment on above: Performed at: =[address] [id number] Director: Neda Marie MD, Phone: [phone] Neutrophil percentageOrdered By: Kaycee Pathak on 02-28-2025 Neutrophils/100 WBC (Bld) 72.9 % High 47-70 [facility] No Panel InformationOrdered By: Kaycee Pathak on 02-28-2025 Pap Smear Specimen Adequacy Comment . [facility] Comment on above: Satisfactory for bobby luation. Endocervical and/or squamous metaplasticcells (endocervical component) are present. HIV (1&2) Antibody Non-Reactive Nonreactive [facility] Comment on above: Non-ReactiveReactive Repeatedly reactive samples must be confirmed according to CDC recommended confirmatory algorithms. The subresults for either HIVAG or AHIV can be used as an aid in the selection of the confirmation algorithm for reactive samples.Send out specimens with Reactive results to [facility] for confirmation.Order the HIV antibody detection and differentiation: #[id number] Nucleated red blood cell per centageOrdered By: Kaycee Pathak on 02-28-2025 Nucleated RBC/100 WBC (Bld) [Ratio] 0 % 0-5 [facility] Digital Composer Office Visit Reporton 02-28-2025 Digital Composer Office Visit Report [facility] [address], [address] [place] [address] OFFICE VISIT Date of Service: 02/28/25 MR#: [id number] Acct: [id number] Name: CAMERON BOUDREAUXMARITA SEEMA Rep #: [id number] : 1995 Provider: Dr. Kaycee snow MD Age/Sex: 29/F Location: [facility] Status: Signed Intake Vital Signs 09/06/24 10:59 02/11/25 08:43 02/28/25 13:03 Height 4 ft 10 in 4 ft 10 in 4 ft 10 in Weight: 186 lb 8 oz BMI 38.9 BP 123/80 H Intake Visit Reasons: NOB LMP 3/2 Respooler Required: No Is patient in pain?: No Allergies No Known Allergies Allergy (Verified 02/28/25 13:04) Medications ???Medication ???Instructions ???Recorded ???Confirmed ???Type docosahexaenoic acid 200 mg mg PO 02/11/25 02/28/25 History capsule ( DHA) Last Menstrual Period: 12/29/24 Zika: Zika virus screening: Negative : No PFSH PFSH Medical History (Updated 02/28/25 @ 13:[address] 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 Normal [facility] Platelet countOrdered By: Akbar Pathak on 02-28-2025 Platelets (Bld) [#/Vol] 284 10*3/uL 150-450 [facility] Potassium measurement (mass/ volume)Ordered By: Kaycee Pathak on 02-28-2025 Potassium (Unsp spec) [Mass/Vol] 3.4 mmol/L 3.3-5.1 [facility] Protein+Creatinine Ratio,Uri neon 02-28-2025 PROT:CRE RATIO 76 mg/g CRE Normal 0-200 [facility] Comment on above: Performed By: #### L 7000.1800, M100.2200, L7400.0353, L501.0900 ####[facility] [address] [place], [address] Protein (U) [Mass/Vol] 16.9 mg/dL High 0.0-12.0 [facility] Comment on above: Performed By: #### L 7000.1800, M100.2200, L7400.0353, L501.0900 ####[facility] [address] [place], [address] UR CREAT 223.00 mg/dL High 28.00-217.00 [facility] Comment on above: Performed By: #### L 7000.1800, M100.2200, L7400.0353, L501.0900 ####[facility] [address] [place], [address] RBC Auto (Bld) [#/Vol]Ordere d By: Kaycee Pathak on 02-28-2025 RBC (Bld) [#/Vol] 4.51 10*6/uL 4.2-5.4 [facility] Random urine creatinine mann urement (mass/volume)Ordered By: Kaycee Pathak on 02-28-2025 Creatinine Unsp time (U) [Mass/Vol] 223.00 mg/dL High 28.00-217.00 [facility] Serum creatinine measurement (mass/volume)Ordered By: Kaycee Pathak on 02-28-2025 Creatinine [Mass/Vol] 0.70 mg/dL 0.70-1.20 [facility] Serum globulin measurementOr dered By: Kaycee Pathak on 02-28-2025 Globulin (S) [Mass/Vol] 2.7 g/dL 2.2-4.2 [facility] Serum glucose measurement (m ass/volume)Ordered By: Kaycee Pathak on 02-28-2025 Glucose [Mass/Vol] 75 mg/dL 70-99 [facility] Serum or plasma alanine mendoza otransferase (ALT) measurementOrdered By: Kaycee Pathak on 02-28-2025 ALT [Catalytic activity/Vol] 19 U/L <35 [facility] Serum or plasma albumin mann urement (mass/volume)Ordered By: Kaycee Pathak on 02-28-2025 Albumin [Mass/Vol] 4.3 g/dL 3.5-5.0 [facility] Serum or plasma albumin/glob ulin mass ratioOrdered By: Kaycee Pathak on 02-28-2025 Albumin/Globulin [Mass ratio] 1.6 {ratio} 0.9-2.4 [facility] Serum or plasma alkaline peng sphatase measurementOrdered By: Kaycee Pathak on 02-28-2025 ALP [Catalytic activity/Vol] 68 U/L 35-104 [facility] Serum or plasma calcium mann urement (mass/volume)Ordered By: Kaycee Pathak on 02-28-2025 Calcium [Mass/Vol] 9.3 mg/dL 7.6-11.0 [facility] Serum or plasma urea nitroge n measurement (mass/volume)Ordered By: Kaycee Pathak on 02-28-2025 Urea nitrogen [Mass/Vol] 12 mg/dL 4-19 [facility] Sodium levelOrdered By: Dorian Pathak on 02-28-2025 Sodium [Moles/Vol] 135 mmol/L 133-145 [facility] Syphilis Antibodieson 2024 Syphilis Abs Non-Reactive Normal Nonreactive [facility] Comment on above: Performed By: #### L 500.4050, L3890.6102, L3890.6301, BTS, L509.8002, L3890.6006, L509.4006, L100.0100, L501.9985 #### [facility] [address] [place], [address] Total proteinOrdered By: Casimiro Pathak on 02-28-2025 Protein [Mass/Vol] 7.0 g/dL 5.9-8.4 [facility] Type AND Screenon 02-28-2025 Ab SCREEN GEL Negative Normal [facility] Comment on above: Order Comment: PN Performed By: #### L 500.4050, L3890.6102, L3890.6301, BTS, L509.8002, L3890.6006, L509.4006, L100.0100, L501.9985 #### [facility] [address] [place], [address] Urine cultureOrdered By: Casimiro Pathak on 02-28-2025 Bacteria identified Cx Nom (U) Positive Abnormal [facility] Urine protein measurement (m ass/volume)Ordered By: Kaycee Pathak on 02-28-2025 Protein (U) [Mass/Vol] 16.9 mg/dL High 0.0-12.0 [facility] Urine protein/creatinine mas s ratioOrdered By: Kaycee Pathak on 02-28-2025 Protein/Creatinine (U) [Mass ratio] 76 mg/g CRE 0-200 [facility] White blood cell (WBC) count Ordered By: Kaycee Pathak on 02-28-2025 WBC (Bld) [#/Vol] 12.0 10*3/uL High 4.4-11.0 [facility] - Chemistry and C hemistry - challengeOrdered By: Kaycee Pathak on 02-11-2025 HCG ( test) Ql (U) Positive [facility] Office Visit Reporton 2024 Office Visit Report [facility] [address] [place] [address] OFFICE VISIT Date of Service: MR#: [id number] Acct: [id number] Patient: CAMERON BOUDREAUXMARITA Rep # : [id number] : 1995 Provider: Thuy Holt RN Age/Sex: 29/F Location: [facility] Status: Signed Intake Vital Signs 09/06/24 10:59 02/11/25 08:43 Height 4 ft 10 in 4 ft 10 in Weight: 185 lb 8 oz BMI 38.7 BP 120/72 Intake Visit Reasons: Amb Documentation Chief Complaint: In person PNOB Respooler Required: No Is patient in pain?: No [...] and NOB scheduled. 02/11/25 1057 Date [place] TRACTOR OPERATOR HELPER TRACTOR OPERATOR HELPER-C Cosigner Signature: Date (if applicable) CC: Normal 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) Respooler Required: No Is patient in pain?: No Allergies No Known Allergies Allergy (Verified 09/06/24 10:57) Medications ???Medication ???Instructions ???Recorded ???Confirmed ???Type drospirenone 3 mg-ethinyl 1 tab PO DAILY #84 tabs 09/06/24 09/06/24 Rx estradiol 0.03 mg tablet Is last menstrual period known: Yes Last Menstrual Period: 08/09/24 Post menopausal: No Patient : No : No Control Method: OCP PFSH Medical History Obesity Preventative health care Right shoulder pain Encounter for school health examination Hypertension Elevated blood-pressure reading without diagnosis of hypertension PCOS (polycystic ovarian syndrome) Chronic back pain Shoulder tendinitis Left shoulder pain Family History Other CVA (cerebral vascular accident) Colon cancer Diabetes Heart disease Social History household members: spouse current occupational status: employed 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 Normal [facility] Serum or plasma thyroperoxid ase antibody assay (units/volume)Ordered By: Alexey Good on 10-06-2023 TPO Ab Qn [IU]/mL 0-34 [facility] Comment on above: Performed at: [address] [id number] Director: Nilo Flores PhD, Phone: [phone] Absolute lymphocyte countOrd ered By: Ralph Bateman on 09-18-2023 Lymphocytes Auto (Unsp spec) [#/Vol] 3.06 10*3/uL 0.83-4.51 [facility] Basophil percentageOrdered B y: Ralph Bateman on 09-18-2023 Basophils/100 WBC (Bld) 0.5 % 0-1 [facility] Bilirubin [Mass/Vol] 0.40 mg/dL 0.20-1.00 [facility] Comment on above: For patients on eltr ombopag therapy, use of Dimension [place] TBIL is not recommended. Chloride [Moles/Vol] 104 mmol/L 98-107 [facility] Eosinophils/100 WBC (Bld) 1.1 % 0-5 [facility] Glucose [Mass/Vol] 89 mg/dL 74-106 [facility] Neutrophils (Bld) [#/Vol] 6.2 10*3/uL 2.0-7.7 [facility] Neutrophils/100 WBC (Bld) 62.6 % 47-70 [facility] Potassium [Moles/Vol] 4.0 mmol/L 3.5-5.1 [facility] Protein [Mass/Vol] 7.4 g/dL 6.4-8.2 [facility] Sodium [Moles/Vol] 137 mmol/L 136-145 [facility] WBC (Bld) [#/Vol] 9.9 10*3/uL 4.4-11.0 [facility] Blood erythrocytes count (nu mber/volume)Ordered By: Ralph Bateman on 09-18-2023 RBC (Bld) [#/Vol] 4.89 10*6/uL 4.2-5.4 [facility] Blood hemoglobin measurement (mass/volume)Ordered By: Ralph Bateman on 09-18-2023 Hemoglobin (Bld) [Mass/Vol] 13.6 g/dL 12.0-15.0 [facility] Blood lymphocytes/100 leukoc ytesOrdered By: Ralph Bateman on 09-18-2023 Lymphocytes/100 WBC (Bld) 31.0 % 19-41 [facility] Blood monocytes/100 leukocyt esOrdered By: Ralph Bateman on 09-18-2023 Monocytes/100 WBC (Bld) 4.5 % 0-10 [facility] Blood platelet mean volumeOr dered By: Ralph Bateman on 09-18-2023 Platelet mean volume (Bld) [Entitic vol] 10.1 fL 6.2-12.0 [facility] Determination of erythrocyte mean corpuscular volume (MCV)Ordered By: Ralph Bateman on 09-18-2023 MCV (RBC) [Entitic vol] 86.1 fL 81-99 [facility] Hematocrit Auto (Bld) [Volum e fraction]Ordered By: Ralph Bateman on 09-18-2023 Hematocrit (Bld) [Volume fraction] 42.1 % 37-47 [facility] - Chemistry and C hemistry - challengeOrdered By: Ralph Bateman on 09-18-2023 ALP [Catalytic activity/Vol] 78 U/L 45-117 [facility] ALT [Catalytic activity/Vol] 16 U/L 13-56 [facility] CO2 [Moles/Vol] 26.0 mmol/L 21.0-32.0 [facility] Cobalamin (Vitamin B12) [Mass/Vol] 317 pg/mL 211-911 [facility] Globulin (S) [Mass/Vol] 3.9 g/dL 2.2-4.2 [facility] Magnesium [Mass/Vol] 2.0 mg/dL 1.6-2.6 [facility] Urea nitrogen/Creatinine [Mass ratio] 12.2 mg/mg 10-20 [facility] Laboratory - Hematology and Cell countsOrdered By: Ralph Bateman on 09-18-2023 Erythrocyte distribution width (RBC) [Entitic vol] 37.3 fL 35.1-43.9 [facility] Erythrocyte distribution width (RBC) [Ratio] 11.9 % 11.6-14.6 [facility] Immature granulocytes/100 WBC (Bld) 0.300 % 0.0-0.9 [facility] Comment on above: IG% - Immature Granu locytes (promyelocytes, myelocytes and metamyelocytes) > 1% indicates that a LEFT SHIFT is Present. MCH (RBC) [Entitic mass] 27.8 pg 27.0-32.0 [facility] Nucleated RBC/100 WBC (Bld) [Ratio] 0 % 0-5 [facility] MCHC Auto (RBC) [Mass/Vol]Or dered By: Ralph Bateman on 09-18-2023 MCHC (RBC) [Mass/Vol] 32.3 g/dL 32-36 [facility] No Panel InformationOrdered By: Ralph Bateman on 09-18-2023 Estimated GFR (MDRD) Amer 96 mL/min >60 [facility] Comment on above: GFR Calc Estimated GFR (MDRD) Non-Af Amer 79 mL/min >60 [facility] Comment on above: Non- GFR Calc Thyroid Stimulating Hormone (TSH) 2.57 uIU/mL 0.358-3.74 [facility] Platelets bldOrdered By: Kj mireles Fransico on 09-18-2023 Platelets (Bld) [#/Vol] 332 10*3/uL 150-450 [facility] Serum or plasma albumin mann urement (mass/volume)Ordered By: Ralph Bateman on 09-18-2023 Albumin [Mass/Vol] 3.5 g/dL 3.2-5.0 [facility] Serum or plasma albumin/glob ulin mass ratioOrdered By: Ralph Bateman on 09-18-2023 Albumin/Globulin [Mass ratio] 0.9 {ratio} 0.9-2.4 [facility] Serum or plasma calcium mann urement (mass/volume)Ordered By: Ralph Bateman on 09-18-2023 Calcium [Mass/Vol] 8.9 mg/dL 8.5-10.1 [facility] Serum or plasma creatinine m easurement (mass/volume)Ordered By: Ralph Bateman on 09-18-2023 Creatinine [Mass/Vol] 0.90 mg/dL 0.55-1.02 [facility] Comment on above: The validity of the calculated GFR & GFRAA in patients over 70 years has not been determined. Clinical correlation is essential. Serum or plasma urea nitroge n measurement (mass/volume)Ordered By: Ralph Bateman on 09-18-2023 Urea nitrogen [Mass/Vol] 11 mg/dL 7-18 [facility] Thin prep Papanicolaou smear with manual screeningOrdered By: Ralph Bateman on 09-18-2023 Thin prep Papanicolaou smear with manual screening 13 U/L 15-37 [facility] Thin prep Papanicolaou smear with manual screening 7 5-15 [facility] Absolute lymphocyte countOrd ered By: HEALTH ASSESSMENT on 06-12-2023 Lymphocytes Auto (Unsp spec) [#/Vol] 2.28 10*3/uL 0.83-4.51 [facility] Absolute reticulocyte countO rdered By: HEALTH ASSESSMENT on 06-12-2023 Reticulocytes (Bld) [#/Vol] 0.00 10*3/uL 0-5 [facility] Basophil percentageOrdered B y: HEALTH ASSESSMENT on 06-12-2023 Basophil percentage 3.2 mg/dL 2.5-4.9 [facility] Bilirubin [Mass/Vol] 0.40 mg/dL 0.20-1.00 [facility] Comment on above: For patients on eltr ombopag therapy, use of Dimension [place] TBIL is not recommended. Chloride [Moles/Vol] 105 mmol/L 98-107 [facility] Cholesterol [Mass/Vol] 173 mg/dL <200 [facility] Comment on above: <200 mg/dL Desirable 200-240 mg/dL Borderline >240 mg/dL High Risk Glucose [Mass/Vol] 84 mg/dL 74-106 [facility] LDH [Catalytic activity/Vol] 127 U/L 84-246 [facility] Neutrophils (Bld) [#/Vol] 6.5 10*3/uL 2.0-7.7 [facility] Potassium [Moles/Vol] 3.9 mmol/L 3.5-5.1 [facility] Protein [Mass/Vol] 7.3 g/dL 6.4-8.2 [facility] Sodium [Moles/Vol] 135 mmol/L 136-145 [facility] Triglyceride [Mass/Vol] 162 mg/dL <199 [facility] Comment on above: The drugs N-Acetylcy steine and Metamizole may falsely depress this assay.Serum Triglycerides Reference Interval Normal <150 mg/dL Borderline high 150 - 199 mg/dL High 200 - 499 mg/dL Very High > or = 500 mg/dL WBC (Bld) [#/Vol] 9.3 10*3/uL 4.4-11.0 [facility] Blood erythrocytes count (nu mber/volume)Ordered By: HEALTH ASSESSMENT on 06-12-2023 RBC (Bld) [#/Vol] 4.80 10*6/uL 4.2-5.4 [facility] Blood hemoglobin measurement (mass/volume)Ordered By: HEALTH ASSESSMENT on 06-12-2023 Hemoglobin (Bld) [Mass/Vol] 13.5 g/dL 12.0-15.0 [facility] Blood leukocytes count corre cted for nucleated erythrocytes (number/volume)Ordered By: HEALTH ASSESSMENT on 06-12-2023 WBC corrected for nucl RBC (Bld) [#/Vol] [employer] OPERATOR HELPER [facility] Blood platelet mean volumeOr dered By: HEALTH ASSESSMENT on 06-12-2023 Platelet mean volume (Bld) [Entitic vol] 10.4 fL 6.2-12.0 [facility] Determination of erythrocyte mean corpuscular volume (MCV)Ordered By: HEALTH ASSESSMENT on 06-12-2023 MCV (RBC) [Entitic vol] 86.7 fL 81-99 [facility] Direct bilirubinOrdered By: HEALTH ASSESSMENT on 06-12-2023 Bilirubin.direct [Mass/Vol] 0.11 mg/dL 0.00-0.30 [facility] Hematocrit Auto (Bld) [Volum e fraction]Ordered By: HEALTH ASSESSMENT on 06-12-2023 Hematocrit (Bld) [Volume fraction] 41.6 % 37-47 [facility] Laboratory - Chemistry and C hemistry - challengeOrdered By: HEALTH ASSESSMENT on 06-12-2023 ALP [Catalytic activity/Vol] 72 U/L 45-117 [facility] ALT [Catalytic activity/Vol] 17 U/L 13-56 [facility] Cholesterol.total/Choles terol in HDL [Mass ratio] 3.40 {ratio} [facility] CO2 [Moles/Vol] 23.0 mmol/L 21.0-32.0 [facility] Globulin (S) [Mass/Vol] 3.9 g/dL 2.2-4.2 [facility] Urea nitrogen/Creatinine [Mass ratio] 16.0 mg/mg 10-20 [facility] Laboratory - Hematology and Cell countsOrdered By: HEALTH ASSESSMENT on 06-12-2023 Erythrocyte distribution width (RBC) [Entitic vol] 38.6 fL 35.1-43.9 [facility] Erythrocyte distribution width (RBC) [Ratio] 12.2 % 11.6-14.6 [facility] MCH (RBC) [Entitic mass] 28.1 pg 27.0-32.0 [facility] Nucleated RBC/100 WBC (Bld) [Ratio] 0 % 0-5 [facility] MCHC Auto (RBC) [Mass/Vol]Or dered By: HEALTH ASSESSMENT on 06-12-2023 MCHC (RBC) [Mass/Vol] 32.5 g/dL 32-36 [facility] No Panel InformationOrdered By: HEALTH ASSESSMENT on 06-12-2023 Estimated Creatinine Clearance Calc [employer]CTOR OPERATOR HELPER [facility] Estimated GFR (MDRD) Amer 108 mL/min >60 [facility] Comment on above: GFR Calc Estimated GFR (MDRD) Non-Af Amer 90 mL/min >60 [facility] Comment on above: Non- GFR Calc Immature Granulocyte % (Auto) TRACTOR OPERATOR HELPER [facility] Platelets bldOrdered By: ROS LT ASSESSMENT on 06-12-2023 Platelets (Bld) [#/Vol] 336 10*3/uL 150-450 [facility] Review by pathologistOrdered By: HEALTH ASSESSMENT on 06-12-2023 Pathologist review Jose (Unsp spec) [Interp] [employer] OPERATOR HEL[employer] [facility] Segmented neutrophils/100 WB C Auto (Bld)Ordered By: HEALTH ASSESSMENT on 06-12-2023 Segmented neutrophils/100 WBC (Bld) 69.8 % 47-70 [facility] Serum or plasma albumin mann urement (mass/volume)Ordered By: HEALTH ASSESSMENT on 06-12-2023 Albumin [Mass/Vol] 3.4 g/dL 3.2-5.0 [facility] Serum or plasma albumin/glob ulin mass ratioOrdered By: HEALTH ASSESSMENT on 06-12-2023 Albumin/Globulin [Mass ratio] 0.9 {ratio} 0.9-2.4 [facility] Serum or plasma calcium mann urement (mass/volume)Ordered By: HEALTH ASSESSMENT on 06-12-2023 Calcium [Mass/Vol] 9.0 mg/dL 8.5-10.1 [facility] Serum or plasma cholesterol in HDL measurement (mass/volume)Ordered By: HEALTH ASSESSMENT on 06-12-2023 Cholesterol in HDL [Mass/Vol] 51 mg/dL >40 [facility] Comment on above: The drugs N-Acetylcy steine and Metamizole may falsely depress this assay. Reference Range HDL <40 mg/dL Low HDL Cholesterol HDL >or= 60 mg/dL High HDL Cholesterol Serum or plasma cholesterol in VLDL measurement (mass/volume)Ordered By: HEALTH ASSESSMENT on 06-12-2023 Cholesterol in VLDL [Mass/Vol] 32 mg/dL 5-40 [facility] Serum or plasma creatinine m easurement (mass/volume)Ordered By: HEALTH ASSESSMENT on 06-12-2023 Creatinine [Mass/Vol] 0.81 mg/dL 0.55-1.02 [facility] Comment on above: The validity of the calculated GFR & GFRAA in patients over 70 years has not been determined. Clinical correlation is essential. Serum or plasma low density lipoprotein (LDL) cholesterol measurement (mass/volume)Ordered By: HEALTH ASSESSMENT on 06-12-2023 Cholesterol in LDL [Mass/Vol] 90 mg/dL 0-130 [facility] Serum or plasma urea nitroge n measurement (mass/volume)Ordered By: HEALTH ASSESSMENT on 06-12-2023 Urea nitrogen [Mass/Vol] 13 mg/dL 7-18 [facility] Serum or plasma uric acid me asurement (mass/volume)Ordered By: HEALTH ASSESSMENT on 06-12-2023 Urate [Mass/Vol] 5.0 mg/dL 2.6-6.0 [facility] Comment on above: The drugs N-Acetylcy steine and Metamizole may falsely depress this assay. Thin prep Papanicolaou smear with manual screeningOrdered By: HEALTH ASSESSMENT on 06-12-2023 Thin prep Papanicolaou smear with manual screening 12 U/L 15-37 [facility] Thin prep Papanicolaou smear with manual screening 7 5-15 [facility] Absolute lymphocyte counton 08-15-2022 Lymphocytes Auto (Unsp spec) [#/Vol] 3.05 10*3/uL 0.83-4.51 [facility] Work Phone: Basophil percentageon 2021 Basophils/100 WBC (Bld) 0.5 % 0-1 [facility] Work Phone: Bilirubin [Mass/Vol] 0.30 mg/dL 0.20-1.00 [facility] Work Phone: Comment on above: For patients on eltr ombopag therapy, use of Dimension [place] TBIL is not recommended. Chloride [Moles/Vol] 104 mmol/L 98-107 [facility] Work Phone: Eosinophils/100 WBC (Bld) 2.9 % 0-5 [facility] Work Phone: Glucose [Mass/Vol] 89 mg/dL 74-106 [facility] Work Phone: Neutrophils (Bld) [#/Vol] 6.6 10*3/uL 2.0-7.7 [facility] Work Phone: Neutrophils/100 WBC (Bld) 61.9 % 47-70 [facility] Work Phone: Potassium [Moles/Vol] 3.5 mmol/L 3.5-5.1 [facility] Work [facility]: Protein [Mass/Vol] 7.2 g/dL 6.4-8.2 [facility] Work Phone: Sodium [Moles/Vol] 138 mmol/L 136-145 [facility] Work Phone: WBC (Bld) [#/Vol] 10.6 10*3/uL 4.4-11.0 [facility] Work Phone: Blood erythrocytes count (nu mber/volume)on 08-15-2022 RBC (Bld) [#/Vol] 4.76 10*6/uL 4.2-5.4 [facility] Work Phone: Blood hemoglobin measurement (mass/volume)on 08-15-2022 Hemoglobin (Bld) [Mass/Vol] 13.6 g/dL 12.0-15.0 [facility] Work Phone: Blood lymphocytes/100 leukoc yteson 08-15-2022 Lymphocytes/100 WBC (Bld) 28.8 % 19-41 [facility] Work Phone: Blood monocytes/100 leukocyt eson 08-15-2022 Monocytes/100 WBC (Bld) 5.6 % 0-10 [facility] Work Phone: Blood platelet mean volumeon 08-15-2022 Platelet mean volume (Bld) [Entitic vol] 9.7 fL 6.2-12.0 [facility] Work Phone: Determination of erythrocyte mean corpuscular volume (MCV)on 08-15-2022 MCV (RBC) [Entitic vol] 86.6 fL 81-99 [facility] Work Phone: [phone] Hematocrit Auto (Bld) [Volum e fraction]on 08-15-2022 Hematocrit (Bld) [Volume fraction] 41.2 % 37-47 [facility] Work Phone: [phone] Laboratory - Chemistry and C hemistry - challengeon 08-15-2022 ALP [Catalytic activity/Vol] 80 U/L 45-117 [facility] Work Phone: [phone] ALT [Catalytic activity/Vol] 20 U/L 13-56 [facility] Work Phone: [phone] CO2 [Moles/Vol] 27.0 mmol/L 21.0-32.0 [facility] Work Phone: [phone] Globulin (S) [Mass/Vol] 3.9 g/dL 2.2-4.2 [facility] Work Phone: [phone] Urea nitrogen/Creatinine [Mass ratio] 14.3 mg/mg 10-20 [facility] Work Phone: [phone] Laboratory - Hematology and Cell countson 08-15-2022 Erythrocyte distribution width (RBC) [Entitic vol] 37.4 fL 35.1-43.9 [facility] Work Phone: [phone] Erythrocyte distribution width (RBC) [Ratio] 11.8 % 11.6-14.6 [facility] Work Phone: [phone] Immature granulocytes/100 WBC (Bld) 0.300 % 0.0-0.9 [facility] Work Phone: [phone] Comment on above: IG% - Immature Granu locytes (promyelocytes, myelocytes and metamyelocytes) > 1% indicates that a LEFT SHIFT is Present. MCH (RBC) [Entitic mass] 28.6 pg 27.0-32.0 [facility] Work Phone: [phone] Nucleated RBC/100 WBC (Bld) [Ratio] 0 % 0-5 [facility] Work Phone: [phone] MCHC Auto (RBC) [Mass/Vol]on 08-15-2022 MCHC (RBC) [Mass/Vol] 33.0 g/dL 32-36 [facility] Work Phone: No Panel Informationon 08-15 Estimated GFR (MDRD) Amer 116 mL/min >60 [facility] Work Phone: Comment on above: GFR Calc Estimated GFR (MDRD) Non-Af Amer 96 mL/min >60 [facility] Work Phone: Comment on above: Non- GFR Calc Platelets bldon 08-15-2022 Platelets (Bld) [#/Vol] 352 10*3/uL 150-450 [facility] Work Phone: Serum or plasma albumin mann urement (mass/volume)on 08-15-2022 Albumin [Mass/Vol] 3.3 g/dL 3.2-5.0 [facility] Work Phone: Serum or plasma albumin/glob ulin mass ratioon 08-15-2022 Albumin/Globulin [Mass ratio] 0.8 {ratio} 0.9-2.4 [facility] Work Phone: Serum or plasma calcium mann urement (mass/volume)on 08-15-2022 Calcium [Mass/Vol] 8.7 mg/dL 8.5-10.1 [facility] Work Phone: Serum or plasma creatinine m easurement (mass/volume)on 08-15-2022 Creatinine [Mass/Vol] 0.77 mg/dL 0.55-1.02 [facility] Work Phone: Comment on above: The validity of the calculated GFR & GFRAA in patients over 70 years has not been determined. Clinical correlation is essential. Serum or plasma urea nitroge n measurement (mass/volume)on 08-15-2022 Urea nitrogen [Mass/Vol] 11 mg/dL 7-18 [facility] Work Phone: Thin prep Papanicolaou smear with manual screeningon 08-15-2022 Thin prep Papanicolaou smear with manual screening 12 U/L 15-37 [facility] Work Phone: [phone] Thin prep Papanicolaou smear with manual screening 7 5-15 [facility] Work Phone: [phone] No Panel Informationon 07-16 Hepatitis B Surface Antibody Non-Reactive [facility] Work Phone: Comment on above: Non Reactive: Incons istent with immunity less than <10 mIU/mL Reactive: Consistent with immunity greater than or equal to 10 mIU/mL Chlamydia trachomatis rRNA d etection by probe and target amplification methodon 02-28-2022 C. trachomatis rRNA RASHEED+probe Ql (Unsp spec) Negative Negative [facility] Work Phone: Laboratory - Microbiology an d Antimicrobial susceptibilityon 02-28-2022 N. gonorrhoeae DNA RASHEED+probe Ql (Unsp spec) Negative Negative [facility] Work Phone: Comment on above: Performed at: [address] [id number] Director: Neda Marie MD, Phone: [phone] Absolute lymphocyte counton 01-24-2022 Lymphocytes Auto (Unsp spec) [#/Vol] 2.72 10*3/uL 0.83-4.51 [facility] Work Phone: Absolute reticulocyte counto n 01-24-2022 Reticulocytes (Bld) [#/Vol] 0.00 10*3/uL 0-5 [facility] Work Phone: Basophil percentageon 2021 Basophil percentage 2.7 mg/dL 2.5-4.9 [facility] Work Phone: [phone] Bilirubin [Mass/Vol] 0.30 mg/dL 0.20-1.00 [facility] Work Phone: [phone] Comment on above: For patients on eltr ombopag therapy, use of Dimension [place] TBIL is not recommended. Chloride [Moles/Vol] 106 mmol/L 98-107 [facility] Work Phone: [phone] Cholesterol [Mass/Vol] 174 mg/dL <200 [facility] Work Phone: Comment on above: <200 mg/dL Desirable 200-240 mg/dL Borderline >240 mg/dL High Risk Glucose [Mass/Vol] 77 mg/dL 74-106 [facility] Work Phone: [phone] Neutrophils (Bld) [#/Vol] 5.6 10*3/uL 2.0-7.7 [facility] Work Phone: [phone] Potassium [Moles/Vol] 3.7 mmol/L 3.5-5.1 [facility] Work Phone: [phone] Protein [Mass/Vol] 7.9 g/dL 6.4-8.2 [facility] Work Phone: [phone] Sodium [Moles/Vol] 137 mmol/L 136-145 [facility] Work Phone: [phone] Triglyceride [Mass/Vol] 153 mg/dL [facility] Work Phone: [phone] Comment on above: The drugs N-Acetylcy steine and Metamizole may falsely depress this assay.Serum Triglycerides Reference Interval Normal <150 mg/dL Borderline high 150 - 199 mg/dL High 200 - 499 mg/dL Very High > or = 500 mg/dL WBC (Bld) [#/Vol] 8.8 10*3/uL 4.4-11.0 [facility] Work Phone: [phone] Bilirubin Test strip Ql (U)o n 01-24-2022 Bilirubin Ql (U) Negative Negative [facility] Work Phone: [phone] Blood erythrocytes count (nu mber/volume)on 01-24-2022 RBC (Bld) [#/Vol] 4.97 10*6/uL 4.2-5.4 [facility] Work Phone: [phone] Blood hemoglobin measurement (mass/volume)on 01-24-2022 Hemoglobin (Bld) [Mass/Vol] 14.6 g/dL 12.0-15.0 [facility] Work Phone: [phone] Blood platelet mean volumeon 01-24-2022 Platelet mean volume (Bld) [Entitic vol] 11.0 fL 6.2-12.0 [facility] Work Phone: Determination of erythrocyte mean corpuscular volume (MCV)on 01-24-2022 MCV (RBC) [Entitic vol] 85.7 fL 81-99 [facility] Work Phone: Direct bilirubinon Bilirubin.direct [Mass/Vol] 0.11 mg/dL 0.00-0.30 [facility] Work Phone: Hematocrit Auto (Bld) [Volum e fraction]on 01-24-2022 Hematocrit (Bld) [Volume fraction] 42.6 % 37-47 [facility] Work Phone: Ketones Test strip Ql (U)on 01-24-2022 Ketones Ql (U) Negative Negative [facility] Work Phone: Laboratory - Chemistry and C hemistry - challengeon 01-24-2022 ALP [Catalytic activity/Vol] 71 U/L 45-117 [facility] Work Phone: [phone] ALT [Catalytic activity/Vol] 16 U/L 13-56 [facility] Work Phone: [phone] Cholesterol.total/Choles terol in HDL [Mass ratio] 3.30 {ratio} [facility] Work Phone: CO2 [Moles/Vol] 22.0 mmol/L 21.0-32.0 [facility] Work Phone: [phone] Globulin (S) [Mass/Vol] 4.2 g/dL 2.2-4.2 [facility] Work Phone: Urea nitrogen/Creatinine [Mass ratio] 14.2 mg/mg 10-20 [facility] Work Phone: [phone] Laboratory - Hematology and Cell countson 01-24-2022 Erythrocyte distribution width (RBC) [Entitic vol] 36.4 fL 35.1-43.9 [facility] Work Phone: [phone] Erythrocyte distribution width (RBC) [Ratio] 11.7 % 11.6-14.6 [facility] Work Phone: MCH (RBC) [Entitic mass] 29.4 pg 27.0-32.0 [facility] Work Phone: [phone] Nucleated RBC/100 WBC (Bld) [Ratio] 0 % 0-5 [facility] Work Phone: [phone] MCHC Auto (RBC) [Mass/Vol]on 01-24-2022 MCHC (RBC) [Mass/Vol] 34.3 g/dL 32-36 [facility] Work Phone: [phone] Nitrite Test strip Ql (U)on 01-24-2022 Nitrite Ql (U) Negative Negative [facility] Work Phone: No Panel Informationon 01-24 Estimated GFR (MDRD) Amer 104 mL/min >60 [facility] Work Phone: Comment on above: GFR Calc Estimated GFR (MDRD) Non-Af Amer 86 mL/min >60 [facility] Work Phone: Comment on above: Non- GFR Calc Platelets bldon 01-24-2022 Platelets (Bld) [#/Vol] 317 10*3/uL 150-450 [facility] Work Phone: Protein Test strip Ql (U)on 01-24-2022 Protein Ql (U) Negative Negative [facility] Work Phone: [phone] Segmented neutrophils/100 WB C Auto (Bld)on 01-24-2022 Segmented neutrophils/100 WBC (Bld) 64.0 % 47-70 [facility] Work Phone: [phone] Serum or plasma albumin mann urement (mass/volume)on 01-24-2022 Albumin [Mass/Vol] 3.7 g/dL 3.2-5.0 [facility] Work Phone: [phone] Serum or plasma albumin/glob ulin mass ratioon 01-24-2022 Albumin/Globulin [Mass ratio] 0.9 {ratio} 0.9-2.4 [facility] Work Phone: [phone] Serum or plasma calcium mann urement (mass/volume)on 01-24-2022 Calcium [Mass/Vol] 8.9 mg/dL 8.5-10.1 [facility] Work Phone: Serum or plasma cholesterol in HDL measurement (mass/volume)on 01-24-2022 Cholesterol in HDL [Mass/Vol] 52 mg/dL [facility] Work Phone: Comment on above: The drugs N-Acetylcy steine and Metamizole may falsely depress this assay. Reference Range HDL <40 mg/dL Low HDL Cholesterol HDL >or= 60 mg/dL High HDL Cholesterol Serum or plasma cholesterol in VLDL measurement (mass/volume)on 01-24-2022 Cholesterol in VLDL [Mass/Vol] 31 mg/dL 5-40 [facility] Work Phone: Serum or plasma creatinine m easurement (mass/volume)on 01-24-2022 Creatinine [Mass/Vol] 0.84 mg/dL 0.55-1.02 [facility] Work Phone: Comment on above: The validity of the calculated GFR & GFRAA in patients over 70 years has not been determined. Clinical correlation is essential. Serum or plasma low density lipoprotein (LDL) cholesterol measurement (mass/volume)on 01-24-2022 Cholesterol in LDL [Mass/Vol] 91 mg/dL 0-130 [facility] Work Phone: Serum or plasma urea nitroge n measurement (mass/volume)on 01-24-2022 Urea nitrogen [Mass/Vol] 12 mg/dL 7-18 [facility] Work Phone: [phone] Serum or plasma uric acid me asurement (mass/volume)on 01-24-2022 Urate [Mass/Vol] 5.3 mg/dL 2.6-6.0 [facility] Work Phone: Comment on above: The drugs N-Acetylcy steine and Metamizole may falsely depress this assay. Thin prep Papanicolaou smear with manual screeningon 01-24-2022 Thin prep Papanicolaou smear with manual screening 13 U/L 15-37 [facility] Work Phone: Thin prep Papanicolaou smear with manual screening 9 5-15 [facility] Work Phone: Thin prep Papanicolaou smear with manual screening 169 U/L 84-246 [facility] Work Phone: Urine blood detectionon 12-29 RBC Ql (U) Negative Negative [facility] Work Phone: Urine clarityon 01-24-2022 Clarity (U) Clear Clear [facility] Work Phone: Urine color determinationon 01-24-2022 Color (U) Yellow Yellow [facility] Work Phone: Urine glucose detectionon Glucose Ql (U) Normal mg/dl Normal [facility] Work Phone: Urine leukocyte esterase det ection by dipstickon 01-24-2022 Leukocyte esterase Test strip Ql (U) 25 /ul Negative [facility] Work Phone: Urine pHon 01-24-2022 pH (U) 5.0 [pH] [facility] Work Phone: Urine specific gravity measu rementon 01-24-2022 Specific gravity (U) [Rel density] 1.010 [facility] Work Phone: Urobilinogen Auto test strip Ql (U)on 01-24-2022 Urobilinogen Ql (U) Normal mg/dl Normal [facility] Work Phone: OBSOLETEon 10-07-2020 OBSOLETE Refill (AGGYNBMG) MARITA BARNES ([id number]) 1995 F Date Time Provider Department 10/07/20 JASMINE ONEILLG During your visit today, we recorded the [...] Encounter Status:Closed by MECCA ROMERO on 10/28/20 [facility] OBSOLETEon 04-24-2020 OBSOLETE Refill (DARSHANA) MARITA BARNES ([id number]) 1995 F Date Time Provider Department 04/24/20 [...] Status:Closed by JASMINE ONEILL MD on 04/24/20 [facility] OBSOLETEon 01-31-2020 OBSOLETE Refill (DARSHANA) MARITA BARNES ([id number]) 1995 F Date Time Provider Department 01/31/20 JASMINE ONEILL During your visit today, we recorded the following information about you: Sera Mcbride LPN 01/31/2020 8:09 AM Signed Pharmacy faxed requesting the following refill Refill(s) Requested: Pending Prescriptions Disp Refills DROSPIRENONE 3 MG-ETHINYL ESTRADIOL 0.03 MG TABLET 84 tablet 0 Sig: TAKE 1 TABLET ONCE DAILY DAISY: Yes ALLERGIES No Known Allergies (home) [phone] (cell) Last Visit date: Visit date not [...] by JASMINE ONEILL MD on 01/31/20 Normal [facility] Pap,Cyto Gynon 10-04-2019 Pap,Cyto Electrical Calibrator Test performed at [place] [address] NAME: MARITA BARNES REQUESTING: JASMINE ONEILL M.D. [...] 09, 2019 Page 1 of 1 Normal [facility] Comment on above: Performed By: #### C YTOP #### [address] [address] Vital Signs Date Time Vital Sign Value Performing Clinician Giuseppe ramirez 07-09-2025 14:27-0400 Body height 147.[address] Coby Carmona MD Work Phone: [facility] 07-09-2025 14:27-0400 Body mass index (BMI) [Ratio] 39.8 kg/m2 Dr. Coby Carmona MD Work Phone: [facility] 07-09-2025 14:27-0400 Body weight 86.[address] Coby Carmona MD Work Phone: [facility] 07-09-2025 14:27-0400 Diastolic blood pressure 83 mm[Hg] Dr. Coby Carmona MD Work Phone: [facility] 07-09-2025 14:27-0400 Systolic blood pressure 136 mm[Hg] Dr. Coby Carmona MD Work Phone: [facility] 06-11-2025 14:12-0400 Body height 147.[address] Coby Carmona MD Work Phone: [facility] 06-11-2025 14:11-0400 Body mass index (BMI) [Ratio] 39.7 kg/m2 Dr. Coby Carmona MD Work Phone: [facility] 06-11-2025 14:11-0400 Body weight 86.[address] Coby Carmona MD Work Phone: [facility] 06-11-2025 14:11-0400 Diastolic blood pressure 78 mm[Hg] Dr. Coby Carmona MD Work Phone: [facility] 06-11-2025 14:11-0400 Systolic blood pressure 120 mm[Hg] Dr. Coby Carmona MD Work Phone: [facility] 05-16-2025 14:39-0400 Body height 147.[address] Coby Carmona MD Work Phone: [facility] 05-16-2025 14:39-0400 Body mass index (BMI) [Ratio] 39.5 kg/m2 Dr. Coby Carmona MD Work Phone: [facility] 05-16-2025 14:39-0400 Body weight 85.[address] Coby Carmona MD Work Phone: [facility] 05-16-2025 14:39-0400 Diastolic blood pressure 81 mm[Hg] Dr. Coby Carmona MD Work Phone: [facility] 05-16-2025 14:39-0400 Systolic blood pressure 126 mm[Hg] Dr. Coby Carmona MD Work Phone: [facility] 04-21-2025 14:54-0400 Body height 147.[address] Coby Carmona MD Work Phone: [facility] 04-21-2025 14:54-0400 Body mass index (BMI) [Ratio] 39.2 kg/m2 Dr. Coby Carmona MD Work Phone: [facility] 04-21-2025 14:54-0400 Body weight 85.[address] Coby Carmona MD Work Phone: [facility] 04-21-2025 14:54-0400 Diastolic blood pressure 78 mm[Hg] Dr. Coby Carmona MD Work Phone: [facility] 04-21-2025 14:54-0400 Systolic blood pressure 118 mm[Hg] Dr. Coby Carmona MD Work Phone: [facility] 03-25-2025 13:40-0400 Body height 147.[address] Coby Carmona MD Work Phone: [facility] 03-25-2025 13:40-0400 Body mass index (BMI) [Ratio] 38.9 kg/m2 Dr. Coby Carmona MD Work Phone: [facility] 03-25-2025 13:40-0400 Body weight 84.[address] Coby Carmona MD Work Phone: [facility] 03-25-2025 13:40-0400 Diastolic blood pressure 87 mm[Hg] Dr. Coby Carmona MD Work Phone: [facility] 03-25-2025 13:40-0400 Systolic blood pressure 138 mm[Hg] Dr. Coby Carmona MD Work Phone: [facility] 02-28-2025 13:03-0400 Body mass index (BMI) [Ratio] 38.9 kg/m2 Dr. Coby Carmona MD Work Phone: [facility] 02-28-2025 13:03-0400 Body weight 84.[address] Coby Carmona MD Work Phone: [facility] 02-28-2025 13:03-0400 Diastolic blood pressure 80 mm[Hg] Dr. Coby Carmona MD Work Phone: [facility] 02-28-2025 13:03-0400 Systolic blood pressure 123 mm[Hg] Dr. Coby Carmona MD Work Phone: [facility] 02-11-2025 08:43-0400 Body mass index (BMI) [Ratio] 38.7 kg/m2 Dr. Coby Carmona MD Work Phone: [facility] 02-11-2025 08:43-0400 Body weight 84.[address] Coby Carmona MD Work Phone: [facility] 02-11-2025 08:43-0400 Diastolic blood pressure 72 mm[Hg] Dr. Coby Carmona MD Work Phone: [facility] 02-11-2025 08:43-0400 Systolic blood pressure 120 mm[Hg] Dr. Coby Carmona MD Work Phone: [facility] 10-06-2023 08:47-0500 Body height 147.[address] Coby Carmona Work Phone: [facility] 10-06-2023 08:47-0500 Body mass index (BMI) [Ratio] 39.7 kg/m2 Dr. Coby Carmona Work Phone: [facility] 10-06-2023 08:47-0500 Body temperature 98.7 [degF] Dr. Coby Carmona Work Phone: [facility] 10-06-2023 08:47-0500 Body weight 86.[address] Coby Carmona Work Phone: [facility] 10-06-2023 08:47-0500 Diastolic blood pressure 82 mm[Hg] Dr. Coby Carmona Work Phone: [facility] 10-06-2023 08:47-0500 Heart rate 78 /min Dr. Coby Carmona Work Phone: [facility] 10-06-2023 08:47-0500 Respiratory rate 18 /min Dr. Coby Carmona Work Phone: [facility] 10-06-2023 08:47-0500 SaO2% (BldA) [Mass fraction] 98 % Dr. Coby Carmona Work Phone: [facility] 10-06-2023 08:47-0500 Systolic blood pressure 126 mm[Hg] Dr. Coby Carmona Work Phone: [facility] 09-15-2023 15:31-0500 Body height 147.[address] Coby Carmona Work Phone: [facility] 09-15-2023 15:31-0500 Body mass index (BMI) [Ratio] 39.5 kg/m2 Dr. Coby Carmona Work Phone: [facility] 09-15-2023 15:31-0500 Body temperature 98.8 [degF] Dr. Coby Carmona Work Phone: [facility] 09-15-2023 15:31-0500 Body weight 85.[address] Coby Carmona Work Phone: [facility] 09-15-2023 15:31-0500 Diastolic blood pressure 78 mm[Hg] Dr. Coby Carmona Work Phone: [facility] 09-15-2023 15:31-0500 Heart rate 98 /min Dr. Coby Carmona Work Phone: [facility] 09-15-2023 15:31-0500 Respiratory rate 16 /min Dr. Coby Carmona Work Phone: [facility] 09-15-2023 15:31-0500 SaO2% (BldA) [Mass fraction] 98 % Dr. Coby Carmona Work Phone: [facility] 09-15-2023 15:31-0500 Systolic blood pressure 122 mm[Hg] Dr. Coby Carmona Work Phone: [facility] 09-08-2023 15:57-0500 Body mass index (BMI) [Ratio] 39.9 kg/m2 Dr. Coby Carmona Work Phone: [facility] 09-08-2023 15:57-0500 Body weight 86.[address] Coby Carmona Work Phone: [facility] 09-08-2023 15:57-0500 Diastolic blood pressure 88 mm[Hg] Dr. Coby Carmona Work Phone: [facility] 09-08-2023 15:57-0500 Systolic blood pressure 124 mm[Hg] Dr. Coby Carmona Work Phone: [facility] 06-21-2023 08:35-0400 Body height 147.[address] Coby Carmona Work Phone: [facility] 06-21-2023 08:35-0400 Body mass index (BMI) [Ratio] 38.6 kg/m2 Dr. Coby Carmona Work Phone: [facility] 06-21-2023 08:35-0400 Body temperature 96.2 [degF] Dr. Coby Carmona Work Phone: [facility] 06-21-2023 08:35-0400 Body weight 83.[address] Coby Carmona Work Phone: [facility] 06-21-2023 08:35-0400 Diastolic blood pressure 86 mm[Hg] Dr. Coby Carmona Work Phone: [facility] 06-21-2023 08:35-0400 Heart rate 96 /min Dr. Coby Carmona Work Phone: [facility] 06-21-2023 08:35-0400 Respiratory rate 18 /min Dr. Coby Carmona Work Phone: [facility] 06-21-2023 08:35-0400 SaO2% (BldA) [Mass fraction] 99 % Dr. Coby Carmona Work Phone: [facility] 06-21-2023 08:35-0400 Systolic blood pressure 126 mm[Hg] Dr. Coby Carmona Work Phone: [facility] 08-15-2022 15:32-0400 Body height 147.[address] Coby Carmona Work Phone: [facility] Work Phone: 08-15-2022 15:32-0400 Heart rate 107 /min Dr. Coby Carmona Work Phone: [facility] Work Phone: 08-15-2022 15:32-0400 Body mass index (BMI) [Ratio] 37 kg/m2 Dr. Coby Carmona Work Phone: [facility] Work Phone: 08-15-2022 15:32-0400 Body weight 80.[address] Coby Carmona Work Phone: [facility] Work Phone: 08-15-2022 15:32-0400 Diastolic blood pressure 89 mm[Hg] Dr. Coby Carmona Work Phone: [facility] Work Phone: 08-15-2022 15:32-0400 Systolic blood pressure 126 mm[Hg] Dr. Coby Carmona Work Phone: [facility] Work Phone: 08-04-2022 13:24-0400 Body mass index (BMI) [Ratio] 37 kg/m2 Dr. Coby Carmona Work Phone: [facility] Work Phone: 08-04-2022 13:24-0400 Body temperature 97.7 [degF] Dr. Coby Carmona Work Phone: [facility] Work Phone: 08-04-2022 13:24-0400 Body weight 80.[address] Coby Carmona Work Phone: [facility] Work Phone: 08-04-2022 13:24-0400 Diastolic blood pressure 78 mm[Hg] Dr. Coby Carmona Work Phone: [facility] Work Phone: 08-04-2022 13:24-0400 Heart rate 101 /min Dr. Coby Carmona Work Phone: [facility] Work Phone: 08-04-2022 13:24-0400 Respiratory rate 14 /min Dr. Coby Carmona Work Phone: [facility] Work Phone: 08-04-2022 13:24-0400 SaO2% (BldA) [Mass fraction] 99 % Dr. Coby Carmona Work Phone: [facility] Work Phone: 08-04-2022 13:24-0400 Systolic blood pressure 114 mm[Hg] Dr. Coby Carmona Work Phone: [facility] Work Phone: 07-28-2022 08:55-0400 Body mass index (BMI) [Ratio] 36.2 kg/m2 Dr. Coby Carmona Work Phone: [facility] Work Phone: 07-28-2022 08:55-0400 Body weight 78.[address] Coby Carmona Work Phone: [facility] Work Phone: 07-28-2022 08:55-0400 Diastolic blood pressure 78 mm[Hg] Dr. Coby Carmona Work Phone: [facility] Work Phone: 07-28-2022 08:55-0400 Heart rate 80 /min Dr. Coby Carmona Work Phone: [facility] Work Phone: 07-28-2022 08:55-0400 Systolic blood pressure 112 mm[Hg] Dr. Coby Carmona Work Phone: [facility] Work Phone: 07-05-2022 11:19-0400 Body mass index (BMI) [Ratio] 33.3 kg/m2 Dr. Coby Carmona Work Phone: [facility] Work Phone: 07-05-2022 11:19-0400 Body weight [address] Coby Carmona Work Phone: [facility] Work Phone: 07-05-2022 11:19-0400 Diastolic blood pressure 75 mm[Hg] Dr. Coby Carmona Work Phone: [facility] Work Phone: 07-05-2022 11:19-0400 Systolic blood pressure 117 mm[Hg] Dr. Coby Carmona Work Phone: [facility] Work Phone: 05-26-2022 15:12-0400 Body mass index (BMI) [Ratio] 37.8 kg/m2 Dr. Coby Carmona Work Phone: [facility] Work Phone: 05-26-2022 15:12-0400 Body weight 82.[address] Coby Carmona Work Phone: [facility] Work Phone: 05-26-2022 15:12-0400 Diastolic blood pressure 86 mm[Hg] Dr. Coby Carmona Work Phone: [facility] Work Phone: 05-26-2022 15:12-0400 Systolic blood pressure 120 mm[Hg] Dr. Coby Carmona Work Phone: [facility] Work Phone: 02-28-2022 14:41-0400 Body height 147.[address] Coby Carmona Work Phone: [facility] Work Phone: 02-28-2022 14:41-0400 Body mass index (BMI) [Ratio] 36.6 kg/m2 Dr. Coby Carmona Work Phone: [facility] Work Phone: 02-28-2022 14:41-0400 Body weight 79.[address] Coby Carmona Work Phone: [facility] Work Phone: 02-28-2022 14:41-0400 Diastolic blood pressure 86 mm[Hg] Dr. Coby Carmona Work Phone: [facility] Work Phone: 02-28-2022 14:41-0400 Systolic blood pressure 138 mm[Hg] Dr. Coby Carmona Work Phone: [facility] Work Phone: 01-24-2022 08:23-0400 Body height 147.[address] Coby Carmona Work Phone: [facility] Work Phone: 01-24-2022 08:23-0400 Body mass index (BMI) [Ratio] 36.6 kg/m2 Dr. Coby Carmona Work Phone: [facility] Work Phone: 01-24-2022 08:23-0400 Body temperature 96.7 [degF] Dr. Coby Carmona Work Phone: [facility] Work Phone: 01-24-2022 08:23-0400 Body weight 79.[address] Coby Carmona Work Phone: [facility] Work Phone: 01-24-2022 08:23-0400 Diastolic blood pressure 80 mm[Hg] Dr. Coby Carmona Work Phone: [facility] Work Phone: 01-24-2022 08:23-0400 Heart rate 112 /min Dr. Coby Carmona Work Phone: [facility] Work Phone: 01-24-2022 08:23-0400 Respiratory rate 16 /min Dr. Coby Carmona Work Phone: [facility] Work Phone: 01-24-2022 08:23-0400 SaO2% (BldA) [Mass fraction] 99 % Dr. Coby Carmona Work Phone: [facility] Work Phone: 01-24-2022 08:23-0400 Systolic blood pressure 132 mm[Hg] Dr. Coby Carmona Work Phone: [facility] Work Phone: Encounters Encounter Date Encounter Type Care Provider Facility Start: 07-18-2025 ambulatory Coby Argueta ty:[facility] Start: 07-09-2025 End: 07-09-2025 Patient encounter procedure Georgette Avalos CNM -[facility] Work Phone: Start: 07-09-2025 End: 07-09-[address] Coby Carmona MD Work Phone: -[facility] Start: 06-11-2025 End: 06-11-[address] Chapis Chavez DO -[facility] Work Phone: Start: 06-11-2025 End: 06-11-[address] Coby Carmona MD Work Phone: -[facility] Start: 05-26-2025 End: 05-26-[address] Coby Carmona MD Work Phone: [facility] Start: 05-26-2025 End: 05-26-2025 Patient encounter procedure Georgette Avalos CNM -[facility] Work Phone: Start: 05-26-2025 End: 05-26-2025 ambulatory Coby Carmona Facility:[facility] Start: 05-16-2025 End: 05-16-[address] Kaycee Pathak MD -[facility] Work Phone: Start: 05-16-2025 End: 05-16-[address] Coby Carmona MD Work Phone: -[facility] Start: 04-21-2025 End: 04-21-2025 Patient encounter procedure Ruth VARGAS -[facility] Work Phone: Start: 04-21-2025 End: 04-21-[address] Coby Carmona MD Work Phone: [facility] Work Phone: Start: 04-17-2025 End: 04-17-2025 Non-patient / Non-visit Dr. Janes Butler MD -[facility] Work Phone: Start: 04-17-2025 End: 04-17-[address] Coby Carmona MD Work Phone: [facility] Work Phone: Start: 04-17-2025 End: 04-17-[address] Kaycee Pathak MD -Pulmonary Services/Neurology Work Phone: Start: 04-17-2025 End: 04-17-2025 ambulatory Cristoburlingtonbooker Carmona Facility:[facility] Start: 03-25-2025 End: 03-25-2025 Patient encounter procedure Georgette Avalos CNM -[facility] Work Phone: Start: 03-25-2025 End: 03-25-[address] Coby Carmona MD Work Phone: [facility] Work Phone: Start: 02-28-2025 End: 02-28-[address] Kaycee Pathak MD -[facility] Start: 02-28-2025 End: 02-28-[address] Kaycee Pathak MD -[facility] Work Phone: Start: 02-28-2025 End: 02-28-2025 ambulatory [facility] Facility:[facility] Start: 02-28-2025 End: 02-28-2025 ambulatory [facility] Facility:[facility] Start: 02-11-2025 Non-patient / Non-visit Thuy sharif RN -[facility] Work Phone: Start: 02-11-2025 End: 02-11-2025 Patient encounter procedure Ruth VARGAS -[facility] Work Phone: Start: 02-11-2025 End: 02-11-2025 ambulatory [facility] Facility:[facility] Start: 09-06-2024 Encounter for gynecological examination (general) (routine) without abnormal findings Georgette Avalos [facility] Start: 09-06-2024 End: 09-06-2024 ambulatory [facility] Facility:[facility] Start: 10-06-2023 End: 10-06-[address] Coby Carmona Work Phone: [facility] Work Phone: Start: 10-06-2023 End: 10-06-[address] Coby Carmona Work Phone: [facility]Laboratory Work Phone: Start: 10-06-2023 End: 10-06-[address] Coby Carmona Work Phone: [facility] Work Phone: Start: 09-22-2023 End: 09-22-[address] Coby Carmona Work Phone: [facility] Work Phone: Start: 09-22-2023 End: 09-22-[address] Coby Carmona Work Phone: [facility]-Pulmonary Services/Neurology Work Phone: Start: 09-18-2023 End: 09-18-[address] Coby Carmona Work Phone: [facility] Work Phone: Start: 09-18-2023 End: 09-18-[address] Coby Carmona Work Phone: [facility] Work Phone: Start: 09-15-2023 End: 09-15-[address] Coby Carmona Work Phone: [facility] Work Phone: Start: 09-08-2023 End: 09-08-[address] Coby Carmona Work Phone: [facility] Work Phone: Start: 09-04-2023 End: 09-04-[address] Coby Carmona Work Phone: [facility] Work Phone: Start: 09-04-2023 End: 09-04-[address] Coby Carmona Work Phone: [facility]-Physical Therapy Work Phone: Start: 09-04-[address] Carlos Carmona Work Phone: [facility] Work Phone: Start: 06-26-[address] Carlos Carmona Work Phone: [facility] Work Phone: Start: 06-21-2023 End: 06-21-[address] Coby Carmona Work Phone: [facility] Work Phone: Start: 06-21-[address] Coby Carmona Work Phone: [facility] Start: 06-21-2023 End: 06-21-2023 Encounter for general adult medical examination without abnormal findings Dr. Coby Carmona Work Phone: [facility] Start: 06-21-2023 End: 06-21-[address] Coby Carmona Work Phone: [facility] Work Phone: Start: 06-12-[address] Kiley Carmona Work Phone: [facility] Work Phone: Start: 08-15-2022 End: 08-15-[address] Coby Carmona Work Phone: [facility] Work Phone: Start: 08-15-2022 End: 08-15-[address] Coby Carmona Work Phone: [facility]-Pulmonary Services/Neurology Start: 08-15-2022 End: 08-15-[address] Coby Carmona Work Phone: [facility] Start: 08-04-2022 End: 08-04-[address] Coby Carmona Work Phone: [facility] Start: 07-28-2022 End: 07-28-[address] Coby Carmona Work Phone: [facility] Start: 07-15-[address] [facility] Start: 07-05-2022 End: 07-05-[address] Coby Carmona Work Phone: [facility] Start: 05-26-2022 End: 05-26-[address] Coby Carmona Work Phone: [facility] Start: 03-02-[address] [facility] Start: 02-28-2022 End: 02-28-[address] Coby Carmona Work Phone: [facility]-Laboratory, Specimen Start: 02-28-2022 End: 02-28-[address] Coby Carmona Work Phone: [facility] Start: 02-02-[address] [facility] Start: 01-24-2022 End: 01-24-[address] Coby Carmona Work Phone: [facility]-Radiology, [facility] Start: 01-24-[address] Kiley [facility] Start: 01-24-2022 End: 01-24-[address] Coby Carmona Work Phone: [facility] Start: 10-07-2020 End: 10-07-2020 Refill Jasmine Oneill Work Phone: [facility] Comment on above: Refill Request; Refi ll Request Procedures Date Procedure Procedure Detail Performing Clinician Start: 05-26-[address] Coby Carmona MD Work Phone: Start: 02-28-2025 Liquid based cervica l cytology screening Dr. Coby Carmona MD Work Phone: Comment on above: NEGATIVE FOR INTRAEP ITHELIAL LESION OR MALIGNANCY. This liquid based Th inPrep(R) pap test was screened withthe use of an image guided system. The HPV DNA reflex c riteria were not met with this specimenresult therefore, no HPV testing was performed.Performed at: [address] [id number] Director: Neda Marie MD, Phone: [phone] Start: 02-28-2025 Hepatitis C antibody measurement Dr. [...] HCV Quant by PCR testing - HCVPCR #[id number] Non Reactive: < 0.8 Equivocal: >/= 0.8 [...] Treatment Date Care Activity Detail Author Start: 07-09-2025 CBC W Auto Differential panel - Blood [facility] Start: 07-09-2025 Measurement of glucose 2 hours after glucose challenge for glucose tolerance test [facility] Start: 07-09-2025 Serologic test for syphilis [facility] Start: 07-09-2025 [facility] Start: 06-21-2023 Patient referral [facility] Work Phone: Start: 10-04-2022 PAP TESTING PAP TESTING [facility] Start: 01-24-2022 Patient referral [facility] Work Phone: Start: 06-30-2020 Influenza vaccination INFLUENZA (#1) [facility] Start: 2014 Urine microalbumin profile DTAP,TDAP,TD (1 - Tdap) [facility] Start: 2013 HEPATITIS C SCREENING HEPATITIS C SCREENING [facility] Start: 2013 HIV SCREENING HIV SCREENING [facility] Start: 2006 HPV VACCINE (1 - 2-dose series) HPV VACCINE (1 - 2-dose series) [facility] CBC W Auto Different ial panel - Blood [facility] Electrocardiographic procedure [facility] Erythrocyte mean cor puscular volume determination [facility] anatomy study [facility] Hematocrit [Volume F raction] of Blood [facility] Hemoglobin [Mass/vol ume] in Blood [facility] Leukocytes [#/volume] in Blood [facility] Mean corpuscular hem oglobin concentration determination [facility] Mean corpuscular hem oglobin determination [facility] Measurement of gluco se 2 hours after glucose challenge for glucose tolerance test [facility] Neutrophil count [facility] Neutrophil percent d ifferential count [facility] Patient referral [facility] Work Phone: Platelets [#/volume] in Blood [facility] Red blood cell count [facility] Red cell distributio n width determination [facility] Serologic test for syphilis [facility] Immunizations Immunization Date Immunization Notes Care Provider Sofie hillbarbara 08-30-2024 influenza, seasonal, injectable, preservative free Dr. Coby Carmona MD Work Phone: [facility] 08-07-2023 influenza, injectabl e, quadrivalent, preservative free Dr. Coby Carmona Work Phone: [facility] 2022 Hepatitis B vaccine (recombinant), CpG adjuvanted Dr. Coby Carmona Work Phone: [facility] 07-20-2022 Hepatitis B vaccine (recombinant), CpG adjuvanted Dr. Coby Carmona Work Phone: [facility] 07-15-2022 influenza, injectabl e, quadrivalent, preservative free Dr. Coby Carmona Work Phone: [facility] 07-15-2022 influenza, seasonal, injectable Dr. Coby Carmona Work Phone: [facility] Payers Date Payer Category Payer Unknown [id number] 2025 Unknown [id number] 2024 Self-pay [id number] 2018 Unknown JIMENEZ PAYNE PPO [id number] 2018-Present PPO [id number] Unknown [id number] Unknown [id number] Unknown [facility] [id number] Unknown [id number] Unknown [id number] [id number] Unknown [id number] 2.16.840.1.163676.3.579.2.462 Unknown [id number] 2.16.840.1.022369.3.579.2.462 Unknown [id number] 2.16.840.1.813024.3.579.2.462 Unknown [id number] 2.16.840.1.663607.3.579.2.462 Unknown [id number] 2.16.840.1.758323.3.579.2.462 Unknown [id number] 2.16.840.1.925544.3.579.2.462 Unknown [id number] 2.16.840.1.164950.3.579.2.462 Unknown [id number] 2.16.840.1.579697.3.579.2.462 Unknown [id number] 2.16.840.1.346366.3.579.2.462 Unknown [id number] 2.16.840.1.742335.3.579.2.462 Unknown [id number] 2.16.840.1.422499.3.579.2.462 Unknown [id number] 2.16.840.1.832277.3.579.2.462 Unknown [id number] [id number] Social History Date Type Detail Facility Start: 10-04-2019 End: 03-25-2025 Tobacco smoking status NHIS Never smoker [facility] Start: 10-04-2019 Tobacco use and exposure Never used [facility] Start: 10-04-2019 Alcohol intake Current non-dr physician/allergy/immunology of alcohol (finding) [facility] Start: 1995 Sex Assigned At Not on file [facility] Start: 01-24-2022 End: 10-06-2023 Tobacco smoking status NHIS Unknown if ever smoked [facility] Start: 1995 Sex Assigned At Female W [facility] Clinical Notes 10-26-2023 to 07-09-2025 Note Date & Type Note Facility 07-09-2025 Progress note [facility] 07-09-2025 Progress note Note Date/Time July 09, 2025 3:03pm [facility] [address], [address] [place] [address] OFFICE VISIT Date of Service: 07/09/25 MR#: [id number] Acct: [id number] Name: MARITA BERGERON Rep #: [id number] : 1995 Provider: CHUY Avalos Age/Sex: 29/F Location: [facility] Status: Signed Intake Vital Signs 05/16/25 14:39 06/11/25 14:12 07/09/25 14:27 Height 4 ft 10 in 4 ft 10 in 4 ft 10 in Weight: 190 lb 7 oz BMI 39.8 BP 136/83 H Intake Visit Reasons: 27wk ob/glucose Chief Complaint: 27wk OB/Glucose Respooler Required: No Is patient in pain?: No Allergies No Known Allergies Allergy (Verified 07/09/25 14:24) Medications ?Medication ?Instructions ?Recorded ?Confirmed ?Type docosahexaenoic acid 200 mg mg PO 02/11/25 07/09/25 Hi story capsule ( DHA) aspirin 81 mg tablet 81 mg PO QDAY 06/11/2507/09 History Last Menstrual Period: 12/29/24 : No PFSH PFSH Medical History Palpitations Sinus tachycardia by electrocardiogram Hypertension PCOS (polycystic ovarian syndrome) Chronic back pain Surgical History S/P wisdom tooth extraction Family History Grandmother Myocardial infarction Diabetes Grandfather Myocardial infarction Grandmother Colon cancer Social History adopted: No household members: spouse housing: house current occupational status: 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 OB Visit KUNAL Calculator Estimated Delivery Date Method Current WG Current Estimate 10/06/25 LMP (Certain) 27w 2d Other Estimates 10/12/25 Ultrasound #1 26w 3d Expected Delivery Route/Plan Labor Preferences- CB/BF classes: [...] in visit notes/problem list details Initial Weight: 186 lb Date -?-?-?-?-?-?-?-?-?-?-?-?- EGA Weight BP Urine Prot -?-?-?-?-?-?-?-?-?-?-?-?- Glucose FHR FuHt Pres Dilation -?-?-?-?-?-?-?-?-?-?-?-?- Effaced St Visit Note 02/28/25 -?-?-?-?-?-?-?-?-?-?-?-?- 8w 4d 186 lb 8 oz (+8 oz) 123/80 -?-?-?-?-?-?-?-?-?-?-?-?- 170 -?-?-?-?-?-?-?-?-?-?-?-?- SM- crl 1.4 cm n ot cons with lmp 03/25/25 -?-?-?-?-?-?-?-?-?-?-?-?- 12w 1d 186 lb 4 oz (+4 oz) 138/87 Negative -?-?-?-?-?-?-?-?-?-?-?-?- Negative 168 -?-?-?-?-?-?-?-?-?-?-?-?- KW- no vb/crampi ng. US ordered. start asa 81 mg. 04/21/25 -?-?-?-?-?-?-?-?-?-?-?-?- 16w 0d 188 lb (+2 lb) 118/78 -?-?-?-?-?-?-?-?-?-?-?-?- 151 -?-?-?-?-?-?-?-?-?-?-?-?- MH-No VB. Feels well. No nausea. Denies concerns 05/16/25 -?-?-?-?-?-?-?-?-?-?-?-?- 19w 4d 189 lb 2 oz (+3 lb 2 oz) 126/81 Negative -?-?-?-?-?-?-?-?-?-?-?-?- Negative 145 -?-?-?-?-?-?-?-?-?-?-?-?- SM- no vb lof go od fm no reuglar ctx 06/11/25 -?-?-?-?-?-?-?-?-?-?-?-?- 23w 2d 190 lb 5 oz (+4 lb 5 oz) 120/78 Negative -?-?-?-?-?-?-?-?-?-?-?-?- Negative 141 -?-?-?-?-?-?-?-?-?-?-?-?- JV- some pubic b one pain and going to see a pelvic floor therapist that is her friend. no lof, vaginal bleeding, and ++ fm. glucola next visit. 07/09/25 -?-?-?-?-?-?-?-?-?-?-?-?- 27w 2d 190 lb 7 oz (+4 lb 7 oz) 136/83 Negative -?-?-?-?-?-?-?-?-?-?-?-?- Negative 165 29 -?-?-?-?-?-?-?-?-?-?-?-?- KW- no vb/lof/ct x. good fm. 28 week labs today. LARC today. tdap next visit. ACOG First Trimester First Trimester: Discussed ROS [...] Negative Last Edit by Fallon Disla on 07/09/25 14:36 Office Urine Protein Negative Last Edit by Fallon Disla on 07/09/25 14:36 Coding Level of Care Code OB Routine Diagnoses Obesity affecting in second trimester, unspecified obesity type O99.212 Obesity type affecting : unspecified obesity Trimester: second trimester Supervision of high risk in second trimester O09.92 Trimester: second trimester 27 weeks gestation of Z3A.27 Weeks of gestation: 27 weeks Hypertension, unspecified type I10 Hypertension type: unspecified PCOS (polycystic ovarian syndrome) E28.2 Assessment and Plan Assessment and Plan (1) Obesity affecting : Status: Acute Qualifiers: Obesity type affecting : unspecified obesity Trimester: second trimester Qualified Code(s): O99.212 - Obesity complicating , second trimester Comment: BMI 38.7, HgBA1C ordered with NOB (2) Supervision of high-risk : Status: Acute Qualifiers: Trimester: second trimester Qualified Code(s): O09.92 - Supervision of high risk , unspecified, second trimester Comment: PRR , KUNAL 10/12/25, boy : Radha (3) : Status: Acute Qualifiers: Weeks of gestation: 27 weeks Qualified Code(s): Z3A.27 - 27 weeks gestation of Comment: normal anatomy, Discussed genetic/carrier/ntd testing - declined. (4) Hypertension: Status: Chronic Qualifiers: Hypertension type: unspecified Qualified Code(s): I10 - Essential (primary) hypertension Comment: Nml BP readings x1year, medicine in the past but not at present (5) PCOS (polycystic ovarian syndrome): Status: Chronic Comment: hga1c. encouraged healthy weight gain Orders: Orders POC Urinalysis 2 Dip (Clinic) Today Plan Details Additional Comments: ACOG trimester education reviewed and updated. see problem list details for updated plan management information and see below for orders placed at this visit. GA appropriate handout given. 07/09/25 1503 <Electronically signed by Georgette abarca CNM> Date _ Georgette Avalos CNM Cosigner Signature: Date (if applicable) CC: ~ [facility] Work Phone: 1(383) 568-979907-29-2025 Radiology Diagnostic study note [facility] Imaging Services [address] [place] [address] OB Anatomy Scan MR#: [id number] Acct: [id number] Name: MARITA BERGERONNE Rep #: [id number] : 1995 From: Quintin Lambert MD PCP: Dr. Coby Carmona MD Status: R EG CLI Study:OB Anatomy Scan Date of Exam: 04/30 06/23 Exam# [id number] Ordering Dr: Georgette Avalos CNM PROCEDURE: OB ANATOMY SCAN 05/26/2025 REASON FOR EXAM: ANATOMY SCAN 18-20WKS TECHNIQUE: OB ANATOMY SCAN COMPARISON: None FINDINGS LMP: December 29, 2024. Number: 1 Position: Transverse lie right Placental Position: Posterior and not low-lying Placental Abnormalities: No evidence of previa. DIMENSIONS: Biparietal Diameter: 4.82 cm: 20 weeks and 4 days: 31%/ Head Circumference: 17.59 cm: 20 weeks and 1 day: 9%/ Abdominal Circumference: 15.47 cm: 20 weeks and 5 days: 32nd percentile. Femur Length: 3.19 cm: 20 weeks and 0 days: 12th percentile/ ESTIMATED WEIGHT: 350 g plus/-53 g ESTIMATED WEIGHT PERCENTILE (24+ weeks): 18 ESTIMATED GESTATIONAL AGE: Baseline: 21 weeks and 0 days By Ultrasound: 20 weeks and 2 days ESTIMATED DATE OF DELIVERY: Baseline: October 06, 2025 By Ultrasound: October 11, 2025 BIOPHYSICAL ASSESSMENT: Amniotic Fluid Volume: 6.2 cm Amniotic Fluid Index: Within normal limits. (8-24 cm normal range) Cardiac Motion: 153 beats per minute (average) Trunk and Limb Motion: Present. MATERNAL ANATOMY: Adnexa: Neither maternal ovary is successfully identified. Cervical Length (if measured): 4.2 cm ANATOMY: Spine: Unremarkable Cranium: Unremarkable Cerebellum: Unremarkable Cisterna Magna: Unremarkable Cavum Septum Pellucidi: Unremarkable Lateral Ventricles: Unremarkable Choroid Plexus: Unremarkable Midline Falx: Nuchal Fold: Unremarkable Heart: Unremarkable Stomach: Unremarkable Kidneys: Unremarkable Bladder: Unremarkable Umbilical Cord: Normal placental insertion. cord insertion not seen well. Extremities: Unremarkable US/OB Anatomy Scan IMPRESSION: Single live intrauterine gestation with a mean gestational age of 20 weeks and 2days. Reading Location: [id number] CC: CHUY Avalos; Dr. Coby Carmona MD ~ Service Station Attendant: Signed [facility]07-18-2025 Progress [facility] [address], [address] [place] [address] OFFICE VISIT Date of Service: 05/16/25 MR#: [id number] Acct: [id number] Name: MARITA BERGERON Rep #: [id number] : 1995 Provider: Dr. Dorian Pathak MD Age/Sex: 29/F Location: [facility] Status: Signed Intake Vital Signs 03/25/25 13:40 03/25/25 14:18 04/21/25 14:54 05/16/25 14:39 Height 4 ft 10 in 4 ft 10 in 4 ft 10 in 4 ft 10 in Weight: 189 lb 2 oz BMI 39.5 BP 126/81 H Intake Visit Reasons: 19 wk ob Respooler Required: No Is patient in pain?: No Allergies No Known Allergies Allergy (Verified 05/16/25 14:39) Medications ?Medication ?Instructions ?Recorded ?Confirmed ?Type docosahexaenoic acid 200 mg mg PO 02/11/25 05/16/25 Hi story capsule ( DHA) Last Menstrual Period: 12/29/24 Zika: Zika virus screening: Negative : No PFSH PFSH Medical History Palpitations Sinus tachycardia by electrocardiogram Hypertension PCOS (polycystic ovarian syndrome) Chronic back pain Surgical History S/P wisdom tooth extraction Family History Grandmother Myocardial infarction Diabetes Grandfather Myocardial infarction Grandmother Colon cancer Social History adopted: No household members: spouse housing: house current occupational status: employed 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 OB Visit KUNAL Calculator Estimated Delivery Date Method Current WG Current Estimate 10/06/25 LMP (Certain) 19w 4d Other Estimates 10/12/25 Ultrasound #1 18w 5d Expected Delivery Route/Plan Labor Preferences- CB/BF classes: [...] the most current plan of care details andappropriate orders placed. Relevant counseling for the gestational age provided. Continue routine care and follow up unless otherwise noted in visit notes/problem list details Initial Weight: Not Recorded Date -?-?-?-?--?-?-?-?-?-?-?-?- EGA Weight BP Urine Prot -?-?-?-?-?-?-?-?-?-?-?-?- Glucose FHR FuHt Pres Dilation -?-?-?-?-?-?-?-?-?-?-?-?- Effaced St Visit Note 02/28/25 -?-?-?-?-?-?-?-?-?-?-?-?- 8w 4d 186 lb 8 oz 123/80 -?-?-?-?-?-?-?-?-?-?-?-?- 170 -?-?-?-?-?-?-?-?-?-?-?-?- SM- crl 1.4 cm n ot cons with lmp 03/25/25 -?-?-?-?-?-?-?-?-?-?-?-?- 12w 1d 186 lb 4 oz 138/87 Nega tive -?-?-?-?-?-?-?-?-?-?-?-?- Negative 168 -?-?-?-?-?-?-?-?-?-?-?-?- KW- no vb/crampi ng. US ordered. start asa 81 mg. 04/21/25 -?-?-?-?-?-?-?-?-?--?-?-?- 16w 0d 188 lb 118/78 -?-?-?-?-?-?-?-?-?-?-?-?- 151 -?-?-?-?-?-?-?-?-?-?-?-?- MH-No VB. Feels well. No nausea. Denies concerns 05/16/25 -?-?-?-?-?-?-?-?-?-?-?-?- 19w 4d 189 lb 2 oz 126/81 -?-?-?-?-?-?-?-?-?-?-?-?- 145 -?-?-?-?-?-?-?-?-?-?-?-?- SM- no vb lof go od fm no reuglar ctx ACOG First Trimester First Trimester: Discussed Coding Level of Care Code OB Routine Diagnoses Obesity affecting in second trimester, unspecified obesity type O99.212 Obesity type affecting : unspecified obesity Trimester: second trimester Supervision of high risk in second trimester O09.92 Trimester: second trimester 19 weeks gestation of Z3A.19 Weeks of gestation: 19 weeks Hypertension, unspecified type I10 Hypertension type: unspecified PCOS (polycystic ovarian syndrome) E28.2 Assessment and Plan Assessment and Plan (1) Obesity affecting : Status: Acute Qualifiers: Obesity type affecting : unspecified obesity Trimester: secondtrimester Qualified Code(s):O99.212 - Obesity complicating , second trimester Comment: BMI 38.7, HgBA1C ordered with NOB (2) Supervision of high-risk : Status: Acute Qualifiers: Trimester: second trimester Qualified Code(s): O09.92 - Supervision of high risk , unspecified, second trimester Comment: PRR , KUNAL 10/12/25, boy : Radha (3) : Status: Acute Qualifiers: Weeks of gestation: 19 weeks Qualified Code(s): Z3A.19 - 19 weeks gestation of Comment: Discussed genetic/carrier/ntd testing - declined. (4) Hypertension: Status: Chronic Qualifiers: Hypertension type: unspecified Qualified Code(s): I10 - Essential (primary) hypertension Comment: Nml BP readings x1year, medicine in the past but not at present (5) PCOS (polycystic ovarian syndrome): Status: Chronic Comment: hga1c. encouraged healthy weight gain Orders: Orders POC Urinalysis 2 Dip (Clinic) Today 05/16/25 152Vitor altman MD> Date _ Kaycee Pathak MD Cosigner Signature: Date (if applicable) CC: ~ [facility]07-18-2025 Progress note Author Kaycee Pathak [facility] Note Date/Time May 16, 2025 3:28 pm [facility] [address], [address] [place] [address] OFFICE VISIT Date of Service: 05/16/25 MR#: [id number] Acct: [id number] Name: MARITA BERGERON Rep #: [id number] : 1995 Provider: Dr. Dorian Pathak MD Age/Sex: 29/F Location: [facility] Status: Signed Intake Vital Signs 03/25/25 13:40 03/25/25 14:18 04/21/25 14:54 05/16/25 14:39 Height 4 ft 10 in 4 ft 10 in 4 ft 10 in 4 ft 10 in Weight: 189 lb 2 oz BMI 39.5 BP 126/81 H Intake Visit Reasons: 19 wk ob Respooler Required: No Is patient in pain?: No Allergies No Known Allergies Allergy (Verified 05/16/25 14:39) Medications ?Medication ?Instructions ?Recorded ?Confirmed ?Type docosahexaenoic acid 200 mg mg PO 02/11/25 05/16/25 Hi story capsule ( DHA) Last Menstrual Period: 12/29/24 Zika: Zika virus screening: Negative : No PFSH PFSH Medical History Palpitations Sinus tachycardia by electrocardiogram Hypertension PCOS (polycystic ovarian syndrome) Chronic back pain Surgical History S/P wisdom tooth extraction Family History Grandmother Myocardial infarction Diabetes Grandfather Myocardial infarction Grandmother Colon cancer Social History adopted: No household members: spouse housing: house current occupational status: employed 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 OB Visit KUNAL Calculator Estimated Delivery Date Method Current WG Current Estimate 10/06/25 LMP (Certain) 19w 4d Other Estimates 10/12/25 Ultrasound #1 18w 5d Expected Delivery Route/Plan Labor Preferences- CB/BF classes: [...] the most current plan of care details andappropriate orders placed. Relevant counseling for the gestational age provided. Continue routine care and follow up unless otherwise noted in visit notes/problem list details Initial Weight: Not Recorded Date -?-?-?-?--?-?-?-?-?-?-?-?- EGA Weight BP Urine Prot -?-?-?-?-?-?-?-?-?-?-?-?- Glucose FHR FuHt Pres Dilation -?-?-?-?-?-?-?-?-?-?-?-?- Effaced St Visit Note 02/28/25 -?-?-?-?-?-?-?-?-?-?-?-?- 8w 4d 186 lb 8 oz 123/80 -?-?-?-?-?-?-?-?-?-?-?-?- 170 -?-?-?-?-?-?-?-?-?-?-?-?- SM- crl 1.4 cm n ot cons with lmp 03/25/25 -?-?-?-?-?-?-?-?-?-?-?-?- 12w 1d 186 lb 4 oz 138/87 Nega tive -?-?-?-?-?-?-?-?-?-?-?-?- Negative 168 -?-?-?-?-?-?-?-?-?-?-?-?- KW- no vb/crampi ng. US ordered. start asa 81 mg. 04/21/25 -?-?-?-?-?-?-?-?-?--?-?-?- 16w 0d 188 lb 118/78 -?-?-?-?-?-?-?-?-?-?-?-?- 151 -?-?-?-?-?-?-?-?-?-?-?-?- MH-No VB. Feels well. No nausea. Denies concerns 05/16/25 -?-?-?-?-?-?-?-?-?-?-?-?- 19w 4d 189 lb 2 oz 126/81 -?-?-?-?-?-?-?-?-?-?-?-?- 145 -?-?-?-?-?-?-?-?-?-?-?-?- SM- no vb lof go od fm no reuglar ctx ACOG First Trimester First Trimester: Discussed Coding Level of Care Code OB Routine Diagnoses Obesity affecting in second trimester, unspecified obesity type O99.212 Obesity type affecting : unspecified obesity Trimester: second trimester Supervision of high risk in second trimester O09.92 Trimester: second trimester 19 weeks gestation of Z3A.19 Weeks of gestation: 19 weeks Hypertension, unspecified type I10 Hypertension type: unspecified PCOS (polycystic ovarian syndrome) E28.2 Assessment and Plan Assessment and Plan (1) Obesity affecting : Status: Acute Qualifiers: Obesity type affecting : unspecified obesity Trimester: secondtrimester Qualified Code(s): O99.212 - Obesity complicating , second trimester Comment: BMI 38.7, HgBA1C ordered with NOB (2) Supervision of high-risk : Status: Acute Qualifiers: Trimester: second trimester Qualified Code(s): O09.92 - Supervision of high risk , unspecified, second trimester Comment: PRR , KUNAL 10/12/25, boy : Radha (3) : Status: Acute Qualifiers: Weeks of gestation: 19 weeks Qualified Code(s): Z3A.19 - 19 weeks gestation of Comment: Discussed genetic/carrier/ntd testing - declined. (4) Hypertension: Status: Chronic Qualifiers: Hypertension type: unspecified Qualified Code(s): I10 - Essential (primary) hypertension Comment: Nml BP readings x1year, medicine in the past but not at present (5) PCOS (polycystic ovarian syndrome): Status: Chronic Comment: hga1c. encouraged healthy weight gain Orders: Orders POC Urinalysis 2 Dip (Clinic) Today 05/16/25 1528 <Electronically signed by Kaycee altman MD> Date _ Kaycee Pathak MD Cosigner Signature: Date (if applicable) CC: ~ [facility] Work Phone: 1(884) 336-769705-27-2025 Evaluation note* Diagnosis Onset Date Resolution Status Admit Date Obesity affecting acute March 25, 2025 1:36pm acute March 25, 2025 1:36pm Supervision of high-risk acute March 25, 2025 1 :36pm Hypertension chronic March 25 1:36pm PCOS (polycystic ovarian syndrome) chronic March 25, 2025 1 :36pm Obesity affecting acute April 21, 2025 2:50pm acute April 21 2:50pm Supervision of high-risk acute April 21, 2025 2:50pm Hypertension chronic April 21, 025 2:50pm Obesity affecting acute May 16, 2025 2:35pm acute May 16 2:35pm Supervision of high-risk acute May 16, 2025 2:35pm Hypertension chronic May 16, 025 2:35pm PCOS (polycystic ovarian syndrome) chronic May 16, 2025 2:35pm Obesity affecting acute June 11, 2025 2:08pm acute June 11, 025 2:08pm Supervision of high-risk acute June 11 2:08pm Hypertension chronic June 11, 2025 2:08pm PCOS (polycystic ovarian syndrome) chronic June 11 2:08pm Obesity affecting acute July 09, 2025 2:12pm acute June 2:12pm Supervision of high-risk acute July 09, 2025 2:12pm Hypertension chronic July 092024 2:12pm PCOS (polycystic ovarian syndrome) chronic July 09, 2025 2:12pm [facility] Work Phone: 1(260) 962-225705-27-2025 Progress [facility] [address] [place] [address], [address] [place] [address] OFFICE VISIT Date of Service: 03/25/25 MR#: [id number] Acct: [id number] Name: MARITA BERGERON Rep #: [id number] : 1995 Provider: CHUY Avalos Age/Sex: 29/F Location: [facility] Status: Signed Intake Vital Signs 09/06/24 10:59 02/28/25 13:03 03/25/25 13:40 Height 4 ft 10 in 4 ft 10 in 4 ft 10 in Weight: 186 lb 4 oz BMI 38.9 BP 138/87 H Intake Visit Reasons: 11 wk OB Chief Complaint: 11wk OB Respooler Required: No Is patient in pain?: No [...] occupational status: employed 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 Relevant counseling for the gestational age provided. [...] information and see below for orders placed atthis visit. GA appropriate handout given. Clinical Quality Measures Falls Risk Screening/Assistive Devices Have you fallen in the past year?: No 03/25/25 1415 s CNM> Date _ Georgette Avalos CNM Cosigner Signature: Date (if applicable) CC: ~ [facility]05-27-2025 Progress note Author Georgette Avalos [facility] Note Date/Time March 25, 2025 2:15p [facility] [address], [address] [place] [address] OFFICE VISIT Date of Service: 03/25/25 MR#: [id number] Acct: [id number] Name: MARITA BERGERONNE Rep #: [id number] : 1995 Provider: CHUY Avalos Age/Sex: 29/F Location: [facility] Status: Signed Intake Vital Signs 09/06/24 10:59 02/28/25 13:03 03/25/25 13:40 Height 4 ft 10 in 4 ft 10 in 4 ft 10 in Weight: 186 lb 4 oz BMI 38.9 BP 138/87 H Intake Visit Reasons: 11 wk OB Chief Complaint: 11wk OB Respooler Required: No Is patient in pain?: No [...] occupational status: employed 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 exposures/hazards: No [...] 3-4 times per week duration: 15-30 minutes/day josselyn/rastafarian: Mormon seatbelt use: always do you feel safe at home: Yes 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 History 1 Elective abortions Hx Para 0 [...] fallen in the past year?: No 03/25/25 0480 <Electronically signed by Georgette abarca CNM> Date _ Georgette Avalos CNM Cosigner Signature: Date (if applicable) CC: ~ [facility] Work Phone: 1(258) 565-124005-02-2025 Evaluation note* Diagnosis Onset Date Resolution Status [...] syndrome) chronic March 25, 2025 1 :36pm [facility] Work Phone: 1(173) 165-136905-02-2025 Evaluation note* Diagnosis Onset Date Resolution Status [...] syndrome) chronic March 25, 2025 1 :36pm Obesity affecting acute April 21, 2025 2:50pm acute April 21 2:50pm Supervision of high-risk acute April 21, 2025 2:50pm Hypertension chronic April 21, 025 2:50pm PCOS (polycystic ovarian syndrome) chronic April 21, 2025 2:50pm [facility] Work Phone: 1(111) 749-720505-02-2025 Evaluation note* Diagnosis Onset Date Resolution Status [...] syndrome) chronic March 25, 2025 1 :36pm Obesity affecting acute April 21, 2025 2:50pm acute April 21 2:50pm Supervision of high-risk acute April 21, 2025 2:50pm Hypertension chronic April 21, 025 2:50pm [facility] Work Phone: 1([phone]) 829-333005-02-2025 Evaluation note* Diagnosis Onset Date Resolution Status [...] 25, 2025 1 :36pm Hypertension chronic March 25, 1:36pm PCOS (polycystic ovarian syndrome) chronic March 25, 2025 1 :36pm Obesity affecting acute April 21, 2025 2:50pm acute April 21 2:50pm Supervision of high-risk acute April 21, 2025 2:50pm Hypertension chronic April 21, 2 025 2:50pm Obesity affecting acute May 16, 2025 2:35pm acute May 16 2:35pm Supervision of high-risk acute May 16, 2025 2:35pm Hypertension chronic May 16, 2 025 2:35pm PCOS (polycystic ovarian syndrome) chronic May 16, 2025 2:35pm [facility] Work Phone: 1(983) 149-137505-02-2025 Evaluation note* Diagnosis Onset Date Resolution Status [...] 25, 2025 1 :36pm Hypertension chronic March 25, 1:36pm PCOS (polycystic ovarian syndrome) chronic March 25, 2025 1 :36pm Obesity affecting acute April 21, 2025 2:50pm acute April 21 2:50pm Supervision of high-risk acute April 21, 2025 2:50pm Hypertension chronic April 21, 2 025 2:50pm Obesity affecting acute May 16, 2025 2:35pm acute May 16 2:35pm Supervision of high-risk acute May 16, 2025 2:35pm Hypertension chronic May 16, 025 2:35pm PCOS (polycystic ovarian syndrome) chronic May 16, 2025 2:35pm Obesity affecting acute June 11, 2025 2:08pm acute June 11 025 2:08pm Supervision of high-risk acute June 11 2:08pm Hypertension chronic June 11, 2025 2:08pm PCOS (polycystic ovarian syndrome) chronic June 11 2:08pm [facility] Work Phone: 1(677) 849-266912-28-2023 Discharge summary Author Chela Almaguer [facility] October 26, 2023 9:07am Note Date/Time October 26, 2023 9:08am [facility] Physical Therapy [facility] [address] [place] [address]. [address] [place] [address] / REHABILITATION SERVICES DISCHARGE SUMMARY MR#: [id number] Acct: [id number] Name: MARITA BERGERON Rep #: [id number] : 1995 28 From: Chela Estes Referring Dr.: Dr. Coby Carmona MD Status : REG RCR [facility] Patient Information Patient Information: [...] by the physician. Thank you! Chela Almaguer, DPT Balance/Gait/Functional tests Balance/Special Test Scores Quick DASH Score: [phone] <Electronically signed by Chela Almaguer DPT> 10/26/23 0907 CC: Dr. Coby Carmona MD ~ ELR Signed [facility] Work Phone: evaluation note* Diagnosis Onset Date Resolution Status Elevated blood-pressure read ing without diagnosis of hypertension acute Chronic back pain chronic Left shoulder pain chronic PCOS (polycystic ovarian syndrome) chronic Shoulder tendinitis chronic [facility] Work Phone: evaluation note* Diagnosis Onset Date Resolution Status Elevated blood-pressure read ing without diagnosis of hypertension acute Chronic back pain chronic Left shoulder pain chronic PCOS (polycystic ovarian syndrome) chronic Shoulder tendinitis chronic Anxiety acute White coat syndrome without diagnosis of hypertension acute [facility] Work Phone: Evaluation note* Diagnosis Onset Date Resolution Status Anxiety acute Metabolic syndrome acute Other obesity acute Chronic back pain chronic Hypertension chronic PCOS (polycystic ovarian syndrome) chronic Other obesity acute Encounter for school health examination acute Metabolic syndrome acute PCOS (polycystic ovarian syndrome) [facility] Work Phone: evaluation note* Diagnosis Onset Date Resolution Status Preventative health care acu te PCOS (polycystic ovarian syndrome) chronic Right shoulder pain chronic [facility] Work Phone: evaluation note* Diagnosis Onset Date Resolution Status Preventative health care acu te PCOS (polycystic ovarian syndrome) chronic Right shoulder pain chronic Encounter for routine gynecological examination noneactive Sinus tachycardia by electrocardiogram acute [facility] Work Phone: Evaluation note* Diagnosis Onset Date Resolution Status Preventative health care acu te PCOS (polycystic ovarian syndrome) chronic Right shoulder pain chronic Encounter for routine gynecological examination noneactive Sinus tachycardia by electrocardiogram acute Obesity chronic PCOS (polycystic ovarian syndrome) [facility] Work Phone: Evaluation note* Diagnosis Onset Date Resolution Status Encounter for routine gynecological examination noneactive Sinus tachycardia by electrocardiogram acute Obesity chronic PCOS (polycystic ovarian syndrome) chronic 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 (MEDICATION CARE MANAGER) elevated heartrate Tachycardia, unspecified Reason for Visit Preventative health care PCOS (polycystic ovarian syndrome) Right shoulder pain Encounter for routine gynecological examination Sinus tachycardia by electrocardiogram Chief Complaint YEARLY FALL RIGHT SHOULDER PAIN. 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 (MEDICATION CARE MANAGER) elevated heartrate Tachycardia, unspecified PCOS Reason for [...] 2025 1:36p m PCOS (polycystic ovarian syndrome) February 282024 1:36pm Chief Complaint Admit Date PNOB nurse visit February 11, 2025 7:5 6am Amb Documentation February 11, 2025 8:0 7am NOB LMP 12/29February 28, 2025 12:56p m 11 wk OB March 25, 2025 1:36p m HTN April 17, 2025 1:40 pm 15 wk ob April 21, 2025 2:50 pm Reason for Visit Admit Date Obesity affecting February 28 12:56pm February 28, 2025 12:56p m Supervision of high-risk February 282024 12:56pm Hypertension February 28, 2025 12:56p m PCOS (polycystic ovarian syndrome) February 282024 12:56pm Obesity affecting March 25 1:36pm March 25, 2025 1:36p m Supervision of high-risk February 282024 1:36pm Hypertension March 25, 2025 1:36p m PCOS (polycystic ovarian syndrome) February 282024 1:36pm Obesity affecting April 21, 2:50pm April 21, 2025 2:50 pm Supervision of high-risk April 21, 2025 2:50pm Hypertension April 21, 2025 2:50 pm PCOS (polycystic ovarian syndrome) April 21, 2025 2:50pm Reason for Visit Admit Date Obesity affecting February 28 12:56pm February 28, 2025 12:56p m Supervision of high-risk February 282024 12:56pm Hypertension February 28, 2025 12:56p m PCOS (polycystic ovarian syndrome) February 282024 12:56pm Obesity affecting March 25 1:36pm March 25, 2025 1:36p m Supervision of high-risk February 282024 1:36pm Hypertension March 25, 2025 1:36p m PCOS (polycystic ovarian syndrome) February 282024 1:36pm Obesity affecting April 21, 025 2:50pm April 21, 2025 2:50 pm Supervision of high-risk April 21, 2025 2:50pm Hypertension April 21, 2025 2:50 pm Chief Complaint Admit Date PNOB nurse visit February 11, 2025 7:5 6am Amb Documentation February 11, 2025 8:0 7am NOB LMP /February 28, 2025 12:56p m 11 wk OB March 25, 2025 1:36p m HTN April 17, 2025 1:40 pm Hypertension April 17, 2025 1:53 pm 15 wk ob April 21, 2025 2:50 pm 19 wk ob May 16, 2025 2:35 pm Reason for Visit Admit Date Obesity affecting February 28 12:56pm February 28, 2025 12:56p m Supervision of high-risk February 282024 12:56pm Hypertension February 28, 2025 12:56p m PCOS (polycystic ovarian syndrome) February 282024 12:56pm Obesity affecting March 25 1:36pm March 25, 2025 1:36p m Supervision of high-risk February 282024 1:36pm Hypertension March 25, 2025 1:36p m PCOS (polycystic ovarian syndrome) February 282024 1:36pm Obesity affecting April 21, 025 2:50pm April 21, 2025 2:50 pm Supervision of high-risk April 21, 2025 2:50pm Hypertension April 21, 2025 2:50 pm Obesity affecting May 16, 2 025 2:35pm May 16, 2025 2:35 pm Supervision of high-risk May 16, 2025 2:35pm Hypertension May 16, 2025 2:35 pm PCOS (polycystic ovarian syndrome) May 16, 2025 2:35pm Chief Complaint Admit Date PNOB nurse visit February 11, 2025 7:5 6am Amb Documentation February 11, 2025 8:0 7am NOB LMP 12/29February 28, 2025 12:56p m 11 wk OB March 25, 2025 1:36p m HTN April 17, 2025 1:40 pm Hypertension April 17, 2025 1:53 pm 15 wk ob April 21, 2025 2:50 pm 19 wk ob May 16, 2025 2:35 pm ANATOMY SCAN May 26, 2025 3:20 pm Chief Complaint Admit Date PNOB nurse visit February 11, 2025 7:5 6am Amb Documentation February 11, 2025 8:0 7am NOB LMP 12/29February 28, 2025 12:56p m 11 wk OB March 25, 2025 1:36p m HTN April 17, 2025 1:40 pm Hypertension April 17, 2025 1:53 pm 15 wk ob April 21, 2025 2:50 pm 19 wk ob May 16, 2025 2:35 pm ANATOMY SCAN May 26, 2025 3:20 pm 23 wk ob June 11, 2025 2: 08pm Reason for Visit Admit Date Obesity affecting February 28 12:56pm February 28, 2025 12:56p m Supervision of high-risk February 282024 12:56pm Hypertension February 28, 2025 12:56p m PCOS (polycystic ovarian syndrome) February 282024 12:56pm Obesity affecting March 25 1:36pm March 25, 2025 1:36p m Supervision of high-risk February 282024 1:36pm Hypertension March 25, 2025 1:36p m PCOS (polycystic ovarian syndrome) February 282024 1:36pm Obesity affecting April 21, 2 025 2:50pm April 21, 2025 2:50 pm Supervision of high-risk April 21, 2025 2:50pm Hypertension April 21, 2025 2:50 pm Obesity affecting May 16 2 025 2:35pm May 16, 2025 2:35 pm Supervision of high-risk May 16, 2025 2:35pm Hypertension May 16, 2025 2:35 pm PCOS (polycystic ovarian syndrome) May 16, 2025 2:35pm Obesity affecting June 11, 2025 2:08pm June 11, 2025 2: 08pm Supervision of high-risk Augus t 2024 2:08pm Hypertension June 11, 2025 2: 08pm PCOS (polycystic ovarian syndrome) Augus t 2024 2:08pm Chief Complaint Admit Date 11 wk OB March 25, 2025 1:36p m HTN April 17, 2025 1:40 pm Hypertension April 17, 2025 1:53 pm 15 wk ob April 21, 2025 2:50 pm 19 wk ob May 16, 2025 2:35 pm ANATOMY SCAN May 26, 2025 3:20 pm 23 wk ob June 11, 2025 2: 08pm 27wk ob/glucose July 09, 2025 2:12pm Reason for Visit Admit Date Obesity affecting March 25 1:36pm March 25, 2025 1:36p m Supervision of high-risk February 282024 1:36pm Hypertension March 25, 2025 1:36p m PCOS (polycystic ovarian syndrome) February 282024 1:36pm Obesity affecting April 21, 2 025 2:50pm April 21, 2025 2:50 pm Supervision of high-risk April 21, 2025 2:50pm Hypertension April 21, 2025 2:50 pm Obesity affecting May 16, 2 025 2:35pm May 16, 2025 2:35 pm Supervision of high-risk May 16, 2025 2:35pm Hypertension May 16, 2025 2:35 pm PCOS (polycystic ovarian syndrome) May 16, 2025 2:35pm Obesity affecting June 11, 2025 2:08pm [place] 13th, 2025 2: 08pm Supervision of high-risk Augus t 2024 2:08pm Hypertension June 11, 2025 2: 08pm PCOS (polycystic ovarian syndrome) Augus t 2024 2:08pm Obesity affecting July 092024 2:12pm July 09, 2025 2:12pm Supervision of high-risk [facility] 2024 2:12pm Hypertension July 09, 2025 2:12pm PCOS (polycystic ovarian syndrome) [facility] 2024 2:12pm Additional Source Comments INFORMATION SOURCE (unrecogn ized section and content) DATE CREATED AUTHOR 10/10/2019 [facility] DATE CREATED AUTHOR AUTHOR'S ORGANIZ ATION 10/29/2020 [facility] DATE CREATED AUTHOR AUTHOR'S ORGANIZ ATION 07/12/2025 [facility] Source Comments (unrecognize d section and content) In the event this informatio n is protected by the Federal Confidentiality of Alcohol and Drug Abuse Patient Records regulations: The Federal rules restrict any use of the information to criminally investigate or prosecute any alcohol or drug abuse patient.[facility] Reason for Visit (unrecogniz ed section and [...] Active Health Risk Assessment Attending Provider, Referring P rovider Active Team Status: Active Member Role Status [...] Active Member Role Status Dates Dr. Coby aCrmona MD Primary Care Provider Active Ralph INGRAM [...] End: February 11, 2025 Ruth Thurston NP, TRACTOR OPERATOR HELPER-C Attending Provider Active Start: February 11, 2025 [...] March 25, 2025 End: March 25, 2025 Team Status: Active Member Role Status Dates Dr. Coby Carmona MD Primary Care Provider Active Start: April 17, 2025 Dr. Kaycee Pathak MD Attending Provider Active Start: April 17, 2025 Dr. Kaycee Pathak MD Referring Provider Active Start: April 17, 2025 Team Status: Inactive Member Role Status Dates Dr. Coby Carmona MD Primary Care Provider Active Start: April 21, 2025 End: April 21, 2025 Dr. Coby Carmona MD Referring Provider Active Start: April 21, 2025 End: April 21, 2025 Ruth Thurston NP, TRACTOR OPERATOR HELPER-C Attending Provider Active Start: April 21, 2025 End: April 21, 2025 Team Status: Inactive Member Role Status Dates Dr. Coby Carmona MD Primary Care Provider Active Start: April 17, 2025 End: April 17, 2025 Dr. Kaycee Pathak MD Attending Provider Active Start: April 17, 2025 End: April 17, 2025 Dr. Kaycee Pathak MD Referring Provider Active Start: April 17, 2025 End: April 17, 2025 Team Status: Active Member Role/Relationship Status Dates Dr. Coby Carmona MD Primary Care Provider Active Team Status: Inactive Member Role/Relationship Status Dates Dr. Coby Carmona MD Primary Care Provider Active Start: February 11, 2025 End: February 11, 2025 Dr. Coby Carmona MD Referring Provider Active Start: February 11, 2025 End: February 11, 2025 Ruth Thurston NP, TRACTOR OPERATOR HELPER-C Attending Provider Active Start: February 11, 2025 End: February 11, 2025 Team Status: Active Member Role/Relationship Status Dates Dr. Coby Carmona MD Primary Care Provider Active Start: February 11, 2025 Thuy Holt RN Attending Provider Active St art: February 11, 2025 Team Status: Inactive Member Role/Relationship Status Dates Dr. Coby Carmona MD Primary Care Provider Active Start: February 28, 2025 End: February 28, 2025 Dr. Coby Carmona MD Referring Provider Active Start: February 28, 2025 End: February 28, 2025 Dr. Kaycee Pathak MD Attending Provider Active Start: February 28, 2025 End: February 28, 2025 Team Status: Inactive Member Role/Relationship Status Dates Dr. Coby Carmona MD Primary Care Provider Active Start: February 28, 2025 End: February 28, 2025 Dr. Kaycee Pathak MD Attending Provider Active Start: February 28, 2025 End: February 28, 2025 Dr. Kaycee Pathak MD Referring Provider Active Start: February 28, 2025 End: February 28, 2025 Team Status: Inactive Member Role/Relationship Status Dates Dr. Coby Carmona MD Primary Care Provider Active Start: March 25, 2025 End: March 25, 2025 Dr. Coby Carmona MD Referring Provider Active Start: March 25, 2025 End: March 25, 2025 Georgette Avalos CNM Attending Provider Active S tart: March 25, 2025 End: March 25, 2025 Team Status: Inactive Member Role/Relationship Status Dates Dr. Coby Carmona MD Primary Care Provider Active Start: April 17, 2025 End: April 17, 2025 Dr. Kaycee Pathak MD Attending Provider Active Start: April 17, 2025 End: April 17, 2025 Dr. Kaycee Pathak MD Referring Provider Active Start: April 17, 2025 End: April 17, 2025 Team Status: Active Member Role/Relationship Status Dates Dr. Coby Carmona MD Primary Care Provider Active Start: April 17, 2025 End: April 17, 2025 Dr. Janes Butler MD Attending Provider Active Start: April 17, 2025 End: April 17, 2025 Dr. Kaycee Pathak MD Referring Provider Active Start: April 17, 2025 End: April 17, 2025 Team Status: Inactive Member Role/Relationship Status Dates Dr. Coby Carmona MD Primary Care Provider Active Start: April 21, 2025 End: April 21, 2025 Dr. Coby Carmona MD Referring Provider Active Start: April 21, 2025 End: April 21, 2025 Ruth Thurston NP, TRACTOR OPERATOR HELPER-C Attending Provider Active Start: April 21, 2025 End: April 21, 2025 Team Status: Inactive Member Role/Relationship Status Dates Dr. Coby Carmona MD Primary Care Provider Active Start: May 16, 2025 End: May 16, 2025 Dr. Coby Carmona MD Referring Provider Active Start: May 16, 2025 End: May 16, 2025 Dr. Kaycee Pathak MD Attending Provider Active Start: May 16, 2025 End: May 16, 2025 Team Status: Inactive Member Role/Relationship Status Dates Dr. Coby Carmona MD Primary Care Provider Active Start: May 26, 2025 End: May 26, 2025 Georgette Avalos CNM Attending Provider Active S tart: May 26, 2025 End: May 26, 2025 Georgette Avalos CNM Referring Provider Active S tart: May 26, 2025 End: May 26, 2025 Team Status: Inactive Member Role/Relationship Status Dates Dr. Coby Carmona MD Primary Care Provider Active Start: June 11, 2025 End: June 11, 2025 Dr. Coby Carmona MD Referring Provider Active Start: June 11, 2025 End: June 11, 2025 Dr. Chapis Chavez DO Attending Provider Activ e Start: June 11, 2025 End: June 11, 2025 Team Status: Inactive Member Role/Relationship Status Dates Dr. Coby Carmona MD Primary Care Provider Active Start: March 25, 2025 End: March 25, 2025 Dr. Coby Carmona MD Referring Provider Active Start: March 25, 2025 End: March 25, 2025 Georgette Avalos CNM Attending Provider Active S tart: March 25, 2025 End: March 25, 2025 Team Status: Inactive Member Role/Relationship Status Dates Dr. Coby Carmona MD Primary Care Provider Active Start: April 17, 2025 End: April 17, 2025 Dr. Kaycee Pathak MD Attending Provider Active Start: April 17, 2025 End: April 17, 2025 Dr. Kaycee Pathak MD Referring Provider Active Start: April 17, 2025 End: April 17, 2025 Team Status: Active Member Role/Relationship Status Dates Dr. Coby Carmona MD Primary Care Provider Active Start: April 17, 2025 End: April 17, 2025 Dr. Janes Butler MD Attending Provider Active Start: April 17, 2025 End: April 17, 2025 Dr. Kaycee Pathak MD Referring Provider Active Start: April 17, 2025 End: April 17, 2025 Team Status: Inactive Member Role/Relationship Status Dates Dr. Coby Carmona MD Primary Care Provider Active Start: April 21, 2025 End: April 21, 2025 Dr. Coby Carmona MD Referring Provider Active Start: April 21, 2025 End: April 21, 2025 Ruth Thurston NP, TRACTOR OPERATOR HELPER-C Attending Provider Active Start: April 21, 2025 End: April 21, 2025 Team Status: Inactive Member Role/Relationship Status Dates Dr. Coby Carmona MD Primary Care Provider Active Start: May 16, 2025 End: May 16, 2025 Dr. Coby Carmona MD Referring Provider Active Start: May 16, 2025 End: May 16, 2025 Dr. Kaycee Pathak MD Attending Provider Active Start: May 16, 2025 End: May 16, 2025 Team Status: Inactive Member Role/Relationship Status Dates Dr. Coby Carmona MD Primary Care Provider Active Start: May 26, 2025 End: May 26, 2025 Georgette Avalos CNM Attending Provider Active S tart: May 26, 2025 End: May 26, 2025 Georgette Avalos CNM Referring Provider Active S tart: May 26, 2025 End: May 26, 2025 Team Status: Inactive Member Role/Relationship Status Dates Dr. Coby Carmona MD Primary Care Provider Active Start: June 11, 2025 End: June 11, 2025 Dr. Coby Carmona MD Referring Provider Active Start: June 11, 2025 End: June 11, 2025 Dr. Chapis Chavez DO Attending Provider Activ e Start: June 11, 2025 End: June 11, 2025 Team Status: Inactive Member Role/Relationship Status Dates Dr. Coby Carmona MD Primary Care Provider Active Start: July 09, 2025 End: July 09, 2025 Dr. Coby Carmona MD Referring Provider Active Start: July 09, 2025 End: July 09, 2025 Georgette Avalos CNM Attending Provider Active S tart: July 09, 2025 End: July 09, 2025 Team Status: Active Member Role/Relationship Status Dates Dr. Coby Carmona MD Primary Care Provider Active Start: July 09, 2025 Dr. Chapis Chavez DO Attending Provider Active Start: June Dr. Chapis Chavez DO Referring Provider Active Start: June FOR RECORDS PERTAINING TO PATIENTS WHO ARE [...] BE BASED ON THE PRIMARY CLINICAL RECORDS. [facility] HospitalA[facility]. provides no warranty or guarantee of the accuracy or completeness of information in this document.
[2025-07-18 07:30] LABS: Glucose GTT-Gestation. Fasting 100 mg/dL (<105)
[2025-07-18 09:43] LABS: Glucose GTT-Gestational 1 Hr 150 mg/dL (<190)
[2025-07-18 11:05] LABS: Glucose GTT-Gestational 2 Hr 149 mg/dL (<165)
[2025-07-18 12:45] LABS: Glucose GTT-Gestational 3 Hr 193 L (<145)
== END | disposition home or self-care (01) ==
PROVIDERS: PCP Internal Medicine; Referring Provider Nurse Practitioner Women's Health; Visit Provider Nurse Practitioner Women's Health
DX: Z13.1 Encounter for screening for diabetes mellitus (principal)
CPT/HCPCS: 36415; 82951; 82952

== ENCOUNTER 2025-07-28 14:29 | Outpatient (RCR) | payer OTHER, SELFPAY | END 2025-07-29 23:59 | LOC: NS 14:29 | PROVIDERS: PCP Internal Medicine; Referring Provider Nurse Practitioner Women's Health; Visit Provider Nurse Practitioner Women's Health | DX: Z71.3 Dietary counseling and surveillance (principal); O24.419 Gestational diabetes mellitus in pregnancy, unspecified control | CPT/HCPCS: 97802 ==

== ENCOUNTER 2025-08-12 14:48 | Outpatient (RCR) | payer OTHER, SELFPAY | END 2025-08-29 23:59 | LOC: NS 14:48 | PROVIDERS: PCP Internal Medicine; Referring Provider Nurse Practitioner Women's Health; Visit Provider Nurse Practitioner Women's Health | DX: Z71.3 Dietary counseling and surveillance (principal); O24.419 Gestational diabetes mellitus in pregnancy, unspecified control; Z3A.00 Weeks of gestation of pregnancy not specified | CPT/HCPCS: 97803 ==

== ENCOUNTER → 2025-09-08 | Outpatient (CLI) | payer OTHER, SELFPAY ==
--- NOTE | 2025-09-08 17:59 | US_ITS ---
PROCEDURE: OB LIMITED WITH BIOMETRICS 09/08/2025 REASON FOR EXAM: GROWTH TECHNIQUE: Procedure Code: [id number] Modality: US Procedure: OB LIMITED WITH BIOMETRICS COMPARISON: 26 May 2025. FINDINGS Number: 1 Position: cephalic Placental Position: posterior Placental Abnormalities: Grade 1 DIMENSIONS: Biparietal Diameter: 8.6 cm / 34 weeks and 4 days Head Circumference: 31.9 cm / 36 weeks and 0 days Abdominal Circumference: 30.4 cm / 34 weeks and 3 days Femur Length: 6.5 cm / 33 weeks and 2 days ESTIMATED WEIGHT: 2381 g ESTIMATED WEIGHT PERCENTILE (24+ weeks): 9% ESTIMATED GESTATIONAL AGE: Baseline: 36 weeks and 3 days By Ultrasound: 34 weeks and 4 days ESTIMATED DATE OF DELIVERY: Baseline: October 06, 2025. By Ultrasound: October 16, 2025. BIOPHYSICAL ASSESSMENT: Amniotic Fluid Volume: Adequate Amniotic Fluid Index: 11.1 cm (8-24 cm normal range) Cardiac Motion: 148 beats per minute (average) Trunk and Limb Motion: Present. US/OB Limited With Biometrics IMPRESSION: 1. Single living intrauterine gestation at 36 weeks and 3 days in the cephalic presentation. 2. heart rate of 148 bpm. 3. Posterior placenta. 4. Estimated weight at 2381 g (9%). Estimated weight is just below 2 standard deviations for expected based o n gestational age. Consider short interval repeat examination. Reading Location: [id number]
== END | disposition home or self-care (01) ==
PROVIDERS: PCP Internal Medicine; Referring Provider Nurse Practitioner Women's Health; Visit Provider Nurse Practitioner Women's Health
DX: Z34.93 Encounter for supervision of normal pregnancy, unspecified, third trimester (principal)
CPT/HCPCS: 76816

== ENCOUNTER → 2025-09-12 | Outpatient (CLI) | payer OTHER, SELFPAY | END | disposition home or self-care (01) | LOC: LABSPEC 17:00 | PROVIDERS: PCP Internal Medicine; Referring Provider Obstetrics & Gynecology; Visit Provider Obstetrics & Gynecology | DX: O09.93 Supervision of high risk pregnancy, unspecified, third trimester (principal); O99.213 Obesity complicating pregnancy, third trimester; O24.410 Gestational diabetes mellitus in pregnancy, diet controlled; Z3A.36 36 weeks gestation of pregnancy | CPT/HCPCS: 87081 ==

== ENCOUNTER 2025-10-12 19:15 | Inpatient (IN) | payer OTHER, MEDICAID, SELFPAY ==
--- OUTSIDE RECORDS SUMMARY | 2025-10-12 19:11 | XMS RPT_ITS | CCD ---
Author Organization [facility] Care Team Providers Care Soft Hat Binder Name Role Phone Ta Mora Primary Care Provider Dr. Coby Carmona Attending Provider [phone] Karena SKETCH LINER, ALICIA Miranda Attending Provider [phone] Dr. [...] Dr. Tenorio Referring Provider [phone] Karena SKETCH LINER-C, Ruth Attending Provider [phone] Thuy Holt RN Attending [facility] Pathak MD, Dr. Benoit Attending Provider [phone] Zo MANUEL, Dr. Benoit Referring Provider Georgette Avalos CNM Attending Provider [phone] Carrie MANUEL, Dr. Marrero Attending Provider Georgette Avalos CNM Referring Provider [phone] Shawn Alonso DO, Dr. Nation Attending Provider Mathew MANUEL, Dr. Tenorio Primary Care Provider Mathew MANUEL, Dr. Tenorio Referring Provider [phone] Zo MANUEL, Dr. Benoit Attending Provider [phone] oZ MANUEL, Dr. Benoit Referring Provider Karena SKETCH LINER-C, Ruth Attending Provider [phone] Shawn Alonso DO, Dr. Nation Referring Provider Mathew MANUEL, Dr. Tenorio Primary Care Physician Dr. Kaycee Pathak MD Attending Physician Carrie MANUEL, Dr. Marrero Attending Physician [phone] Mathew MANUEL, Dr. Tenorio Referring Provider [phone] Karena SKETCH LINER-C, Ruth Attending Physician [phone] eGorgette Avalos CNM Attending Physician [phone] Shawn Alonso DO, Dr. Nation Attending Physician Karena SKETCH LINER-C, Ruth Referring Provider Mathew MANUEL, Dr. Tenorio Primary Care Physician Mathew MANUEL, Dr. Tenorio Referring Provider [phone] Zo MANUEL, Dr. Benoit Attending Physician Karena SKETCH LINER-CRuth Attending Physician [phone] Oleghe, Efewongbe Primary Care Unavailable Georgette Avalos Referring Unavailable Georgette Avalos Attending Unavailable Oleghe, Efewongbe Referring Unavailable KarenaRuth Attending Unavailable Oleghe, Efewongbe Primary Care Unavailable Oleghe, Efewongbe Referring Unavailable Kaycee Pathak Attending Unavailable Oleghe, Efewongbe Primary Care Unavailable CastaliaRuth Attending Unavailable Karena Ruth Referring Unavailable Oleghe, Efewongbe Primary Care Unavailable Oleghe, Efewongbe Primary Care Unavailable Kaycee Pathak Referring Unavailable Kaycee Pathak Attending Unavailable Oleghe, Efewongbe Primary Care Unavailable Kaycee Pathak Attending Unavailable Kaycee Pathak Admitting Unavailable Kaycee Pathak Referring Unavailable Karena Ruth Referring Unavailable Oleghe, Efewongbe Primary Care Unavailable CastaliaRuth Attending Unavailable Castalia Ruth Referring Unavailable Oleghe, Efewongbe Primary Care Unavailable Karena, Molly Attending Unavailable Oleghe, Efewongbe Referring Unavailable Oleghe, Efewongbe Primary Care Unavailable Kaycee Pathak Attending Unavailable CastaliaRuth Referring Unavailable KarenaRuth Attending Unavailable Oleghe, Efewongbe Primary Care Unavailable KarenaElley Referring Unavailable KarenaElley Attending Unavailable Oleghe, Efewongbe Primary Care Unavailable Oleghe, Efewongbe Referring Unavailable Chapis Chavez Attending Unavailabl e Oleghe, Efewongbe Primary Care Unavailable Oleghe, Efewongbe Primary Care Unavailable Kaycee Pathak Referring Unavailable Janes Butler Attending Unavailable Oleghe, Efewongbe Primary Care Unavailable Oleghe, Efewongbe Referring Unavailable Georgette Avalos Attending Unavailable Thuy Holt Attending Unavailable Oleghe, Efewongbe Primary Care Unavailable Oleghe, Efewongbe Referring Unavailable Chapis Chavez Attending Unavailabl e Oleghe, Efewongbe Primary Care Unavailable Oleghe, Efewongbe Primary Care Unavailable Oleghe, Efewongbe Referring Unavailable Ruth Thurston Attending Unavailable Oleghe, Efewongbe Primary Care Unavailable Oleghe, Efewongbe Referring Unavailable Kaycee Pathak Attending Unavailable Vande Chapis Alonso Attending Unavailabl e Oleghe, Efewongbe Primary Care Unavailable Oleghe, Efewongbe Referring Unavailable Oleghe, Efewongbe Primary Care Unavailable Oleghe, Efewongbe Referring Unavailable Georgette Avalos Attending Unavailable Ruth Thurston Attending Unavailable Oleghe, Efewongbe Primary Care Unavailable Oleghe, Efewongbe Referring Unavailable Chapis Chavez Referring Unavailabl e Vande VelChapis nugent Attending Unavailabl e Oleghe, Efewongbe Primary Care Unavailable Oleghe, Efewongbe Primary Care Unavailable Kaycee Pathak Referring Unavailable Kaycee Pathak Attending Unavailable Medications Current Medications Medication Drug Class(es) Dates Sig (Normalized) Sig (Original) aspirin 81 mg oral tablet (7 sources) Platelet Aggregation Inhibitor, Nonsteroidal Anti-inflammatory Drug Start: 06-11-2025 take 1 tablet by mouth once daily Aspirin 81 mg tablet Active 81 mg PO daily June 11, 2025 12:00am Complies with drug therapy Blood-Glucose Meter misc (5 sources) Start: 07-21-2025 Blood-Glucose Meter misc Active 0 .MEDSUPPLY 1 0 July 21, 2025 12:00am As directed- Test fasting and 2 hours after meals docosahexaenoic acid 200 mg oral capsule (12 sources) Start: 02-11-2025 Docosahexaenoic Acid ( Dha) 200 mg capsule Active mg PO February 11, 2025 12:00am Complies with drug therapy Completed/Discontinued Medications Medication Drug Class(es) Dates Sig [...] tablet Discontinued 1 {tbl} PO DAILY 84 3 September 06, 2024 12:14pm February 11, 2025 [...] Discontinued 1 TABLET PO DAILY 84 January 23, 2022 11:00pm February 28, 2022 [...] mg capsule Discontinued 37.5 mg PO DAILY 30 0 July 28, 2022 9:16am August 15, 2022 3:33pm BMI 37.9 must administer 30 minutes before or 1-2 hours after breakfast weight 173. *note BMI incorrect on last script, patient has lost weight. 24 hr venlafaxine 37.5 mg extended release oral capsule (20 sources) Serotonin and Norepinephrine Reuptake Inhibitor Start: End: Venlafaxine 37.5 mg capsule,extended release 24hr Discontinued 37.5 mg PO As Directed 14 0 September 30, 2022 1:00am June 21, 2023 8:34am 1 capsule daily x1 week then every other day x1 week Start: 05-26-2022 End: 09-30-2022 take 1 capsule by mouth once daily Venlafaxine (Effexor Xr) 75 mg capsule,extended release 24hr Discontinued 75 mg PO DAILY 30 May 26, 2022 12:00am September 30, 2022 4:01pm Problems Active Problems Problem Classification Problem Date Documented Da te Episodic/Chronic Administrative/social admission (20 sources) Patient encounter status; Translations: [Encounter for examination for admission to educational institution] Episodic Anxiety disorders (20 sources) Anxiety; Translations: [Anxiety disorder, unspecified] Chronic Comment on above: start effexor stop c elexa Cardiac dysrhythmias (20 sources) Palpitations; Translations: [Palpitations] 09-15-2023 Episodic Diabetes or abnormal glucose tolerance complicating ; childbirth; or the puerperium (15 sources) Gestational diabetes mellitus; Translations: [Gestational diabetes mellitus in , unspecified control] Onset: 08-13-2025 07-28-2025 Episodic Comment on above: QID glucose testing, ref dietitian, 36 wk growth US Essential hypertension (20 sources) Hypertensive disorder; Translations: [Essential (primary) hypertension] Onset: 02-21-2025 Chronic Comment on above: Nml BP readings x1ye ar, medicine in the past but not at present Nml BP readings x1ye ar, suspected transient HTN due to taking adipex in the past, never needed medication to control bps, they went back to normal after stopping medicine. Immunizations and screening for infectious disease (1 source) Encounter for immunization; Translations: [Encounter for immunization] Onset: 07-28-2025 Episodic Menstrual disorders (1 source) Amenorrhea, unspecified; Translations: [Amenorrhea, unspecified] Onset: 02-21-2025 Chronic Other circulatory disease (20 sources) Elevated blood-pressure reading without diagnosis of hypertension; Translations: [Elevated blood-pressure reading, without diagnosis of hypertension] 01-24-2022 Episodic Other circulatory disease (3 sources) Elevated blood-pressure reading, without diagnosis of hypertension; Translations: [Elevated blood pressure reading without diagnosis of hypertension] Episodic Other circulatory disease (20 sources) Labile hypertension due to being in [...] Translations: [Obesity complicating , second trimester] Onset: 08-13-2025 Chronic Other complications of (2 sources) Obesity complicating , unspecified trimester; Translations: [Obesity complicating , unspecified trimester] Onset: 02-21-2025 Chronic Other complications of (20 sources) High risk ; Translations: [Supervision of high risk , unspecified, unspecified trimester] 02-28-2025 Episodic Comment on above: , KUNAL 10/12/25, : Radha PRR , KUNAL , boy : Radha Other complications of (1 source) Supervision of high risk , unspecified, third trimester; Translations: [Supervision of high risk , unspecified, third trimester] Onset: 08-13-2025 Episodic Other complications of (1 source) Supervision of high risk , unspecified, second trimester; Translations: [Supervision of high risk , unspecified, second trimester] Onset: 07-22-2025 Episodic Other connective tissue disease (20 sources) Tendinitis of shoulder region; Translations: [Other [...] Polycystic ovarian syndrome; Translations: [Polycystic ovaries] Onset: 08-13-2025 Chronic Other non-traumatic joint disorders (4 sources) Shoulder pain; Translations: [Pain in left shoulder] Episodic Other non-traumatic joint disorders (19 sources) Pain in left shoulder; Translations: [Pain in joint, shoulder region] Episodic Other non-traumatic joint disorders (20 sources) Pain in right shoulder; Translations: [Right shoulder pain] 06-21-2023 Episodic Other nutritional; endocrine; and metabolic disorders (19 sources) Obesity; Translations: [Other obesity] 05-26-2022 Chronic Other nutritional; endocrine; and metabolic disorders (19 sources) Metabolic syndrome X; Translations: [Metabolic syndrome] [...] 02-21-2025 Episodic Residual codes; unclassified (1 source) 32 weeks gestation of ; Translations: [32 weeks gestation of ] Onset: 08-13-2025 Episodic Residual codes; unclassified (1 source) 27 weeks gestation of ; Translations: [27 weeks gestation of ] Onset: 07-09-2025 Episodic Spondylosis; intervertebral disc disorders; other back problems (20 sources) Chronic back pain ; Translations: [Dorsalgia, unspecified] Episodic Unclassified (2 sources) Patient encounter status; Translations: [Routine cervical smear] Onset: 04-26-2016 04-26-2016 Past or Other Problems Problem Classification Problem Date Documented Date Episodic/Chronic Contraceptive and procreative management (1 source) Oral contraception; Translations: [Oral contraceptive pill surveillance] Onset: 04-26-2016 04-26-2016 Episodic Other complications of (2 sources) Supervision of high risk , unspecified, unspecified trimester; Translations: [Supervision of high risk , unspecified, unspecified trimester] Onset: 02-21-2025 Episodic Residual codes; unclassified (1 source) 19 weeks gestation of ; Translations: [19 weeks gestation of ] Onset: 05-16-2025 Episodic Residual codes; unclassified (1 source) 12 weeks gestation of ; Translations: [12 weeks gestation of ] Onset: 03-25-2025 Episodic Residual codes; unclassified (1 source) 8 weeks gestation of ; Translations: [8 weeks gestation of ] Onset: 02-28-2025 Episodic Results Test Name Value Interpretation Reference Range Facility OB Limited With Biometricson 09-08-2025 OB Limited With Biometrics [facility] Imaging Services [address] [place], [place] [id number] OB Limited With Biometrics MR#: [id number] Acct: [id number] Name: MARITA BERGERON Rep #: [id number] : 1995 F 30 From: Phi Barajas DO PCP: Dr. Coby Carmona MD Status: [facility] CLI Study: OB Limited With Biometrics Date of Exam: 09/08 Exam# [id number] Ordering Dr: Ruth Thurston SKETCH LINER SKETCH LINER -C PROCEDURE: OB LIMITED WITH BIOMETRICS 09/08/2025 REASON FOR EXAM: GROWTH TECHNIQUE: Procedure Code: [id number] Modality: US Procedure: OB LIMITED WITH BIOMETRICS COMPARISON: 26 May 2025. FINDINGS Number: 1 Position: cephalic Placental Position: posterior Placental Abnormalities: Grade 1 DIMENSIONS: Biparietal Diameter: 8.6 cm / 34 weeks and 4 days Head Circumference: 31.9 cm / 36 weeks and 0 days Abdominal Circumference: 30.4 cm / 34 weeks and 3 days Femur Length: 6.5 cm / 33 weeks and 2 days ESTIMATED WEIGHT: 2381 g ESTIMATED WEIGHT PERCENTILE (24+ weeks): 9% ESTIMATED GESTATIONAL AGE: Baseline: 36 weeks and 3 days By Ultrasound: 34 weeks and 4 days ESTIMATED DATE OF DELIVERY: Baseline: October 06, 2025. By Ultrasound: October 16, 2025. BIOPHYSICAL ASSESSMENT: Amniotic Fluid Volume: Adequate Amniotic Fluid Index: 11.1 cm (8-24 cm normal range) Cardiac Motion: 148 beats per minute (average) Trunk and Limb Motion: Present. US/OB Limited With Biometrics IMPRESSION: 1. Single living intrauterine gestation at 36 weeks and 3 days in the cephalic presentation. 2. heart rate of 148 bpm. 3. Posterior placenta. 4. Estimated weight at 2381 g (9%). Estimated weight is just below 2 standard deviations for expected based on gestational age. Consider short interval repeat examination. Reading Location: [id number] CC: ALICIA Thurston; Dr. Coby Carmona MD Hand Embroiderer: Signed Normal [facility] Chemical Operations Specialist Office Visit Reporton 08-27-2025 Chemical Operations Specialist Office Visit Report [facility]'s [address], [address] [place] [address] OFFICE VISIT Date of Service: 08/27/25 MR#: [id number] Acct: [id number] Name: MARITA BERGERON Rep #: [id number] : 1995 Provider: Dr. Chapis Smith DO Age/Sex: 30/F Location: [facility] Status: Signed Intake Vital Signs 07/09/25 14:27 08/13/25 15:30 08/27/25 14:28 08/27/25 14:30 Height 4 ft 10 in 4 ft 10 in 4 ft 10 in 4 ft 10 in Weight: 191 lb 5 oz BMI 39.9 BP 116/75 Intake Visit Reasons: 34wk ob Online Marketer Required: No Is patient in pain?: No Allergies No Known Allergies Allergy (Verified 08/27/25 14:27) Medications ???Medication ???Instructions ???Recorded ???Confirmed ???Type docosahexaenoic acid 200 mg mg PO 02/11/25 08/27/25 History capsule ( DHA) aspirin 81 mg tablet 81 mg PO QDAY 06/11/25 08/27/25 Hi story blood sugar diagnostic (Blood #120 ea 07/21/25 08/27/25 Rx Glucose Test strips) blood-glucose meter #1 ea 07/21/25 08/27/25 Rx lancets #200 07/21/25 08/27/25 Rx Last Menstrual Period: 12/29/24 Zika: Zika virus screening: Negative : No PFSH PFSH Medical History Palpitations Sinus tachycardia by electrocardiogram Hypertension PCOS (polycystic ovarian syndrome) Chronic back pain Surgical History S/P wisdom tooth extraction Family History Grandmother Myocardial infarction Diabetes Grandfather Myocardial infarction Grandmother Colon cancer Social History adopted: No household members: spouse housing: house current occupational status: employed 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 OB Visit KUNAL Calculator Estimated Delivery Date Method Current WG Current Estimate 10/06/25 LMP (Certain) 34w 2d Other Estimates 10/12/25 Ultrasound #1 33w 3d Expected Delivery Route/Plan Labor Preferences- CB/BF classes: done labor support person: yes labor intervention preferences: Radha pain management options preferred: open to epidural when requested cut cord/dad catch: yes : yes PP control planned: [] discussed possible routes of delivery and associated risks: [] special requests: [] Specific Issue/Plans Covid status: [] Flu vaccine: [] Tdap vaccine: yes Rhogam: na LARC form signed: yes Problem list reviewed and updated with the [...] 16w 0d 188 lb (+2 lb) 118/78 -?? (more content not included)... Normal [facility] - Chemistry and C hemistry - challengeOrdered By: Kaycee Pathak on 08-13-2025 Glucose Ql (U) Negative [facility] - UrinalysisOrder ed By: Kaycee Pathak on 08-13-2025 Protein Ql (U) Negative [facility] Chemical Operations Specialist Office Visit Reporton 08-13-2025 Chemical Operations Specialist Office Visit Report [facility]'s [address], [address] [place] [address] OFFICE VISIT Date of Service: 08/13/25 MR#: [id number] Acct: [id number] Name: MARITA BERGERON Rep #: [id number] : 1995 Provider: Dr. Kaycee snow MD Age/Sex: 29/F Location: [facility] Status: Signed Intake Vital Signs 06/11/25 14:12 07/28/25 14:43 08/13/25 09:43 08/13/25 15:30 Height 4 ft 10 in 4 ft 10 in 4 ft 10 in 4 ft 10 in Weight: 192 lb 8 oz BMI 40.2 BP 129/72 H Intake Visit Reasons: 32wk ob Online Marketer Required: No Is patient in pain?: No Allergies No Known Allergies Allergy (Verified 08/13/25 15:21) Medications ???Medication ???Instructions ???Recorded ???Confirmed ???Type docosahexaenoic acid 200 mg mg PO 02/11/25 08/13/25 History capsule ( DHA) aspirin 81 mg tablet 81 mg PO QDAY 06/11/25 08/13/25 Hi story blood sugar diagnostic (Blood #120 ea 07/21/25 08/13/25 Rx Glucose Test strips) blood-glucose meter #1 ea 07/21/25 08/13/25 Rx lancets #200 ea 07/21/25 08/13/25 Rx Last Menstrual Period: 12/29/24 Zika: Zika virus screening: Negative : No PFSH PFSH Medical History (Updated 08/13/25 @ 16:[address] 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 OB Visit KUNAL Calculator Estimated Delivery Date Method Current WG Current Estimate 10/06/25 LMP (Certain) 32w 2d Other Estimates 10/12/25 Ultrasound #1 31w 3d Expected Delivery Route/Plan Labor Preferences- CB/BF classes: done labor support person: yes labor intervention preferences: Radha pain management options preferred: open to epidural when requested cut cord/dad catch: yes : yes PP control planned: [] discussed possible routes of delivery and associated risks: [] special requests: [] Specific Issue/Plans Covid status: [] Flu vaccine: [] Tdap vaccine: yes Rhogam: na LARC form signed: yes Problem list reviewed and updated with the [...] 16w 0d 188 lb (+2 lb) 118/78 (more content not included)... Normal [facility] - Chemistry and C hemistry - challengeOrdered By: Ruth Thurston on 07-28-2025 Glucose Ql (U) Negative [facility] - UrinalysisOrder ed By: Ruth Thurston on 07-28-2025 Protein Ql (U) Negative [facility] Chemical Operations Specialist Office Visit Reporton 07-28-2025 Chemical Operations Specialist Office Visit Report [facility]'s [address], [address] [place] [address] OFFICE VISIT Date of Service: 07/28/25 MR#: [id number] Acct: [id number] Name: MARITA BERGERON Rep #: [id number] : 1995 Provider: ALICIA torres Age/Sex: 29/F Location: [facility] Status: Signed with Addenda ADDENDUM by Aura Bales on 07/28/25 at 1421 Office Procedure Documentation entered by Aura aBles 07/28/25 14:21: Immunizations Adacel(Tdap Adolesn/Adult)(PF) 2 Lf-(2.5-5-3-5)-5 Lf/0.5 mL IM syringe Performing Provider: Ruth Thurston SKETCH LINER, ALICIA Performing Location: [facility] Administered by: Aura Bales on 07/28/25 14:20 Dose Route Admin Location Dispensed Lot Number Expiration Date Package NDC NDC Intensive Care Unit Registered Nurse 0.5 mL IM Left Deltoid 0.5 mL [id number] 06/29/27 35132-505-87 [id number] SA [employer]PA[employer]UR VIS Given Date VIS Provided VIS Publication Date 07/28/25 Single Vaccine 24 Eligibility Eligibility Date Funding Source Not Applicable Date cc: * Signed Intake Vital Signs 06/11/25 14:12 07/09/25 14:27 07/28/25 13:56 Height 4 ft 10 in 4 ft 10 in 4 ft 10 in Weight: 192 lb 8 oz BMI 40.2 BP 123/80 H Intake Visit Reasons: 30wk ob Chief Complaint: 30 Week OB Online Marketer Required: No Is patient in pain?: No Allergies No Known Allergies Allergy (Verified 07/28/25 13:58) Medications ???Medication ???Instructions ???Recorded ???Confirmed ???Type docosahexaenoic acid 200 mg mg PO 02/11/25 07/28/25 History capsule ( DHA) aspirin 81 mg tablet 81 mg PO QDAY 06/11/25 07/28/25 Hi story blood sugar diagnostic (Blood #120 ea 07/21/25 07/28/25 Rx Glucose Test strips) blood-glucose meter #1 ea 07/21/25 07/28/25 Rx lancets #200 ea 07/21/25 07/28/25 Rx Last Menstrual Period: 12/29/24 Zika: Zika virus screening: Negative : Yes PFSH PFSH Medical History Palpitations Sinus tachycardia by electrocardiogram Hypertension PCOS (polycystic ovarian syndrome) Chronic back pain Surgical History S/P wisdom tooth extraction Family History Grandmother Myocardial infarction Diabetes Grandfather Myocardial infarction Grandmother Colon cancer Social History adopted: No household members: spouse housing: house current occupational status: employed 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 OB Visit KUNAL Calculator Estimated Delivery Date Method Current WG Current Estimate 10/06/25 LMP (Certain) 30w 0d Other Estimates 10/12/25 Ultrasound #1 29w 1d Expected Delivery Route/Plan Labor Preferences- CB/BF classes: done labor support person: yes labor intervention preferences: Radha pain management options preferred: open to epidural when requested cut cord/dad catch: yes : yes PP control planned: [] discussed possible routes of delivery and associated risks: [] special requests: [] Specific Issue/Plans Covid status: [] Flu vaccine: [] Tdap vaccine: yes Rhogam: na LARC form signed: yes Problem list reviewed and updated with the most current plan of care details and appropriate orders placed. Relevant counseling for the gestational age provided. Continue routine care and follow up unless otherwise noted in visit notes/problem list details Initial Weight: 186 lb Date -???-???-???-???-??? -???-???-???-???-??? -???-???- EG (more content not included)... Normal [facility] Gestational GTT 3HR 100gon 0 07-18-2025 GEST GTT 100gm High [facility] Comment on above: Order Comment: Y Result Comment: FAST ING 100 Col: 07/18/25 0658 GLUCOSE TOLERANCE TEST FOR Reference Interval GESTATIONAL DIABETES Fasting <105 mg/dL 1 hour <190 mg/dl 2 hour <165 mg/dl 3 hour <145 mg/dl 1 HR GLU 150 Col: 07/18/25 0835 2 HR GLU 149 Col: 07/18/25 0936 3 HR GLU 193 H Col: 07/18/25 1034 Performed By: #### L 500.4050, L3890.6102, L3890.6301, BTS, L509.8002, L3890.6006, L509.4006, L100.0100, L501.9985 #### [facility] Laboratory [facility] [address] [place], [place], [address] Quantitative serum or plasma 3 hour gestational glucose tolerance panelOrdered By: Ruth Thurston on 07-18-2025 Glucose tolerance 3 hours gestational panel See comment [facility] Comment on above: FASTING 100 Col: 0658GLUCOSE TOLERANCE TEST FOR Reference Interval GESTATIONAL DIABETES Fasting <105 mg/dL 1 hour <190 mg/dl 2 hour <165 mg/dl 3 hour <145 mg/dl 1 HR GLU 150 Col: 07/18/25 0835 2 HR GLU 149 Col: 07/18/25 0936 3 HR GLU 193 H Col: 07/18/25 1034 Absolute lymphocyte countOrd ered By: Chapis Alonso on 07-09-2025 Lymphocytes Auto (Unsp spec) [#/Vol] 2.04 10*3/uL 0.83-4.51 [facility] Absolute neutrophil countOrd ered By: Chapis Alonso on 07-09-2025 Neutrophils (Bld) [#/Vol] 10.1 10*3/uL High 2.0-7.7 [facility] Automated lymphocyte count a s percentage of total leukocytesOrdered By: Chapis Alonso on 07-09-2025 Lymphocytes/100 WBC Auto (Unsp spec) 15.8 % Low 19-41 [facility] Basophil percentageOrdered B y: Chapis Alonso on 07-09-2025 Basophils/100 WBC (Bld) 0.2 % 0-1 [facility] CBC W/Diff, Automatedon 06-30 0 Absolute Lymph 2.04 X10 3/uL Normal 0.83-4.51 [facility] Comment on above: Performed By: #### L 500.4050, L3890.6102, L3890.6301, BTS, L509.8002, L3890.6006, L509.4006, L100.0100, L501.9985 #### [facility] Laboratory [address] [place], [address] Absolute Neut 10.1 X10 3/uL High 2.0-7.7 [facility] Comment on above: Performed By: #### L 500.4050, L3890.6102, L3890.6301, BTS, L509.8002, L3890.6006, L509.4006, L100.0100, L501.9985 #### [facility] Laboratory [address] [place], [address] Basophils/100 WBC (Bld) 0.2 % Normal 0-1 [facility] Comment on above: Performed By: #### L 500.4050, L3890.6102, L3890.6301, BTS, L509.8002, L3890.6006, L509.4006, L100.0100, L501.9985 #### [facility] Laboratory [address] [place], [address] Eosinophils/100 WBC (Bld) 0.7 % Normal 0-5 [facility] Comment on above: Performed By: #### L 500.4050, L3890.6102, L3890.6301, BTS, L509.8002, L3890.6006, L509.4006, L100.0100, L501.9985 #### [facility] Laboratory [address] [place], [address] Erythrocyte distribution width (RBC) [Ratio] 12.9 % Normal 11.6-14.6 [facility] Comment on above: Performed By: #### L 500.4050, L3890.6102, L3890.6301, BTS, L509.8002, L3890.6006, L509.4006, L100.0100, L501.9985 #### [facility] Laboratory [address] [place], [address] Hematocrit (Bld) [Volume fraction] 36.7 % Low 37-47 [facility] Comment on above: Performed By: #### L 500.4050, L3890.6102, L3890.6301, BTS, L509.8002, L3890.6006, L509.4006, L100.0100, L501.9985 #### [facility] Laboratory [address] [place], [address] Hemoglobin (Bld) [Mass/Vol] 12.3 g/dL Normal 12.0-15.0 [facility] Comment on above: Performed By: #### L 500.4050, L3890.6102, L3890.6301, BTS, L509.8002, L3890.6006, L509.4006, L100.0100, L501.9985 #### [facility] Laboratory [address] [place], [address] IG% 0.600 Normal 0.0-0.9 [facility] Comment on above: Result Comment: IG% - Immature Granulocytes (promyelocytes, myelocytes and metamyelocytes) > 1% indicates that a LEFT SHIFT is Present. Performed By: #### L 500.4050, L3890.6102, L3890.6301, BTS, L509.8002, L3890.6006, L509.4006, L100.0100, L501.9985 #### [facility] Laboratory [address] [place], [address] Lymphocytes/100 WBC (Bld) 15.8 % Low 19-41 [facility] Comment on above: Performed By: #### L 500.4050, L3890.6102, L3890.6301, BTS, L509.8002, L3890.6006, L509.4006, L100.0100, L501.9985 #### [facility] Laboratory [address] [place], [address] MCH (RBC) [Entitic mass] 29.5 pg Normal 27.0-32.0 [facility] Comment on above: Performed By: #### L 500.4050, L3890.6102, L3890.6301, BTS, L509.8002, L3890.6006, L509.4006, L100.0100, L501.9985 #### [facility] Laboratory [address] [place], [address] MCHC (RBC) [Mass/Vol] 33.5 g/dL Normal 32-36 [facility] Comment on above: Performed By: #### L 500.4050, L3890.6102, L3890.6301, BTS, L509.8002, L3890.6006, L509.4006, L100.0100, L501.9985 #### [facility] Laboratory [address] [place], [address] MCV (RBC) [Entitic vol] 88.0 fL Normal 81-99 [facility] Comment on above: Performed By: #### L 500.4050, L3890.6102, L3890.6301, BTS, L509.8002, L3890.6006, L509.4006, L100.0100, L501.9985 #### [facility] Laboratory [address] [place], [address] Monocytes/100 WBC (Bld) 4.0 % Normal 0-10 [facility] Comment on above: Performed By: #### L 500.4050, L3890.6102, L3890.6301, BTS, L509.8002, L3890.6006, L509.4006, L100.0100, L501.9985 #### [facility] Laboratory [address] [place], [address] Neutrophils/100 WBC (Bld) 78.7 % High 47-70 [facility] Comment on above: Performed By: #### L 500.4050, L3890.6102, L3890.6301, BTS, L509.8002, L3890.6006, L509.4006, L100.0100, L501.9985 #### [facility] Laboratory [address] [place], [address] Nucleated RBC (Bld) [#/Vol] 0 10*3/uL Normal 0-5 [facility] Comment on above: Performed By: #### L 500.4050, L3890.6102, L3890.6301, BTS, L509.8002, L3890.6006, L509.4006, L100.0100, L501.9985 #### [facility] Laboratory [address] [place], [address] Platelet mean volume (Bld) [Entitic vol] 11.1 fL Normal 6.2-12.0 [facility] Comment on above: Performed By: #### L 500.4050, L3890.6102, L3890.6301, BTS, L509.8002, L3890.6006, L509.4006, L100.0100, L501.9985 #### [facility] Laboratory [address] [place], [address] Platelets (Bld) [#/Vol] 243 10*3/uL Normal 150-450 [facility] Comment on above: Performed By: #### L 500.4050, L3890.6102, L3890.6301, BTS, L509.8002, L3890.6006, L509.4006, L100.0100, L501.9985 #### [facility] Laboratory [address] [place], [address] RBC (Bld) [#/Vol] 4.17 10*6/uL Low 4.2-5.4 [facility] Comment on above: Performed By: #### L 500.4050, L3890.6102, L3890.6301, BTS, L509.8002, L3890.6006, L509.4006, L100.0100, L501.9985 #### [facility] Laboratory [address] [place], [address] RDW SD 41.2 fl Normal 35.1-43.9 [facility] Comment on above: Performed By: #### L 500.4050, L3890.6102, L3890.6301, BTS, L509.8002, L3890.6006, L509.4006, L100.0100, L501.9985 #### [facility] Laboratory [address] [place], [address] WBC (Bld) [#/Vol] 12.9 10*3/uL High 4.4-11.0 [facility] Comment on above: Performed By: #### L 500.4050, L3890.6102, L3890.6301, BTS, L509.8002, L3890.6006, L509.4006, L100.0100, L501.9985 #### [facility] Laboratory [address] [place], [address] Eosinophil percentageOrdered By: Chapis Alonso on 07-09-2025 Eosinophils/100 WBC (Bld) 0.7 % 0-5 [facility] Erythrocyte distribution wid th ratioOrdered By: [facility] Gavin on 07-09-2025 Erythrocyte distribution width (RBC) [Ratio] 12.9 % 11.6-14.6 [facility] Erythrocyte distribution wid th standard deviationOrdered By: [facility] Gavin on 07-09-2025 Erythrocyte distribution width (RBC) [Ratio] 41.2 fl 35.1-43.9 [facility] Glucose Challenge Gest 1H 50 jaspal 07-09-2025 GLU GEST 50g 1H 145 mg/dL High 70-140 [facility] Comment on above: Performed By: #### L 500.4050, L3890.6102, L3890.6301, BTS, L509.8002, L3890.6006, L509.4006, L100.0100, L501.9985 #### [facility] Laboratory [address] [facility]. [place], [place], [address] Glucose measurement at 2 arnulfo rs post-dose gestational glucose tolerance testOrdered By: Chapis Alonso on 07-09-2025 Glucose [Mass/Vol] 145 mg/dL High 70-140 [facility] HIVon 07-09-2025 HIV Non-Reactive Normal Nonreactive [facility] Comment on above: Result Comment: Non- Reactive Reactive Repeatedly reactive samples must be confirmed according to CDC recommended confirmatory algorithms. The subresults for either HIVAG or AHIV can be used as an aid in the selection of the confirmation algorithm for reactive samples. Send out specimens with Reactive results to [facility] for confirmation. Order the HIV antibody detection and differentiation: leanna#[id number] Performed By: #### L 500.4050, L3890.6102, L3890.6301, BTS, L509.8002, L3890.6006, L509.4006, L100.0100, L501.9985 #### [facility] Laboratory [address] [place], [address] Hematocrit Auto (Bld) [Volum e fraction]Ordered By: Chapis Alonso on 07-09-2025 Hematocrit (Bld) [Volume fraction] 36.7 % Low 37-47 [facility] Hemoglobin measurementOrdere d By: Chapis Alonso on 07-09-2025 Hemoglobin (Bld) [Mass/Vol] 12.3 g/dL 12.0-15.0 [facility] Immature granulocytes/100 WB C Auto (Bld)Ordered By: Chapis Alonso on 07-09-2025 Immature granulocytes/100 WBC (Bld) 0.600 % 0.0-0.9 [facility] Comment on above: IG% - Immature Granu locytes (promyelocytes, myelocytes and metamyelocytes) > 1% indicates that a LEFT SHIFT is Present. Laboratory - Chemistry and C hemistry - challengeOrdered By: Georgette Avalos on 07-09-2025 Glucose Ql (U) Negative [facility] Laboratory - UrinalysisOrder ed By: Georgette Avalos on 07-09-2025 Protein Ql (U) Negative [facility] MCV (mean corpuscular volume ) determinationOrdered By: Chapis Alonso on 07-09-2025 MCV (RBC) [Entitic vol] 88.0 fL 81-99 [facility] Mean corpuscular hemoglobin (MCH) determinationOrdered By: Chapis Alonso on 07-09-2025 MCH (RBC) [Entitic mass] 29.5 pg 27.0-32.0 [facility] Mean corpuscular hemoglobin concentration (MCHC) determinationOrdered By: Chapis Alonso on 07-09-2025 MCHC (RBC) [Mass/Vol] 33.5 g/dL 32-36 [facility] Mean platelet volume determi nationOrdered By: Chapis Alonso on 07-09-2025 Platelet mean volume (Bld) [Entitic vol] 11.1 fL 6.2-12.0 [facility] Monocyte percentageOrdered B y: Chapis Alonso on 07-09-2025 Monocytes/100 WBC (Bld) 4.0 % 0-10 [facility] Neutrophil percentageOrdered By: Chapis Alonso on 07-09-2025 Neutrophils/100 WBC (Bld) 78.7 % High 47-70 [facility] No Panel InformationOrdered By: Chapis Tinocojovanna on 07-09-2025 HIV (1&2) Antibody Non-Reactive Nonreactive [facility] Comment on above: Non-ReactiveReactive Repeatedly reactive samples must be confirmed according to CDC recommended confirmatory algorithms. The subresults for either HIVAG or AHIV can be used as an aid in the selection of the confirmation algorithm for reactive samples.Send out specimens with Reactive results to [facility] for confirmation.Order the HIV antibody detection and differentiation: #[id number] Nucleated red blood cell per centageOrdered By: Chapis Alonso on 07-09-2025 Nucleated RBC/100 WBC (Bld) [Ratio] 0 % 0-5 [facility] Chemical Operations Specialist Office Visit Reporton 07-09-2025 Chemical Operations Specialist Office Visit Report [facility]'[address], [facility] [address] [place] [address] OFFICE VISIT Date of Service: 07/09/25 MR#: [id number] Acct: [id number] Name: CAMERON BALESMARITA SEEMA Rep #: [id number] : 1995 Provider: CHUY Li ams Age/Sex: 29/F Location: [facility] Status: Signed Intake Vital Signs 05/16/25 14:39 06/11/25 14:12 07/09/25 14:27 Height 4 ft 10 in 4 ft 10 in 4 ft 10 in Weight: 190 lb 7 oz BMI 39.8 BP 136/83 H Intake Visit Reasons: 27wk ob/glucose Chief Complaint: 27wk OB/Glucose Online Marketer Required: No Is patient in pain?: No [...] house current occupational status: 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 -???-???- Negative 168 -???-???-???-???-??? -???-???-???-???-??? -???-???- - no vb/cr amping. US ordered. start asa 81 mg. 04/21/25 -???-???-???-???-??? -???-???-???-???-??? -???-???- 16w 0d 188 lb (+2 lb) 118/78 -???-???-???-???-??? -???-???-???-???-??? -???-???- 151 -???-???-???-???-??? -???-???-???-???-??? -???-???- -No VB. Fe els well. No nausea. Denies concerns 05/16/25 -???-???-???-???-??? -???-???-???-???-??? -???-???- 19w 4d 189 lb 2 oz (+3 lb 2 oz) 126/81 N (more content not included)... Normal [facility] Platelet countOrdered By: Shravan Alonso on 07-09-2025 Platelets (Bld) [#/Vol] 243 10*3/uL 150-450 [facility] RBC Auto (Bld) [#/Vol]Ordere d By: Chapis Alonso on 07-09-2025 RBC (Bld) [#/Vol] 4.17 10*6/uL Low 4.2-5.4 [facility] Syphilis Antibodieson 2024 Syphilis Abs Non-Reactive Normal Nonreactive [facility] Comment on above: Performed By: #### L 500.4050, L3890.6102, L3890.6301, BTS, L509.8002, L3890.6006, L509.4006, L100.0100, L501.9985 #### [facility] Laboratory [address] [place], [address] White blood cell (WBC) count Ordered By: Chapis Alonso on 07-09-2025 WBC (Bld) [#/Vol] 12.9 10*3/uL High 4.4-11.0 [facility] Laboratory - Chemistry and C hemistry - challengeOrdered By: Chapis Alonso on 06-11-2025 Glucose Ql (U) Negative [facility] Laboratory - UrinalysisOrder ed By: Chapis Alonso on 06-11-2025 Protein Ql (U) Negative [facility] Chemical Operations Specialist Office Visit Reporton 06-11-2025 Chemical Operations Specialist Office Visit Report [facility]'[address], [address] [place] [address] OFFICE VISIT Date of Service: 06/11/25 MR#: [id number] Acct: [id number] Name: MARITA BERGERON Rep #: [id number] : 1995 Provider: Dr. 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 Normal [facility] OB Anatomy Scanon 05-26-2025 OB Anatomy Scan [facility] Imaging Services [address] [place] [address] OB Anatomy Scan MR#: [id number] Acct: [id number] Name: MARITA BERGERON Rep #: [id number] : 1995 F 29 From: Bernardo phan MD PCP: Dr. Coby Carmona MD Status: REG CLI Study: OB Anatomy Scan Date of Exam: 05/26/25 Exam# [id number] Ordering Dr: Georgette Avalos CNM PROCEDURE: OB [...] 20 weeks and 2 days. Reading Location: [id number] CC: CHUY Avalos; Dr. Coby Carmona MD Hand Embroiderer: Signed Normal [facility] Laboratory - Chemistry and C hemistry - challengeOrdered By: Kaycee Pathak on 05-16-2025 Glucose Ql (U) Negative [facility] Laboratory - UrinalysisOrder ed By: Kaycee Pathak on 05-16-2025 Protein Ql (U) Negative [facility] Chemical Operations Specialist Office Visit Reporton 05-16-2025 Chemical Operations Specialist Office Visit Report [facility]'s [facility] [address], [address] [place] [address] OFFICE VISIT Date of Service: 05/16/25 MR#: [id number] Acct: [id number] Name: MARITA BERGERON Rep #: [id number] : 1995 Provider: Dr. 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 (more content not included)... Normal [facility] Chemical Operations Specialist Office Visit Reporton 04-21-2025 Chemical Operations Specialist Office Visit Report [facility] [address], [address] [place] [address] OFFICE VISIT Date of Service: 04/21/25 MR#: [id number] Acct: [id number] Name: MARITA BERGERON Rep #: [id number] : 1995 Provider: ALICIA torres Age/Sex: 29/F Location: [facility] Status: Signed Intake Vital Signs 02/28/25 13:03 03/25/25 14:18 04/21/25 14:54 Height 4 ft 10 in 4 ft 10 in 4 ft 10 in Weight: 188 lb BMI 39.2 BP 118/78 Intake Visit Reasons: 15 wk ob Chief Complaint: 15 Week OB Online Marketer Required: No Is patient in pain?: No [...] house current occupational status: employed 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 Normal [facility] Electrocardiogram reportOrde red By: Colton Ibanez on 04-18-2025 EKG study [facility] Cardiovascular Services [address] [place] [address] 12 Lead EKG 04/17/25 1353 MR#: [id number] Acct: [id number] Name: MARITA BERGERON Re p #:[id number] : 1995 29 From: Colton torrez MD Attending Dr: Dr. Kaycee Pathak MD Status: REG CLI Ordering Dr: Kaycee Pathak MD Robert e: 04/17/25 Location: PSN Sex: F C Admitted: Test Reason : HTN Blood Pressure : */* mmHG Vent. Rate : 92 BPM Atrial Rate : 92 BPM P-R Int : 148 ms QRS Dur : 70 ms QT Int : 338 ms P-R-T Axes : 36 52 7 degrees QTcB Int : 417 ms Normal sinus rhythm with sinus arrhythmia Normal ECG Confirmed by ANTONIO MANUEL, ROCIO ([id number]), editor in chief MICHAEL COLLINS ([id number]) on 04/18/2025 1:06:05 PM Referred By: Kaycee Pathak Confirmed By: ROCIO IBANEZ MD 04/18/25 1306 Date _ Colton Ibanez MD CC: Dr. Coby Carmona MD; Dr. Kaycee Pathak MD ~ [facility] Other Phone: 12 Lead EKGon 04-17-2025 12 Lead EKG [facility] Cardiovascular Services [address] [place] [address] 12 Lead EKG 04/17/25 1353 MR#: [id number] Acct: [id number] Name: MARITA BERGERON Rep #: [id number] : 1995 29 From: Colton Ibanez MD Attending Dr: Dr. Kaycee Pathak MD Status: REG I Ordering Dr: Kaycee Pathak MD Date: 04/17/25 Location: [facility] Sex: F C Admitted: Test Reason : HTN Blood Pressure : */* mmHG Vent. Rate : 92 BPM Atrial Rate : 92 BPM P-R Int : 148 ms QRS Dur : 70 ms QT Int : 338 ms P-R-T Axes : 36 52 7 degrees QTcB Int : 417 ms Normal sinus rhythm with sinus arrhythmia Normal ECG Confirmed by ROCIO IBANEZ MD ([id number]), editor in chief MICHAEL COLLINS ([id number]) on 04/18/2025 1:06:05 PM Referred By: Kaycee Pathak Confirmed By: ROCIO IBANEZ MD 04/18/25 4061 Date Colton Ibanez MD CC: Dr. Coby Carmona MD; Dr. Kaycee Pathak MD Signed Normal [facility] Laboratory - Chemistry and C hemistry - challengeOrdered By: Georgette Avalos on 03-25-2025 Glucose Ql (U) Negative [facility] Laboratory - UrinalysisOrder ed By: Georgette Avalos on 03-25-2025 Protein Ql (U) Negative [facility] Chemical Operations Specialist Office Visit Reporton 03-25-2025 Chemical Operations Specialist Office Visit Report [facility]'s [address], [address] [place] [address] OFFICE VISIT Date of Service: 03/25/25 MR#: [id number] Acct: [id number] Name: MARITA BERGERON Rep #: [id number] : 1995 Provider: CHUY Li ams Age/Sex: 29/F Location: [facility] Status: Signed Intake Vital Signs 09/06/24 10:59 02/28/25 13:03 03/25/25 13:40 Height 4 ft 10 in 4 ft 10 in 4 ft 10 in Weight: 186 lb 4 oz BMI 38.9 BP 138/87 H Intake Visit Reasons: 11 wk OB Chief Complaint: 11wk OB Online Marketer Required: No Is patient in pain?: No [...] house current occupational status: employed 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 Normal [facility] PAP I-G w/rfx hrHPV-Aptimaon 03-04-2025 ADEQ Comment Normal . [facility] Comment on above: Order Comment: PN Result Comment: Sati sfactory for evaluation. Endocervical and/or squamous metaplastic cells (endocervical component) are present. Performed By: #### L 500.4050, L3890.6102, L3890.6301, BTS, L509.8002, L3890.6006, L509.4006, L100.0100, L501.9985 #### [facility] Laboratory [address] [place], [place], [id number] COMM . Normal . [facility] Comment on above: Order Comment: PN Performed By: #### L 500.4050, L3890.6102, L3890.6301, BTS, L509.8002, L3890.6006, L509.4006, L100.0100, L501.9985 #### [facility] [address] [place], [place], [id number] COMMENT Comment Normal . [facility] Comment on above: Order Comment: PN Result Comment: This liquid based ThinPrep(R) pap test was screened with the use of an image guided system. Performed By: #### L 500.4050, L3890.6102, L3890.6301, BTS, L509.8002, L3890.6006, L509.4006, L100.0100, L501.9985 #### [facility] [facility] [address] [place], [place], [id number] DIAG Comment Normal . [facility] Comment on above: Order Comment: PN Result Comment: NEGA TIVE FOR INTRAEPITHELIAL LESION OR MALIGNANCY. Performed By: #### L 500.4050, L3890.6102, L3890.6301, BTS, L509.8002, L3890.6006, L509.4006, L100.0100, L501.9985 #### [facility] [address] [place], [place], [id number] HPV RFLX Comment Normal . [facility] Comment on above: Order Comment: PN Result Comment: The HPV DNA reflex criteria were not met with this specimen result therefore, no HPV testing was performed. Performed at: [address] [id number] Commercial Diver: Neda Marie MD, Phone: [phone] Performed By: #### L 500.4050, L3890.6102, L3890.6301, BTS, L509.8002, L3890.6006, L509.4006, L100.0100, L501.9985 #### [facility] [address] [place], [address] PAPSMR Comment Normal . [facility] Comment on above: Order Comment: PN Result Comment: The Pap smear is a screening test designed to aid in the detection of premalignant and malignant conditions of the uterine cervix. It is not a diagnostic procedure and should not be used as the sole means of detecting cervical cancer. Both false-positive and false-negative reports do occur. Performed By: #### L 500.4050, L3890.6102, L3890.6301, BTS, L509.8002, L3890.6006, L509.4006, L100.0100, L501.9985 #### [facility] [address] [place], [place], [id number] PERFORM Comment Normal . [facility] Comment on above: Order Comment: PN Result Comment: Brenda Alexandre, Water Maintenance Supervisor Performed By: #### L 500.4050, L3890.6102, L3890.6301, BTS, L509.8002, L3890.6006, L509.4006, L100.0100, L501.9985 #### [facility] [address] [place], [place], [id number] Chlamydia/GC RASHEED aptimaon CHLAMY,NUC ACID Negative Normal Negative [facility] Comment on above: Performed By: #### L 500.4050, L3890.6102, L3890.6301, BTS, L509.8002, L3890.6006, L509.4006, L100.0100, L501.9985 #### [facility] [address] [place], [place], [id number] GC BY NUC ACID Negative Normal Negative [facility] Comment on above: Result Comment: Perf ormed at: =G - [facility] [address] [id number] Commercial Diver: Neda Marie MD, Phone: [phone] Performed By: #### L 500.4050, L3890.6102, L3890.6301, BTS, L509.8002, L3890.6006, L509.4006, L100.0100, L501.9985 #### [facility] [address] [place], [place], [id number] Urine Cultureon 03-01-2025 URC Mixed Gram Positive Organisms [place] Count 80,000-100,000 MIXC Mixed contaminants. Submit a new specimen if indicated. Normal [facility] Comment on above: Performed By: #### L 500.4050, L3890.6102, L3890.6301, BTS, L509.8002, L3890.6006, L509.4006, L100.0100, L501.9985 #### [facility] [address] [place], [place], [id number] Absolute lymphocyte countOrd ered By: Kaycee Pathak on 02-28-2025 Lymphocytes Auto (Unsp spec) [#/Vol] 2.48 10*3/uL 0.83-4.51 [facility] Absolute neutrophil countOrd ered By: Kaycee Pathak on 02-28-2025 Neutrophils (Bld) [#/Vol] 8.7 10*3/uL High 2.0-7.7 [facility] Anion gap in Serum or Plasma Ordered By: Kaycee Alyanabella on 02-28-2025 Anion gap [Moles/Vol] 14 mmol/L 5-15 [facility] Automated lymphocyte count a s percentage of total leukocytesOrdered By: Kaycee Annguille on 02-28-2025 Lymphocytes/100 WBC Auto (Unsp spec) 20.7 % 19- [facility] BUN/creatinine ratioOrdered By: Kaycee Annguille on 02-28-2025 Urea nitrogen/Creatinine [Mass ratio] 16.6 mg/mg 10- [facility] Basophil percentageOrdered B y: Kaycee Annguille on 02-28-2025 Basophils/100 WBC (Bld) 0.4 % 0-1 [facility] Bilirubin, totalOrdered By: Kaycee Annguille on 02-28-2025 Bilirubin [Mass/Vol] 0.57 mg/dL 0.00-1.30 [facility] CBC W/Diff, Automatedon Absolute Lymph 2.48 X10 3/uL Normal 0.83-4.51 [facility] Comment on above: Performed By: #### L 500.4050, L3890.6102, L3890.6301, BTS, L509.8002, L3890.6006, L509.4006, L100.0100, L501.9985 #### [facility] [address] [place], [address] Absolute Neut 8.7 X10 3/uL High 2.0-7.7 [facility] Comment on above: Performed By: #### L 500.4050, L3890.6102, L3890.6301, BTS, L509.8002, L3890.6006, L509.4006, L100.0100, L501.9985 #### [facility] [address] [place], [address] Basophils/100 WBC (Bld) 0.4 % Normal 0-1 [facility] Comment on above: Performed By: #### L 500.4050, L3890.6102, L3890.6301, BTS, L509.8002, L3890.6006, L509.4006, L100.0100, L501.9985 #### [facility] [address] [place], [address] Eosinophils/100 WBC (Bld) 0.8 % Normal 0-5 [facility] Comment on above: Performed By: #### L 500.4050, L3890.6102, L3890.6301, BTS, L509.8002, L3890.6006, L509.4006, L100.0100, L501.9985 #### [facility] [address] [place], [address] ( Erythrocyte distribution width (RBC) [Ratio] 12.4 % Normal 11.6-14.6 [facility] Comment on above: Performed By: #### L 500.4050, L3890.6102, L3890.6301, BTS, L509.8002, L3890.6006, L509.4006, L100.0100, L501.9985 #### [facility] [address] [place], [address] Hematocrit (Bld) [Volume fraction] 38.6 % Normal 37-47 [facility] Comment on above: Performed By: #### L 500.4050, L3890.6102, L3890.6301, BTS, L509.8002, L3890.6006, L509.4006, L100.0100, L501.9985 #### [facility] [address] [place], [address] Hemoglobin (Bld) [Mass/Vol] 13.2 g/dL Normal 12.0-15.0 [facility] Comment on above: Performed By: #### L 500.4050, L3890.6102, L3890.6301, BTS, L509.8002, L3890.6006, L509.4006, L100.0100, L501.9985 #### [facility] [address] [place], [address] IG% 0.400 Normal 0.0-0.9 [facility] Comment on above: Result Comment: IG% - Immature Granulocytes (promyelocytes, myelocytes and metamyelocytes) > 1% indicates that a LEFT SHIFT is Present. Performed By: #### L 500.4050, L3890.6102, L3890.6301, BTS, L509.8002, L3890.6006, L509.4006, L100.0100, L501.9985 #### [facility] [address] [facility] [place], [address] Lymphocytes/100 WBC (Bld) 20.7 % Normal 19-41 [facility] Comment on above: Performed By: #### L 500.4050, L3890.6102, L3890.6301, BTS, L509.8002, L3890.6006, L509.4006, L100.0100, L501.9985 #### [facility] [address] [place], [address] MCH (RBC) [Entitic mass] 29.3 pg Normal 27.0-32.0 [facility] Comment on above: Performed By: #### L 500.4050, L3890.6102, L3890.6301, BTS, L509.8002, L3890.6006, L509.4006, L100.0100, L501.9985 #### [facility] [address] [place], [address] MCHC (RBC) [Mass/Vol] 34.2 g/dL Normal 32-36 [facility] Comment on above: Performed By: #### L 500.4050, L3890.6102, L3890.6301, BTS, L509.8002, L3890.6006, L509.4006, L100.0100, L501.9985 #### [facility] [address] [place], [address] MCV (RBC) [Entitic vol] 85.6 fL Normal 81-99 [facility] Comment on above: Performed By: #### L 500.4050, L3890.6102, L3890.6301, BTS, L509.8002, L3890.6006, L509.4006, L100.0100, L501.9985 #### [facility] [address] [facility] [place], [address] Monocytes/100 WBC (Bld) 4.8 % Normal 0-10 [facility] Comment on above: Performed By: #### L 500.4050, L3890.6102, L3890.6301, BTS, L509.8002, L3890.6006, L509.4006, L100.0100, L501.9985 #### [facility] [address] [facility] [place], [address] Neutrophils/100 WBC (Bld) 72.9 % High 47-70 [facility] Comment on above: Performed By: #### L 500.4050, L3890.6102, L3890.6301, BTS, L509.8002, L3890.6006, L509.4006, L100.0100, L501.9985 #### [facility] [address] [place], [address] Nucleated RBC (Bld) [#/Vol] 0 10*3/uL Normal 0-5 [facility] Comment on above: Performed By: #### L 500.4050, L3890.6102, L3890.6301, BTS, L509.8002, L3890.6006, L509.4006, L100.0100, L501.9985 #### [facility] [address] [place], [address] Platelet mean volume (Bld) [Entitic vol] 10.4 fL Normal 6.2-12.0 [facility] Comment on above: Performed By: #### L 500.4050, L3890.6102, L3890.6301, BTS, L509.8002, L3890.6006, L509.4006, L100.0100, L501.9985 #### [facility] [address] [place], [address] Platelets (Bld) [#/Vol] 284 10*3/uL Normal 150-450 [facility] Comment on above: Performed By: #### L 500.4050, L3890.6102, L3890.6301, BTS, L509.8002, L3890.6006, L509.4006, L100.0100, L501.9985 #### [facility] [address] [place], [address] RBC (Bld) [#/Vol] 4.51 10*6/uL Normal 4.2-5.4 [facility] Comment on above: Performed By: #### L 500.4050, L3890.6102, L3890.6301, BTS, L509.8002, L3890.6006, L509.4006, L100.0100, L501.9985 #### [facility] [address] [place], [address] RDW SD 38.7 fl Normal 35.1-43.9 [facility] Comment on above: Performed By: #### L 500.4050, L3890.6102, L3890.6301, BTS, L509.8002, L3890.6006, L509.4006, L100.0100, L501.9985 #### [facility] [address] [place], [address] WBC (Bld) [#/Vol] 12.0 10*3/uL High 4.4-11.0 [facility] Comment on above: Performed By: #### L 500.4050, L3890.6102, L3890.6301, BTS, L509.8002, L3890.6006, L509.4006, L100.0100, L501.9985 #### [facility] [address] [place], [address] Carbon dioxide, total [Moles /volume] in Central venous bloodOrdered By: Kaycee Pathak on 02-28-2025 CO2 [Moles/Vol] 21.2 mmol/L 21.0-32.0 [facility] Cervical or vagninal specime n microscopic examination by cytology stain (reported asOrdered By: Kaycee Pathak on 02-28-2025 Cytology report Cyto stain Doc (Cvx/Vag) Comment . [facility] Comment on above: The Pap smear [...] rRNA RASHEED+probe Ql (Unsp spec) Negative Negative [facility] Chloride assayOrdered By: Akbar Pathak on 02-28-2025 Chloride [Moles/Vol] 99 mmol/L 98-108 [facility] Comprehensive Metabolic Prof ilon 02-28-2025 Albumin [Mass/Vol] 4.3 g/dL Normal 3.5-5.0 [facility] Comment on above: Performed By: #### L 500.4050, L3890.6102, L3890.6301, BTS, L509.8002, L3890.6006, L509.4006, L100.0100, L501.9985 #### [facility] [address] [place], [address] Albumin/Globulin [Mass ratio] 1.6 {ratio} Normal 0.9-2.4 [facility] Comment on above: Performed By: #### L 500.4050, L3890.6102, L3890.6301, BTS, L509.8002, L3890.6006, L509.4006, L100.0100, L501.9985 #### [facility] [address] [place], [address] ALK PHOS 68 U/L Normal 35-104 [facility] Comment on above: Performed By: #### L 500.4050, L3890.6102, L3890.6301, BTS, L509.8002, L3890.6006, L509.4006, L100.0100, L501.9985 #### [facility] [address] [place], [address] ALT [Catalytic activity/Vol] 19 U/L Normal <=34 [facility] Comment on above: Performed By: #### L 500.4050, L3890.6102, L3890.6301, BTS, L509.8002, L3890.6006, L509.4006, L100.0100, L501.9985 #### [facility] [address] [place], [address] AST [Catalytic activity/Vol] 15 U/L Normal <=31 [facility] Comment on above: Performed By: #### L 500.4050, L3890.6102, L3890.6301, BTS, L509.8002, L3890.6006, L509.4006, L100.0100, L501.9985 #### [facility] [address] [place], [address] Bilirubin [Mass/Vol] 0.57 mg/dL Normal 0.00-1.30 [facility] Comment on above: Performed By: #### L 500.4050, L3890.6102, L3890.6301, BTS, L509.8002, L3890.6006, L509.4006, L100.0100, L501.9985 #### [facility] [address] [place], [address] BUN/CRE 16.6 RATIO Normal 10-20 [facility] Comment on above: Performed By: #### L 500.4050, L3890.6102, L3890.6301, BTS, L509.8002, L3890.6006, L509.4006, L100.0100, L501.9985 #### [facility] [address] [place], [address] Calcium [Mass/Vol] 9.3 mg/dL Normal 7.6-11.0 [facility] Comment on above: Performed By: #### L 500.4050, L3890.6102, L3890.6301, BTS, L509.8002, L3890.6006, L509.4006, L100.0100, L501.9985 #### [facility] [address] [place], [address] Chloride [Moles/Vol] 99 mmol/L Normal 98-108 [facility] Comment on above: Performed By: #### L 500.4050, L3890.6102, L3890.6301, BTS, L509.8002, L3890.6006, L509.4006, L100.0100, L501.9985 #### [facility] [address] [place], [address] CO2 [Moles/Vol] 21.2 mmol/L Normal 21.0-32.0 [facility] Comment on above: Performed By: #### L 500.4050, L3890.6102, L3890.6301, BTS, L509.8002, L3890.6006, L509.4006, L100.0100, L501.9985 #### [facility] [address] [place], [address] Creatinine [Mass/Vol] 0.70 mg/dL Normal 0.70-1.20 [facility] Comment on above: Performed By: #### L 500.4050, L3890.6102, L3890.6301, BTS, L509.8002, L3890.6006, L509.4006, L100.0100, L501.9985 #### [facility] [address] [place], [place], [phone] (198) GAP 14 Normal 5-15 [facility] Comment on above: Performed By: #### L 500.4050, L3890.6102, L3890.6301, BTS, L509.8002, L3890.6006, L509.4006, L100.0100, L501.9985 #### [facility] [address] [facility] [place], [place], [id number] ([address] GFR/1.73 sq M.predicted among non-blacks MDRD (S/P/Bld) [Vol rate/Area] 120 mL/min/{1.73_m2} Normal >60 [facility] Comment on above: Result Comment: mL/m in/1.73m2 CKD-EPI Creatinine Equation (2020) Performed By: #### L 500.4050, L3890.6102, L3890.6301, BTS, L509.8002, L3890.6006, L509.4006, L100.0100, L501.9985 #### [facility] [address] [place], [place], [phone] (318) Globulin (S) [Mass/Vol] 2.7 g/dL Normal 2.2-4.2 [facility] Comment on above: Performed By: #### L 500.4050, L3890.6102, L3890.6301, BTS, L509.8002, L3890.6006, L509.4006, L100.0100, L501.9985 #### [facility] [address] [place], [address] Glucose [Mass/Vol] 75 mg/dL Normal 70-99 [facility] Comment on above: Performed By: #### L 500.4050, L3890.6102, L3890.6301, BTS, L509.8002, L3890.6006, L509.4006, L100.0100, L501.9985 #### [facility] [address] [place], [address] Potassium [Moles/Vol] 3.4 mmol/L Normal 3.3-5.1 [facility] Comment on above: Performed By: #### L 500.4050, L3890.6102, L3890.6301, BTS, L509.8002, L3890.6006, L509.4006, L100.0100, L501.9985 #### [facility] [address] [place], [address] Sodium [Moles/Vol] 135 mmol/L Normal 133-145 [facility] Comment on above: Performed By: #### L 500.4050, L3890.6102, L3890.6301, BTS, L509.8002, L3890.6006, L509.4006, L100.0100, L501.9985 #### [facility] [address] [place], [address] T PROT 7.0 g/dL Normal 5.9-8.4 [facility] Comment on above: Performed By: #### L 500.4050, L3890.6102, L3890.6301, BTS, L509.8002, L3890.6006, L509.4006, L100.0100, L501.9985 #### [facility] [address] [place], [place], [id number] Urea nitrogen [Mass/Vol] 12 mg/dL Normal 4-19 [facility] Comment on above: Performed By: #### L 500.4050, L3890.6102, L3890.6301, BTS, L509.8002, L3890.6006, L509.4006, L100.0100, L501.9985 #### [facility] [address] [place], [place], [id number] Eosinophil percentageOrdered By: Kaycee Pathak on 02-28-2025 Eosinophils/100 WBC (Bld) 0.8 % 0-5 [facility] Erythrocyte distribution wid th ratioOrdered By: Kaycee Pathak on 02-28-2025 Erythrocyte distribution width (RBC) [Ratio] 12.4 % 11.6-14.6 [facility] Erythrocyte distribution wid th standard deviationOrdered By: Kaycee Pathak on 02-28-2025 Erythrocyte distribution width (RBC) [Ratio] 38.7 fl 35.1-43.9 [facility] Glomerular filtration rate ( GFR) estimation/1.73 sq m using serum, plasma, or whole bOrdered By: Kaycee Pathak on 02-28-2025 GFR/1.73 sq M.predicted among non-blacks MDRD (S/P/Bld) [Vol rate/Area] 120 mL/min/{1.73_m2} >60 [facility] Comment on above: mL/min/1.73m2 CKD-EP I Creatinine Equation (2020) HIVon 02-28-2025 HIV Non-Reactive Normal Nonreactive [facility] Comment on above: Result Comment: Non- Reactive Reactive Repeatedly reactive samples must be confirmed according to CDC recommended confirmatory algorithms. The subresults for either HIVAG or AHIV can be used as an aid in the selection of the confirmation algorithm for reactive samples. [facility]. Order the HIV antibody detection and differentiation: [id number] Performed By: #### L 500.4050, L3890.6102, L3890.6301, BTS, L509.8002, L3890.6006, L509.4006, L100.0100, L501.9985 #### [facility] [address] [place], [address] Hematocrit Auto (Bld) [Volum e fraction]Ordered By: Kaycee Pathak on 02-28-2025 Hematocrit (Bld) [Volume fraction] 38.6 % 37-47 [facility] Hemoglobin A1con 02-28-2025 HbA1c (Bld) [Mass fraction] 4.9 % Normal <=5.6 [facility] Comment on above: Result Comment: Norm al < 5.7 % Prediabetic 5.7 - 6.4 % Diabetic >or= 6.5 % Please note range changes. Performed By: #### L 500.4050, L3890.6102, L3890.6301, BTS, L509.8002, L3890.6006, L509.4006, L100.0100, L501.9985 #### [facility] [address] [facility] [place], [place], [phone] (604) Hemoglobin A1c percentageOrd ered By: Kaycee Pathak on 02-28-2025 HbA1c (Bld) [Mass fraction] 4.9 % <5.7 [facility] Comment on above: Normal < 5.7 % Predi abetic 5.7 - 6.4 % Diabetic >or= 6.5 % Please note range changes. Hemoglobin measurementOrdere d By: Kaycee Pathak on 02-28-2025 Hemoglobin (Bld) [Mass/Vol] 13.2 g/dL 12.0-15.0 [facility] Hepatitis C Antibodyon 02-28 Hepatitis C Ab Non-Reactive Normal Nonreactive [facility] Comment on above: Result Comment: Reac tive: Presumptive evidence of antibodies to HCV. Follow CDC recommendations for supplemental testing. Non-Reactive: Antibodies to HCV were not detected; does not exclude the possibility of exposure to HCV Reactive Results are presumptive evidence of antibodies to HCV. Follow CDC recommendations for supplemental testing. Order confirmation testing: HCV Quant by PCR testing - HCVPCR #[id number] Non Reactive: < 0.8 Equivocal: >/= 0.8 to < 1.0 Reactive: >/= 1.0 The CDC requires that a reactive/equivocal HCV antibody result be sent out for confirmation. HCV Quant by PCR testing. Performed By: #### L 500.4050, L3890.6102, L3890.6301, BTS, L509.8002, L3890.6006, L509.4006, L100.0100, L501.9985 #### [facility] [address] [facility] [place], [address] Immature granulocytes/100 WB C Auto (Bld)Ordered By: Kaycee Pathak on 02-28-2025 Immature granulocytes/100 WBC (Bld) 0.400 % 0.0-0.9 [facility] Comment on above: IG% - Immature Granu locytes (promyelocytes, myelocytes and metamyelocytes) > 1% indicates that a LEFT SHIFT is Present. L3890.6102on 02-28-2025 HEP B Surf Ag Non-Reactive Normal Nonreactive [facility] Comment on above: Result Comment: Reac tive: Presumptive evidence of HBV. Repeatedly reactive samples must be confirmed using a neutralization test ([employer] HBsAg Confirmatory Test) Non-Reactive: HBsAg not detected; does not exclude the possibility of exposure to HBV Performed By: #### L 500.4050, L3890.6102, L3890.6301, BTS, L509.8002, L3890.6006, L509.4006, L100.0100, L501.9985 #### [facility] [address] [facility] [place], [place], [id number] L509.4006on 02-28-2025 Rubella IgG REAC Normal Nonreactive [facility] Comment on above: Result Comment: Anti body Result: Interpretation Non-Reactive: Non-Immune Reactive: Immune The following results were obtained with the [employer] Rubella IgG assay. Results from assays of other manufacturers cannot be used interchangeably. Performed By: #### L 500.4050, L3890.6102, L3890.6301, BTS, L509.8002, L3890.6006, L509.4006, L100.0100, L501.9985 #### [facility] [address] [place], [address] Laboratory - Chemistry and C hemistry - challengeOrdered By: Kaycee Pathak on 02-28-2025 AST [Catalytic activity/Vol] 15 U/L <32 [facility] Laboratory - CytologyOrdered By: Kaycee Pathak on 02-28-2025 Water Maintenance Supervisor Cyto stain Nom (Cvx/Vag) [ID] Comment . [facility] Comment on above: [facility] Laboratory - Microbiology an d Antimicrobial susceptibilityOrdered By: Kaycee Pathak on 02-28-2025 HBV surface Ag Ql (S) Non-Reactive Nonreactive [facility] Comment on above: Reactive: Presumptiv e evidence of HBV. Repeatedly reactive samples must be confirmed using a neutralization test ([employer] HBsAg Confirmatory Test)Non-Reactive: HBsAg not detected; does not exclude the possibility of exposure to HBV Laboratory - Miscellaneous t estsOrdered By: Kaycee Pathak on 02-28-2025 Service comment (Unsp spec) [Interp] . . [facility] MCV (mean corpuscular volume ) determinationOrdered By: Kaycee Pathak on 02-28-2025 MCV (RBC) [Entitic vol] 85.6 fL 81-99 [facility] Mean corpuscular hemoglobin (MCH) determinationOrdered By: Kaycee Pathak on 02-28-2025 MCH (RBC) [Entitic mass] 29.3 pg 27.0-32.0 [facility] Mean corpuscular hemoglobin concentration (MCHC) determinationOrdered By: Kaycee Pathak on 02-28-2025 MCHC (RBC) [Mass/Vol] 34.2 g/dL 32-36 [facility] Mean platelet volume determi nationOrdered By: Kaycee Pathak on 02-28-2025 Platelet mean volume (Bld) [Entitic vol] 10.4 fL 6.2-12.0 [facility] Monocyte percentageOrdered B y: Kaycee Pathak on 02-28-2025 Monocytes/100 WBC (Bld) 4.8 % 0-10 [facility] Neisseria gonorrhoeae nuclei c acid detection by amplified probe techniqueOrdered By: Kaycee Pathak on 02-28-2025 N. gonorrhoeae DNA RASHEED+probe Ql (Unsp spec) Negative Negative [facility] Comment on above: Performed at: [address] [id number] Director: Neda Marie MD, Phone: [phone] Neutrophil percentageOrdered By: Kaycee Pathak on 02-28-2025 Neutrophils/100 WBC (Bld) 72.9 % High 47-70 [facility] No Panel InformationOrdered By: Kaycee Pathak on 02-28-2025 Pap Smear Specimen Adequacy Comment . [facility] Comment on above: Satisfactory for bobby luation. Endocervical and/or squamous metaplasticcells (endocervical component) are present. HIV (1&2) Antibody Non-Reactive Nonreactive [facility] Comment on above: Non-ReactiveReactive Repeatedly reactive samples must be confirmed according to CDC recommended confirmatory algorithms. The subresults for either HIVAG or AHIV can be used as an aid in the selection of the confirmation algorithm for reactive samples.Send out specimens with Reactive results to [facility] for confirmation.Order the HIV antibody detection and differentiation: #[id number] Nucleated red blood cell per centageOrdered By: Kaycee Pathak on 02-28-2025 Nucleated RBC/100 WBC (Bld) [Ratio] 0 % 0-5 [facility] Chemical Operations Specialist Office Visit Reporton 02-28-2025 Chemical Operations Specialist Office Visit Report [facility] [address], [address] [place] [address] OFFICE VISIT Date of Service: 02/28/25 MR#: [id number] Acct: [id number] Name: MARITA BERGERON Rep #: [id number] : 1995 Provider: Dr. Kaycee snow MD Age/Sex: 29/F Location: [facility] [place] Status: Signed Intake Vital Signs 09/06/24 10:59 02/11/25 08:43 02/28/25 13:03 Height 4 ft 10 in 4 ft 10 in 4 ft 10 in Weight: 186 lb 8 oz BMI 38.9 BP 123/80 H Intake Visit Reasons: NOB LMP / Online Marketer Required: No Is patient in pain?: No Allergies No Known Allergies Allergy (Verified 02/28/25 13:04) Medications ???Medication ???Instructions ???Recorded ???Confirmed ???Type docosahexaenoic acid 200 mg mg PO 02/11/25 02/28/25 History capsule ( DHA) Last Menstrual Period: 12/29/24 Zika: Zika virus screening: Negative : No [facility] Medical History (Updated 02/28/25 @ 13:[address] 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 Normal [facility] Platelet countOrdered By: Akbar Pathak on 02-28-2025 Platelets (Bld) [#/Vol] 284 10*3/uL 150-450 [facility] Potassium measurement (mass/ volume)Ordered By: Kaycee Pathak on 02-28-2025 Potassium (Unsp spec) [Mass/Vol] 3.4 mmol/L 3.3-5.1 [facility] Protein+Creatinine Ratio,Uri neon 02-28-2025 PROT:CRE RATIO 76 mg/g CRE Normal 0-200 [facility] Comment on above: Performed By: #### L 501.0900, L7000.1800, M100.2200, L7400.0353 #### [facility] [address] [place], [address] Protein (U) [Mass/Vol] 16.9 mg/dL High 0.0-12.0 [facility] Comment on above: Performed By: #### L 501.0900, L7000.1800, M100.2200, L7400.0353 #### [facility] [address] [place], [address] UR CREAT 223.00 mg/dL High 28.00-217.00 [facility] Comment on above: Performed By: #### L 501.0900, L7000.1800, M100.2200, L7400.0353 #### [facility] [address] [place], [address] RBC Auto (Bld) [#/Vol]Ordere d By: Kaycee Pathak on 02-28-2025 RBC (Bld) [#/Vol] 4.51 10*6/uL 4.2-5.4 [facility] Random urine creatinine mann urement (mass/volume)Ordered By: Kaycee Pathak on 02-28-2025 Creatinine Unsp time (U) [Mass/Vol] 223.00 mg/dL High 28.00-217.00 [facility] Serum creatinine measurement (mass/volume)Ordered By: Kaycee Pathak on 02-28-2025 Creatinine [Mass/Vol] 0.70 mg/dL 0.70-1.20 [facility] Serum globulin measurementOr dered By: Kaycee Pathak on 02-28-2025 Globulin (S) [Mass/Vol] 2.7 g/dL 2.2-4.2 [facility] Serum glucose measurement (m ass/volume)Ordered By: Kaycee Pathak on 02-28-2025 Glucose [Mass/Vol] 75 mg/dL 70-99 [facility] Serum or plasma alanine mendoza otransferase (ALT) measurementOrdered By: Kaycee Pathak on 02-28-2025 ALT [Catalytic activity/Vol] 19 U/L <35 [facility] Serum or plasma albumin mann urement (mass/volume)Ordered By: Kaycee Pathak on 02-28-2025 Albumin [Mass/Vol] 4.3 g/dL 3.5-5.0 [facility] Serum or plasma albumin/glob ulin mass ratioOrdered By: Kaycee Pathak on 02-28-2025 Albumin/Globulin [Mass ratio] 1.6 {ratio} 0.9-2.4 [facility] Serum or plasma alkaline peng sphatase measurementOrdered By: Kaycee Pathak on 02-28-2025 ALP [Catalytic activity/Vol] 68 U/L 35-104 [facility] Serum or plasma calcium mann urement (mass/volume)Ordered By: Kaycee Pathak on 02-28-2025 Calcium [Mass/Vol] 9.3 mg/dL 7.6-11.0 [facility] Serum or plasma urea nitroge n measurement (mass/volume)Ordered By: Kaycee Pathak on 02-28-2025 Urea nitrogen [Mass/Vol] 12 mg/dL 4-19 [facility] Sodium levelOrdered By: Dorian Pathak on 02-28-2025 Sodium [Moles/Vol] 135 mmol/L 133-145 [facility] Syphilis Antibodieson 2024 Syphilis Abs Non-Reactive Normal Nonreactive [facility] Comment on above: Performed By: #### L 500.4050, L3890.6102, L3890.6301, BTS, L509.8002, L3890.6006, L509.4006, L100.0100, L501.9985 #### [facility] [address] [facility]. [place], [place], [id number] Total proteinOrdered By: Casimiro Pathak on 02-28-2025 Protein [Mass/Vol] 7.0 g/dL 5.9-8.4 [facility] Type AND Screenon 02-28-2025 Ab SCREEN GEL Negative Normal [facility] Comment on above: Order Comment: PN Performed By: #### L 500.4050, L3890.6102, L3890.6301, BTS, L509.8002, L3890.6006, L509.4006, L100.0100, L501.9985 #### [facility] [address] [facility] [place], [address] Urine cultureOrdered By: Casimiro Pathak on 02-28-2025 Bacteria identified Cx Nom (U) Positive Abnormal [facility] Urine protein measurement (m ass/volume)Ordered By: Kaycee Pathak on 02-28-2025 Protein (U) [Mass/Vol] 16.9 mg/dL High 0.0-12.0 [facility] Urine protein/creatinine mas s ratioOrdered By: Kaycee Zo on 02-28-2025 Protein/Creatinine (U) [Mass ratio] 76 mg/g CRE 0-200 [facility] White blood cell (WBC) count Ordered By: Kaycee Pathak on 02-28-2025 WBC (Bld) [#/Vol] 12.0 10*3/uL High 4.4-11.0 [facility] Laboratory - Chemistry and C hemistry - challengeOrdered By: Kaycee Pathak on 02-11-2025 HCG ( test) Ql (U) Positive [facility] Office Visit Reporton 2024 Office Visit Report [facility] [address] [place] [address] OFFICE VISIT Date of Service: MR#: [id number] Acct: [id number] Patient: MARITA BERGERON Rep # : [id number] : 1995 Provider: Thuy Holt RN Age/Sex: 29/F Location: [facility] Status: Signed Intake Vital Signs 09/06/24 10:59 02/11/25 08:43 Height 4 ft 10 in 4 ft 10 in Weight: 185 lb 8 oz BMI 38.7 BP 120/72 Intake Visit Reasons: Amb Documentation Chief Complaint: In person PNOB Online Marketer Required: No Is patient in pain?: No [...] NOB scheduled. 02/11/25 1057 Date Ruth Thurston SKETCH LINER SKETCH LINER-C Cosigner Signature: Date (if applicable) CC: Normal [facility] Serum or plasma thyroperoxid ase antibody assay (units/volume)Ordered By: Alexey Good on 10-06-2023 TPO Ab Qn [IU]/mL 0-34 [facility] Comment on above: Performed at: - L [address] [id number] Director: Nilo Flores PhD, Phone: [phone] Absolute lymphocyte countOrd ered By: Ralph Bateman on 09-18-2023 Lymphocytes Auto (Unsp spec) [#/Vol] 3.06 10*3/uL 0.83-4.51 [facility] Basophil percentageOrdered B y: Ralph Bateman on 09-18-2023 Basophils/100 WBC (Bld) 0.5 % 0-1 [facility] Bilirubin [Mass/Vol] 0.40 mg/dL 0.20-1.00 [facility] Comment on above: For patients on eltr ombopag therapy, use of Dimension Browder TBIL is not recommended. Chloride [Moles/Vol] 104 mmol/L 98-107 [facility] Eosinophils/100 WBC (Bld) 1.1 % 0-5 [facility] Glucose [Mass/Vol] 89 mg/dL 74-106 [facility] Neutrophils (Bld) [#/Vol] 6.2 10*3/uL 2.0-7.7 [facility] Neutrophils/100 WBC (Bld) 62.6 % 47-70 [facility] Potassium [Moles/Vol] 4.0 mmol/L 3.5-5.1 [facility] Protein [Mass/Vol] 7.4 g/dL 6.4-8.2 [facility] Sodium [Moles/Vol] 137 mmol/L 136-145 [facility] WBC (Bld) [#/Vol] 9.9 10*3/uL 4.4-11.0 [facility] Blood erythrocytes count (nu mber/volume)Ordered By: Ralph Bateman on 09-18-2023 RBC (Bld) [#/Vol] 4.89 10*6/uL 4.2-5.4 [facility] Blood hemoglobin measurement (mass/volume)Ordered By: Ralph Bateman on 09-18-2023 Hemoglobin (Bld) [Mass/Vol] 13.6 g/dL 12.0-15.0 [facility] Blood lymphocytes/100 leukoc ytesOrdered By: Ralph Bateman on 09-18-2023 Lymphocytes/100 WBC (Bld) 31.0 % 19-41 [facility] Blood monocytes/100 leukocyt esOrdered By: Ralph Bateman on 09-18-2023 Monocytes/100 WBC (Bld) 4.5 % 0-10 [facility] Blood platelet mean volumeOr dered By: Ralph Bateman on 09-18-2023 Platelet mean volume (Bld) [Entitic vol] 10.1 fL 6.2-12.0 [facility] Determination of erythrocyte mean corpuscular volume (MCV)Ordered By: Ralph Bateman on 09-18-2023 MCV (RBC) [Entitic vol] 86.1 fL 81-99 [facility] Hematocrit Auto (Bld) [Volum e fraction]Ordered By: Ralph Bateman on 09-18-2023 Hematocrit (Bld) [Volume fraction] 42.1 % 37-47 [facility] - Chemistry and C hemistry - challengeOrdered By: Ralph Bateman on 09-18-2023 ALP [Catalytic activity/Vol] 78 U/L 45-117 [facility] ALT [Catalytic activity/Vol] 16 U/L 13-56 [facility] CO2 [Moles/Vol] 26.0 mmol/L 21.0-32.0 [facility] Cobalamin (Vitamin B12) [Mass/Vol] 317 pg/mL 211-911 [facility] Globulin (S) [Mass/Vol] 3.9 g/dL 2.2-4.2 [facility] Magnesium [Mass/Vol] 2.0 mg/dL 1.6-2.6 [facility] Urea nitrogen/Creatinine [Mass ratio] 12.2 mg/mg 10-20 [facility] - Hematology and Cell countsOrdered By: Ralph Bateman on 09-18-2023 Erythrocyte distribution width (RBC) [Entitic vol] 37.3 fL 35.1-43.9 [facility] Erythrocyte distribution width (RBC) [Ratio] 11.9 % 11.6-14.6 [facility] Immature granulocytes/100 WBC (Bld) 0.300 % 0.0-0.9 [facility] Comment on above: IG% - Immature Granu locytes (promyelocytes, myelocytes and metamyelocytes) > 1% indicates that a LEFT SHIFT is Present. MCH (RBC) [Entitic mass] 27.8 pg 27.0-32.0 [facility] Nucleated RBC/100 WBC (Bld) [Ratio] 0 % 0-5 [facility] MCHC Auto (RBC) [Mass/Vol]Or dered By: Ralph Bateman on 09-18-2023 MCHC (RBC) [Mass/Vol] 32.3 g/dL 32-36 [facility] No Panel InformationOrdered By: Ralph Bateman on 09-18-2023 Estimated GFR (MDRD) Amer 96 mL/min >60 [facility] Comment on above: GFR Calc Estimated GFR (MDRD) Non-Af Amer 79 mL/min >60 [facility] Comment on above: Non- GFR Calc Thyroid Stimulating Hormone (TSH) 2.57 uIU/mL 0.358-3.74 [facility] Platelets bldOrdered By: Kj Bateman on 09-18-2023 Platelets (Bld) [#/Vol] 332 10*3/uL 150-450 [facility] Serum or plasma albumin mann urement (mass/volume)Ordered By: Ralph Bateman on 09-18-2023 Albumin [Mass/Vol] 3.5 g/dL 3.2-5.0 [facility] Serum or plasma albumin/glob ulin mass ratioOrdered By: Ralph Bateman on 09-18-2023 Albumin/Globulin [Mass ratio] 0.9 {ratio} 0.9-2.4 [facility] Serum or plasma calcium mann urement (mass/volume)Ordered By: Ralph Bateman on 09-18-2023 Calcium [Mass/Vol] 8.9 mg/dL 8.5-10.1 [facility] Serum or plasma creatinine m easurement (mass/volume)Ordered By: Ralph Bateman on 09-18-2023 Creatinine [Mass/Vol] 0.90 mg/dL 0.55-1.02 [facility] Comment on above: The validity of the calculated GFR & GFRAA in patients over 70 years has not been determined. Clinical correlation is essential. Serum or plasma urea nitroge n measurement (mass/volume)Ordered By: Ralph Bateman on 09-18-2023 Urea nitrogen [Mass/Vol] 11 mg/dL 7-18 [facility] Thin prep Papanicolaou smear with manual screeningOrdered By: Ralph Bateman on 09-18-2023 Thin prep Papanicolaou smear with manual screening 13 U/L 15-37 [facility] Thin prep Papanicolaou smear with manual screening 7 5-15 [facility] Absolute lymphocyte countOrd ered By: HEALTH ASSESSMENT on 06-12-2023 Lymphocytes Auto (Unsp spec) [#/Vol] 2.28 10*3/uL 0.83-4.51 [facility] Absolute reticulocyte countO rdered By: HEALTH ASSESSMENT on 06-12-2023 Reticulocytes (Bld) [#/Vol] 0.00 10*3/uL 0-5 [facility] Basophil percentageOrdered B y: HEALTH ASSESSMENT on 06-12-2023 Basophil percentage 3.2 mg/dL 2.5-4.9 [facility] Bilirubin [Mass/Vol] 0.40 mg/dL 0.20-1.00 [facility] Comment on above: For patients on eltr ombopag therapy, use of Dimension Browder TBIL is not recommended. Chloride [Moles/Vol] 105 mmol/L 98-107 [facility] Cholesterol [Mass/Vol] 173 mg/dL <200 [facility] Comment on above: <200 mg/dL Desirable 200-240 mg/dL Borderline >240 mg/dL High Risk Glucose [Mass/Vol] 84 mg/dL 74-106 [facility] LDH [Catalytic activity/Vol] 127 U/L 84-246 [facility] Neutrophils (Bld) [#/Vol] 6.5 10*3/uL 2.0-7.7 [facility] Potassium [Moles/Vol] 3.9 mmol/L 3.5-5.1 [facility] Protein [Mass/Vol] 7.3 g/dL 6.4-8.2 [facility] Sodium [Moles/Vol] 135 mmol/L 136-145 [facility] Triglyceride [Mass/Vol] 162 mg/dL <199 [facility] Comment on above: The drugs N-Acetylcy steine and Metamizole may falsely depress this assay.Serum Triglycerides Reference Interval Normal <150 mg/dL Borderline high 150 - 199 mg/dL High 200 - 499 mg/dL Very High > or = 500 mg/dL WBC (Bld) [#/Vol] 9.3 10*3/uL 4.4-11.0 [facility] Blood erythrocytes count (nu mber/volume)Ordered By: HEALTH ASSESSMENT on 06-12-2023 RBC (Bld) [#/Vol] 4.80 10*6/uL 4.2-5.4 [facility] Blood hemoglobin measurement (mass/volume)Ordered By: HEALTH ASSESSMENT on 06-12-2023 Hemoglobin (Bld) [Mass/Vol] 13.5 g/dL 12.0-15.0 [facility] Blood leukocytes count corre cted for nucleated erythrocytes (number/volume)Ordered By: HEALTH ASSESSMENT on 06-12-2023 WBC corrected for nucl RBC (Bld) [#/Vol] SKETCH LINER [facility] Blood platelet mean volumeOr dered By: HEALTH ASSESSMENT on 06-12-2023 Platelet mean volume (Bld) [Entitic vol] 10.4 fL 6.2-12.0 [facility] Determination of erythrocyte mean corpuscular volume (MCV)Ordered By: HEALTH ASSESSMENT on 06-12-2023 MCV (RBC) [Entitic vol] 86.7 fL 81-99 [facility] Direct bilirubinOrdered By: HEALTH ASSESSMENT on 06-12-2023 Bilirubin.direct [Mass/Vol] 0.11 mg/dL 0.00-0.30 [facility] Hematocrit Auto (Bld) [Volum e fraction]Ordered By: HEALTH ASSESSMENT on 06-12-2023 Hematocrit (Bld) [Volume fraction] 41.6 % 37-47 [facility] - Chemistry and C hemistry - challengeOrdered By: HEALTH ASSESSMENT on 06-12-2023 ALP [Catalytic activity/Vol] 72 U/L 45-117 [facility] ALT [Catalytic activity/Vol] 17 U/L 13-56 [facility] Cholesterol.total/Choles terol in HDL [Mass ratio] 3.40 {ratio} [facility] CO2 [Moles/Vol] 23.0 mmol/L 21.0-32.0 [facility] Globulin (S) [Mass/Vol] 3.9 g/dL 2.2-4.2 [facility] Urea nitrogen/Creatinine [Mass ratio] 16.0 mg/mg 10-20 [facility] - Hematology and Cell countsOrdered By: HEALTH ASSESSMENT on 06-12-2023 Erythrocyte distribution width (RBC) [Entitic vol] 38.6 fL 35.1-43.9 [facility] Erythrocyte distribution width (RBC) [Ratio] 12.2 % 11.6-14.6 [facility] MCH (RBC) [Entitic mass] 28.1 pg 27.0-32.0 [facility] Nucleated RBC/100 WBC (Bld) [Ratio] 0 % 0-5 [facility] MCHC Auto (RBC) [Mass/Vol]Or dered By: HEALTH ASSESSMENT on 06-12-2023 MCHC (RBC) [Mass/Vol] 32.5 g/dL 32-36 [facility] No Panel InformationOrdered By: HEALTH ASSESSMENT on 06-12-2023 Estimated Creatinine Clearance Calc SKETCH LINER [facility] Estimated GFR (MDRD) Amer 108 mL/min >60 [facility] Comment on above: GFR Calc Estimated GFR (MDRD) Non-Af Amer 90 mL/min >60 [facility] Comment on above: Non- GFR Calc Immature Granulocyte % (Auto) SKETCH LINER [facility] Platelets bldOrdered By: ROS [facility] on 06-12-2023 Platelets (Bld) [#/Vol] 336 10*3/uL 150-450 [facility] Review by pathologistOrdered By: HEALTH ASSESSMENT on 06-12-2023 Pathologist review Jose (Unsp spec) [Interp] SKETCH LINER [facility] Segmented neutrophils/100 WB C Auto (Bld)Ordered By: HEALTH ASSESSMENT on 06-12-2023 Segmented neutrophils/100 WBC (Bld) 69.8 % 47-70 [facility] Serum or plasma albumin mann urement (mass/volume)Ordered By: HEALTH ASSESSMENT on 06-12-2023 Albumin [Mass/Vol] 3.4 g/dL 3.2-5.0 [facility] Serum or plasma albumin/glob ulin mass ratioOrdered By: HEALTH ASSESSMENT on 06-12-2023 Albumin/Globulin [Mass ratio] 0.9 {ratio} 0.9-2.4 [facility] Serum or plasma calcium mann urement (mass/volume)Ordered By: HEALTH ASSESSMENT on 06-12-2023 Calcium [Mass/Vol] 9.0 mg/dL 8.5-10.1 [facility] Serum or plasma cholesterol in HDL measurement (mass/volume)Ordered By: HEALTH ASSESSMENT on 06-12-2023 Cholesterol in HDL [Mass/Vol] 51 mg/dL >40 [facility] Comment on above: The drugs N-Acetylcy steine and Metamizole may falsely depress this assay. Reference Range HDL <40 mg/dL Low HDL Cholesterol HDL >or= 60 mg/dL High HDL Cholesterol Serum or plasma cholesterol in VLDL measurement (mass/volume)Ordered By: HEALTH ASSESSMENT on 06-12-2023 Cholesterol in VLDL [Mass/Vol] 32 mg/dL 5-40 [facility] Serum or plasma creatinine m easurement (mass/volume)Ordered By: HEALTH ASSESSMENT on 06-12-2023 Creatinine [Mass/Vol] 0.81 mg/dL 0.55-1.02 [facility] Comment on above: The validity of the calculated GFR & GFRAA in patients over 70 years has not been determined. Clinical correlation is essential. Serum or plasma low density lipoprotein (LDL) cholesterol measurement (mass/volume)Ordered By: HEALTH ASSESSMENT on 06-12-2023 Cholesterol in LDL [Mass/Vol] 90 mg/dL 0-130 [facility] Serum or plasma urea nitroge n measurement (mass/volume)Ordered By: HEALTH ASSESSMENT on 06-12-2023 Urea nitrogen [Mass/Vol] 13 mg/dL 7-18 [facility] Serum or plasma uric acid me asurement (mass/volume)Ordered By: HEALTH ASSESSMENT on 06-12-2023 Urate [Mass/Vol] 5.0 mg/dL 2.6-6.0 [facility] Comment on above: The drugs N-Acetylcy steine and Metamizole may falsely depress this assay. Thin prep Papanicolaou smear with manual screeningOrdered By: HEALTH ASSESSMENT on 06-12-2023 Thin prep Papanicolaou smear with manual screening 12 U/L 15-37 [facility] Thin prep Papanicolaou smear with manual screening 7 5-15 [facility] Absolute lymphocyte counton 08-15-2022 Lymphocytes Auto (Unsp spec) [#/Vol] 3.05 10*3/uL 0.83-4.51 [facility] Work Phone: Basophil percentageon 2021 Basophils/100 WBC (Bld) 0.5 % 0-1 [facility] Work Phone: Bilirubin [Mass/Vol] 0.30 mg/dL 0.20-1.00 [facility] Work Phone: Comment on above: For patients on eltr ombopag therapy, use of Dimension Browder TBIL is not recommended. Chloride [Moles/Vol] 104 mmol/L 98-107 [facility] Work Phone: Eosinophils/100 WBC (Bld) 2.9 % 0-5 [facility] Work Phone: Glucose [Mass/Vol] 89 mg/dL 74-106 [facility] Work Phone: Neutrophils (Bld) [#/Vol] 6.6 10*3/uL 2.0-7.7 [facility] Work Phone: Neutrophils/100 WBC (Bld) 61.9 % 47-70 [facility] Work Phone: Potassium [Moles/Vol] 3.5 mmol/L 3.5-5.1 [facility] Work Phone: Protein [Mass/Vol] 7.2 g/dL 6.4-8.2 [facility] Work Phone: Sodium [Moles/Vol] 138 mmol/L 136-145 [facility] Work Phone: WBC (Bld) [#/Vol] 10.6 10*3/uL 4.4-11.0 [facility] Work Phone: Blood erythrocytes count (nu mber/volume)on 08-15-2022 RBC (Bld) [#/Vol] 4.76 10*6/uL 4.2-5.4 [facility] Work Phone: Blood hemoglobin measurement (mass/volume)on 08-15-2022 Hemoglobin (Bld) [Mass/Vol] 13.6 g/dL 12.0-15.0 [facility] Work Phone: Blood lymphocytes/100 leukoc yteson 08-15-2022 Lymphocytes/100 WBC (Bld) 28.8 % 19-41 [facility] Work Phone: [phone] Blood monocytes/100 leukocyt eson 08-15-2022 Monocytes/100 WBC (Bld) 5.6 % 0-10 [facility] Work Phone: Blood platelet mean volumeon 08-15-2022 Platelet mean volume (Bld) [Entitic vol] 9.7 fL 6.2-12.0 [facility] Work Phone: Determination of erythrocyte mean corpuscular volume (MCV)on 08-15-2022 MCV (RBC) [Entitic vol] 86.6 fL 81-99 [facility] Work Phone: [phone] Hematocrit Auto (Bld) [Volum e fraction]on 08-15-2022 Hematocrit (Bld) [Volume fraction] 41.2 % 37-47 [facility] Work Phone: Laboratory - Chemistry and C hemistry - challengeon 08-15-2022 ALP [Catalytic activity/Vol] 80 U/L 45-117 [facility] Work Phone: ALT [Catalytic activity/Vol] 20 U/L 13-56 [facility] Work Phone: CO2 [Moles/Vol] 27.0 mmol/L 21.0-32.0 [facility] Work Phone: Globulin (S) [Mass/Vol] 3.9 g/dL 2.2-4.2 [facility] Work Phone: Urea nitrogen/Creatinine [Mass ratio] 14.3 mg/mg 10-20 [facility] Work Phone: Laboratory - Hematology and Cell countson 08-15-2022 Erythrocyte distribution width (RBC) [Entitic vol] 37.4 fL 35.1-43.9 [facility] Work Phone: Erythrocyte distribution width (RBC) [Ratio] 11.8 % 11.6-14.6 [facility] Work Phone: [phone] Immature granulocytes/100 WBC (Bld) 0.300 % 0.0-0.9 [facility] Work Phone: Comment on above: IG% - Immature Granu locytes (promyelocytes, myelocytes and metamyelocytes) > 1% indicates that a LEFT SHIFT is Present. MCH (RBC) [Entitic mass] 28.6 pg 27.0-32.0 [facility] Work Phone: Nucleated RBC/100 WBC (Bld) [Ratio] 0 % 0-5 [facility] Work Phone: [phone] MCHC Auto (RBC) [Mass/Vol]on 08-15-2022 MCHC (RBC) [Mass/Vol] 33.0 g/dL 32-36 [facility] Work Phone: No Panel Informationon 08-15 Estimated GFR (MDRD) Amer 116 mL/min >60 [facility] Work Phone: Comment on above: GFR Calc Estimated GFR (MDRD) Non-Af Amer 96 mL/min >60 [facility] Work Phone: Comment on above: Non- GFR Calc Platelets bldon 08-15-2022 Platelets (Bld) [#/Vol] 352 10*3/uL 150-450 [facility] Work Phone: [phone] Serum or plasma albumin mann urement (mass/volume)on 08-15-2022 Albumin [Mass/Vol] 3.3 g/dL 3.2-5.0 [facility] Work Phone: [phone] Serum or plasma albumin/glob ulin mass ratioon 08-15-2022 Albumin/Globulin [Mass ratio] 0.8 {ratio} 0.9-2.4 [facility] Work Phone: [phone] Serum or plasma calcium mann urement (mass/volume)on 08-15-2022 Calcium [Mass/Vol] 8.7 mg/dL 8.5-10.1 [facility] Work Phone: [phone] Serum or plasma creatinine m easurement (mass/volume)on 08-15-2022 Creatinine [Mass/Vol] 0.77 mg/dL 0.55-1.02 [facility] Work Phone: Comment on above: The validity of the calculated GFR & GFRAA in patients over 70 years has not been determined. Clinical correlation is essential. Serum or plasma urea nitroge n measurement (mass/volume)on 08-15-2022 Urea nitrogen [Mass/Vol] 11 mg/dL 7-18 [facility] Work Phone: Thin prep Papanicolaou smear with manual screeningon 08-15-2022 Thin prep Papanicolaou smear with manual screening 12 U/L 15-37 [facility] Work Phone: Thin prep Papanicolaou smear with manual screening 7 5-15 [facility] Work Phone: [phone] No Panel Informationon 07-16 Hepatitis B Surface Antibody Non-Reactive [facility] Work Phone: Comment on above: Non Reactive: Incons istent with immunity less than <10 mIU/mL Reactive: Consistent with immunity greater than or equal to 10 mIU/mL Chlamydia trachomatis rRNA d etection by probe and target amplification methodon 02-28-2022 C. trachomatis rRNA RASHEED+probe Ql (Unsp spec) Negative Negative [facility] Work Phone: Laboratory - Microbiology an d Antimicrobial susceptibilityon 02-28-2022 N. gonorrhoeae DNA RASHEED+probe Ql (Unsp spec) Negative Negative [facility] Work Phone: Comment on above: Performed at: =[facility] Anatoly castillo [address] [id number] Director: Neda Marie MD, Phone: [phone] Absolute lymphocyte counton 01-24-2022 Lymphocytes Auto (Unsp spec) [#/Vol] 2.72 10*3/uL 0.83-4.51 [facility] Work Phone: Absolute reticulocyte counto n 01-24-2022 Reticulocytes (Bld) [#/Vol] 0.00 10*3/uL 0-5 [facility] Work Phone: Basophil percentageon 2021 Basophil percentage 2.7 mg/dL 2.5-4.9 [facility] Work Phone: [phone] Bilirubin [Mass/Vol] 0.30 mg/dL 0.20-1.00 [facility] Work Phone: Comment on above: For patients on eltr ombopag therapy, use of Dimension Browder TBIL is not recommended. Chloride [Moles/Vol] 106 mmol/L 98-107 [facility] Work Phone: Cholesterol [Mass/Vol] 174 mg/dL <200 [facility] Work Phone: Comment on above: <200 mg/dL Desirable 200-240 mg/dL Borderline >240 mg/dL High Risk Glucose [Mass/Vol] 77 mg/dL 74-106 [facility] Work Phone: Neutrophils (Bld) [#/Vol] 5.6 10*3/uL 2.0-7.7 [facility] Work Phone: [phone] Potassium [Moles/Vol] 3.7 mmol/L 3.5-5.1 [facility] Work Phone: [phone] Protein [Mass/Vol] 7.9 g/dL 6.4-8.2 [facility] Work Phone: Sodium [Moles/Vol] 137 mmol/L 136-145 [facility] Work Phone: Triglyceride [Mass/Vol] 153 mg/dL [facility] Work Phone: [phone] Comment on above: The drugs N-Acetylcy steine and Metamizole may falsely depress this assay.Serum Triglycerides Reference Interval Normal <150 mg/dL Borderline high 150 - 199 mg/dL High 200 - 499 mg/dL Very High > or = 500 mg/dL WBC (Bld) [#/Vol] 8.8 10*3/uL 4.4-11.0 [facility] Work Phone: Bilirubin Test strip Ql (U)o n 01-24-2022 Bilirubin Ql (U) Negative Negative [facility] Work Phone: [phone] Blood erythrocytes count (nu mber/volume)on 01-24-2022 RBC (Bld) [#/Vol] 4.97 10*6/uL 4.2-5.4 [facility] Work Phone: [phone] Blood hemoglobin measurement (mass/volume)on 01-24-2022 Hemoglobin (Bld) [Mass/Vol] 14.6 g/dL 12.0-15.0 [facility] Work Phone: [phone] Blood platelet mean volumeon 01-24-2022 Platelet mean volume (Bld) [Entitic vol] 11.0 fL 6.2-12.0 [facility] Work Phone: [phone] Determination of erythrocyte mean corpuscular volume (MCV)on 01-24-2022 MCV (RBC) [Entitic vol] 85.7 fL 81-99 [facility] Work Phone: [phone] Direct bilirubinon Bilirubin.direct [Mass/Vol] 0.11 mg/dL 0.00-0.30 [facility] Work Phone: [phone] Hematocrit Auto (Bld) [Volum e fraction]on 01-24-2022 Hematocrit (Bld) [Volume fraction] 42.6 % 37-47 [facility] Work Phone: [phone] Ketones Test strip Ql (U)on 01-24-2022 Ketones Ql (U) Negative Negative [facility] Work Phone: [phone] Laboratory - Chemistry and C hemistry - challengeon 01-24-2022 ALP [Catalytic activity/Vol] 71 U/L 45-117 [facility] Work Phone: [phone] ALT [Catalytic activity/Vol] 16 U/L 13-56 [facility] Work Phone: Cholesterol.total/Choles terol in HDL [Mass ratio] 3.30 {ratio} [facility] Work Phone: [phone] CO2 [Moles/Vol] 22.0 mmol/L 21.0-32.0 [facility] Work Phone: [phone] Globulin (S) [Mass/Vol] 4.2 g/dL 2.2-4.2 [facility] Work Phone: [phone] Urea nitrogen/Creatinine [Mass ratio] 14.2 mg/mg 10-20 [facility] Work Phone: [phone] Laboratory - Hematology and Cell countson 01-24-2022 Erythrocyte distribution width (RBC) [Entitic vol] 36.4 fL 35.1-43.9 [facility] Work Phone: [phone] Erythrocyte distribution width (RBC) [Ratio] 11.7 % 11.6-14.6 [facility] Work Phone: [phone] MCH (RBC) [Entitic mass] 29.4 pg 27.0-32.0 [facility] Work Phone: [phone] Nucleated RBC/100 WBC (Bld) [Ratio] 0 % 0-5 [facility] Work Phone: [phone] MCHC Auto (RBC) [Mass/Vol]on 01-24-2022 MCHC (RBC) [Mass/Vol] 34.3 g/dL 32-36 [facility] Work Phone: [phone] Nitrite Test strip Ql (U)on 01-24-2022 Nitrite Ql (U) Negative Negative [facility] Work Phone: [phone] Panel Informationon 01-24 Estimated GFR (MDRD) Amer 104 mL/min >60 [facility] Work Phone: [phone] Comment on above: GFR Calc Estimated GFR (MDRD) Non-Af Amer 86 mL/min >60 [facility] Work Phone: [phone] Comment on above: Non- GFR Calc Platelets bldon 01-24-2022 Platelets (Bld) [#/Vol] 317 10*3/uL 150-450 [facility] Work Phone: Protein Test strip Ql (U)on 01-24-2022 Protein Ql (U) Negative Negative [facility] Work Phone: Segmented neutrophils/100 WB C Auto (Bld)on 01-24-2022 Segmented neutrophils/100 WBC (Bld) 64.0 % 47-70 [facility] Work Phone: Serum or plasma albumin mann urement (mass/volume)on 01-24-2022 Albumin [Mass/Vol] 3.7 g/dL 3.2-5.0 [facility] Work Phone: Serum or plasma albumin/glob ulin mass ratioon 01-24-2022 Albumin/Globulin [Mass ratio] 0.9 {ratio} 0.9-2.4 [facility] Work Phone: Serum or plasma calcium mann urement (mass/volume)on 01-24-2022 Calcium [Mass/Vol] 8.9 mg/dL 8.5-10.1 [facility] Work Phone: Serum or plasma cholesterol in HDL measurement (mass/volume)on 01-24-2022 Cholesterol in HDL [Mass/Vol] 52 mg/dL [facility] Work Phone: Comment on above: The drugs N-Acetylcy steine and Metamizole may falsely depress this assay. Reference Range HDL <40 mg/dL Low HDL Cholesterol HDL >or= 60 mg/dL High HDL Cholesterol Serum or plasma cholesterol in VLDL measurement (mass/volume)on 01-24-2022 Cholesterol in VLDL [Mass/Vol] 31 mg/dL 5-40 [facility] Work Phone: Serum or plasma creatinine m easurement (mass/volume)on 01-24-2022 Creatinine [Mass/Vol] 0.84 mg/dL 0.55-1.02 [facility] Work Phone: Comment on above: The validity of the calculated GFR & GFRAA in patients over 70 years has not been determined. Clinical correlation is essential. Serum or plasma low density lipoprotein (LDL) cholesterol measurement (mass/volume)on 01-24-2022 Cholesterol in LDL [Mass/Vol] 91 mg/dL 0-130 [facility] Work Phone: Serum or plasma urea nitroge n measurement (mass/volume)on 01-24-2022 Urea nitrogen [Mass/Vol] 12 mg/dL 7-18 [facility] Work Phone: Serum or plasma uric acid me asurement (mass/volume)on 01-24-2022 Urate [Mass/Vol] 5.3 mg/dL 2.6-6.0 [facility] Work Phone: Comment on above: The drugs N-Acetylcy steine and Metamizole may falsely depress this assay. Thin prep Papanicolaou smear with manual screeningon 01-24-2022 Thin prep Papanicolaou smear with manual screening 13 U/L 15-37 [facility] Work Phone: Thin prep Papanicolaou smear with manual screening 9 5-15 [facility] Work Phone: Thin prep Papanicolaou smear with manual screening 169 U/L 84-246 [facility] Work Phone: Urine blood detectionon 12-29 RBC Ql (U) Negative Negative [facility] Work Phone: Urine clarityon 01-24-2022 Clarity (U) Clear Clear [facility] Work Phone: Urine color determinationon 01-24-2022 Color (U) Yellow Yellow [facility] Work Phone: Urine glucose detectionon Glucose Ql (U) Normal mg/dl Normal [facility] Work Phone: Urine leukocyte esterase det ection by dipstickon 01-24-2022 Leukocyte esterase Test strip Ql (U) 25 /ul Negative [facility] Work Phone: Urine pHon 01-24-2022 pH (U) 5.0 [pH] [facility] Work Phone: Urine specific gravity measu rementon 01-24-2022 Specific gravity (U) [Rel density] 1.010 [facility] Work Phone: Urobilinogen Auto test strip Ql (U)on 01-24-2022 Urobilinogen Ql (U) Normal mg/dl Normal [facility] Work Phone: OBSOLETEon 10-07-2020 OBSOLETE Refill (AGGYNBMG) MARITA BARNES ([id number]) 1995 F Date Time Provider Department 10/07/20 [...] Encounter Status:Closed by MECCA ROMERO on 10/28/20 [facility] OBSOLETEon 04-24-2020 OBSOLETE Refill (AGOBHUD) MARITA BARNES ([id number]) 1995 F Date Time Provider Department 04/24/20 [...] Status:Closed by JASMINE ONEILL MD on 04/24/20 [facility] OBSOLETEon 01-31-2020 OBSOLETE Refill (DARSHANA) MARITA BARNES ([id number]) 1995 F Date Time Provider Department 01/31/20 JASMINE ONEILL During your visit today, we recorded the following information about you: Sera Mcbride LPN 01/31/2020 8:09 AM Signed Pharmacy faxed requesting the following refill Refill(s) Requested: Pending Prescriptions Disp Refills DROSPIRENONE 3 MG-ETHINYL ESTRADIOL 0.03 MG TABLET 84 tablet 0 Sig: TAKE 1 TABLET ONCE DAILY DAISY: Yes ALLERGIES No Known Allergies (home) [phone] (cell) Last Visit date: Visit date not [...] by JASMINE ONEILL MD on 01/31/20 Normal [facility] Pap,Cyto Gynon 10-04-2019 Pap,Cyto Stone Hand Test performed at [place] [address] NAME: MARITA BARNES REQUESTING: JASMINE ONEILL M.D. [...] 09, 2019 Page 1 of 1 Normal [facility] Comment on above: Performed By: #### C YTOP #### [place] [address] Vital Signs Date Time Vital Sign Value Performing Clinician Giuseppe ramirez 08-13-2025 15:30-0400 Body height 147.[address] Coby Carmona MD Work Phone: [facility] 08-13-2025 09:43-0400 Body mass index (BMI) [Ratio] 40.2 kg/m2 Dr. Coby Carmona MD Work Phone: [facility] 08-13-2025 09:43-0400 Body weight 87.[address] Coby Carmona MD Work Phone: [facility] 08-13-2025 09:43-0400 Diastolic blood pressure 72 mm[Hg] Dr. Coby Carmona MD Work Phone: [facility] 08-13-2025 09:43-0400 Systolic blood pressure 129 mm[Hg] Dr. Coby Carmona MD Work Phone: [facility] 07-28-2025 14:43-0400 Body height 147.[address] Coby Carmona MD Work Phone: [facility] 07-28-2025 14:43-0400 Body weight 87.[address] Coby Carmona MD Work Phone: [facility] 07-28-2025 13:56-0400 Body mass index (BMI) [Ratio] 40.2 kg/m2 Dr. Coby Carmona MD Work Phone: [facility] 07-28-2025 13:56-0400 Body weight 87.[address] Coby Carmona MD Work Phone: [facility] 07-28-2025 13:56-0400 Diastolic blood pressure 80 mm[Hg] Dr. Coby Carmona MD Work Phone: [facility] 07-28-2025 13:56-0400 Systolic blood pressure 123 mm[Hg] Dr. Coby Carmona MD Work Phone: [facility] 07-09-2025 14:27-0400 Body height 147.[address] Coby Carmona MD Work Phone: [facility] 07-09-2025 14:27-0400 Body mass index (BMI) [Ratio] 39.8 kg/m2 Dr. Coby Carmona MD Work Phone: [facility] 07-09-2025 14:27-0400 Body weight 86.[address] Coby Carmona MD Work Phone: [facility] 07-09-2025 14:27-0400 Diastolic blood pressure 83 mm[Hg] Dr. Coby Carmona MD Work Phone: [facility] 07-09-2025 14:27-0400 Systolic blood pressure 136 mm[Hg] Dr. Coby Carmona MD Work Phone: [facility] 06-11-2025 14:12-0400 Body height 147.[address] Coby Carmona MD Work Phone: [facility] 06-11-2025 14:11-0400 Body mass index (BMI) [Ratio] 39.7 kg/m2 Dr. Coby Carmona MD Work Phone: [facility] 06-11-2025 14:11-0400 Body weight 86.[address] Coby Carmona MD Work Phone: [facility] 06-11-2025 14:11-0400 Diastolic blood pressure 78 mm[Hg] Dr. Coby Carmona MD Work Phone: [facility] 06-11-2025 14:11-0400 Systolic blood pressure 120 mm[Hg] Dr. Coby Carmona MD Work Phone: [facility] 05-16-2025 14:39-0400 Body height 147.[address] Coby Carmona MD Work Phone: [facility] 05-16-2025 14:39-0400 Body mass index (BMI) [Ratio] 39.5 kg/m2 Dr. Coby Carmona MD Work Phone: [facility] 05-16-2025 14:39-0400 Body weight 85.[address] Coby Carmona MD Work Phone: [facility] 05-16-2025 14:39-0400 Diastolic blood pressure 81 mm[Hg] Dr. Coby Carmona MD Work Phone: [facility] 05-16-2025 14:39-0400 Systolic blood pressure 126 mm[Hg] Dr. Coby Carmona MD Work Phone: [facility] 04-21-2025 14:54-0400 Body height 147.[address] Coby Carmona MD Work Phone: [facility] 04-21-2025 14:54-0400 Body mass index (BMI) [Ratio] 39.2 kg/m2 Dr. Coby Carmona MD Work Phone: [facility] 04-21-2025 14:54-0400 Body weight 85.[address] Coby Carmona MD Work Phone: [facility] 04-21-2025 14:54-0400 Diastolic blood pressure 78 mm[Hg] Dr. Coby Carmona MD Work Phone: [facility] 04-21-2025 14:54-0400 Systolic blood pressure 118 mm[Hg] Dr. Coby Carmona MD Work Phone: [facility] 03-25-2025 13:40-0400 Body height 147.[address] Coby Carmona MD Work Phone: [facility] 03-25-2025 13:40-0400 Body mass index (BMI) [Ratio] 38.9 kg/m2 Dr. Coby Carmona MD Work Phone: [facility] 03-25-2025 13:40-0400 Body weight 84.[address] Coby Carmona MD Work Phone: [facility] 03-25-2025 13:40-0400 Diastolic blood pressure 87 mm[Hg] Dr. Coby Carmona MD Work Phone: [facility] 03-25-2025 13:40-0400 Systolic blood pressure 138 mm[Hg] Dr. Coby Carmona MD Work Phone: [facility] 02-28-2025 13:03-0400 Body mass index (BMI) [Ratio] 38.9 kg/m2 Dr. Coby Carmona MD Work Phone: [facility] 02-28-2025 13:03-0400 Body weight 84.[address] Coby Carmona MD Work Phone: [facility] 02-28-2025 13:03-0400 Diastolic blood pressure 80 mm[Hg] Dr. Coby Carmona MD Work Phone: [facility] 02-28-2025 13:03-0400 Systolic blood pressure 123 mm[Hg] Dr. Coby Carmona MD Work Phone: [facility] 02-11-2025 08:43-0400 Body mass index (BMI) [Ratio] 38.7 kg/m2 Dr. Coby Carmona MD Work Phone: [facility] 02-11-2025 08:43-0400 Body weight 84.[address] Coby Carmona MD Work Phone: [facility] 02-11-2025 08:43-0400 Diastolic blood pressure 72 mm[Hg] Dr. Coby Carmona MD Work Phone: [facility] 02-11-2025 08:43-0400 Systolic blood pressure 120 mm[Hg] Dr. Coby Carmona MD Work Phone: [facility] 10-06-2023 08:47-0500 Body height 147.[address] Coby Carmona Work Phone: [facility] 10-06-2023 08:47-0500 Body mass index (BMI) [Ratio] 39.7 kg/m2 Dr. Coby Carmona Work Phone: [facility] 10-06-2023 08:47-0500 Body temperature 98.7 [degF] Dr. Coby Carmona Work Phone: [facility] 10-06-2023 08:47-0500 Body weight 86.[address] Coby Carmona Work Phone: [facility] 10-06-2023 08:47-0500 Diastolic blood pressure 82 mm[Hg] Dr. Coby Carmona Work Phone: [facility] 10-06-2023 08:47-0500 Heart rate 78 /min Dr. Coby Carmona Work Phone: [facility] 10-06-2023 08:47-0500 Respiratory rate 18 /min Dr. Coby Carmona Work Phone: [facility] 10-06-2023 08:47-0500 SaO2% (BldA) [Mass fraction] 98 % Dr. Coby Carmona Work Phone: [facility] 10-06-2023 08:47-0500 Systolic blood pressure 126 mm[Hg] Dr. Coby Carmona Work Phone: [facility] 09-15-2023 15:31-0500 Body height 147.[address] Coby Carmona Work Phone: [facility] 09-15-2023 15:31-0500 Body mass index (BMI) [Ratio] 39.5 kg/m2 Dr. Coby Carmona Work Phone: [facility] 09-15-2023 15:31-0500 Body temperature 98.8 [degF] Dr. Coby Carmona Work Phone: [facility] 09-15-2023 15:31-0500 Body weight 85.[address] Coby Carmona Work Phone: [facility] 09-15-2023 15:31-0500 Diastolic blood pressure 78 mm[Hg] Dr. Coby Carmona Work Phone: [facility] 09-15-2023 15:31-0500 Heart rate 98 /min Dr. Coby Carmona Work Phone: [facility] 09-15-2023 15:31-0500 Respiratory rate 16 /min Dr. Coby Carmona Work Phone: [facility] 09-15-2023 15:31-0500 SaO2% (BldA) [Mass fraction] 98 % Dr. Coby Carmona Work Phone: [facility] 09-15-2023 15:31-0500 Systolic blood pressure 122 mm[Hg] Dr. Coby Carmona Work Phone: [facility] 09-08-2023 15:57-0500 Body mass index (BMI) [Ratio] 39.9 kg/m2 Dr. Coby Carmona Work Phone: [facility] 09-08-2023 15:57-0500 Body weight 86.[address] Coby Carmona Work Phone: [facility] 09-08-2023 15:57-0500 Diastolic blood pressure 88 mm[Hg] Dr. Coby Carmona Work Phone: [facility] 09-08-2023 15:57-0500 Systolic blood pressure 124 mm[Hg] Dr. Coby Carmona Work Phone: [facility] 06-21-2023 08:35-0400 Body height 147.[address] Coby Carmona Work Phone: [facility] 06-21-2023 08:35-0400 Body mass index (BMI) [Ratio] 38.6 kg/m2 Dr. Coby Carmona Work Phone: [facility] 06-21-2023 08:35-0400 Body temperature 96.2 [degF] Dr. Coby Carmona Work Phone: [facility] 06-21-2023 08:35-0400 Body weight 83.[address] Coby Carmona Work Phone: [facility] 06-21-2023 08:35-0400 Diastolic blood pressure 86 mm[Hg] Dr. Coby Carmona Work Phone: [facility] 06-21-2023 08:35-0400 Heart rate 96 /min Dr. Coby Carmona Work Phone: [facility] 06-21-2023 08:35-0400 Respiratory rate 18 /min Dr. Coby Carmona Work Phone: [facility] 06-21-2023 08:35-0400 SaO2% (BldA) [Mass fraction] 99 % Dr. Coby Carmona Work Phone: [facility] 06-21-2023 08:35-0400 Systolic blood pressure 126 mm[Hg] Dr. Coby Carmona Work Phone: [facility] 08-15-2022 15:32-0400 Body height 147.[address] Coby Carmona Work Phone: [facility] Work Phone: 08-15-2022 15:32-0400 Heart rate 107 /min Dr. Coby Carmona Work Phone: [facility] Work Phone: 08-15-2022 15:32-0400 Body mass index (BMI) [Ratio] 37 kg/m2 Dr. Coby Carmona Work Phone: [facility] Work Phone: 08-15-2022 15:32-0400 Body weight 80.[address] Coby Carmona Work Phone: [facility] Work Phone: 08-15-2022 15:32-0400 Diastolic blood pressure 89 mm[Hg] Dr. Coby Carmona Work Phone: [facility] Work Phone: 08-15-2022 15:32-0400 Systolic blood pressure 126 mm[Hg] Dr. Coby Carmona Work Phone: [facility] Work Phone: 08-04-2022 13:24-0400 Body mass index (BMI) [Ratio] 37 kg/m2 Dr. Coby Carmona Work Phone: [facility] Work Phone: 08-04-2022 13:24-0400 Body temperature 97.7 [degF] Dr. Coby Carmona Work Phone: [facility] Work Phone: 08-04-2022 13:24-0400 Body weight 80.[address] Coby Carmona Work Phone: [facility] Work Phone: 08-04-2022 13:24-0400 Diastolic blood pressure 78 mm[Hg] Dr. Coby Carmona Work Phone: [facility] Work Phone: 08-04-2022 13:24-0400 Heart rate 101 /min Dr. Coby Carmona Work Phone: [facility] Work Phone: 08-04-2022 13:24-0400 Respiratory rate 14 /min Dr. Coby Carmona Work Phone: [facility] Work Phone: 08-04-2022 13:24-0400 SaO2% (BldA) [Mass fraction] 99 % Dr. Coby Carmona Work Phone: [facility] Work Phone: 08-04-2022 13:24-0400 Systolic blood pressure 114 mm[Hg] Dr. Coby Carmona Work Phone: [facility] Work Phone: 07-28-2022 08:55-0400 Body mass index (BMI) [Ratio] 36.2 kg/m2 Dr. Coby Carmona Work Phone: [facility] Work Phone: 07-28-2022 08:55-0400 Body weight 78.[address] Coby Carmona Work Phone: [facility] Work Phone: 07-28-2022 08:55-0400 Diastolic blood pressure 78 mm[Hg] Dr. Coby Carmona Work Phone: [facility] Work Phone: 07-28-2022 08:55-0400 Heart rate 80 /min Dr. Coby Carmona Work Phone: [facility] Work Phone: 07-28-2022 08:55-0400 Systolic blood pressure 112 mm[Hg] Dr. Coby Carmona Work Phone: [facility] Work Phone: 07-05-2022 11:19-0400 Body mass index (BMI) [Ratio] 33.3 kg/m2 Dr. Coby Carmona Work Phone: [facility] Work Phone: 07-05-2022 11:19-0400 Body weight [address] Coby Carmona Work Phone: [facility] Work Phone: 07-05-2022 11:19-0400 Diastolic blood pressure 75 mm[Hg] Dr. Coby Carmona Work Phone: [facility] Work Phone: 07-05-2022 11:19-0400 Systolic blood pressure 117 mm[Hg] Dr. Coby Carmona Work Phone: [facility] Work Phone: 05-26-2022 15:12-0400 Body mass index (BMI) [Ratio] 37.8 kg/m2 Dr. Coby Carmona Work Phone: [facility] Work Phone: 05-26-2022 15:12-0400 Body weight 82.[address] Coby Carmona Work Phone: [facility] Work Phone: 05-26-2022 15:12-0400 Diastolic blood pressure 86 mm[Hg] [facility]ona Work Phone[facility] [facility] Work Phone: 05-26-2022 15:12-0400 Systolic blood pressure 120 mm[Hg] Dr. Coby Carmona Work Phone: [facility] Work Phone: 02-28-2022 14:41-0400 Body height 147.[address] Coby Carmona Work Phone: [facility] Work Phone: 02-28-2022 14:41-0400 Body mass index (BMI) [Ratio] 36.6 kg/m2 Dr. Coby Carmona Work Phone: [facility] Work Phone: 02-28-2022 14:41-0400 Body weight 79.[address] Coby Carmona Work Phone: [facility] Work Phone: 02-28-2022 14:41-0400 Diastolic blood pressure 86 mm[Hg] Dr. Coby Carmona Work Phone: [facility] Work Phone: 02-28-2022 14:41-0400 Systolic blood pressure 138 mm[Hg] Dr. Coby Carmona Work Phone: [facility] Work Phone: 01-24-2022 08:23-0400 Body height 147.[address] Coby Carmona Work Phone: [facility] Work Phone: 01-24-2022 08:23-0400 Body mass index (BMI) [Ratio] 36.6 kg/m2 Dr. Coby Carmona Work Phone: [facility] Work Phone: 01-24-2022 08:23-0400 Body temperature 96.7 [degF] Dr. Coby Carmona Work Phone: [facility] Work Phone: 01-24-2022 08:23-0400 Body weight 79.[address] Coby Carmona Work Phone: [facility] Work Phone: 01-24-2022 08:23-0400 Diastolic blood pressure 80 mm[Hg] Dr. Coby Carmona Work Phone: [facility] Work Phone: 01-24-2022 08:23-0400 Heart rate 112 /min Dr. Coby Carmona Work Phone: [facility] Work Phone: 01-24-2022 08:23-0400 Respiratory rate 16 /min Dr. Coby Carmona Work Phone: [facility] Work Phone: 01-24-2022 08:23-0400 SaO2% (BldA) [Mass fraction] 99 % Dr. Coby Carmona Work Phone: [facility] Work Phone: 01-24-2022 08:23-0400 Systolic blood pressure 132 mm[Hg] Dr. Coby Carmona Work Phone: [facility] Work Phone: Encounters Encounter Date Encounter Type Care Provider Facility Start: 10-06-2025 ambulatory Coby Carmona Facili ty:[facility] Start: 09-11-2025 ambulatory Efewashley Carmona Facili ty:[facility] Start: 09-09-2025 ambulatory Ruth Thurston Facility :[facility] Start: 09-08-2025 ambulatory Ruth Thurston Facility :[facility] Start: 08-27-2025 End: 08-27-2025 ambulatory Coby Carmona Facility:[facility] Start: 08-13-2025 End: 08-13-[address] Kaycee Pathak MD -[facility] Work Phone: Start: 08-13-2025 End: 08-13-[address] Coby Carmona MD Work Phone: -[facility] Start: 08-12-2025 Registered Recurring Ruth Thurston [facility] -Nutritional Services Work Phone: Start: 08-12-2025 End: 08-29-2025 ambulatory Ruth Thurston Facility:[facility] Start: 07-28-2025 End: 07-29-2025 Discharged Recurring Ruth Thurston [facility] -Nutritional Servic es Work Phone: Start: 07-28-2025 End: 07-28-2025 Patient encounter procedure Ruth Thurston [facility] -[facility] Work Phone: Start: 07-28-2025 End: 07-29-[address] Coby Carmona MD Work Phone: -[facility] Start: 07-18-2025 End: 07-18-[address] Coby Carmona MD Work Phone: -Laboratory Start: 07-18-2025 End: 07-18-2025 Patient encounter procedure Ruth Thurston [facility] -Laboratory Work Phone: Start: 07-18-2025 End: 07-18-2025 ambulatory Ruth Thurston Facility:[facility] Start: 07-09-2025 End: 07-09-2025 Patient encounter procedure Georgette Avalos CNM -[facility] Work Phone: Start: 07-09-2025 End: 07-09-[address] Coby Carmona MD Work Phone: -[facility] Start: 07-09-2025 End: 07-09-2025 ambulatory Chapis Chavez Facility:[facility] Start: 06-11-2025 End: 06-11-[address] Chapis Chavez DO -[facility] Work Phone: Start: 06-11-2025 End: 06-11-[address] Coby Carmona MD Work Phone: [facility] [place] Start: 05-26-2025 End: 05-26-[address] Coby Carmona MD Work Phone: -Ultrasound [facility] Start: 05-26-2025 End: 05-26-2025 Patient encounter procedure Georgette Avalos CN -Ultrasound [facility] Work Phone: Start: 05-26-2025 End: 05-26-2025 ambulatory Coby Carmona Facility:[facility] Start: 05-16-2025 End: 05-16-[address] Kaycee Pathak MD -[facility] Work Phone: Start: 05-16-2025 End: 05-16-[address] Coby Carmona MD Work Phone: [facility] Start: 04-21-2025 End: 04-21-2025 Patient encounter procedure Ruth VARGAS -[facility] Work Phone: Start: 04-21-2025 End: 04-21-[address] Coby Carmona MD Work Phone: [facility] Work Phone: Start: 04-17-2025 End: 04-17-2025 Non-patient / Non-visit Dr. Janes Butler MD -[facility] Work Phone: Start: 04-17-2025 End: 04-17-[address] Coby Carmona MD Work Phone: [facility] Work Phone: Start: 04-17-2025 End: 04-17-[address] Kaycee Pathak MD -Pulmonary Services/Neurology Work Phone: Start: 04-17-2025 End: 04-17-2025 ambulatory [facility] Facility:[facility] Start: 03-25-2025 End: 03-25-2025 Patient encounter procedure Georgette Avalos CNM -[facility] Work Phone: Start: 03-25-2025 End: 03-25-[address] Coby Carmona MD Work Phone: [facility] Work Phone: Start: 02-28-2025 End: 02-28-[address] Kaycee Pathak MD -[facility] Start: 02-28-2025 End: 02-28-[address] Kaycee Pathak MD -[facility] Work Phone: Start: 02-28-2025 End: 02-28-2025 ambulatory [facility] Facility:[facility] Start: 02-28-2025 End: 02-28-2025 ambulatory [facility] Facility:[facility] Start: 02-11-2025 Non-patient / Non-visit Thuy Holt RN -[facility] Work Phone: Start: 02-11-2025 End: 02-11-2025 Patient encounter procedure Ruth VARGAS -[facility] Work Phone: Start: 02-11-2025 End: 02-11-2025 ambulatory [facility] Facility:[facility] Start: 10-06-2023 End: 10-06-[address] Coby Carmona Work Phone: [facility] Work Phone: Start: 10-06-2023 End: 10-06-[address] [facility] Start: 10-06-2023 End: 10-06-[address] Coby Carmona Work Phone: [facility] Work Phone: Start: 09-22-2023 End: 09-22-[address] Coby Carmona Work Phone: [facility] Work Phone: Start: 09-22-2023 End: 09-22-[address] Coby Carmona Work Phone: [facility]-Pulmonary Services/Neurology Work Phone: Start: 09-18-2023 End: 09-18-[address] Coby Carmona Work Phone: [facility] Work Phone: Start: 09-18-2023 End: 09-18-[address] [facility] Start: 09-15-2023 End: 09-15-[address] Coby Carmona Work Phone: [facility] Internal Medicine Work Phone: Start: 09-08-2023 End: 09-08-[address] Coby Carmona Work Phone: [facility] Work Phone: Start: 09-04-2023 End: 09-04-[address] Coby Carmona Work Phone: [facility] Work Phone: Start: 09-04-2023 End: 09-04-[address] Coby Carmona Work Phone: [facility]-Physical Therapy Work Phone: Start: 09-04-[address] Carlos Carmona Work Phone: [facility]-Physical Therapy Work Phone: Start: 06-26-[address] Carlos Carmona Work Phone: [facility]-Physical Therapy Work Phone: Start: 06-21-2023 End: 06-21-[address] Coby Carmona Work Phone: [facility] Work Phone: Start: 06-21-[address] Coby Carmona Work Phone: [facility] Start: 06-21-2023 End: 06-21-2023 Encounter for general adult medical examination without abnormal findings Dr. Coby Carmona Work Phone: [facility] Start: 06-21-2023 End: 06-21-[address] Coby Carmona Work Phone: [facility] Work Phone: Start: 06-12-[address] Kiley Carmona Work Phone: [facility]-Laboratory Work Phone: Start: 08-15-2022 End: 08-15-[address] Coby Carmona Work Phone: [facility] Work Phone: Start: 08-15-2022 End: 08-15-[address] Coby Santos Phone: [facility]-Pulmonary Services/Neurology Start: 08-15-2022 End: 08-15-[address] Coby Santos Phone: [facility] Start: 08-04-2022 End: 08-04-[address] Coby Santos Phone: [facility] Internal Medicine Start: 07-28-2022 End: 07-28-[address] Coby Santos Phone: [facility] Start: 07-15-[address] Kiley Santos Phone: [facility]-Employee Health Start: 07-05-2022 End: 07-05-[address] Coby Santos Phone: [facility] Start: 05-26-2022 End: 05-26-[address] Coby Santos Phone: [facility] Start: 03-02-[address] Carlos Santos Phone: [facility]-Physical Therapy Start: 02-28-2022 End: 02-28-[address] Coby Santos Phone: [facility]-Laboratory, Specimen Start: 02-28-2022 End: 02-28-[address] Coby Santos Phone: [facility] Start: 02-02-[address] Carlos Santos Phone: [facility]-Physical Therapy Start: 01-24-2022 End: 01-24-[address] Coby Carmona Work Phone: [facility]-Radiology, [facility] Start: 01-24-[address] Kiley [facility] Start: 01-24-2022 End: 01-24-[address] Coby Carmona Work Phone: [facility] Internal Medicine Start: 10-07-2020 End: 10-07-2020 Refill Jasmine Oneill Work Phone: [facility] Comment on above: Refill Request; Refi ll Request Procedures Date Procedure Procedure Detail Performing Clinician Start: 07-09-2025 Serologic test for syphilis Dr. Coby Carmona MD Work Phone: Start: 05-26-[address] Coby Carmona [...] therefore, no HPV testing was performed.Performed at: [address] [id number] Director: Neda Marie MD, Phone: [phone] Start: 02-28-2025 Hepatitis C antibody measurement Dr. [...] HCV Quant by PCR testing - HCVPCR #[id number] Non Reactive: < 0.8 Equivocal: >/= 0.8 [...] Treatment Date Care Activity Detail Author Start: 07-28-2025 Registered Recurring Registered Recurring -Nutritional Services Work Phone: Start: 07-28-2025 End: 07-28-2025 Patient encounter procedure [facility] Work Phone: Start: 07-09-2025 CBC W Auto Differential panel - Blood [facility] Start: 07-09-2025 Measurement of glucose 2 hours after glucose challenge for glucose tolerance test [facility] Start: 07-09-2025 Serologic test for syphilis [facility] Start: 07-09-2025 [facility] Start: 04-21-2025 [facility] Start: 06-21-2023 Patient referral [facility] Work Phone: Start: 10-04-2022 PAP TESTING PAP TESTING [facility] Start: 01-24-2022 Patient referral [facility] Work Phone: Start: 06-30-2020 Influenza vaccination INFLUENZA (#1) [facility] Start: 2014 Urine microalbumin profile DTAP,TDAP,TD (1 - Tdap) [facility] Start: 2013 HEPATITIS C SCREENING HEPATITIS C SCREENING [facility] Start: 2013 HIV SCREENING HIV SCREENING [facility] Start: 2006 HPV VACCINE (1 - 2-dose series) HPV VACCINE (1 - 2-dose series) [facility] CBC W Auto Different ial panel - Blood [facility] Electrocardiographic procedure [facility] Erythrocyte mean cor puscular volume determination [facility] anatomy study [facility] Hematocrit [Volume F raction] of Blood [facility] Hemoglobin [Mass/vol ume] in Blood [facility] Leukocytes [#/volume] in Blood [facility] Mean corpuscular hem oglobin concentration determination [facility] Mean corpuscular hem oglobin determination [facility] Measurement of gluco se 2 hours after glucose challenge for glucose tolerance test [facility] Neutrophil count [facility] Neutrophil percent differential count [facility] Patient referral [facility] Work Phone: Platelets [#/volume] in Blood [facility] Red blood cell count [facility] Red cell distributio n width determination [facility] Serologic test for syphilis [facility] Ultrasound scan for growth [facility] Immunizations Immunization Date Immunization Notes Care Provider Fa [facility] 08-18-2025 influenza, seasonal, injectable, preservative free Dr. Coby Carmona MD Work Phone: [facility] 07-28-2025 tetanus toxoid, redu sienna diphtheria toxoid, and acellular pertussis vaccine, adsorbed Dr. Coby Carmona MD Work Phone: [facility] 08-30-2024 influenza, seasonal, injectable, preservative free Dr. Coby Carmona MD Work Phone: [facility] 08-07-2023 influenza, injectabl e, quadrivalent, preservative free Dr. Coby Carmona Work Phone: [facility] 2022 Hepatitis B vaccine (recombinant), CpG adjuvanted Dr. Coby Carmona Work Phone: [facility] 07-20-2022 Hepatitis B vaccine (recombinant), CpG adjuvanted Dr. Coby Carmona Work Phone: [facility] 07-15-2022 influenza, injectabl e, quadrivalent, preservative free Dr. Coby Camrona Work Phone: [facility] 07-15-2022 influenza, seasonal, injectable Dr. Coby Carmona Work Phone: [facility] Payers Date Payer Category Payer Self-pay [id number] 2025 Unknown [id number] 2025 Unknown [id number] 2018 Unknown [employer] PPO [id number] 2018-Present PPO [id number] Unknown [id number] Unknown [id number] Unknown [facility] [id number] Unknown [id number] Unknown [id number] [id number] Unknown [id number] [id number]2 Unknown [id number] 2.16.840.1.920163.3.579.2.462 Unknown [id number] 2.16.840.1.572659.3.579.2.462 Unknown [id number] 2.16.840.1.103608.3.579.2.462 Unknown [id number] 2.16.840.1.053223.3.579.2.462 Unknown [id number] 2.16.840.1.960422.3.579.2.462 Unknown [id number] 2.16840.1.017908.3.579.2.462 Unknown [id number] 2.840.1.383678.3.579.2.462 Unknown [id number] 2.840.1.505219.3.579.2.462 Unknown [id number] 2.840.1.763019.3.579.2.462 Unknown [id number] 2.840.1.457027.3.579.2.462 Unknown [id number] 2.840.1.508886.3.579.2.462 Unknown [id number] 2.840.1.678229.3.579.2.462 Unknown [id number] 2.840.1.875357.3.579.2.462 Unknown [id number] 2.840.1.306837.3.579.2.462 Unknown [id number] 2.840.1.479677.3.579.2.462 Unknown [id number] 2.840.1.048627.3.579.2.462 Unknown [id number] 2.840.1.934215.3.579.2.462 Unknown [id number] 2.16840.1.833057.3.579.2.462 Unknown [id number] 2.840.1.164300.3.579.2.462 Unknown [id number] 2.840.1.820960.3.579.2.462 Social History Date Type Detail Facility Start: 10-04-2019 End: 03-25-2025 Tobacco smoking status NHIS Never smoker [facility] Start: 10-04-2019 Tobacco use and exposure Never used [facility] Start: 10-04-2019 Alcohol intake 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) [facility] Start: 1995 Sex Assigned At Not on file C [facility] Start: 01-24-2022 End: 10-06-2023 Tobacco smoking status NHIS Unknown if ever smoked [facility] Start: 1995 Sex Assigned At Female [facility] Sex Female [facility] Procedure Code Equipment Code Equipment Origin al Text Equipment Identifier Dates Blood Sugar Diagnostic (Blood Glucose Test) strip Start: 07-21-2025 Lancets misc Start: 07-21-2025 Blood Sugar Diagnostic (Blood Glucose Test) strip Start: 07-21-2025 Lancets misc Start: 07-21-2025 Blood Sugar Diagnostic (Blood Glucose Test) strip Start: 07-21-2025 Lancets misc Start: 07-21-2025 Blood Sugar Diagnostic (Blood Glucose Test) strip Start: 07-21-2025 Lancets misc Start: 07-21-2025 Blood Sugar Diagnostic (Blood Glucose Test) strip Start: 07-21-2025 Lancets misc Start: 07-21-2025 Clinical Notes 10-26-2023 to 08-13-2025 Note Date & Type Note Facility 08-13-2025 Progress note [facility] 08-13-2025 Progress note Note Date/Time August 13, 2025 4:29pm [facility] [address], [address] [place] [address] OFFICE VISIT Date of Service: 08/13/25 MR#: [id number] Acct: [id number] Name: MARITA BERGERON Rep #: [id number] : 1995 Provider: Dr. 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: No Is patient in pain?: No Allergies No Known Allergies Allergy (Verified 08/13/25 15:21) Medications ?Medication ?Instructions ?Recorded ?Confirmed ?Type docosahexaenoic acid 200 mg mg PO 02/11/25 08/13/25 Hi story capsule ( DHA) aspirin 81 mg tablet 81 mg PO QDAY 06/11/2508/13 History blood sugar diagnostic (Blood #120 ea 07/21/25 5 Rx Glucose Test strips) blood-glucose meter #1 ea 07/21/25 08/13/25 Rx lancets #200 ea 07/21/25 08/13/25 Rx Last Menstrual Period: 12/29/24 Zika: Zika virus screening: Negative : [facility] Medical History (Updated 08/13/25 @ 16:[address] 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 OB Visit KUNAL Calculator Estimated Delivery Date Method Current WG Current Estimate 10/06/25 LMP (Certain) 32w 2d Other Estimates 10/12/25 Ultrasound #1 31w 3d Expected Delivery Route/Plan Labor Preferences- CB/BF classes: done labor support person: yes labor intervention preferences: Radha pain management options preferred: open to epidural when requested cut cord/dad catch: yes : yes PP control planned: [] discussed possible routes of delivery and associated risks: [] special requests: [] Specific Issue/Plans Covid status: [] Flu vaccine: [] Tdap vaccine: yes Rhogam: na LARC form signed: yes Problem list reviewed and updated with the most current plan of care details and appropriate orders placed. Relevant counseling for the gestational age provided. Continue routine care and follow up unless otherwise noted in visit notes/problem list details Initial Weight: 186 lb Date -?-?-?-?-?-?-?-?-?-?-?-?- EGA Weight BP Urine Prot -?-?-?-?-?-?-?-?-?-?-?-?- Glucose FHR FuHt Pres Dilation -?-?-?-?-?-?-?-?-?-?-?-?- Effaced St Visit Note 02/28/25 -?-?--?-?-?-?-?-?-?-?-?-?- 8w 4d 186 lb 8 oz (+8 [...] labs today. LARC today. tdap next visit. 07/28/25 -?-?-?-?-?-?-?-?-?-?-?-?- 30w 0d 192 lb 8 oz (+6 lb 8 oz) 123/80 Negative -?-?-?-?-?-?-?-?-?-?-?-?- Negative 143 31 -?-?-?-?-?-?-?-?-?-?-?-?- MH-no VB, LOF. G ood FM. GDM and 1 wk of testing and >90% reading WNL. Seeing dietitian today. Tdap given 08/13/25 -?-?-?-?-?-?-?-?-?-?-?-?- 32w 2d 192 lb 8 oz (+6 lb 8 oz) 129/72 Negative -?-?-?-?-?-?-?-?-?-?-?-?- Negative 155 32 -?-?-?-?-?-?-?-?-?-?-?-?- Sm- BS controlle d no vb lof good fm no regular ctx ACOG First Trimester First Trimester: Discussed Second Trimester Second Trimester: Signs and Symptoms of Labor and Selecting a care provider Third Trimester Third Trimester: Pain Management Plans, Labor support person(s), Immediate Larc, Circumcision preference, Signs and Symptoms of Preeclampsia, Infant Feeding No and Family Medical Leave or Disability Forms Results POC Urinalysis 2 Dip (Clinic) Office Urine Glucose Negative Last Edit by Ruth Mahoney on 08/13/25 15:32 Office Urine Protein Negative Last Edit by Ruth Mahoney on 08/13/25 15:32 Coding Level of Care Code OB Routine Diagnoses Diet controlled gestational diabetes mellitus (GDM) in third trimester O24.410 Gestational diabetes mellitus control: diet-controlled Trimester: third trimester Obesity affecting in second trimester, unspecified obesity type O99.212 Obesity type affecting : unspecified obesity Trimester: second trimester Supervision of high risk in third trimester O09.93 Trimester: third trimester 32 weeks gestation of Z3A.32 Weeks of gestation: 32 weeks PCOS (polycystic ovarian syndrome) E28.2 Assessment and Plan Assessment and Plan (1) Gestational diabetes: Status: Acute Qualifiers: Gestational diabetes mellitus control: diet-controlled Trimester: third trimester Qualified Code(s): O24.410 - Gestational diabetes mellitus in , diet controlled Comment: QID glucose testing, ref dietitian, 36 wk growth US (2) Obesity affecting : Status: Acute Qualifiers: Obesity type affecting : unspecified obesity Trimester: second trimester Qualified Code(s): O99.212 - Obesity complicating , second trimester Comment: BMI 38.7, HgBA1C ordered with NOB (3) Supervision of high-risk : Status: Acute Qualifiers: Trimester: third trimester Qualified Code(s): O09.93 - Supervision of high risk , unspecified, third trimester Comment: PRR , KUNAL 10/12/25, boy : Radha (4) : Status: Acute Qualifiers: Weeks of gestation: 32 weeks Qualified Code(s): Z3A.32 - 32 weeks gestation of Comment: normal anatomy, Discussed genetic/carrier/ntd testing - declined. (5) PCOS (polycystic ovarian syndrome): Status: Chronic Comment: hga1c. encouraged healthy weight gain Orders: Orders POC Urinalysis 2 Dip (Clinic) Today 08/13/25 6311 <Electronically signed by Kaycee altman MD> Date _ Kaycee Pathak MD Cosign Signature: Date (if applicable) CC: ~ [facility] Work Phone: 1(464) 955-751809-29-2025 [facility] [address], [address] [place] [id number] OFFICE VISIT Date of Service: 07/28/25 MR#: [id number] Acct: [id number] Name: MARITA BERGERON Rep #: [id number] : 1995 Provider: ALICIA Thurston Age/Sex: 29/F Location: [facility] Status: Signed with Addenda ADDENDUM by Aura Bales on 07/28/25 at 1421 Office Procedure Documentation entered by Aura Bales 07/28/25 14:21: Immunizations Adacel(Tdap Adolesn/Adult)(PF) 2 Lf-(2.5-5-3-5)-5 Lf/0.5 mL IM syringe Performing Provider: Ruth Thurston NP, ALICIA Performing Location: [facility] Administered by: Aura Bales on 07/28/25 14:20 Dose Route Admin Location Dispensed Lot Number Expiration Date Pack age NDC NDC Intensive Care Unit Registered Nurse 0.5 mL IM Left Deltoid 0.5 mL [id number] 06/29/27 95905-464-09 [id number] SANOFI- PASTEUR VIS Given Date VIS Provided VIS Publication Date 07/28/25 Single Vaccine 24 Eligibility Eligibility Date Funding Source Not Applicable Date _ cc: ~* Signed Intake Vital Signs 06/11/25 14:12 07/09/25 14:27 07/28/25 13:56 Height 4 ft 10 in 4 ft 10 in 4 ft 10 in Weight: 192 lb 8 oz BMI 40.2 BP 123/80 H Intake Visit Reasons: 30wk ob Chief Complaint: 30 Week OB Online Marketer Required: No Is patient in pain?: No Allergies No Known Allergies Allergy (Verified 07/28/25 13:58) Medications ?Medication ?Instructions ?Recorded ?Confirmed ?Type docosahexaenoic acid 200 mg mg PO 02/11/25 07/28/25 Hi story capsule ( DHA) aspirin 81 mg tablet 81 mg PO QDAY 06/11/2507/28 History blood sugar diagnostic (Blood #120 ea 07/21/25 5 Rx Glucose Test strips) blood-glucose meter #1 ea 07/21/25 07/28/25 Rx lancets #200 ea 07/21/25 07/28/25 Rx Last Menstrual Period: 12/29/24 Zika: Zika virus screening: Negative : Yes PFSH PFSH Medical History Palpitations Sinus tachycardia by electrocardiogram Hypertension PCOS (polycystic ovarian syndrome) Chronic back pain Surgical History S/P wisdom tooth extraction Family History Grandmother Myocardial infarction Diabetes Grandfather Myocardial infarction Grandmother Colon cancer Social History adopted: No household members: spouse housing: house current occupational status: employed 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 OB Visit KUNAL Calculator Estimated Delivery Date Method Current WG Current Estimate 10/06/25 LMP (Certain) 30w 0d Other Estimates 10/12/25 Ultrasound #1 29w 1d Expected Delivery Route/Plan Labor Preferences- CB/BF classes: done labor support person: yes labor intervention preferences: Radha pain management options preferred: open to epidural when requested cut cord/dad catch: yes : yes PP control planned: [] discussed possible routes of delivery and associated risks: [] special requests: [] Specific Issue/Plans Covid status: [] Flu vaccine: [] Tdap vaccine: yes Rhogam: na LARC form signed: yes Problem list reviewed and updated with the most current plan of care details and appropriate ordersplaced. Relevant counseling for the gestational age provided. Continue routine care and follow up unless otherwise noted in visit notes/problem list details Initial Weight: 186 lb Date -?-?-?-?-?-?-?-?-?-?-?-?- EGA Weight BP Urine Prot -?-?-?-?-?-?-?-?-?-?-?-?- Glucose FHR FuHt Pres Dilation -?-?-?-?-?-?--?-?-?-?-?-?- Effaced St Visit Note 02/28/25 -?-?-?-?-?-?-?-?-?-?-?-?- 8w 4d 186 lb 8 oz (+8 oz) 123/80 -?-?-?-?-?-?-?-?-?-?-?-?- 170 -?-?-?-?-?-?-?-?-?-?-?-?- SM- crl 1.4 cm n ot cons with lmp 03/25/25 -?-?-?-?-?-?-?-?-?-?-?-?- 12w 1d 186 lb 4 oz (+4 oz) 138/87 Negative -?-?-?-?-?-?-?-?-?-?-?-?- Negative 168 -?-?-?-?-?-?-?-?-?-?-?-?- KW- no vb/crampi ng. ordered. start asa 81 mg. 04/21/25 -?-?-?-?-?-?-?-?-?-?-?-?- [...] labs today. LARC today. tdap next visit. 07/28/25 -?-?-?-?-?-?-?-?-?-?-?-?- 30w 0d 192 lb 8 oz (+6 lb 8 oz) 123/80 Negative -?-?-?-?-?-?-?-?-?-?-?-?- Negative 143 31 -?-?-?-?-?-?-?-?-?-?-?-?- MH-no VB, LOF. G ood FM. GDM and 1 wk of testing and >90% reading WNL. Seeing dietitian today. Tdap given ACOG First Trimester First Trimester: Second Trimester Second Trimester: Signs and Symptoms of Labor and Selecting a care provider Third Trimester Third Trimester: Pain Management Plans, Labor support person(s), Immediate Larc, Circumcision preference Yes Yes, Signs and Symptoms of Preeclampsia, Feeding Yes and Family Medical Leave or Disability Forms ROS Const Reports system reviewed and no additional complaints, except as documented GI Denies abdominal pain, Denies nausea and Denies vomiting Exam Const General: cooperative Nutritional Appearance: well nourished GI Palpation: soft, nontender and other (gravid) Results POC Urinalysis 2 Dip (Clinic) Office Urine Glucose Negative Last Edit by Aura Bales on 07/28/25 14 :06 Office Urine Protein Negative Last Edit by Aura Bales on 07/28/25 14 :06 Coding Level of Care Code OB Routine Diagnoses Supervision of high risk in third trimester O09.93 Trimester: third trimester Diet controlled gestational diabetes mellitus (GDM) in third trimester O24.410 Gestational diabetes mellitus control: diet-controlled Trimester: third trimester 30 weeks gestation of Z3A.30 Weeks of gestation: 30 weeks Obesity affecting in second trimester, unspecified obesity type O99.212 Obesity type affecting : unspecified obesity Trimester: second trimester Hypertension, unspecified type I10 Hypertension type: unspecified PCOS (polycystic ovarian syndrome) E28.2 Assessment and Plan Assessment and Plan (1) Supervision of high-risk : Status: Acute Qualifiers: Trimester: third trimester Qualified Code(s): O09.93 - Supervision of high risk , unspecified, third trimester Comment: PRR , KUNAL 10/12/25, boy : Radha (2) Gestational diabetes: Status: Acute Qualifiers: Gestational diabetes mellitus control: diet-controlled Trimester: third trimester Qualified Code(s): O24.410 - Gestational diabetes mellitus in , diet controlled Comment: QID glucose testing, ref dietitian, 36 wk growth US (3) : Status: Acute Qualifiers: Weeks of gestation: 30 weeks Qualified Code(s): Z3A.30 - 30 weeks gestation of Comment: normal anatomy, Discussed genetic/carrier/ntd testing - declined. (4) Obesity affecting : Status: Acute Qualifiers: Obesity type affecting : unspecified obesity Trimester: second trimester Qualified Code(s): O99.212 - Obesity complicating , second trimester Comment: BMI 38.7, HgBA1C ordered with NOB (5) Hypertension: Status: Chronic Qualifiers: Hypertension type: unspecified Qualified Code(s): I10 - Essential (primary) hypertension Comment: Nml BP readings x1year, medicine in the past but not at present (6) PCOS (polycystic ovarian syndrome): Status: Chronic Comment: hga1c. encouraged healthy weight gain Orders: Orders POC Urinalysis 2 Dip (Clinic) Today Tdap Immunization Today Z23 - Encounter for immunization Medications: New Adacel(Tdap Adolesn/Adult)(PF) 0.5 mL IM ONCE 0.5 mL 0RF NS Z23 - Encounter for immunization Plan problem list reviewed and updated for most current plan of care and appropriate orders placed. Relevant counseling for the gestational age appropriate provided and ACOG education checklist updated. Continue routine care and follow up. 07/28/25 1420 s SKETCH LINER SKETCH LINER-C> Date _ Ruth Thurston SKETCH LINER SKETCH LINER-C Cosigner Signature: Date (if applicable) CC: ~ [facility]09-29-2025 Progress note Author Ruth Thurston [facility] Note Date/Time July 28, 2025 2:19pm [facility] [address] [place] [address], [address] [place] [address] OFFICE VISIT Date of Service: 07/28/25 MR#: [id number] Acct: [id number] Name: MARITA BERGERON Rep #: [id number] : 1995 Provider: ALICIA Thurston Age/Sex: 29/F Location: [facility] Status: Signed with Addenda ADDENDUM by Aura Bales on 07/28/25 at 1421 Office Procedure Documentation entered by Aura Bales 07/28/25 14:21: Immunizations Adacel(Tdap Adolesn/Adult)(PF) 2 Lf-(2.5-5-3-5)-5 Lf/0.5 mL IM syringe Performing Provider: Ruth Thurston NP, ALICIA [place]forming [place] [facility] [place] [place] Administered by: Aura Bales on 07/28/25 14:20 Dose Route Admin Location Dispensed Lot Number Expiration Date Pack age NDC NDC Intensive Care Unit Registered Nurse 0.5 mL IM Left Deltoid 0.5 mL [id number] 06/29/27 31878-242-70 [id number] SANyoucalc- PASTEUR VIS Given Date VIS Provided VIS Publication Date 07/28/25 Single Vaccine 24 Eligibility Eligibility Date Funding Source Not Applicable Date _ cc: ~* Signed Intake Vital Signs 06/11/25 14:12 07/09/25 14:27 07/28/25 13:56 Height 4 ft 10 in 4 ft 10 in 4 ft 10 in Weight: 192 lb 8 oz BMI 40.2 BP 123/80 H Intake Visit Reasons: 30wk ob Chief Complaint: 30 Week OB Online Marketer Required: No Is patient in pain?: No Allergies No Known Allergies Allergy (Verified 07/28/25 13:58) Medications ?Medication ?Instructions ?Recorded ?Confirmed ?Type docosahexaenoic acid 200 mg mg PO 02/11/25 07/28/25 Hi story capsule ( DHA) aspirin 81 mg tablet 81 mg PO QDAY 06/11/2507/28 History blood sugar diagnostic (Blood #120 ea 07/21/25 5 Rx Glucose Test strips) blood-glucose meter #1 ea 07/21/25 07/28/25 Rx lancets #200 ea 07/21/25 07/28/25 Rx Last Menstrual Period: 12/29/24 Zika: Zika virus screening: Negative : Yes PFS PFS Medical History Palpitations Sinus tachycardia by electrocardiogram Hypertension PCOS (polycystic ovarian syndrome) Chronic back pain Surgical History S/P wisdom tooth extraction Family History Grandmother Myocardial infarction Diabetes Grandfather Myocardial infarction Grandmother Colon cancer Social History adopted: No household members: spouse housing: house current occupational status: employed 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 OB Visit KUNAL Calculator Estimated Delivery Date Method Current WG Current Estimate 10/06/25 LMP (Certain) 30w 0d Other Estimates 10/12/25 Ultrasound #1 29w 1d Expected Delivery Route/Plan Labor Preferences- CB/BF classes: done labor support person: yes labor intervention preferences: Radha pain management options preferred: open to epidural when requested cut cord/dad catch: yes : yes PP control planned: [] discussed possible routes of delivery and associated risks: [] special requests: [] Specific Issue/Plans Covid status: [] Flu vaccine: [] Tdap vaccine: yes Rhogam: na LARC form signed: yes Problem list reviewed and updated with the most current plan of care details and appropriate orders placed. Relevant counseling for the gestational age provided. Continue routine care and follow up unless otherwise noted in visit notes/problem list details Initial Weight: 186 lb Date -?-?-?-?-?-?-?-?-?-?-?-?- EGA Weight BP Urine Prot -?-?-?-?-?-?-?-?-?-?-?-?- Glucose FHR FuHt Pres Dilation -?-?-?-?-?-?--?-?-?-?-?-?- Effaced St Visit Note 02/28/25 -?-?-?-?-?-?-?-?-?-?-?-?- 8w [...] labs today. LARC today. tdap next visit. 07/28/25 -?-?-?-?-?-?-?-?-?-?-?-?- 30w 0d 192 lb 8 oz (+6 lb 8 oz) 123/80 Negative -?-?-?-?-?-?-?-?-?-?-?-?- Negative 143 31 -?-?-?-?-?-?-?-?-?-?-?-?- MH-no VB, LOF. G ood FM. GDM and 1 wk of testing and >90% reading WNL. Seeing dietitian today. Tdap given ACOG First Trimester First Trimester: Second Trimester Second Trimester: Signs and Symptoms of Labor and Selecting a care provider Third Trimester Third Trimester: Pain Management Plans, Labor support person(s), Immediate Larc, Circumcision preference Yes Yes, Signs and Symptoms of Preeclampsia, Infant Feeding Yes and Family Medical Leave or Disability Forms ROS Const Reports system reviewed and no additional complaints, except as documented GI Denies abdominal pain, Denies nausea and Denies vomiting Exam Const General: cooperative Nutritional Appearance: well nourished GI Palpation: soft, nontender and other (gravid) Results POC Urinalysis 2 Dip (Clinic) Office Urine Glucose Negative Last Edit by Aura Bales on 07/28/25 14 :06 Office Urine Protein Negative Last Edit by Aura Bales on 07/28/25 14 :06 Coding Level of Care Code OB Routine Diagnoses Supervision of high risk in third trimester O09.93 Trimester: third trimester Diet controlled gestational diabetes mellitus (GDM) in third trimester O24.410 Gestational diabetes mellitus control: diet-controlled Trimester: third trimester 30 weeks gestation of Z3A.30 Weeks of gestation: 30 weeks Obesity affecting in second trimester, unspecified obesity type O99.212 Obesity type affecting : unspecified obesity Trimester: second trimester Hypertension, unspecified type I10 Hypertension type: unspecified PCOS (polycystic ovarian syndrome) E28.2 Assessment and Plan Assessment and Plan (1) Supervision of high-risk : Status: Acute Qualifiers: Trimester: third trimester Qualified Code(s): O09.93 - Supervision of high risk , unspecified, third trimester Comment: PRR , KUNAL 10/12/25, boy : Radha (2) Gestational diabetes: Status: Acute Qualifiers: Gestational diabetes mellitus control: diet-controlled Trimester: third trimester Qualified Code(s): O24.410 - Gestational diabetes mellitus in , diet controlled Comment: QID glucose testing, ref dietitian, 36 wk growth US (3) : Status: Acute Qualifiers: Weeks of gestation: 30 weeks Qualified Code(s): Z3A.30 - 30 weeks gestation of Comment: normal anatomy, Discussed genetic/carrier/ntd testing - declined. (4) Obesity affecting : Status: Acute Qualifiers: Obesity type affecting : unspecified obesity Trimester: second trimester Qualified Code(s): O99.212 - Obesity complicating , second trimester Comment: BMI 38.7, HgBA1C ordered with NOB (5) Hypertension: Status: Chronic Qualifiers: Hypertension type: unspecified Qualified Code(s): I10 - Essential (primary) hypertension Comment: Nml BP readings x1year, medicine in the past but not at present (6) PCOS (polycystic ovarian syndrome): Status: Chronic Comment: hga1c. encouraged healthy weight gain Orders: Orders POC Urinalysis 2 Dip (Clinic) Today Tdap Immunization Today Z23 - Encounter for immunization Medications: New Adacel(Tdap Adolesn/Adult)(PF) 0.5 mL IM ONCE 0.5 mL 0RF NS Z23 - Encounter for immunization Plan problem list reviewed and updated for most current plan of care and appropriate orders placed. Relevant counseling for the gestational age appropriate provided and ACOG education checklist updated. Continue routine care and follow up. 07/28/25 1420 <Electronically signed by Ruth abarca NP SKETCH LINER-C> Date _ Ruth Thurston NP SKETCH LINER-C Pauly Signature: Date (if applicable) CC: ~ [facility] Work Phone: 1(781) 939-689309-10-2025 [facility] [address] [place] [address], [address] [place] [address] OFFICE VISIT Date of Service: 07/09/25 MR#: [id number] Acct: [id number] Name: MARITA BERGERON Rep #: [id number] : 1995 Provider: CHUY Avalos Age/Sex: 29/F Location: [facility] Status: Signed Intake Vital Signs 05/16/25 14:39 06/11/25 14:12 07/09/25 14:27 Height 4 ft 10 in 4 ft 10 in 4 ft 10 in Weight: 190 lb 7 oz BMI 39.8 BP 136/83 H Intake Visit Reasons: 27wk ob/glucose Chief Complaint: 27wk OB/Glucose Online Marketer Required: No Is patient in pain?: No [...] house current occupational status: employed 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 GA appropriate handout given. 07/09/25 1503 s CNM> Date _ Georgette Avalos CNM Cosigner Signature: Date (if applicable) CC: ~ [facility]09-10-2025 Progress note Author Georgette Avalos [facility] Note Date/Time July 09, 2025 3:03pm [facility] [address], [address] [place] [address] OFFICE VISIT Date of Service: 07/09/25 MR#: [id number] Acct: [id number] Name: MARITA BERGERON Rep #: [id number] : 1995 Provider: CHUY Avalos Age/Sex: 29/F Location: [facility] Status: Signed Intake Vital Signs 05/16/25 14:39 06/11/25 14:12 07/09/25 14:27 Height 4 ft 10 in 4 ft 10 in 4 ft 10 in Weight: 190 lb 7 oz BMI 39.8 BP 136/83 H Intake Visit Reasons: 27wk ob/glucose Chief Complaint: 27wk OB/Glucose Online Marketer Required: No Is patient in pain?: No [...] house current occupational status: employed 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/hazards: [...] 3-4 times per week duration: 15-30 minutes/day josselyn/yazidi: Faith seatbelt use: always do you feel safe at home: Yes 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 History 1 Elective abortions Hx Para 0 Spontaneous abortions 0 Hx # Term Pregnancies Ectopic pregnancies Hx # Pregnancies Multiple births # of living children HPI 27wk ob/glucose Details: MARITA BALES is a 29 year old who presents [...] Cosigner Signature: Date (if applicable) CC: ~ [facility] Work Phone: 1(684) 657-808007-29-2025 Radiology Diagnostic study note [facility] Imaging Services [address] [place], [place] [address] OB Anatomy Scan MR#: [id number] Acct: [id number] Name: MARITA BERGERON Rep #: [id number] : 1995 F 29 From: Quintin Lambert MD PCP: Dr. Coby Carmona MD Status: R EG CLI Study:OB Anatomy Scan Date of Exam: 04/30 06/23 Exam# [id number] Ordering Dr: Georgette Avalos CNM PROCEDURE: OB [...] of 20 weeks and 2days. Reading Location: [id number] CC: CHUY Avalos; Dr. Coby Carmona MD ~ Hand Embroiderer: Signed [facility]07-18-2025 Evaluation note* Diagnosis Onset Date Resolution Status Admit Date Obesity affecting acute May 16, 2025 2:35pm acute May 16 2:35pm Supervision of high-risk acute May 16, 2025 2:35pm PCOS (polycystic ovarian syndrome) chronic May 16, 2025 2:35pm Hypertension resolved May 16, 025 2:35pm Obesity affecting acute June 11, 2025 2:08pm acute June 11, 025 2:08pm Supervision of high-risk acute June 11 2:08pm PCOS (polycystic ovarian syndrome) chronic June 11 2:08pm Hypertension resolved June 11, 2025 2:08pm Obesity affecting acute July 09, 2025 2:12pm acute June 2:12pm Supervision of high-risk acute July 09, 2025 2:12pm PCOS (polycystic ovarian syndrome) chronic July 09, 2025 2:12pm Hypertension resolved July 092024 2:12pm Gestational diabetes acute Jun 1:54pm Obesity affecting acute July 28, 2025 1:54pm acute June 1:54pm Supervision of high-risk acute July 28, 2025 1:54pm PCOS (polycystic ovarian syndrome) chronic July 28, 2025 1:54pm Hypertension resolved July 282024 1:54pm Gestational diabetes acute 2024 3:20pm Obesity affecting acute August 13, 2025 3:20pm acute August 13, 2025 3:20pm Supervision of high-risk acute August 13 3:20pm PCOS (polycystic ovarian syndrome) chronic August 13 3:20pm [facility] Work Phone: [phone]) [phone] [facility] [address], [address] [place] [address] OFFICE VISIT Date of Service: 05/16/25 MR#: [id number] Acct: [id number] Name: MARITA BERGERON Rep #: [id number] : 1995 Provider: Dr. 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: [...] 3-4 times per week duration: 15-30 minutes/day josselyn/yazidi: Faith seatbelt use: always do you feel safe at home: Yes 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 History 1 Elective abortions Hx Para 0 Spontaneous abortions 0 Hx # Term Pregnancies Ectopic pregnancies Hx # Pregnancies Multiple births # of living children HPI 19 wk ob Details: MARITA BALES is a 29 year old who presents [...] Urinalysis 2 Dip (Clinic) Today 05/16/25 1528 anupama MANUEL> Date _ Kaycee Pathak MD Cosigner Signature: Date (if applicable) CC: ~ [facility]07-18-2025 Progress note Author Kaycee Pathak [facility] Note Date/Time May 16, 2025 3:28 pm [facility] [address] [place] [address], [address] [place] [address] OFFICE VISIT Date of Service: 05/16/25 MR#: [id number] Acct: [id number] Name: CAMERON BALESMARITAKRISTA STEPHENSON Rep #: [id number] : 1995 Provider: Dr. 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: [...] 3-4 times per week duration: 15-30 minutes/day josselyn/yazidi: Faith seatbelt use: always do you feel safe at home: Yes 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 History 1 Elective abortions Hx Para 0 Spontaneous abortions 0 Hx # Term Pregnancies Ectopic pregnancies Hx # Pregnancies Multiple births # of living children HPI 19 wk ob Details: MARITA BALES is a 29 year old who presents [...] Cosigner Signature: Date (if applicable) CC: ~ [facility] [employer] Work Phone: [phone]) 180-979706-23-2025 Evaluation note* Diagnosis Onset Date Resolution Status Admit Date Obesity affecting acute April 21, 2025 2:50pm [...] June 11, 2025 2:08pm acute June 11, 2 025 2:08pm Supervision of high-risk acute June 11 2:08pm Hypertension chronic June 11, 2025 2:08pm PCOS (polycystic ovarian syndrome) chronic June 11 2:08pm Obesity affecting acute July 09, 2025 2:12pm acute June 2:12pm Supervision of high-risk acute July 09, 2025 2:12pm Hypertension chronic July 092024 2:12pm PCOS (polycystic ovarian syndrome) chronic July 09, 2025 2:12pm Gestational diabetes acute Jun 1:54pm Obesity affecting acute July 28, 2025 1:54pm acute June 1:54pm Supervision of high-risk acute July 28, 2025 1:54pm Hypertension chronic July 282024 1:54pm PCOS (polycystic ovarian syndrome) chronic July 28, 2025 1:54pm [facility] Work Phone: 1(567) 973-765205-27-2025 Evaluation note* Diagnosis Onset Date Resolution Status [...] June 11, 2025 2:08pm acute June 11, 2 025 2:08pm Supervision of high-risk acute June 11 2:08pm Hypertension chronic June 11, 2025 2:08pm PCOS (polycystic ovarian syndrome) chronic June 11 2:08pm Obesity affecting acute July 09, 2025 2:12pm acute June 2:12pm Supervision of high-risk acute July 09, 2025 2:12pm Hypertension chronic July 092024 2:12pm PCOS (polycystic ovarian syndrome) chronic July 09, 2025 2:12pm [facility] Work Phone: 1(836) 978-960105-27-2025 Progress [facility] [address], [address] [place] [id number] OFFICE VISIT Date of Service: 03/25/25 MR#: [id number] Acct: [id number] Name: MARITA BERGERON Rep #: [id number] : 1995 Provider: CHUY Avalos Age/Sex: 29/F Location: [facility] Status: Signed Intake Vital Signs 09/06/24 10:59 02/28/25 13:03 03/25/25 13:40 Height 4 ft 10 in 4 ft 10 in 4 ft 10 in Weight: 186 lb 4 oz BMI 38.9 BP 138/87 H Intake Visit Reasons: 11 wk OB Chief Complaint: 11wk OB Online Marketer Required: No Is patient in pain?: No [...] house current occupational status: employed 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/hazards: [...] 3-4 times per week duration: 15-30 minutes/day josselyn/yazidi: Faith seatbelt use: always do you feel safe at home: Yes 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 [place] [address], [address] [place] [address] OFFICE VISIT Date of Service: 03/25/25 MR#: [id number] Acct: [id number] Name: MARITA BERGERON Rep #: [id number] : 1995 Provider: CHUY Avalos Age/Sex: 29/F Location: [facility] Status: Signed Intake Vital Signs 09/06/24 10:59 02/28/25 13:03 03/25/25 13:40 Height 4 ft 10 in 4 ft 10 in 4 ft 10 in Weight: 186 lb 4 oz BMI 38.9 BP 138/87 H Intake Visit Reasons: 11 wk OB Chief Complaint: 11wk OB Online Marketer Required: No Is patient in pain?: No [...] house current occupational status: employed 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/hazards: [...] 3-4 times per week duration: 15-30 minutes/day josselyn/yazidi: Faith seatbelt use: always do you feel safe at home: Yes 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 History 1 Elective abortions Hx Para 0 Spontaneous abortions 0 Hx # Term Pregnancies Ectopic pregnancies Hx # Pregnancies Multiple births # of living children HPI 11 wk OB Details: MARITA BALES is a 29 year old who presents [...] fallen in the past year?: No 03/25/25 3437 <Electronically signed by Georgette abarca CNM> Date _ Georgette Avalos CNM Cosigner Signature: Date (if applicable) CC: ~ [facility] Work Phone: 1(691) 445-549105-02-2025 Evaluation note* Diagnosis Onset Date Resolution Status [...] syndrome) chronic March 25, 2025 1 :36pm [facility] Work Phone: 1(542) 475-257905-02-2025 Evaluation note* Diagnosis Onset Date Resolution Status [...] Hypertension chronic April 21, 2 025 2:50pm PCOS (polycystic ovarian syndrome) chronic April 21, 2025 2:50pm [facility] Work Phone: 1([phone]) [phone] Evaluation note* Diagnosis Onset Date Resolution Status [...] Hypertension chronic April 21, 2 025 2:50pm [facility] Work Phone: 1(213) 612-465405-02-2025 Evaluation note* Diagnosis Onset Date Resolution Status [...] ovarian syndrome) chronic May 16, 2025 2:35pm [facility] Work Phone: 1(678) 394-221405-02-2025 Evaluation note* Diagnosis Onset Date Resolution Status [...] June 11, 2025 2:08pm acute June 11, 2 025 2:08pm Supervision of high-risk acute June 11 2:08pm Hypertension chronic June 11, 2025 2:08pm PCOS (polycystic ovarian syndrome) chronic June 11 2:08pm [facility] Work Phone: 1([phone]) 655-668312-28-2023 Discharge summary Author Chela Almaguer [facility] October 26, 2023 9:07am Note Date/Time October 26, 2023 9:08am [facility] Physical Therapy [facility] [address] [place] [address] [address] [place] [address] / REHABILITATION SERVICES DISCHARGE SUMMARY MR#: [id number] Acct: [id number] Name: MARITA BERGERON Rep #: [id number] : 1995 28 From: Chela Estes Referring Dr.: Dr. Coby Carmona MD Status : REG RCR Insurance: [facility] [employer] SELF PAY INSURANCE Patient Information Patient Information: MARITA BALES was seen in my office for initial [...] Dr. Coby Carmona MD ~ ELR Signed [facility] Work Phone: evaluation note* Diagnosis Onset Date Resolution Status Elevated blood-pressure read ing without diagnosis of hypertension acute Chronic back pain chronic Left shoulder pain chronic PCOS (polycystic ovarian syndrome) chronic Shoulder tendinitis chronic [facility] Work Phone: Evaluation note* Diagnosis Onset Date Resolution Status Elevated blood-pressure read ing without diagnosis of hypertension acute Chronic back pain chronic Left shoulder pain chronic PCOS (polycystic ovarian syndrome) chronic Shoulder tendinitis chronic Anxiety acute White coat syndrome without diagnosis of hypertension acute [facility] Work Phone: Evaluation note* Diagnosis Onset Date Resolution Status Anxiety acute Metabolic syndrome acute Other obesity acute Chronic back pain chronic Hypertension chronic PCOS (polycystic ovarian syndrome) chronic Other obesity acute Encounter for school health examination acute Metabolic syndrome acute PCOS (polycystic ovarian syndrome) chronic [facility] Work Phone: Evaluation note* Diagnosis Onset Date Resolution Status Preventative health care acu te PCOS (polycystic ovarian syndrome) chronic Right shoulder pain chronic [facility] Work Phone: Evaluation note* Diagnosis Onset Date Resolution Status Preventative health care acu te PCOS (polycystic ovarian syndrome) chronic Right shoulder pain chronic Encounter for routine gynecological examination noneactive Sinus tachycardia by electrocardiogram acute [facility] Work Phone: Evaluation note* Diagnosis Onset Date Resolution Status Preventative health care acu te PCOS (polycystic ovarian syndrome) chronic Right shoulder pain chronic Encounter for routine gynecological examination noneactive Sinus tachycardia by electrocardiogram acute Obesity chronic PCOS (polycystic ovarian syndrome) [facility] Work Phone: Evaluation note* Diagnosis Onset Date Resolution Status Encounter for routine gynecological examination noneactive Sinus tachycardia by electrocardiogram acute Obesity chronic PCOS (polycystic ovarian syndrome) [facility] Phone[facility] Work Phone: Reason for referral (narrative)No reason for referral information availableSpring [facility] Medical Services Work Phone: Summary Purpose Family History [...] Complaint and Reason for Visit Chief Complaint SKETCH LINER, EST. 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 (APPLE THINNER) elevated heartrate Tachycardia, unspecified Reason for Visit Preventative health care PCOS (polycystic ovarian syndrome) Right shoulder pain Encounter for routine gynecological examination Sinus tachycardia by electrocardiogram Chief Complaint YEARLY FALL RIGHT SHOULDER PAIN. 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 (APPLE THINNER) elevated heartrate Tachycardia, unspecified PCOS Reason for Visit Preventative health care PCOS (polycystic ovarian syndrome) Right shoulder pain Encounter for routine gynecological examination Sinus tachycardia by electrocardiogram Obesity PCOS (polycystic ovarian syndrome) Chief Complaint RIGHT SHOULDER PAIN. 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 (APPLE THINNER) elevated heartrate Tachycardia, unspecified PCOS Reason for [...] syndrome) February 282024 1:36pm Obesity affecting April 21 025 2:50pm April 21, 2025 2:50 pm Supervision of high-risk April 21, 2025 2:50pm Hypertension April 21, 2025 2:50 pm Chief Complaint Admit Date PNOB nurse visit February 11, 2025 7:5 6am Amb Documentation February 11, 2025 8:0 7am NOB LMP 3/2 February 28, 2025 12:56p m 11 wk OB [...] syndrome) February 282024 1:36pm Obesity affecting April 21 025 2:50pm April 21, 2025 2:50 pm Supervision of high-risk April 21, 2025 2:50pm Hypertension April 21, 2025 2:50 pm Obesity affecting May 16 025 2:35pm May 16, 2025 2:35 pm [...] syndrome) February 282024 1:36pm Obesity affecting April 21 025 2:50pm April 21, 2025 2:50 pm Supervision of high-risk April 21, 2025 2:50pm Hypertension April 21, 2025 2:50 pm Obesity affecting May 16 025 2:35pm May 16, 2025 2:35 pm [...] ovarian syndrome) February 282024 1:36pm Obesity affecting Judit 23rd, 2 025 2:50pm April 21, 2025 2:50 [...] 2025 2: 08pm Supervision of high-risk [facility] 2024 2:08pm Hypertension June 11, 2025 2: 08pm PCOS (polycystic ovarian syndrome) [facility] 2024 2:08pm Obesity affecting July 092024 2:12pm July 09, 2025 2:12pm Supervision of high-risk [facility] 2024 2:12pm Hypertension July 09, 2025 2:12pm PCOS (polycystic ovarian syndrome) [facility] 2024 2:12pm Chief Complaint Admit Date HTN April 17, 2025 1:40 pm Hypertension April 17, 2025 1:53 pm 15 wk ob April 21, 2025 2:50 pm 19 wk ob May 16, 2025 2:35 pm ANATOMY SCAN May 26, 2025 3:20 pm 23 wk ob June 11, 2025 2: 08pm 27wk ob/glucose July 09, 2025 2:12pm DESTATIONAL July 18, 2025 6:54am 30wk ob July 28, 2025 1:54pm GDM July 28, 2025 2:29pm Reason for Visit Admit Date Obesity affecting April 21, 2 025 2:50pm [...] 2025 2: 08pm Supervision of high-risk [facility] 2024 2:08pm Hypertension June 11, 2025 2: 08pm PCOS (polycystic ovarian syndrome) [facility] 2024 2:08pm Obesity affecting July 092024 2:12pm July 09, 2025 2:12pm [facility] 2024 2:12pm Hypertension July 09, 2025 2:12pm PCOS (polycystic ovarian syndrome) [facility] 2024 2:12pm Gestational diabetes July 28 1:54pm Obesity affecting July 282024 1:54pm July 28, 2025 1:54pm Supervision of high-risk [facility] 2024 1:54pm Hypertension July 28, 2025 1:54pm PCOS (polycystic ovarian syndrome) [facility] 2024 1:54pm Chief Complaint Admit Date 19 wk ob May 16, 2025 2:35 pm ANATOMY SCAN May 26, 2025 3:20 pm 23 wk ob June 11, 2025 2: 08pm 27wk ob/glucose July 09, 2025 2:12pm DESTATIONAL July 18, 2025 6:54am 30wk ob July 28, 2025 1:54pm GDM July 28, 2025 2:29pm GDM August 12, 2025 2 :48pm 32wk ob August 13, 2025 3 :20pm Reason for Visit Admit Date Obesity affecting May 16, 025 2:35pm May 16, 2025 2:35 pm Supervision of high-risk May 16, 2025 2:35pm PCOS (polycystic ovarian syndrome) May 16, 2025 2:35pm Hypertension May 16, 2025 2:35 pm Obesity affecting June 11, 2025 2:08pm June 11, 2025 2: 08pm Supervision of high-risk [facility] 2024 2:08pm PCOS (polycystic ovarian syndrome) [facility] 2024 2:08pm Hypertension June 11, 2025 2: 08pm Obesity affecting July 092024 2:12pm July 09, 2025 2:12pm Supervision of high-risk [facility]2024 2:12pm PCOS (polycystic ovarian syndrome) [facility] 2024 2:12pm Hypertension July 09, 2025 2:12pm Gestational diabetes July 28 1:54pm Obesity affecting July 282024 1:54pm July 28, 2025 1:54pm [facility] 20[facility] 1:54pm PCOS (polycystic ovarian syndrome) [facility] 2024 1:54pm Hypertension July 28, 2025 1:54pm Gestational diabetes August 13, 2025 3:20pm Obesity affecting July 3:20pm August 13, 2025 3 :20pm Supervision of high-risk [facility] 2024 3:20pm PCOS (polycystic ovarian syndrome) [facility] 2024 3:20pm Additional Source Comments INFORMATION SOURCE (unrecogn ized section and content) DATE CREATED AUTHOR 10/10/2019 [facility] DATE CREATED AUTHOR AUTHOR'S ORGANIZ ATION 10/29/2020 [facility] DATE CREATED AUTHOR AUTHOR'S ORGANIZ ATION 09/09/2025 [facility] Source Comments (unrecognize d section and content) In the event this informatio n is protected by the Federal Confidentiality of Alcohol and Drug Abuse Patient Records regulations: The Federal rules restrict any use of the information to criminally investigate or prosecute any alcohol or drug abuse patient.[facility] Reason for Visit (unrecogniz ed section and content) Reason Onset Date Comments Refill Request Refill Request 10/28/2020 Goals (unrecognized section and content) Type Care Experience Labor Preferences-CB /BF classes: donelabor support person: yeslabor intervention preferences: Manisha management options preferred: open to epidural when requestedcut cord/dad catch: yesbreastfeeding: yesPP control planned: []discussed possible routes of delivery and associated risks: []special requests: [] Type Detail Care Experience svdLabor Preferences -CB/BF classes: donelabor support person: yeslabor intervention preferences: Jopeterpain management options preferred: open to epidural when requestedcut cord/dad catch: yesbreastfeeding: yesPP control planned: []discussed possible routes of delivery and associated risks: []special requests: [] Care Teams (unrecognized sec tion and content) [...] Primary Care Provider, Refer ring Provider Active NATALY Lerma Attending Provider Active Team Status: Active Member Role Status Dates Dr. Coby Carmona MD Primary Care P rovider, Attending Provider, Referring Provider Active Team Status: Inactive Member Role Status Dates Dr. Coby Carmona MD Primary Care Provider Active Ralph INGRAM PA Attending Provider, Referring Prov ider Active Team Status: Active Member Role Status Dates Dr. Coby Carmona MD Primary Care Provider Active NATALY Lerma Attending Provider, Referring Prov ider Active Team [...] End: February 11, 2025 Ruth Thurston NP, SKETCH LINER-C Attending Provider Active Start: February 11, 2025 [...] 2025 End: April 21, 2025 Ruth Thurston SKETCH LINER, SKETCH LINER-C Attending Provider Active Start: April 21, 2025 [...] 2025 End: February 11, 2025 Ruth Thurston SKETCH LINER, SKETCH LINER-C Attending Provider Active Start: February 11, 2025 [...] End: April 21, 2025 Ruth Thurston NP, SKETCH LINER-C Attending Provider Active Start: April 21, 2025 [...] End: April 21, 2025 Ruth Thurston NP, SKETCH LINER-C Attending Provider Active Start: April 21, 2025 [...] Status: Inactive Member Role/Relationship Status Dates Dr. Coyb Carmona MD Primary Care Provider Active Start: [...] Chavez DO Referring Provider Active Start: June Team Status: Active Member Role/Relationship Status Dates Dr. Coby Carmona MD Primary care physician Activ e Team Status: Inactive Member Role/Relationship Status Dates Dr. Coby Carmona MD Primary care physician Activ e Start: April 17, 2025 End: April 17, 2025 Dr. Kaycee Pathak MD Attending physician Active Start: April 17, 2025 End: April 17, 2025 Dr. Kaycee Pathak MD Referring Provider Active Start: April 17, 2025 End: April 17, 2025 Team Status: Active Member Role/Relationship Status Dates Dr. Coby Carmona MD Primary care physician Activ e Start: April 17, 2025 End: April 17, 2025 Dr. Janes Butler MD Attending physician Active Start: April 17, 2025 End: April 17, 2025 Dr. Kaycee Pathak MD Referring Provider Active Start: April 17, 2025 End: April 17, 2025 Team Status: Inactive Member Role/Relationship Status Dates Dr. Coby Carmona MD Primary care physician Activ e Start: April 21, 2025 End: April 21, 2025 Dr. Coby Carmona MD Referring Provider Active Start: April 21, 2025 End: April 21, 2025 Ruth Thurston NP, SKETCH LINER-C Attending physician Active Start: April 21, 2025 End: April 21, 2025 Team Status: Inactive Member Role/Relationship Status Dates Dr. Coby Cramona MD Primary care physician Activ e Start: May 16, 2025 End: May 16, 2025 Dr. Coby Carmona MD Referring Provider Active Start: May 16, 2025 End: May 16, 2025 Dr. Kaycee Pathak MD Attending physician Active Start: May 16, 2025 End: May 16, 2025 Team Status: Inactive Member Role/Relationship Status Dates Dr. Coby Carmona MD Primary care physician Activ e Start: May 26, 2025 End: May 26, 2025 Georgette Avalos CNM Attending physician Active Start: May 26, 2025 End: May 26, 2025 Georgette Avalos CNM Referring Provider Active S tart: May 26, 2025 End: May 26, 2025 Team Status: Inactive Member Role/Relationship Status Dates Dr. Coby Carmona MD Primary care physician Activ e Start: June 11, 2025 End: June 11, 2025 Dr. Coby Carmona MD Referring Provider Active Start: June 11, 2025 End: June 11, 2025 Dr. Chapis Chavez DO Attending physician Acti ve Start: June 11, 2025 End: June 11, 2025 Team Status: Inactive Member Role/Relationship Status Dates Dr. Coby Carmona MD Primary care physician Activ e Start: July 09, 2025 End: July 09, 2025 Dr. Coby Carmona MD Referring Provider Active Start: July 09, 2025 End: July 09, 2025 Georgette Avalos CNM Attending physician Active Start: July 09, 2025 End: July 09, 2025 Team Status: Inactive Member Role/Relationship Status Dates Dr. Coby Carmona MD Primary care physician Activ e Start: July 09, 2025 End: July 09, 2025 Dr. Chapis Chavez DO Attending physician Active Start: June End: July 09, 2025 Dr. Chapis Cahvez DO Referring Provider Active Start: June End: July 09, 2025 Team Status: Active Member Role/Relationship Status Dates Dr. Coby Carmona MD Primary care physician Activ e Start: July 18, 2025 Ruth Thurston SKETCH LINER, SKETCH LINER-C Attending physician Active Start: July 18, 2025 Ruth Thurston SKETCH LINER, SKETCH LINER-C Referring Provider Active Start: July 18, 2025 Team Status: Inactive Member Role/Relationship Status Dates Dr. Coby Carmona MD Primary care physician Activ e Start: July 28, 2025 End: July 28, 2025 Dr. Coby Carmona MD Referring Provider Active Start: July 28, 2025 End: July 28, 2025 Ruth Thurston SKETCH LINER, SKETCH LINER-C Attending physician Active Start: July 28, 2025 End: July 28, 2025 Team Status: Active Member Role/Relationship Status Dates Dr. Coby Caromna MD Primary care physician Activ e Start: July 28, 2025 Ruth Thurston SKETCH LINER, SKETCH LINER-C Attending physician Active Start: July 28, 2025 Ruth Thurston SKETCH LINER, SKETCH LINER-C Referring Provider Active Start: July 28, 2025 Team Status: Inactive Member Role/Relationship Status Dates Dr. Coby Carmona MD Primary care physician Activ e Start: July 28, 2025 End: July 29, 2025 Ruth Thurston SKETCH LINER, SKETCH LINER-C Attending physician Active Start: July 28, 2025 End: July 29, 2025 Ruth Thurston SKETCH LINER, SKETCH LINER-C Referring Provider Active Start: July 28, 2025 End: July 29, 2025 Team Status: Inactive Member Role/Relationship Status Dates Dr. Coby Carmona MD Primary care physician Activ e Start: July 18, 2025 End: July 18, 2025 Ruth Thurston SKETCH LINER, SKETCH LINER-C Attending physician Active Start: July 18, 2025 End: July 18, 2025 Ruth Thurston SKETCH LINER, SKETCH LINER-C Referring Provider Active Start: July 18, 2025 End: July 18, 2025 Team Status: Inactive Member Role/Relationship Status Dates Dr. Coby Carmona MD Primary care physician Activ e Start: May 16, 2025 End: May 16, 2025 Dr. Coby Carmona MD Referring Provider Active Start: May 16, 2025 End: May 16, 2025 Dr. Kaycee Pathak MD Attending physician Active Start: May 16, 2025 End: May 16, 2025 Team Status: Inactive Member Role/Relationship Status Dates Dr. Coby Carmona MD Primary care physician Activ e Start: May 26, 2025 End: May 26, 2025 Georgette Avalos CNM Attending physician Active Start: May 26, 2025 End: May 26, 2025 Georgette Avalos CNM Referring Provider Active S tart: May 26, 2025 End: May 26, 2025 Team Status: Inactive Member Role/Relationship Status Dates Dr. Coby Carmona MD Primary care physician Activ e Start: June 11, 2025 End: June 11, 2025 Dr. Coby Carmona MD Referring Provider Active Start: June 11, 2025 End: June 11, 2025 Dr. Chapis Chavez DO Attending physician Acti ve Start: June 11, 2025 End: June 11, 2025 Team Status: Inactive Member Role/Relationship Status Dates Dr. Coby Carmona MD Primary care physician Activ e Start: July 09, 2025 End: July 09, 2025 Dr. Coby Caromna MD Referring Provider Active Start: July 09, 2025 End: July 09, 2025 Georgette Avalos CNM Attending physician Active Start: July 09, 2025 End: July 09, 2025 Team Status: Inactive Member Role/Relationship Status Dates Dr. Coby Carmona MD Primary care physician Activ e Start: July 09, 2025 End: July 09, 2025 Dr. Chapis Chavez DO Attending physician Active Start: June End: July 09, 2025 Dr. Chapis Chavez DO Referring Provider Active Start: June End: July 09, 2025 Team Status: Inactive Member Role/Relationship Status Dates Dr. Coby Carmona MD Primary care physician Activ e Start: July 18, 2025 End: July 18, 2025 Ruth Thurston SKETCH LINER, SKETCH LINER-C Attending physician Active Start: July 18, 2025 End: July 18, 2025 Ruth Thurston SKETCH LINER, SKETCH LINER-C Referring Provider Active Start: July 18, 2025 End: July 18, 2025 Team Status: Inactive Member Role/Relationship Status Dates Dr. Coby Carmona MD Primary care physician Activ e Start: July 28, 2025 End: July 28, 2025 Dr. Coby Carmona MD Referring Provider Active Start: July 28, 2025 End: July 28, 2025 Ruth Thurston SKETCH LINER, SKETCH LINER-C Attending physician Active Start: July 28, 2025 End: July 28, 2025 Team Status: Inactive Member Role/Relationship Status Dates Dr. Coby Carmona MD Primary care physician Activ e Start: July 28, 2025 End: July 29, 2025 Ruth Thurston SKETCH LINER, SKETCH LINER-C Attending physician Active Start: July 28, 2025 End: July 29, 2025 Ruth Thurston SKETCH LINER, SKETCH LINER-C Referring Provider Active Start: July 28, 2025 End: July 29, 2025 Team Status: Active Member Role/Relationship Status Dates Dr. Coby Carmona MD Primary care physician Activ e Start: August 12, 2025 Ruth Thurston SKETCH LINER, SKETCH LINER-C Attending physician Active Start: August 12, 2025 Ruth Thurston SKETCH LINER, SKETCH LINER-C Referring Provider Active Start: August 12, 2025 Team Status: Inactive Member Role/Relationship Status Dates Dr. Coby Carmona MD Primary care physician Activ e Start: August 13, 2025 End: August 13, 2025 Dr. Coby Carmona MD Referring Provider Active Start: August 13, 2025 End: August 13, 2025 Dr. Kaycee Pathak MD Attending physician Active Start: August 13, 2025 End: August 13, 2025 FOR RECORDS PERTAINING TO PATIENTS WHO [...] BE BASED ON THE PRIMARY CLINICAL RECORDS. [employer] provides no warranty or guarantee of the accuracy or completeness of information in this document.
[2025-10-12 19:15] VITALS: BMI 39.2
--- OUTSIDE RECORDS SUMMARY | 2025-10-12 19:25 | XMS RPT_ITS | CCD ---
Author Organization [facility] Care Team Providers Care Manager Energy Name Role Phone Ta Mora Primary Care Provider Dr. Coby Carmona Attending Provider [phone] Karena NET MVC DEVELOPER, ALICIA Miranda Attending Provider [phone] Dr. [...] Dr. Tenorio Referring Provider [phone] Karena NET MVC DEVELOPER-C, Ruth Attending Provider [phone] Thuy Holt RN Attending Provider [facility] Pathak MD, Dr. Benoit Attending Provider Zo MANUEL, Dr. Benoit Referring Provider Georgette Avalos CNM Attending Provider [phone] Carrie MANUEL, Dr. Marrero Attending Provider Georgette Avalos CNM Referring Provider [phone] Shawn Alonso DO, Dr. Nation Attending Provider Mathew MANUEL, Dr. Tenorio Primary Care Provider Mathew MANUEL, Dr. Tenorio Referring Provider [phone] Zo MANUEL, Dr. Benoit Attending Provider [phone] Zo MANUEL, Dr. Benoit Referring Provider Karena NET MVC DEVELOPER-C, Ruth Attending Provider [phone] Shawn Alonso DO, Dr. Nation Referring Provider Mathew MANUEL, Dr. Tenorio Primary Care Physician Dr. Kaycee Pathak MD Attending Physician Carrie MANUEL, Dr. Marrero Attending Physician [phone] Mathew MANUEL, Dr. Tenorio Referring Provider [phone] Karena NET MVC DEVELOPER-C, Ruth Attending Physician [phone] Georgette Avalos CNM Attending Physician [phone] Shawn Alonso DO, Dr. Nation Attending Physician Karena NET MVC DEVELOPER-C, Ruth Referring Provider Mathew MANUEL, Dr. Tenorio Primary Care Physician Mathew MANUEL, Dr. Tenorio Referring Provider [phone] Zo MANUEL, Dr. Benoit Attending Physician Karena NET MVC DEVELOPER-CRuth Attending Physician [phone] Oleghe, Efewongbe Primary Care Unavailable Georgette Avalos Referring Unavailable Georgette Avalos Attending Unavailable Oleghe, Efewongbe Referring Unavailable KarenaRuth Attending Unavailable Oleghe, Efewongbe Primary Care Unavailable Oleghe, Efewongbe Referring Unavailable Kaycee Pathak Attending Unavailable Oleghe, Efewongbe Primary Care Unavailable [place] Attending Unavailable Karena Ruth Referring Unavailable Oleghe, Efewongbe Primary Care Unavailable Oleghe, Efewongbe Primary Care Unavailable Kaycee Pathak Referring Unavailable Kaycee Pathak Attending Unavailable Oleghe, Efewongbe Primary Care Unavailable Kaycee Pathak Attending Unavailable Kaycee Pathak Admitting Unavailable Kaycee Pathak Referring Unavailable Karena Ruth Referring Unavailable Oleghe, Efewongbe Primary Care Unavailable [place] Attending Unavailable [place] Ruth Referring Unavailable Oleghe, Efewongbe Primary Care Unavailable Karena, Molly Attending Unavailable Oleghe, Efewongbe Referring Unavailable Oleghe, Efewongbe Primary Care Unavailable Kaycee Pathak Attending Unavailable [place] Referring Unavailable KarenaRuth Attending Unavailable Oleghe, Efewongbe [...] With Biometricson 09-08-2025 OB Limited With Biometrics [facility] Imaging Services [address] [place], [place] [id number] OB Limited With Biometrics MR#: [id number] Acct: [id number] Name: MARITA BERGERON Rep #: [id number] : 1995 F 30 From: Phi Barajas DO PCP: Dr. Coby Carmona MD Status: [facility] CLI Study: OB Limited With Biometrics Date of Exam: 09/08 Exam# [id number] Ordering Dr: Ruth Thurtson NET MVC DEVELOPER NET MVC DEVELOPER -C PROCEDURE: OB LIMITED WITH BIOMETRICS 09/08/2025 [...] Consider short interval repeat examination. Reading Location: [id number] CC: ALICIA Thurston; Dr. Coby Carmona MD Focus Puller: Signed Normal [facility] Hoop Maker Office Visit Reporton 08-27-2025 Ho[facility] Office Visit Report [facility]'s [address], [address] [place] [address] OFFICE VISIT Date of Service: 08/27/25 MR#: [id number] Acct: [id number] Name: MARITA BERGERON Rep #: [id number] : 1995 Provider: Dr. 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 (more content not included)... Normal [facility] Laboratory - Chemistry and C hemistry - challengeOrdered By: Kaycee Pathak on 08-13-2025 Glucose Ql (U) Negative [facility] Laboratory - UrinalysisOrder ed By: Kaycee Pathak on 08-13-2025 Protein Ql (U) Negative [facility] Hoop Maker Office Visit Reporton 08-13-2025 Hoop Maker Office Visit Report [facility]'s [address], [address] [place] [address] OFFICE VISIT Date of Service: 08/13/25 MR#: [id number] Acct: [id number] Name: MARITA BERGERON Rep #: [id number] : 1995 Provider: Dr. 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 Normal [facility] Laboratory - Chemistry and C hemistry - challengeOrdered By: Ruth Thurston on 07-28-2025 Glucose Ql (U) Negative [facility] Laboratory - UrinalysisOrder ed By: Ruth Thurston on 07-28-2025 Protein Ql (U) Negative [facility] Hoop Maker Office Visit Reporton 07-28-2025 Hoop Maker Office Visit Report [facility]'s [address], [address] [place] [address] OFFICE VISIT Date of Service: 07/28/25 MR#: [id number] Acct: [id number] Name: MARITA BERGERON Rep #: [id number] : 1995 Provider: ALICIA torres Age/Sex: 29/F [place] [facility] [place] Status: Signed with Addenda ADDENDUM by Aura Bales on 07/28/25 at 1421 Office Procedure Documentation entered by Aura Bales 07/28/25 14:21: Immunizations Adacel(Tdap Adolesn/Adult)(PF) 2 Lf-(2.5-5-3-5)-5 Lf/0.5 mL IM syringe Performing Provider: Ruth Thurston NET MVC DEVELOPER, ALICIA Performing Location: [facility] Administered by: Aura Bales on 07/28/25 14:20 Dose Route Admin Location Dispensed Lot Number Expiration Date Package NDC NDC Security Guard Supervisor 0.5 mL IM Left Deltoid 0.5 mL [id number] 06/29/27 65618-408-43 [id number] SA NOFI-PASTEUR VIS Given Date VIS Provided [...] 30wk ob Chief Complaint: 30 Week OB Door To Door Selling Agent Required: No Is patient in pain?: No [...] house current occupational status: employed 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 Normal [facility] Gestational GTT 3HR 100gon 0 07-18-2025 GEST GTT 100gm High [facility] Comment on above: Order Comment: Y Result [...] BTS, L509.8002, L3890.6006, L509.4006, L100.0100, L501.9985 #### [facility] Laboratory [facility] [address] [place], [place], [address] Quantitative serum or plasma 3 hour gestational glucose tolerance panelOrdered By: Ruth Thurston on 07-18-2025 Glucose tolerance 3 hours gestational panel See comment [facility] Comment on above: FASTING 100 Col: [id number] [...] Auto (Unsp spec) [#/Vol] 2.04 10*3/uL 0.83-4.51 [facility] Absolute neutrophil countOrd ered By: Chapis Alonso on 07-09-2025 Neutrophils (Bld) [#/Vol] 10.1 10*3/uL High 2.0-7.7 [facility] Automated lymphocyte count a s percentage of total leukocytesOrdered By: Chapis Alonso on 07-09-2025 Lymphocytes/100 WBC Auto (Unsp spec) 15.8 % Low 19-41 [facility] Basophil percentageOrdered B y: Chapis Alonso on 07-09-2025 Basophils/100 WBC (Bld) 0.2 % 0-1 [facility] CBC W/Diff, Automatedon 06-30 0 Absolute Lymph 2.04 X10 3/uL Normal 0.83-4.51 [facility] Comment on above: Performed By: #### L 500.4050, L3890.6102, L3890.6301, BTS, L509.8002, L3890.6006, L509.4006, L100.0100, L501.9985 #### [facility] Laboratory [address] [place], [address] Absolute Neut 10.1 X10 3/uL High 2.0-7.7 [facility] Comment on above: Performed By: #### L 500.4050, L3890.6102, L3890.6301, BTS, L509.8002, L3890.6006, L509.4006, L100.0100, L501.9985 #### [facility] Laboratory [address] [place], [address] Basophils/100 WBC (Bld) 0.2 % Normal 0-1 [facility] Comment on above: Performed By: #### L 500.4050, L3890.6102, L3890.6301, BTS, L509.8002, L3890.6006, L509.4006, L100.0100, L501.9985 #### [facility] Laboratory [address] [place], [address] Eosinophils/100 WBC (Bld) 0.7 % Normal 0-5 [facility] Comment on above: Performed By: #### L 500.4050, L3890.6102, L3890.6301, BTS, L509.8002, L3890.6006, L509.4006, L100.0100, L501.9985 #### [facility] Laboratory [address] [place], [address] Erythrocyte distribution width (RBC) [Ratio] 12.9 % Normal 11.6-14.6 [facility] Comment on above: Performed By: #### L 500.4050, L3890.6102, L3890.6301, BTS, L509.8002, L3890.6006, L509.4006, L100.0100, L501.9985 #### [facility] Laboratory [address] [place], [address] Hematocrit (Bld) [Volume fraction] 36.7 % Low 37-47 [facility] Comment on above: Performed By: #### L 500.4050, L3890.6102, L3890.6301, BTS, L509.8002, L3890.6006, L509.4006, L100.0100, L501.9985 #### [facility] Laboratory [address] [place], [address] Hemoglobin (Bld) [Mass/Vol] 12.3 g/dL Normal 12.0-15.0 [facility] Comment on above: Performed By: #### L 500.4050, L3890.6102, L3890.6301, BTS, L509.8002, L3890.6006, L509.4006, L100.0100, L501.9985 #### [facility] Laboratory [address] [place], [address] IG% 0.600 Normal 0.0-0.9 [facility] Comment on above: Result Comment: IG% - Immature Granulocytes (promyelocytes, myelocytes and metamyelocytes) > 1% indicates that a LEFT SHIFT is Present. Performed By: #### L 500.4050, L3890.6102, L3890.6301, BTS, L509.8002, L3890.6006, L509.4006, L100.0100, L501.9985 #### [facility] Laboratory [address] [place], [address] Lymphocytes/100 WBC (Bld) 15.8 % Low 19-41 [facility] Comment on above: Performed By: #### L 500.4050, L3890.6102, L3890.6301, BTS, L509.8002, L3890.6006, L509.4006, L100.0100, L501.9985 #### [facility] Laboratory [address] [place], [address] MCH (RBC) [Entitic mass] 29.5 pg Normal 27.0-32.0 [facility] Comment on above: Performed By: #### L 500.4050, L3890.6102, L3890.6301, BTS, L509.8002, L3890.6006, L509.4006, L100.0100, L501.9985 #### [facility] Laboratory [address] [place], [address] MCHC (RBC) [Mass/Vol] 33.5 g/dL Normal 32-36 [facility] Comment on above: Performed By: #### L 500.4050, L3890.6102, L3890.6301, BTS, L509.8002, L3890.6006, L509.4006, L100.0100, L501.9985 #### [facility] Laboratory [address] [place], [address] MCV (RBC) [Entitic vol] 88.0 fL Normal 81-99 [facility] Comment on above: Performed By: #### L 500.4050, L3890.6102, L3890.6301, BTS, L509.8002, L3890.6006, L509.4006, L100.0100, L501.9985 #### [facility] Laboratory [address] [place], [address] Monocytes/100 WBC (Bld) 4.0 % Normal 0-10 [facility] Comment on above: Performed By: #### L 500.4050, L3890.6102, L3890.6301, BTS, L509.8002, L3890.6006, L509.4006, L100.0100, L501.9985 #### [facility] Laboratory [address] [place], [address] Neutrophils/100 WBC (Bld) 78.7 % High 47-70 [facility] Comment on above: Performed By: #### L 500.4050, L3890.6102, L3890.6301, BTS, L509.8002, L3890.6006, L509.4006, L100.0100, L501.9985 #### [facility] Laboratory [address] [place], [address] Nucleated RBC (Bld) [#/Vol] 0 10*3/uL Normal 0-5 [facility] Comment on above: Performed By: #### L 500.4050, L3890.6102, L3890.6301, BTS, L509.8002, L3890.6006, L509.4006, L100.0100, L501.9985 #### [facility] Laboratory [address] [place], [address] Platelet mean volume (Bld) [Entitic vol] 11.1 fL Normal 6.2-12.0 [facility] Comment on above: Performed By: #### L 500.4050, L3890.6102, L3890.6301, BTS, L509.8002, L3890.6006, L509.4006, L100.0100, L501.9985 #### [facility] Laboratory [address] [place], [address] Platelets (Bld) [#/Vol] 243 10*3/uL Normal 150-450 [facility] Comment on above: Performed By: #### L 500.4050, L3890.6102, L3890.6301, BTS, L509.8002, L3890.6006, L509.4006, L100.0100, L501.9985 #### [facility] Laboratory [address] [place], [address] RBC (Bld) [#/Vol] 4.17 10*6/uL Low 4.2-5.4 [facility] Comment on above: Performed By: #### L 500.4050, L3890.6102, L3890.6301, BTS, L509.8002, L3890.6006, L509.4006, L100.0100, L501.9985 #### [facility] Laboratory [address] [place], [address] RDW SD 41.2 fl Normal 35.1-43.9 [facility] Comment on above: Performed By: #### L 500.4050, L3890.6102, L3890.6301, BTS, L509.8002, L3890.6006, L509.4006, L100.0100, L501.9985 #### [facility] Laboratory [address] [place], [address] WBC (Bld) [#/Vol] 12.9 10*3/uL High 4.4-11.0 [facility] Comment on above: Performed By: #### L 500.4050, L3890.6102, L3890.6301, BTS, L509.8002, L3890.6006, L509.4006, L100.0100, L501.9985 #### [facility] Laboratory [address] [place], [address] Eosinophil percentageOrdered By: Chapis Alonso on 07-09-2025 Eosinophils/100 WBC (Bld) 0.7 % 0-5 [facility] Erythrocyte distribution wid th ratioOrdered By: [facility] Gavin on 07-09-2025 Erythrocyte distribution width (RBC) [Ratio] 12.9 % 11.6-14.6 [facility] Erythrocyte distribution wid th standard deviationOrdered By: [facility] Gavin on 07-09-2025 Erythrocyte distribution width (RBC) [Ratio] 41.2 fl 35.1-43.9 [facility] Glucose Challenge Gest 1H 50 jaspal 07-09-2025 GLU GEST 50g 1H 145 mg/dL High 70-140 [facility] Comment on above: Performed By: #### L 500.4050, L3890.6102, L3890.6301, BTS, L509.8002, L3890.6006, L509.4006, L100.0100, L501.9985 #### [facility] Laboratory [address] [facility] [place], [place], [address] Glucose measurement at 2 arnulfo rs post-dose gestational glucose tolerance testOrdered By: Chapis Alonso on 07-09-2025 Glucose [Mass/Vol] 145 mg/dL High 70-140 [facility] HIVon 07-09-2025 HIV Non-Reactive Normal Nonreactive [facility] Comment on above: Result Comment: Non- Reactive Reactive Repeatedly reactive samples must be confirmed according to CDC recommended confirmatory algorithms. The subresults for either HIVAG or AHIV can be used as an aid in the selection of the confirmation algorithm for reactive samples. Send out specimens with Reactive results to [facility] for confirmation. Order the HIV antibody detection and differentiation: leanna#[id number] Performed By: #### L 500.4050, L3890.6102, L3890.6301, BTS, L509.8002, L3890.6006, L509.4006, L100.0100, L501.9985 #### [facility] Laboratory [address] [place], [address] Hematocrit Auto (Bld) [Volum e fraction]Ordered By: Chapis Alonso on 07-09-2025 Hematocrit (Bld) [Volume fraction] 36.7 % Low 37-47 [facility] Hemoglobin measurementOrdere d By: Chapis Alonso on 07-09-2025 Hemoglobin (Bld) [Mass/Vol] 12.3 g/dL 12.0-15.0 [facility] Immature granulocytes/100 WB C Auto (Bld)Ordered By: Chapis Alonso on 07-09-2025 Immature granulocytes/100 WBC (Bld) 0.600 % 0.0-0.9 [facility] Comment on above: IG% - Immature Granu locytes (promyelocytes, myelocytes and metamyelocytes) > 1% indicates that a LEFT SHIFT is Present. Laboratory - Chemistry and C hemistry - challengeOrdered By: Georgette Avalos on 07-09-2025 Glucose Ql (U) Negative [facility] Laboratory - UrinalysisOrder ed By: Georgette Avalos on 07-09-2025 Protein Ql (U) Negative [facility] MCV (mean corpuscular volume ) determinationOrdered By: Chapis Alonso on 07-09-2025 MCV (RBC) [Entitic vol] 88.0 fL 81-99 [facility] Mean corpuscular hemoglobin (MCH) determinationOrdered By: Chapis Alonso on 07-09-2025 MCH (RBC) [Entitic mass] 29.5 pg 27.0-32.0 [facility] Mean corpuscular hemoglobin concentration (MCHC) determinationOrdered By: Chapis Alonso on 07-09-2025 MCHC (RBC) [Mass/Vol] 33.5 g/dL 32-36 [facility] Mean platelet volume determi nationOrdered By: Chapis Alonso on 07-09-2025 Platelet mean volume (Bld) [Entitic vol] 11.1 fL 6.2-12.0 [facility] Monocyte percentageOrdered B y: Chapis Alonso on 07-09-2025 Monocytes/100 WBC (Bld) 4.0 % 0-10 [facility] Neutrophil percentageOrdered By: Chapis Alonso on 07-09-2025 Neutrophils/100 WBC (Bld) 78.7 % High 47-70 [facility] No Panel InformationOrdered By: Chapis Tinocojovanna on 07-09-2025 HIV (1&2) Antibody Non-Reactive Nonreactive [facility] Comment on above: Non-ReactiveReactive Repeatedly reactive samples must be confirmed according to CDC recommended confirmatory algorithms. The subresults for either HIVAG or AHIV can be used as an aid in the selection of the confirmation algorithm for reactive samples.Send out specimens with Reactive results to [facility] for confirmation.Order the HIV antibody detection and differentiation: #[id number] Nucleated red blood cell per centageOrdered By: Chapis Alonso on 07-09-2025 Nucleated RBC/100 WBC (Bld) [Ratio] 0 % 0-5 [facility] Hoop [facility] Office Visit Reporton 07-09-2025 Hoop Maker Office Visit Report [facility], [facility] [address] [place] [address] OFFICE VISIT Date of Service: 07/09/25 MR#: [id number] Acct: [id number] Name: CAMERON BALESMARITA SEEMA Rep #: [id number] : 1995 Provider: CHUY Li ams Age/Sex: 29/F [place] [facility]: Signed Intake Vital Signs 05/16/25 14:39 06/11/25 14:12 07/09/25 14:27 Height 4 ft 10 in 4 ft 10 in 4 ft 10 in Weight: 190 lb 7 oz BMI 39.8 BP 136/83 H Intake Visit Reasons: 27wk ob/glucose Chief Complaint: 27wk OB/Glucose Door To Door Selling Agent Required: No Is patient in pain?: No [...] house current occupational status: employed 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 Normal [facility] Platelet countOrdered By: Shravan Alonso on 07-09-2025 Platelets (Bld) [#/Vol] 243 10*3/uL 150-450 [facility] RBC Auto (Bld) [#/Vol]Ordere d By: Chapis Alonso on 07-09-2025 RBC (Bld) [#/Vol] 4.17 10*6/uL Low 4.2-5.4 [facility] Syphilis Antibodieson 2024 Syphilis Abs Non-Reactive Normal Nonreactive [facility] Comment on above: Performed By: #### L 500.4050, L3890.6102, L3890.6301, BTS, L509.8002, L3890.6006, L509.4006, L100.0100, L501.9985 #### [facility] Laboratory [address] [place], [address] White blood cell (WBC) count Ordered By: Chapis Alonso on 07-09-2025 WBC (Bld) [#/Vol] 12.9 10*3/uL High 4.4-11.0 [facility] Laboratory - Chemistry and C hemistry - challengeOrdered By: Chapis Alonso on 06-11-2025 Glucose Ql (U) Negative [facility] Laboratory - UrinalysisOrder ed By: Chapis Alonso on 06-11-2025 Protein Ql (U) Negative [facility] Hoop [facility] Office Visit Reporton 06-11-2025 Hoop Maker Office Visit Report [facility], [address] [place] [address] OFFICE VISIT Date of Service: 06/11/25 MR#: [id number] Acct: [id number] Name: MARITA BERGERON Rep #: [id number] : 1995 Provider: Dr. 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 Normal [facility] OB Anatomy Scanon 05-26-2025 OB Anatomy Scan [facility] Imaging Services [address] [place] [address] OB Anatomy Scan MR#: [id number] Acct: [id number] Name: MARITA BERGERON Rep #: [id number] : 1995 F 29 From: Bernardo phan MD PCP: Dr. Coby Carmona MD Status: REG CLI Study: OB Anatomy Scan Date of Exam: 05/26/25 Exam# [id number] Ordering Dr: Georgette Avalos CNM PROCEDURE: OB [...] 20 weeks and 2 days. Reading Location: [id number] CC: CHUY Avalos; Dr. Coby Carmona MD Focus Puller: Signed Normal [facility] Laboratory - Chemistry and C hemistry - challengeOrdered By: Kaycee Pathak on 05-16-2025 Glucose Ql (U) Negative [facility] Laboratory - UrinalysisOrder ed By: Kaycee Pathak on 05-16-2025 Protein Ql (U) Negative [facility] Hoop Maker Office Visit Reporton 05-16-2025 Hoop Maker Office Visit Report [facility] [address], [address] [place] [address] OFFICE VISIT Date of Service: 05/16/25 MR#: [id number] Acct: [id number] Name: MARITA BERGERON Rep #: [id number] : 1995 Provider: Dr. 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 (more content not included)... Normal [facility] Hoop Maker Office Visit Reporton 04-21-2025 Hoop Maker Office Visit Report [facility] [address], [address] [place] [address] OFFICE VISIT Date of Service: 04/21/25 MR#: [id number] Acct: [id number] Name: MARITA BERGERON Rep #: [id number] : 1995 Provider: ALICIA torres Age/Sex: 29/F [place] [facility] [place]: Signed Intake Vital Signs 02/28/25 13:03 03/25/25 14:18 04/21/25 14:54 Height 4 ft 10 in 4 ft 10 in 4 ft 10 in Weight: 188 lb BMI 39.2 BP 118/78 Intake Visit Reasons: 15 wk ob Chief Complaint: 15 Week OB Door To Door Selling Agent Required: No Is patient in pain?: No [...] house current occupational status: employed 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 Normal [facility] Electrocardiogram reportOrde red By: Colton Ibanez on 04-18-2025 EKG study [facility] Cardi[facility] Services [address] [place] [address] 12 Lead EKG 04/17/25 1353 MR#: [id number] Acct: [id number] Name: MARITA BERGERON Re p #:[id number] : 1995 29 From: Colton torrez MD [...] Normal ECG Confirmed by ANTONIO MANUEL, ROCIO ([id number]), features editor MICHAEL COLLINS ([id number]) on 04/18/2025 1:06:05 PM Referred By: Kaycee Pathak Confirmed By: ROCIO IBANEZ MD 04/18/25 1306 Date _ Colton Ibanez MD CC: Dr. Coby Carmona MD; Dr. Kaycee Pathak MD ~ [facility] Other Phone: [phone] Lead EKGon 04-17-2025 12 Lead EKG [facility] Cardiovascular Services [address] [place] [address] 12 Lead EKG 04/17/25 1353 MR#: [id number] Acct: [id number] Name: MARITA BERGERON Rep #: [id number] : 1995 29 From: Colton Ibanez MD Attending Dr: Dr. Kaycee Pathak MD Status: REG I Ordering Dr: Kaycee Pathak MD Date: 04/17/25 Location: [facility] Sex: F C Admitted: Test Reason [...] Normal ECG Confirmed by ROCIO IBANEZ MD ([id number]), features editor MICHAEL COLLINS ([id number]) on 04/18/2025 1:06:05 PM Referred By: Kaycee Pathak Confirmed By: ROCIO IBANEZ MD 04/18/25 6179 Date Colton Ibanez MD CC: Dr. Coby Carmona MD; Dr. Kaycee Pathak MD Signed Normal [facility] Laboratory - Chemistry and C hemistry - challengeOrdered By: Georgette Avalos on 03-25-2025 Glucose Ql (U) Negative [facility] Laboratory - UrinalysisOrder ed By: Georgette Avalos on 03-25-2025 Protein Ql (U) Negative [facility] Hoop Maker Office Visit Reporton 03-25-2025 Hoop Maker Office Visit Report [facility]'s [address], [address] [place] [address] OFFICE VISIT Date of Service: 03/25/25 MR#: [id number] Acct: [id number] Name: MARITA BERGERON Rep #: [id number] : 1995 Provider: CHUY Li ams Age/Sex: 29/F [place] [facility] [place]: Signed Intake Vital Signs 09/06/24 10:59 02/28/25 13:03 03/25/25 13:40 Height 4 ft 10 in 4 ft 10 in 4 ft 10 in Weight: 186 lb 4 oz BMI 38.9 BP 138/87 H Intake Visit Reasons: 11 wk OB Chief Complaint: 11wk OB Door To Door Selling Agent Required: No Is patient in pain?: No [...] house current occupational status: employed 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 Normal [facility] PAP I-G w/rfx hrHPV-Aptimaon 03-04-2025 ADEQ Comment Normal . [facility] Comment on above: Order Comment: PN Result Comment: Sati sfactory for evaluation. Endocervical and/or squamous metaplastic cells (endocervical component) are present. Performed By: #### L 500.4050, L3890.6102, L3890.6301, BTS, L509.8002, L3890.6006, L509.4006, L100.0100, L501.9985 #### [facility] Laboratory [address] [place], [place], [id number] COMM . Normal . [facility] Comment on above: Order Comment: PN Performed By: #### L 500.4050, L3890.6102, L3890.6301, BTS, L509.8002, L3890.6006, L509.4006, L100.0100, L501.9985 #### [facility] [address] [place], [place], [phone] COMMENT Comment Normal . [facility] Comment on above: Order Comment: PN Result Comment: This liquid based ThinPrep(R) pap test was screened with the use of an image guided system. Performed By: #### L 500.4050, L3890.6102, L3890.6301, BTS, L509.8002, L3890.6006, L509.4006, L100.0100, L501.9985 #### [facility] [address] [place], [place], [phone] DIAG Comment Normal . [facility] Comment on above: Order Comment: PN Result Comment: NEGA TIVE FOR INTRAEPITHELIAL LESION OR MALIGNANCY. Performed By: #### L 500.4050, L3890.6102, L3890.6301, BTS, L509.8002, L3890.6006, L509.4006, L100.0100, L501.9985 #### [facility] [address] [place], [place], [phone] HPV RFLX Comment Normal . [facility] Comment on above: Order Comment: PN Result Comment: The HPV DNA reflex criteria were not met with this specimen result therefore, no HPV testing was performed. Performed at: [address] [id number] Mechanical Artist: Neda Marie MD, Phone: [phone] Performed By: #### L 500.4050, L3890.6102, L3890.6301, BTS, L509.8002, L3890.6006, L509.4006, L100.0100, L501.9985 #### [facility] Laboratory [address] [place], [address] PAPSMR Comment Normal . [facility] Comment on above: Order Comment: PN Result [...] BTS, L509.8002, L3890.6006, L509.4006, L100.0100, L501.9985 #### [facility] [address] [place], [place], [phone] PERFORM Comment Normal . [facility] Comment on above: Order Comment: PN Result Comment: Brenda Alexandre, [employer] Merchandising Coordinator Performed By: #### L 500.4050, L3890.6102, L3890.6301, BTS, L509.8002, L3890.6006, L509.4006, L100.0100, L501.9985 #### [facility] [address] [place], [place], [phone] Chlamydia/GC RASHEED aptimaon CHLAMY,NUC ACID Negative Normal Negative [facility] Comment on above: Performed By: #### L 500.4050, L3890.6102, L3890.6301, BTS, L509.8002, L3890.6006, L509.4006, L100.0100, L501.9985 #### [facility] [address] [place], [place], [phone] GC BY NUC ACID Negative Normal Negative [facility] Comment on above: Result Comment: Perf ormed at: =G - [facility] [address] [id number] Mechanical Artist: Neda Marie MD, Phone: [phone] Performed By: #### L 500.4050, L3890.6102, L3890.6301, BTS, L509.8002, L3890.6006, L509.4006, L100.0100, L501.9985 #### [facility] [address] [place], [place], [phone] Urine Cultureon 03-01-2025 URC Mixed Gram Positive Organisms [place] Count 80,000-100,000 MIXC Mixed contaminants. Submit a new specimen if indicated. Normal [facility] Comment on above: Performed By: #### L 500.4050, L3890.6102, L3890.6301, BTS, L509.8002, L3890.6006, L509.4006, L100.0100, L501.9985 #### [facility] [address] [place], [place], [phone] Absolute lymphocyte countOrd ered By: Kaycee Pathak on 02-28-2025 Lymphocytes Auto (Unsp spec) [#/Vol] 2.48 10*3/uL 0.83-4.51 [facility] Absolute neutrophil countOrd ered By: Kaycee Pathak on 02-28-2025 Neutrophils (Bld) [#/Vol] 8.7 10*3/uL High 2.0-7.7 [facility] Anion gap in Serum or Plasma Ordered By: Kaycee Alyanabella on 02-28-2025 Anion gap [Moles/Vol] 14 mmol/L 5-15 [facility] Automated lymphocyte count a s percentage of total leukocytesOrdered By: Kaycee Annguille on 02-28-2025 Lymphocytes/100 WBC Auto (Unsp spec) 20.7 % 19- [facility] BUN/creatinine ratioOrdered By: Kaycee Annguille on 02-28-2025 Urea nitrogen/Creatinine [Mass ratio] 16.6 mg/mg 10- [facility] Basophil percentageOrdered B y: Kaycee Annguille on 02-28-2025 Basophils/100 WBC (Bld) 0.4 % 0-1 [facility] Bilirubin, totalOrdered By: Kaycee Annguille on 02-28-2025 Bilirubin [Mass/Vol] 0.57 mg/dL 0.00-1.30 [facility] CBC W/Diff, Automatedon Absolute Lymph 2.48 X10 3/uL Normal 0.83-4.51 [facility] Comment on above: Performed By: #### L 500.4050, L3890.6102, L3890.6301, BTS, L509.8002, L3890.6006, L509.4006, L100.0100, L501.9985 #### [facility] [address] [place], [address] Absolute Neut 8.7 X10 3/uL High 2.0-7.7 [facility] Comment on above: Performed By: #### L 500.4050, L3890.6102, L3890.6301, BTS, L509.8002, L3890.6006, L509.4006, L100.0100, L501.9985 #### [facility] [address] [place], [address] Basophils/100 WBC (Bld) 0.4 % Normal 0-1 [facility] Comment on above: Performed By: #### L 500.4050, L3890.6102, L3890.6301, BTS, L509.8002, L3890.6006, L509.4006, L100.0100, L501.9985 #### [facility] [address] [place], [address] Eosinophils/100 WBC (Bld) 0.8 % Normal 0-5 [facility] Comment on above: Performed By: #### L 500.4050, L3890.6102, L3890.6301, BTS, L509.8002, L3890.6006, L509.4006, L100.0100, L501.9985 #### [facility] [address] [place], [address] ( Erythrocyte distribution width (RBC) [Ratio] 12.4 % Normal 11.6-14.6 [facility] Comment on above: Performed By: #### L 500.4050, L3890.6102, L3890.6301, BTS, L509.8002, L3890.6006, L509.4006, L100.0100, L501.9985 #### [facility] [address] [place], [address] Hematocrit (Bld) [Volume fraction] 38.6 % Normal 37-47 [facility] Comment on above: Performed By: #### L 500.4050, L3890.6102, L3890.6301, BTS, L509.8002, L3890.6006, L509.4006, L100.0100, L501.9985 #### [facility] [address] [place], [address] Hemoglobin (Bld) [Mass/Vol] 13.2 g/dL Normal 12.0-15.0 [facility] Comment on above: Performed By: #### L 500.4050, L3890.6102, L3890.6301, BTS, L509.8002, L3890.6006, L509.4006, L100.0100, L501.9985 #### [facility] [address] [place], [address] IG% 0.400 Normal 0.0-0.9 [facility] Comment on above: Result Comment: IG% - Immature Granulocytes (promyelocytes, myelocytes and metamyelocytes) > 1% indicates that a LEFT SHIFT is Present. Performed By: #### L 500.4050, L3890.6102, L3890.6301, BTS, L509.8002, L3890.6006, L509.4006, L100.0100, L501.9985 #### [facility] [address] [place], [address] Lymphocytes/100 WBC (Bld) 20.7 % Normal 19-41 [facility] Comment on above: Performed By: #### L 500.4050, L3890.6102, L3890.6301, BTS, L509.8002, L3890.6006, L509.4006, L100.0100, L501.9985 #### [facility] [address] [place], [address] MCH (RBC) [Entitic mass] 29.3 pg Normal 27.0-32.0 [facility] Comment on above: Performed By: #### L 500.4050, L3890.6102, L3890.6301, BTS, L509.8002, L3890.6006, L509.4006, L100.0100, L501.9985 #### [facility] [address] [place], [address] MCHC (RBC) [Mass/Vol] 34.2 g/dL Normal 32-36 [facility] Comment on above: Performed By: #### L 500.4050, L3890.6102, L3890.6301, BTS, L509.8002, L3890.6006, L509.4006, L100.0100, L501.9985 #### [facility] [address] [place], [address] MCV (RBC) [Entitic vol] 85.6 fL Normal 81-99 [facility] Comment on above: Performed By: #### L 500.4050, L3890.6102, L3890.6301, BTS, L509.8002, L3890.6006, L509.4006, L100.0100, L501.9985 #### [facility] [address] [place], [address] Monocytes/100 WBC (Bld) 4.8 % Normal 0-10 [facility] Comment on above: Performed By: #### L 500.4050, L3890.6102, L3890.6301, BTS, L509.8002, L3890.6006, L509.4006, L100.0100, L501.9985 #### [facility] [address] [place], [address] Neutrophils/100 WBC (Bld) 72.9 % High 47-70 [facility] Comment on above: Performed By: #### L 500.4050, L3890.6102, L3890.6301, BTS, L509.8002, L3890.6006, L509.4006, L100.0100, L501.9985 #### [facility] [address] [place], [address] Nucleated RBC (Bld) [#/Vol] 0 10*3/uL Normal 0-5 [facility] Comment on above: Performed By: #### L 500.4050, L3890.6102, L3890.6301, BTS, L509.8002, L3890.6006, L509.4006, L100.0100, L501.9985 #### [facility] [address] [place], [address] Platelet mean volume (Bld) [Entitic vol] 10.4 fL Normal 6.2-12.0 [facility] Comment on above: Performed By: #### L 500.4050, L3890.6102, L3890.6301, BTS, L509.8002, L3890.6006, L509.4006, L100.0100, L501.9985 #### [facility] [address] [place], [address] Platelets (Bld) [#/Vol] 284 10*3/uL Normal 150-450 [facility] Comment on above: Performed By: #### L 500.4050, L3890.6102, L3890.6301, BTS, L509.8002, L3890.6006, L509.4006, L100.0100, L501.9985 #### [facility] [address] [place], [address] RBC (Bld) [#/Vol] 4.51 10*6/uL Normal 4.2-5.4 [facility] Comment on above: Performed By: #### L 500.4050, L3890.6102, L3890.6301, BTS, L509.8002, L3890.6006, L509.4006, L100.0100, L501.9985 #### [facility] [address] [place], [address] RDW SD 38.7 fl Normal 35.1-43.9 [facility] Comment on above: Performed By: #### L 500.4050, L3890.6102, L3890.6301, BTS, L509.8002, L3890.6006, L509.4006, L100.0100, L501.9985 #### [facility] [address] [place], [address] WBC (Bld) [#/Vol] 12.0 10*3/uL High 4.4-11.0 [facility] Comment on above: Performed By: #### L 500.4050, L3890.6102, L3890.6301, BTS, L509.8002, L3890.6006, L509.4006, L100.0100, L501.9985 #### [facility] [address] [place], [address] Carbon dioxide, total [Moles /volume] in Central venous bloodOrdered By: Kaycee Pathak on 02-28-2025 CO2 [Moles/Vol] 21.2 mmol/L 21.0-32.0 [facility] Cervical or vagninal specime n microscopic examination by cytology stain (reported asOrdered By: Kaycee Pathak on 02-28-2025 Cytology report Cyto stain Doc (Cvx/Vag) Comment . [facility] Comment on above: The Pap smear is [...] rRNA RASHEED+probe Ql (Unsp spec) Negative Negative [facility] Chloride assayOrdered By: Akbar Pathak on 02-28-2025 Chloride [Moles/Vol] 99 mmol/L 98-108 [facility] Comprehensive Metabolic Prof ilon 02-28-2025 Albumin [Mass/Vol] 4.3 g/dL Normal 3.5-5.0 [facility] Comment on above: Performed By: #### L 500.4050, L3890.6102, L3890.6301, BTS, L509.8002, L3890.6006, L509.4006, L100.0100, L501.9985 #### [facility] [address] [place], [address] Albumin/Globulin [Mass ratio] 1.6 {ratio} Normal 0.9-2.4 [facility] Comment on above: Performed By: #### L 500.4050, L3890.6102, L3890.6301, BTS, L509.8002, L3890.6006, L509.4006, L100.0100, L501.9985 #### [facility] [address] [place], [address] ALK PHOS 68 U/L Normal 35-104 [facility] Comment on above: Performed By: #### L 500.4050, L3890.6102, L3890.6301, BTS, L509.8002, L3890.6006, L509.4006, L100.0100, L501.9985 #### [facility] [address] [place], [address] ALT [Catalytic activity/Vol] 19 U/L Normal <=34 [facility] Comment on above: Performed By: #### L 500.4050, L3890.6102, L3890.6301, BTS, L509.8002, L3890.6006, L509.4006, L100.0100, L501.9985 #### [facility] [address] [place], [address] AST [Catalytic activity/Vol] 15 U/L Normal <=31 [facility] Comment on above: Performed By: #### L 500.4050, L3890.6102, L3890.6301, BTS, L509.8002, L3890.6006, L509.4006, L100.0100, L501.9985 #### [facility] [address] [place], [address] Bilirubin [Mass/Vol] 0.57 mg/dL Normal 0.00-1.30 [facility] Comment on above: Performed By: #### L 500.4050, L3890.6102, L3890.6301, BTS, L509.8002, L3890.6006, L509.4006, L100.0100, L501.9985 #### [facility] [address] [place], [address] BUN/CRE 16.6 RATIO Normal 10-20 [facility] Comment on above: Performed By: #### L 500.4050, L3890.6102, L3890.6301, BTS, L509.8002, L3890.6006, L509.4006, L100.0100, L501.9985 #### [facility] [address] [place], [address] Calcium [Mass/Vol] 9.3 mg/dL Normal 7.6-11.0 [facility] Comment on above: Performed By: #### L 500.4050, L3890.6102, L3890.6301, BTS, L509.8002, L3890.6006, L509.4006, L100.0100, L501.9985 #### [facility] [address] [place], [address] Chloride [Moles/Vol] 99 mmol/L Normal 98-108 [facility] Comment on above: Performed By: #### L 500.4050, L3890.6102, L3890.6301, BTS, L509.8002, L3890.6006, L509.4006, L100.0100, L501.9985 #### [facility] [address] [place], [address] CO2 [Moles/Vol] 21.2 mmol/L Normal 21.0-32.0 [facility] Comment on above: Performed By: #### L 500.4050, L3890.6102, L3890.6301, BTS, L509.8002, L3890.6006, L509.4006, L100.0100, L501.9985 #### [facility] [address] [place], [address] Creatinine [Mass/Vol] 0.70 mg/dL Normal 0.70-1.20 [facility] Comment on above: Performed By: #### L 500.4050, L3890.6102, L3890.6301, BTS, L509.8002, L3890.6006, L509.4006, L100.0100, L501.9985 #### [facility] [address] [place], [place], [phone] (671) GAP 14 Normal 5-15 [facility] Comment on above: Performed By: #### L 500.4050, L3890.6102, L3890.6301, BTS, L509.8002, L3890.6006, L509.4006, L100.0100, L501.9985 #### [facility] [address] [place], [place], [phone] (182 GFR/1.73 sq M.predicted among non-blacks MDRD (S/P/Bld) [Vol rate/Area] 120 mL/min/{1.73_m2} Normal >60 [facility] Comment on above: Result Comment: mL/m in/1.73m2 CKD-EPI Creatinine Equation (2020) Performed By: #### L 500.4050, L3890.6102, L3890.6301, BTS, L509.8002, L3890.6006, L509.4006, L100.0100, L501.9985 #### [facility] [address] [place], [place], [phone] (140) Globulin (S) [Mass/Vol] 2.7 g/dL Normal 2.2-4.2 [facility] Comment on above: Performed By: #### L 500.4050, L3890.6102, L3890.6301, BTS, L509.8002, L3890.6006, L509.4006, L100.0100, L501.9985 #### [facility] [address] [place], [address] Glucose [Mass/Vol] 75 mg/dL Normal 70-99 [facility] Comment on above: Performed By: #### L 500.4050, L3890.6102, L3890.6301, BTS, L509.8002, L3890.6006, L509.4006, L100.0100, L501.9985 #### [facility] [address] [place], [address] Potassium [Moles/Vol] 3.4 mmol/L Normal 3.3-5.1 [facility] Comment on above: Performed By: #### L 500.4050, L3890.6102, L3890.6301, BTS, L509.8002, L3890.6006, L509.4006, L100.0100, L501.9985 #### [facility] [address] [place], [address] Sodium [Moles/Vol] 135 mmol/L Normal 133-145 [facility] Comment on above: Performed By: #### L 500.4050, L3890.6102, L3890.6301, BTS, L509.8002, L3890.6006, L509.4006, L100.0100, L501.9985 #### [facility] [address] [place], [address] T PROT 7.0 g/dL Normal 5.9-8.4 [facility] Comment on above: Performed By: #### L 500.4050, L3890.6102, L3890.6301, BTS, L509.8002, L3890.6006, L509.4006, L100.0100, L501.9985 #### [facility] [address] [place], [place], [id number] Urea nitrogen [Mass/Vol] 12 mg/dL Normal 4-19 [facility] Comment on above: Performed By: #### L 500.4050, L3890.6102, L3890.6301, BTS, L509.8002, L3890.6006, L509.4006, L100.0100, L501.9985 #### [facility] [address] [place], [place], [id number] Eosinophil percentageOrdered By: Kaycee Pathak on 02-28-2025 Eosinophils/100 WBC (Bld) 0.8 % 0-5 [facility] Erythrocyte distribution wid th ratioOrdered By: Kaycee Pathak on 02-28-2025 Erythrocyte distribution width (RBC) [Ratio] 12.4 % 11.6-14.6 [facility] Erythrocyte distribution wid th standard deviationOrdered By: Kaycee Pathak on 02-28-2025 Erythrocyte distribution width (RBC) [Ratio] 38.7 fl 35.1-43.9 [facility] Glomerular filtration rate ( GFR) estimation/1.73 sq m using serum, plasma, or whole bOrdered By: Kaycee Pathak on 02-28-2025 GFR/1.73 sq M.predicted among non-blacks MDRD (S/P/Bld) [Vol rate/Area] 120 mL/min/{1.73_m2} >60 [facility] Comment on above: mL/min/1.73m2 CKD-EP I Creatinine Equation (2020) HIVon 02-28-2025 HIV Non-Reactive Normal Nonreactive [facility] Comment on above: Result Comment: Non- Reactive Reactive Repeatedly reactive samples must be confirmed according to CDC recommended confirmatory algorithms. The subresults for either HIVAG or AHIV can be used as an aid in the selection of the confirmation algorithm for reactive samples. [facility]. Order the HIV antibody detection and differentiation: [id number] Performed By: #### L 500.4050, L3890.6102, L3890.6301, BTS, L509.8002, L3890.6006, L509.4006, L100.0100, L501.9985 #### [facility] [address] [place], [address] Hematocrit Auto (Bld) [Volum e fraction]Ordered By: Kaycee Pathak on 02-28-2025 Hematocrit (Bld) [Volume fraction] 38.6 % 37-47 [facility] Hemoglobin A1con 02-28-2025 HbA1c (Bld) [Mass fraction] 4.9 % Normal <=5.6 [facility] Comment on above: Result Comment: Norm al < 5.7 % Prediabetic 5.7 - 6.4 % Diabetic >or= 6.5 % Please note range changes. Performed By: #### L 500.4050, L3890.6102, L3890.6301, BTS, L509.8002, L3890.6006, L509.4006, L100.0100, L501.9985 #### [facility] [address] [place], [place], [id number] (506) Hemoglobin A1c percentageOrd ered By: Kaycee Pathak on 02-28-2025 HbA1c (Bld) [Mass fraction] 4.9 % <5.7 [facility] Comment on above: Normal < 5.7 % Predi abetic 5.7 - 6.4 % Diabetic >or= 6.5 % Please note range changes. Hemoglobin measurementOrdere d By: Kaycee Pathak on 02-28-2025 Hemoglobin (Bld) [Mass/Vol] 13.2 g/dL 12.0-15.0 [facility] Hepatitis C Antibodyon 02-28 Hepatitis C Ab Non-Reactive Normal Nonreactive [facility] Comment on above: Result Comment: Reac tive: Presumptive evidence of antibodies to HCV. Follow CDC recommendations for supplemental testing. Non-Reactive: Antibodies to HCV were not detected; does not exclude the possibility of exposure to HCV Reactive Results are presumptive evidence of antibodies to HCV. Follow CDC recommendations for supplemental testing. Order confirmation testing: HCV Quant by PCR testing - HCVPCR #[id number] Non Reactive: < 0.8 Equivocal: >/= 0.8 to < 1.0 Reactive: >/= 1.0 The CDC requires that a reactive/equivocal HCV antibody result be sent out for confirmation. HCV Quant by PCR testing. Performed By: #### L 500.4050, L3890.6102, L3890.6301, BTS, L509.8002, L3890.6006, L509.4006, L100.0100, L501.9985 #### [facility] [address] [place], [address] Immature granulocytes/100 WB C Auto (Bld)Ordered By: Kaycee Pathak on 02-28-2025 Immature granulocytes/100 WBC (Bld) 0.400 % 0.0-0.9 [facility] Comment on above: IG% - Immature Granu locytes (promyelocytes, myelocytes and metamyelocytes) > 1% indicates that a LEFT SHIFT is Present. L3890.6102on 02-28-2025 HEP B Surf Ag Non-Reactive Normal Nonreactive [facility] Comment on above: Result Comment: Reac tive: Presumptive evidence of HBV. Repeatedly reactive samples must be confirmed using a neutralization test ([employer] HBsAg Confirmatory Test) Non-Reactive: HBsAg not detected; does not exclude the possibility of exposure to HBV Performed By: #### L 500.4050, L3890.6102, L3890.6301, BTS, L509.8002, L3890.6006, L509.4006, L100.0100, L501.9985 #### [facility] [address] [place], [place], [id number] L509.4006on 02-28-2025 Rubella IgG REAC Normal Nonreactive [facility] Comment on above: Result Comment: Anti body Result: Interpretation Non-Reactive: Non-Immune Reactive: Immune The following results were obtained with the [employer] Rubella IgG assay. Results from assays of other manufacturers cannot be used interchangeably. Performed By: #### L 500.4050, L3890.6102, L3890.6301, BTS, L509.8002, L3890.6006, L509.4006, L100.0100, L501.9985 #### [facility] [address] [place], [address] Laboratory - Chemistry and C hemistry - challengeOrdered By: Kaycee Pathak on 02-28-2025 AST [Catalytic activity/Vol] 15 U/L <32 [facility] Laboratory - CytologyOrdered By: Kaycee Pathak on 02-28-2025 [employer]ch[employer]ising Coordinator Cyto stain Nom (Cvx/Vag) [ID] Comment . [facility] Comment on above: [facility] Laboratory - Microbiology an d Antimicrobial susceptibilityOrdered By: Kaycee Pathak on 02-28-2025 HBV surface Ag Ql (S) Non-Reactive Nonreactive [facility] Comment on above: Reactive: Presumptiv e evidence of HBV. Repeatedly reactive samples must be confirmed using a neutralization test ([employer] HBsAg Confirmatory Test)Non-Reactive: HBsAg not detected; does not exclude the possibility of exposure to HBV Laboratory - Miscellaneous t estsOrdered By: Kaycee Pathak on 02-28-2025 Service comment (Unsp spec) [Interp] . . [facility] MCV (mean corpuscular volume ) determinationOrdered By: Kaycee Pathak on 02-28-2025 MCV (RBC) [Entitic vol] 85.6 fL 81-99 [facility] Mean corpuscular hemoglobin (MCH) determinationOrdered By: Kaycee Pathak on 02-28-2025 MCH (RBC) [Entitic mass] 29.3 pg 27.0-32.0 [facility] Mean corpuscular hemoglobin concentration (MCHC) determinationOrdered By: Kaycee Pathak on 02-28-2025 MCHC (RBC) [Mass/Vol] 34.2 g/dL 32-36 [facility] Mean platelet volume determi nationOrdered By: Kaycee Pathak on 02-28-2025 Platelet mean volume (Bld) [Entitic vol] 10.4 fL 6.2-12.0 [facility] Monocyte percentageOrdered B y: Kaycee Pathak on 02-28-2025 Monocytes/100 WBC (Bld) 4.8 % 0-10 [facility] Neisseria gonorrhoeae nuclei c acid detection by amplified probe techniqueOrdered By: Kaycee Pathak on 02-28-2025 N. gonorrhoeae DNA RASHEED+probe Ql (Unsp spec) Negative Negative [facility] Comment on above: Performed at: [address] [id number] Director: Neda Marie MD, Phone: [phone] Neutrophil percentageOrdered By: Kaycee Pathak on 02-28-2025 Neutrophils/100 WBC (Bld) 72.9 % High 47-70 [facility] No Panel InformationOrdered By: Kaycee Pathak on 02-28-2025 Pap Smear Specimen Adequacy Comment . [facility] Comment on above: Satisfactory for bobby luation. Endocervical and/or squamous metaplasticcells (endocervical component) are present. HIV (1&2) Antibody Non-Reactive Nonreactive [facility] Comment on above: Non-ReactiveReactive Repeatedly reactive samples must be confirmed according to CDC recommended confirmatory algorithms. The subresults for either HIVAG or AHIV can be used as an aid in the selection of the confirmation algorithm for reactive samples.Send out specimens with Reactive results to [facility] for confirmation.Order the HIV antibody detection and differentiation: #[id number] Nucleated red blood cell per centageOrdered By: Kaycee Pathak on 02-28-2025 Nucleated RBC/100 WBC (Bld) [Ratio] 0 % 0-5 [facility] Office Visit Reporton 02-28-2025 [facility] Office Visit Report [facility] [address], [address] [place] [address] OFFICE VISIT Date of Service: 02/28/25 MR#: [id number] Acct: [id number] Name: MARITA BERGERON Rep #: [id number] : 1995 Provider: Dr. 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 Normal [facility] Platelet countOrdered By: Akbar Pathak on 02-28-2025 Platelets (Bld) [#/Vol] 284 10*3/uL 150-450 [facility] Potassium measurement (mass/ volume)Ordered By: Kaycee Pathak on 02-28-2025 Potassium (Unsp spec) [Mass/Vol] 3.4 mmol/L 3.3-5.1 [facility] Protein+Creatinine Ratio,Uri neon 02-28-2025 PROT:CRE RATIO 76 mg/g CRE Normal 0-200 [facility] Comment on above: Performed By: #### L 501.0900, L7000.1800, M100.2200, L7400.0353 #### [facility] [address] [place], [address] Protein (U) [Mass/Vol] 16.9 mg/dL High 0.0-12.0 [facility] Comment on above: Performed By: #### L 501.0900, L7000.1800, M100.2200, L7400.0353 #### [facility] [address] [place], [address] UR CREAT 223.00 mg/dL High 28.00-217.00 [facility] Comment on above: Performed By: #### L 501.0900, L7000.1800, M100.2200, L7400.0353 #### [facility] [address] [place], [address] RBC Auto (Bld) [#/Vol]Ordere d By: Kaycee Pathak on 02-28-2025 RBC (Bld) [#/Vol] 4.51 10*6/uL 4.2-5.4 [facility] Random urine creatinine mann urement (mass/volume)Ordered By: Kaycee Pathak on 02-28-2025 Creatinine Unsp time (U) [Mass/Vol] 223.00 mg/dL High 28.00-217.00 [facility] Serum creatinine measurement (mass/volume)Ordered By: Kaycee Pathak on 02-28-2025 Creatinine [Mass/Vol] 0.70 mg/dL 0.70-1.20 [facility] Serum globulin measurementOr dered By: Kaycee Pathak on 02-28-2025 Globulin (S) [Mass/Vol] 2.7 g/dL 2.2-4.2 [facility] Serum glucose measurement (m ass/volume)Ordered By: Kaycee Pathak on 02-28-2025 Glucose [Mass/Vol] 75 mg/dL 70-99 [facility] Serum or plasma alanine mendoza otransferase (ALT) measurementOrdered By: Kaycee Pathak on 02-28-2025 ALT [Catalytic activity/Vol] 19 U/L <35 [facility] Serum or plasma albumin mann urement (mass/volume)Ordered By: Kaycee Pathak on 02-28-2025 Albumin [Mass/Vol] 4.3 g/dL 3.5-5.0 [facility] Serum or plasma albumin/glob ulin mass ratioOrdered By: Kaycee Pathak on 02-28-2025 Albumin/Globulin [Mass ratio] 1.6 {ratio} 0.9-2.4 [facility] Serum or plasma alkaline peng sphatase measurementOrdered By: Kaycee Pathak on 02-28-2025 ALP [Catalytic activity/Vol] 68 U/L 35-104 [facility] Serum or plasma calcium mann urement (mass/volume)Ordered By: Kaycee Pathak on 02-28-2025 Calcium [Mass/Vol] 9.3 mg/dL 7.6-11.0 [facility] Serum or plasma urea nitroge n measurement (mass/volume)Ordered By: Kaycee Pathak on 02-28-2025 Urea nitrogen [Mass/Vol] 12 mg/dL 4-19 [facility] Sodium levelOrdered By: Dorian Pathak on 02-28-2025 Sodium [Moles/Vol] 135 mmol/L 133-145 [facility] Syphilis Antibodieson 2024 Syphilis Abs Non-Reactive Normal Nonreactive [facility] Comment on above: Performed By: #### L 500.4050, L3890.6102, L3890.6301, BTS, L509.8002, L3890.6006, L509.4006, L100.0100, L501.9985 #### [facility] [address] [place], [place], [id number] Total proteinOrdered By: Casimiro Pathak on 02-28-2025 Protein [Mass/Vol] 7.0 g/dL 5.9-8.4 [facility] Type AND Screenon 02-28-2025 Ab SCREEN GEL Negative Normal [facility] Comment on above: Order Comment: PN Performed By: #### L 500.4050, L3890.6102, L3890.6301, BTS, L509.8002, L3890.6006, L509.4006, L100.0100, L501.9985 #### [facility] [address] [place], [address] Urine cultureOrdered By: Casimiro Pathak on 02-28-2025 Bacteria identified Cx Nom (U) Positive Abnormal [facility] Urine protein measurement (m ass/volume)Ordered By: Kaycee Pathak on 02-28-2025 Protein (U) [Mass/Vol] 16.9 mg/dL High 0.0-12.0 [facility] Urine protein/creatinine mas s ratioOrdered By: Kaycee Zo on 02-28-2025 Protein/Creatinine (U) [Mass ratio] 76 mg/g CRE 0-200 [facility] White blood cell (WBC) count Ordered By: Kaycee Pathak on 02-28-2025 WBC (Bld) [#/Vol] 12.0 10*3/uL High 4.4-11.0 [facility] Laboratory - Chemistry and C hemistry - challengeOrdered By: Kaycee Pathak on 02-11-2025 HCG ( test) Ql (U) Positive [facility] Office Visit Reporton 2024 Office Visit Report [facility] [address] [place] [address] OFFICE VISIT Date of Service: MR#: [id number] Acct: [id number] Patient: MARITA BERGERON Rep # : [id number] : 1995 Provider: Thuy Holt RN Age/Sex: 29/F [place] [facility] [place]: Signed Intake Vital Signs 09/06/24 10:59 02/11/25 08:43 Height 4 ft 10 in 4 ft 10 in Weight: 185 lb 8 oz BMI 38.7 BP 120/72 Intake Visit Reasons: Amb Documentation Chief Complaint: In person PNOB Door To Door Selling Agent Required: No Is patient in pain?: No [...] NOB scheduled. 02/11/25 1057 Date Ruth Thurston NET MVC DEVELOPER NET MVC DEVELOPER-C Cosigner Signature: Date (if applicable) CC: Normal [facility] Serum or plasma thyroperoxid ase antibody assay (units/volume)Ordered By: Alexey Good on 10-06-2023 TPO Ab Qn [IU]/mL 0-34 [facility] Comment on above: Performed at: - L [address] [id number] Director: Nilo Flores PhD, Phone: [phone] Absolute lymphocyte countOrd ered By: Ralph Bateman on 09-18-2023 Lymphocytes Auto (Unsp spec) [#/Vol] 3.06 10*3/uL 0.83-4.51 [facility] Basophil percentageOrdered B y: Ralph Bateman on 09-18-2023 Basophils/100 WBC (Bld) 0.5 % 0-1 [facility] Bilirubin [Mass/Vol] 0.40 mg/dL 0.20-1.00 [facility] Comment on above: For patients on eltr ombopag therapy, use of Dimension [place] TBIL is not recommended. Chloride [Moles/Vol] 104 mmol/L 98-107 [facility] Eosinophils/100 WBC (Bld) 1.1 % 0-5 [facility] Glucose [Mass/Vol] 89 mg/dL 74-106 [facility] Neutrophils (Bld) [#/Vol] 6.2 10*3/uL 2.0-7.7 [facility] Neutrophils/100 WBC (Bld) 62.6 % 47-70 [facility] Potassium [Moles/Vol] 4.0 mmol/L 3.5-5.1 [facility] Protein [Mass/Vol] 7.4 g/dL 6.4-8.2 [facility] Sodium [Moles/Vol] 137 mmol/L 136-145 [facility] WBC (Bld) [#/Vol] 9.9 10*3/uL 4.4-11.0 [facility] Blood erythrocytes count (nu mber/volume)Ordered By: Ralph Bateman on 09-18-2023 RBC (Bld) [#/Vol] 4.89 10*6/uL 4.2-5.4 [facility] Blood hemoglobin measurement (mass/volume)Ordered By: Ralph Bateman on 09-18-2023 Hemoglobin (Bld) [Mass/Vol] 13.6 g/dL 12.0-15.0 [facility] Blood lymphocytes/100 leukoc ytesOrdered By: Ralph Bateman on 09-18-2023 Lymphocytes/100 WBC (Bld) 31.0 % 19-41 [facility] Blood monocytes/100 leukocyt esOrdered By: Ralph Bateman on 09-18-2023 Monocytes/100 WBC (Bld) 4.5 % 0-10 [facility] Blood platelet mean volumeOr dered By: Ralph Bateman on 09-18-2023 Platelet mean volume (Bld) [Entitic vol] 10.1 fL 6.2-12.0 [facility] Determination of erythrocyte mean corpuscular volume (MCV)Ordered By: Ralph Bateman on 09-18-2023 MCV (RBC) [Entitic vol] 86.1 fL 81-99 [facility] Hematocrit Auto (Bld) [Volum e fraction]Ordered By: Ralph Bateman on 09-18-2023 Hematocrit (Bld) [Volume fraction] 42.1 % 37-47 [facility] Laboratory - Chemistry and C hemistry - challengeOrdered By: Ralph Bateman on 09-18-2023 ALP [Catalytic activity/Vol] 78 U/L 45-117 [facility] ALT [Catalytic activity/Vol] 16 U/L 13-56 [facility] CO2 [Moles/Vol] 26.0 mmol/L 21.0-32.0 [facility] Cobalamin (Vitamin B12) [Mass/Vol] 317 pg/mL 211-911 [facility] Globulin (S) [Mass/Vol] 3.9 g/dL 2.2-4.2 [facility] Magnesium [Mass/Vol] 2.0 mg/dL 1.6-2.6 [facility] Urea nitrogen/Creatinine [Mass ratio] 12.2 mg/mg 10-20 [facility] - Hematology and Cell countsOrdered By: Ralph Bateman on 09-18-2023 Erythrocyte distribution width (RBC) [Entitic vol] 37.3 fL 35.1-43.9 [facility] Erythrocyte distribution width (RBC) [Ratio] 11.9 % 11.6-14.6 [facility] Immature granulocytes/100 WBC (Bld) 0.300 % 0.0-0.9 [facility] Comment on above: IG% - Immature Granu locytes (promyelocytes, myelocytes and metamyelocytes) > 1% indicates that a LEFT SHIFT is Present. MCH (RBC) [Entitic mass] 27.8 pg 27.0-32.0 [facility] Nucleated RBC/100 WBC (Bld) [Ratio] 0 % 0-5 [facility] MCHC Auto (RBC) [Mass/Vol]Or dered By: Ralph Bateman on 09-18-2023 MCHC (RBC) [Mass/Vol] 32.3 g/dL 32-36 [facility] No Panel InformationOrdered By: Ralph Bateman on 09-18-2023 Estimated GFR (MDRD) Amer 96 mL/min >60 [facility] Comment on above: GFR Calc Estimated GFR (MDRD) Non-Af Amer 79 mL/min >60 [facility] Comment on above: Non- GFR Calc Thyroid Stimulating Hormone (TSH) 2.57 uIU/mL 0.358-3.74 [facility] Platelets bldOrdered By: Kj Bateman on 09-18-2023 Platelets (Bld) [#/Vol] 332 10*3/uL 150-450 [facility] Serum or plasma albumin mann urement (mass/volume)Ordered By: Ralph Bateman on 09-18-2023 Albumin [Mass/Vol] 3.5 g/dL 3.2-5.0 [facility] Serum or plasma albumin/glob ulin mass ratioOrdered By: Ralph Bateman on 09-18-2023 Albumin/Globulin [Mass ratio] 0.9 {ratio} 0.9-2.4 [facility] Serum or plasma calcium mann urement (mass/volume)Ordered By: Ralph Bateman on 09-18-2023 Calcium [Mass/Vol] 8.9 mg/dL 8.5-10.1 [facility] Serum or plasma creatinine m easurement (mass/volume)Ordered By: Ralph Bateman on 09-18-2023 Creatinine [Mass/Vol] 0.90 mg/dL 0.55-1.02 [facility] Comment on above: The validity of the calculated GFR & GFRAA in patients over 70 years has not been determined. Clinical correlation is essential. Serum or plasma urea nitroge n measurement (mass/volume)Ordered By: Ralph Bateman on 09-18-2023 Urea nitrogen [Mass/Vol] 11 mg/dL 7-18 [facility] Thin prep Papanicolaou smear with manual screeningOrdered By: Ralph Bateman on 09-18-2023 Thin prep Papanicolaou smear with manual screening 13 U/L 15-37 [facility] Thin prep Papanicolaou smear with manual screening 7 5-15 [facility] Absolute lymphocyte countOrd ered By: HEALTH ASSESSMENT on 06-12-2023 Lymphocytes Auto (Unsp spec) [#/Vol] 2.28 10*3/uL 0.83-4.51 [facility] Absolute reticulocyte countO rdered By: HEALTH ASSESSMENT on 06-12-2023 Reticulocytes (Bld) [#/Vol] 0.00 10*3/uL 0-5 [facility] Basophil percentageOrdered B y: HEALTH ASSESSMENT on 06-12-2023 Basophil percentage 3.2 mg/dL 2.5-4.9 [facility] Bilirubin [Mass/Vol] 0.40 mg/dL 0.20-1.00 [facility] Comment on above: For patients on eltr ombopag therapy, use of Dimension [place] TBIL is not recommended. Chloride [Moles/Vol] 105 mmol/L 98-107 [facility] Cholesterol [Mass/Vol] 173 mg/dL <200 [facility] Comment on above: <200 mg/dL Desirable 200-240 mg/dL Borderline >240 mg/dL High Risk Glucose [Mass/Vol] 84 mg/dL 74-106 [facility] LDH [Catalytic activity/Vol] 127 U/L 84-246 [facility] Neutrophils (Bld) [#/Vol] 6.5 10*3/uL 2.0-7.7 [facility] Potassium [Moles/Vol] 3.9 mmol/L 3.5-5.1 [facility] Protein [Mass/Vol] 7.3 g/dL 6.4-8.2 [facility] Sodium [Moles/Vol] 135 mmol/L 136-145 [facility] Triglyceride [Mass/Vol] 162 mg/dL <199 [facility] Comment on above: The drugs N-Acetylcy steine and Metamizole may falsely depress this assay.Serum Triglycerides Reference Interval Normal <150 mg/dL Borderline high 150 - 199 mg/dL High 200 - 499 mg/dL Very High > or = 500 mg/dL WBC (Bld) [#/Vol] 9.3 10*3/uL 4.4-11.0 [facility] Blood erythrocytes count (nu mber/volume)Ordered By: HEALTH ASSESSMENT on 06-12-2023 RBC (Bld) [#/Vol] 4.80 10*6/uL 4.2-5.4 [facility] Blood hemoglobin measurement (mass/volume)Ordered By: HEALTH ASSESSMENT on 06-12-2023 Hemoglobin (Bld) [Mass/Vol] 13.5 g/dL 12.0-15.0 [facility] Blood leukocytes count corre cted for nucleated erythrocytes (number/volume)Ordered By: HEALTH ASSESSMENT on 06-12-2023 WBC corrected for nucl RBC (Bld) [#/Vol] NET MVC DEVELOPER [facility] Blood platelet mean volumeOr dered By: HEALTH ASSESSMENT on 06-12-2023 Platelet mean volume (Bld) [Entitic vol] 10.4 fL 6.2-12.0 [facility] Determination of erythrocyte mean corpuscular volume (MCV)Ordered By: HEALTH ASSESSMENT on 06-12-2023 MCV (RBC) [Entitic vol] 86.7 fL 81-99 [facility] Direct bilirubinOrdered By: HEALTH ASSESSMENT on 06-12-2023 Bilirubin.direct [Mass/Vol] 0.11 mg/dL 0.00-0.30 [facility] Hematocrit Auto (Bld) [Volum e fraction]Ordered By: HEALTH ASSESSMENT on 06-12-2023 Hematocrit (Bld) [Volume fraction] 41.6 % 37-47 [facility] Laboratory - Chemistry and C hemistry - challengeOrdered By: HEALTH ASSESSMENT on 06-12-2023 ALP [Catalytic activity/Vol] 72 U/L 45-117 [facility] ALT [Catalytic activity/Vol] 17 U/L 13-56 [facility] Cholesterol.total/Choles terol in HDL [Mass ratio] 3.40 {ratio} [facility] CO2 [Moles/Vol] 23.0 mmol/L 21.0-32.0 [facility] Globulin (S) [Mass/Vol] 3.9 g/dL 2.2-4.2 [facility] Urea nitrogen/Creatinine [Mass ratio] 16.0 mg/mg 10-20 [facility] Laboratory - Hematology and Cell countsOrdered By: HEALTH ASSESSMENT on 06-12-2023 Erythrocyte distribution width (RBC) [Entitic vol] 38.6 fL 35.1-43.9 [facility] Erythrocyte distribution width (RBC) [Ratio] 12.2 % 11.6-14.6 [facility] MCH (RBC) [Entitic mass] 28.1 pg 27.0-32.0 [facility] Nucleated RBC/100 WBC (Bld) [Ratio] 0 % 0-5 [facility] MCHC Auto (RBC) [Mass/Vol]Or dered By: HEALTH ASSESSMENT on 06-12-2023 MCHC (RBC) [Mass/Vol] 32.5 g/dL 32-36 [facility] No Panel InformationOrdered By: HEALTH ASSESSMENT on 06-12-2023 Estimated Creatinine Clearance Calc NET MVC DEVELOPER [facility] Estimated GFR (MDRD) Amer 108 mL/min >60 [facility] Comment on above: GFR Calc Estimated GFR (MDRD) Non-Af Amer 90 mL/min >60 [facility] Comment on above: Non- GFR Calc Immature Granulocyte % (Auto) NET MVC DEVELOPER [facility] Platelets bldOrdered By: [facility] ASSESSMENT on 06-12-2023 Platelets (Bld) [#/Vol] 336 10*3/uL 150-450 [facility] Review by pathologistOrdered By: HEALTH ASSESSMENT on 06-12-2023 Pathologist review Jose (Unsp spec) [Interp] NET MVC DEVELOPER [facility] Segmented neutrophils/100 WB C Auto (Bld)Ordered By: HEALTH ASSESSMENT on 06-12-2023 Segmented neutrophils/100 WBC (Bld) 69.8 % 47-70 [facility] Serum or plasma albumin mann urement (mass/volume)Ordered By: HEALTH ASSESSMENT on 06-12-2023 Albumin [Mass/Vol] 3.4 g/dL 3.2-5.0 [facility] Serum or plasma albumin/glob ulin mass ratioOrdered By: HEALTH ASSESSMENT on 06-12-2023 Albumin/Globulin [Mass ratio] 0.9 {ratio} 0.9-2.4 [facility] Serum or plasma calcium mann urement (mass/volume)Ordered By: HEALTH ASSESSMENT on 06-12-2023 Calcium [Mass/Vol] 9.0 mg/dL 8.5-10.1 [facility] Serum or plasma cholesterol in HDL measurement (mass/volume)Ordered By: HEALTH ASSESSMENT on 06-12-2023 Cholesterol in HDL [Mass/Vol] 51 mg/dL >40 [facility] Comment on above: The drugs N-Acetylcy steine and Metamizole may falsely depress this assay. Reference Range HDL <40 mg/dL Low HDL Cholesterol HDL >or= 60 mg/dL High HDL Cholesterol Serum or plasma cholesterol in VLDL measurement (mass/volume)Ordered By: HEALTH ASSESSMENT on 06-12-2023 Cholesterol in VLDL [Mass/Vol] 32 mg/dL 5-40 [facility] Serum or plasma creatinine m easurement (mass/volume)Ordered By: HEALTH ASSESSMENT on 06-12-2023 Creatinine [Mass/Vol] 0.81 mg/dL 0.55-1.02 [facility] Comment on above: The validity of the calculated GFR & GFRAA in patients over 70 years has not been determined. Clinical correlation is essential. Serum or plasma low density lipoprotein (LDL) cholesterol measurement (mass/volume)Ordered By: HEALTH ASSESSMENT on 06-12-2023 Cholesterol in LDL [Mass/Vol] 90 mg/dL 0-130 [facility] Serum or plasma urea nitroge n measurement (mass/volume)Ordered By: HEALTH ASSESSMENT on 06-12-2023 Urea nitrogen [Mass/Vol] 13 mg/dL 7-18 [facility] Serum or plasma uric acid me asurement (mass/volume)Ordered By: HEALTH ASSESSMENT on 06-12-2023 Urate [Mass/Vol] 5.0 mg/dL 2.6-6.0 [facility] Comment on above: The drugs N-Acetylcy steine and Metamizole may falsely depress this assay. Thin prep Papanicolaou smear with manual screeningOrdered By: HEALTH ASSESSMENT on 06-12-2023 Thin prep Papanicolaou smear with manual screening 12 U/L 15-37 [facility] Thin prep Papanicolaou smear with manual screening 7 5-15 [facility] Absolute lymphocyte counton 08-15-2022 Lymphocytes Auto (Unsp spec) [#/Vol] 3.05 10*3/uL 0.83-4.51 [facility] Work Phone: Basophil percentageon 2021 Basophils/100 WBC (Bld) 0.5 % 0-1 [facility] Work Phone: Bilirubin [Mass/Vol] 0.30 mg/dL 0.20-1.00 [facility] Work Phone: Comment on above: For patients on eltr ombopag therapy, use of Dimension [place] TBIL is not recommended. Chloride [Moles/Vol] 104 mmol/L 98-107 [facility] Work Phone: Eosinophils/100 WBC (Bld) 2.9 % 0-5 [facility] Work Phone: Glucose [Mass/Vol] 89 mg/dL 74-106 [facility] Work Phone: Neutrophils (Bld) [#/Vol] 6.6 10*3/uL 2.0-7.7 [facility] Work Phone: Neutrophils/100 WBC (Bld) 61.9 % 47-70 [facility] Work Phone: Potassium [Moles/Vol] 3.5 mmol/L 3.5-5.1 [facility] Work Phone: Protein [Mass/Vol] 7.2 g/dL 6.4-8.2 [facility] Work Phone: Sodium [Moles/Vol] 138 mmol/L 136-145 [facility] Work Phone: WBC (Bld) [#/Vol] 10.6 10*3/uL 4.4-11.0 [facility] Work Phone: Blood erythrocytes count (nu mber/volume)on 08-15-2022 RBC (Bld) [#/Vol] 4.76 10*6/uL 4.2-5.4 [facility] Work Phone: Blood hemoglobin measurement (mass/volume)on 08-15-2022 Hemoglobin (Bld) [Mass/Vol] 13.6 g/dL 12.0-15.0 [facility] Work Phone: Blood lymphocytes/100 leukoc yteson 08-15-2022 Lymphocytes/100 WBC (Bld) 28.8 % 19-41 [facility] Work Phone: [phone] Blood monocytes/100 leukocyt eson 08-15-2022 Monocytes/100 WBC (Bld) 5.6 % 0-10 [facility] Work Phone: Blood platelet mean volumeon 08-15-2022 Platelet mean volume (Bld) [Entitic vol] 9.7 fL 6.2-12.0 [facility] Work Phone: Determination of erythrocyte mean corpuscular volume (MCV)on 08-15-2022 MCV (RBC) [Entitic vol] 86.6 fL 81-99 [facility] Work Phone: [phone] Hematocrit Auto (Bld) [Volum e fraction]on 08-15-2022 Hematocrit (Bld) [Volume fraction] 41.2 % 37-47 [facility] Work Phone: Laboratory - Chemistry and C hemistry - challengeon 08-15-2022 ALP [Catalytic activity/Vol] 80 U/L 45-117 [facility] Work Phone: ALT [Catalytic activity/Vol] 20 U/L 13-56 [facility] Work Phone: CO2 [Moles/Vol] 27.0 mmol/L 21.0-32.0 [facility] Work Phone: Globulin (S) [Mass/Vol] 3.9 g/dL 2.2-4.2 [facility] Work Phone: Urea nitrogen/Creatinine [Mass ratio] 14.3 mg/mg 10-20 [facility] Work Phone: Laboratory - Hematology and Cell countson 08-15-2022 Erythrocyte distribution width (RBC) [Entitic vol] 37.4 fL 35.1-43.9 [facility] Work Phone: Erythrocyte distribution width (RBC) [Ratio] 11.8 % 11.6-14.6 [facility] Work Phone: [phone] Immature granulocytes/100 WBC (Bld) 0.300 % 0.0-0.9 [facility] Work Phone: Comment on above: IG% - Immature Granu locytes (promyelocytes, myelocytes and metamyelocytes) > 1% indicates that a LEFT SHIFT is Present. MCH (RBC) [Entitic mass] 28.6 pg 27.0-32.0 [facility] Work Phone: Nucleated RBC/100 WBC (Bld) [Ratio] 0 % 0-5 [facility] Work Phone: [phone] MCHC Auto (RBC) [Mass/Vol]on 08-15-2022 MCHC (RBC) [Mass/Vol] 33.0 g/dL 32-36 [facility] Work Phone: No Panel Informationon 08-15 Estimated GFR (MDRD) Amer 116 mL/min >60 [facility] Work Phone: Comment on above: GFR Calc Estimated GFR (MDRD) Non-Af Amer 96 mL/min >60 [facility] Work Phone: Comment on above: Non- GFR Calc Platelets bldon 08-15-2022 Platelets (Bld) [#/Vol] 352 10*3/uL 150-450 [facility] Work Phone: [phone] Serum or plasma albumin mann urement (mass/volume)on 08-15-2022 Albumin [Mass/Vol] 3.3 g/dL 3.2-5.0 [facility] Work Phone: [phone] Serum or plasma albumin/glob ulin mass ratioon 08-15-2022 Albumin/Globulin [Mass ratio] 0.8 {ratio} 0.9-2.4 [facility] Work Phone: [phone] Serum or plasma calcium mann urement (mass/volume)on 08-15-2022 Calcium [Mass/Vol] 8.7 mg/dL 8.5-10.1 [facility] Work Phone: [phone] Serum or plasma creatinine m easurement (mass/volume)on 08-15-2022 Creatinine [Mass/Vol] 0.77 mg/dL 0.55-1.02 [facility] Work Phone: Comment on above: The validity of the calculated GFR & GFRAA in patients over 70 years has not been determined. Clinical correlation is essential. Serum or plasma urea nitroge n measurement (mass/volume)on 08-15-2022 Urea nitrogen [Mass/Vol] 11 mg/dL 7-18 [facility] Work Phone: Thin prep Papanicolaou smear with manual screeningon 08-15-2022 Thin prep Papanicolaou smear with manual screening 12 U/L 15-37 [facility] Work Phone: Thin prep Papanicolaou smear with manual screening 7 5-15 [facility] Work Phone: [phone] No Panel Informationon 07-16 Hepatitis B Surface Antibody Non-Reactive [facility] Work Phone: Comment on above: Non Reactive: Incons istent with immunity less than <10 mIU/mL Reactive: Consistent with immunity greater than or equal to 10 mIU/mL Chlamydia trachomatis rRNA d etection by probe and target amplification methodon 02-28-2022 C. trachomatis rRNA RASHEED+probe Ql (Unsp spec) Negative Negative [facility] Work Phone: Laboratory - Microbiology an d Antimicrobial susceptibilityon 02-28-2022 N. gonorrhoeae DNA RASHEED+probe Ql (Unsp spec) Negative Negative [facility] Work Phone: Comment on above: Performed at: =[facility] Anatoly castillo [address] [id number] Director: Neda Marie MD, Phone: [phone] Absolute lymphocyte counton 01-24-2022 Lymphocytes Auto (Unsp spec) [#/Vol] 2.72 10*3/uL 0.83-4.51 [facility] Work Phone: Absolute reticulocyte counto n 01-24-2022 Reticulocytes (Bld) [#/Vol] 0.00 10*3/uL 0-5 [facility] Work Phone: Basophil percentageon 2021 Basophil percentage 2.7 mg/dL 2.5-4.9 [facility] Work Phone: [phone] Bilirubin [Mass/Vol] 0.30 mg/dL 0.20-1.00 [facility] Work Phone: Comment on above: For patients on eltr ombopag therapy, use of Dimension [place] TBIL is not recommended. Chloride [Moles/Vol] 106 mmol/L 98-107 [facility] Work Phone: Cholesterol [Mass/Vol] 174 mg/dL <200 [facility] Work Phone: Comment on above: <200 mg/dL Desirable 200-240 mg/dL Borderline >240 mg/dL High Risk Glucose [Mass/Vol] 77 mg/dL 74-106 [facility] Work Phone: Neutrophils (Bld) [#/Vol] 5.6 10*3/uL 2.0-7.7 [facility] Work Phone: [phone] Potassium [Moles/Vol] 3.7 mmol/L 3.5-5.1 [facility] Work Phone: [phone] Protein [Mass/Vol] 7.9 g/dL 6.4-8.2 [facility] Work Phone: Sodium [Moles/Vol] 137 mmol/L 136-145 [facility] Work Phone: Triglyceride [Mass/Vol] 153 mg/dL [facility] Work Phone: [phone] Comment on above: The drugs N-Acetylcy steine and Metamizole may falsely depress this assay.Serum Triglycerides Reference Interval Normal <150 mg/dL Borderline high 150 - 199 mg/dL High 200 - 499 mg/dL Very High > or = 500 mg/dL WBC (Bld) [#/Vol] 8.8 10*3/uL 4.4-11.0 [facility] Work Phone: Bilirubin Test strip Ql (U)o n 01-24-2022 Bilirubin Ql (U) Negative Negative [facility] Work Phone: [phone] Blood erythrocytes count (nu mber/volume)on 01-24-2022 RBC (Bld) [#/Vol] 4.97 10*6/uL 4.2-5.4 [facility] Work Phone: [phone] Blood hemoglobin measurement (mass/volume)on 01-24-2022 Hemoglobin (Bld) [Mass/Vol] 14.6 g/dL 12.0-15.0 [facility] Work Phone: [phone] Blood platelet mean volumeon 01-24-2022 Platelet mean volume (Bld) [Entitic vol] 11.0 fL 6.2-12.0 [facility] Work Phone: [phone] Determination of erythrocyte mean corpuscular volume (MCV)on 01-24-2022 MCV (RBC) [Entitic vol] 85.7 fL 81-99 [facility] Work Phone: [phone] Direct bilirubinon Bilirubin.direct [Mass/Vol] 0.11 mg/dL 0.00-0.30 [facility] Work Phone: [phone] Hematocrit Auto (Bld) [Volum e fraction]on 01-24-2022 Hematocrit (Bld) [Volume fraction] 42.6 % 37-47 [facility] Work Phone: [phone] Ketones Test strip Ql (U)on 01-24-2022 Ketones Ql (U) Negative Negative [facility] Work Phone: [phone] Laboratory - Chemistry and C hemistry - challengeon 01-24-2022 ALP [Catalytic activity/Vol] 71 U/L 45-117 [facility] Work Phone: [phone] ALT [Catalytic activity/Vol] 16 U/L 13-56 [facility] Work Phone: Cholesterol.total/Choles terol in HDL [Mass ratio] 3.30 {ratio} [facility] Work Phone: [phone] CO2 [Moles/Vol] 22.0 mmol/L 21.0-32.0 [facility] Work Phone: [phone] Globulin (S) [Mass/Vol] 4.2 g/dL 2.2-4.2 [facility] Work Phone: [phone] Urea nitrogen/Creatinine [Mass ratio] 14.2 mg/mg 10-20 [facility] Work Phone: [phone] Laboratory - Hematology and Cell countson 01-24-2022 Erythrocyte distribution width (RBC) [Entitic vol] 36.4 fL 35.1-43.9 [facility] Work Phone: [phone] Erythrocyte distribution width (RBC) [Ratio] 11.7 % 11.6-14.6 [facility] Work Phone: [phone] MCH (RBC) [Entitic mass] 29.4 pg 27.0-32.0 [facility] Work Phone: [phone] Nucleated RBC/100 WBC (Bld) [Ratio] 0 % 0-5 [facility] Work Phone: [phone] MCHC Auto (RBC) [Mass/Vol]on 01-24-2022 MCHC (RBC) [Mass/Vol] 34.3 g/dL 32-36 [facility] Work Phone: [phone] Nitrite Test strip Ql (U)on 01-24-2022 Nitrite Ql (U) Negative Negative [facility] Work Phone: [phone] Panel Informationon 01-24 Estimated GFR (MDRD) Amer 104 mL/min >60 [facility] Work Phone: [phone] Comment on above: GFR Calc Estimated GFR (MDRD) Non-Af Amer 86 mL/min >60 [facility] Work Phone: [phone] Comment on above: Non- GFR Calc Platelets bldon 01-24-2022 Platelets (Bld) [#/Vol] 317 10*3/uL 150-450 [facility] Work Phone: Protein Test strip Ql (U)on 01-24-2022 Protein Ql (U) Negative Negative [facility] Work Phone: Segmented neutrophils/100 WB C Auto (Bld)on 01-24-2022 Segmented neutrophils/100 WBC (Bld) 64.0 % 47-70 [facility] Work Phone: Serum or plasma albumin mann urement (mass/volume)on 01-24-2022 Albumin [Mass/Vol] 3.7 g/dL 3.2-5.0 [facility] Work Phone: Serum or plasma albumin/glob ulin mass ratioon 01-24-2022 Albumin/Globulin [Mass ratio] 0.9 {ratio} 0.9-2.4 [facility] Work Phone: Serum or plasma calcium mann urement (mass/volume)on 01-24-2022 Calcium [Mass/Vol] 8.9 mg/dL 8.5-10.1 [facility] Work Phone: Serum or plasma cholesterol in HDL measurement (mass/volume)on 01-24-2022 Cholesterol in HDL [Mass/Vol] 52 mg/dL [facility] Work Phone: Comment on above: The drugs N-Acetylcy steine and Metamizole may falsely depress this assay. Reference Range HDL <40 mg/dL Low HDL Cholesterol HDL >or= 60 mg/dL High HDL Cholesterol Serum or plasma cholesterol in VLDL measurement (mass/volume)on 01-24-2022 Cholesterol in VLDL [Mass/Vol] 31 mg/dL 5-40 [facility] Work Phone: Serum or plasma creatinine m easurement (mass/volume)on 01-24-2022 Creatinine [Mass/Vol] 0.84 mg/dL 0.55-1.02 [facility] Work Phone: Comment on above: The validity of the calculated GFR & GFRAA in patients over 70 years has not been determined. Clinical correlation is essential. Serum or plasma low density lipoprotein (LDL) cholesterol measurement (mass/volume)on 01-24-2022 Cholesterol in LDL [Mass/Vol] 91 mg/dL 0-130 [facility] Work Phone: Serum or plasma urea nitroge n measurement (mass/volume)on 01-24-2022 Urea nitrogen [Mass/Vol] 12 mg/dL 7-18 [facility] Work Phone: Serum or plasma uric acid me asurement (mass/volume)on 01-24-2022 Urate [Mass/Vol] 5.3 mg/dL 2.6-6.0 [facility] Work Phone: Comment on above: The drugs N-Acetylcy steine and Metamizole may falsely depress this assay. Thin prep Papanicolaou smear with manual screeningon 01-24-2022 Thin prep Papanicolaou smear with manual screening 13 U/L 15-37 [facility] Work Phone: Thin prep Papanicolaou smear with manual screening 9 5-15 [facility] Work Phone: Thin prep Papanicolaou smear with manual screening 169 U/L 84-246 [facility] Work Phone: Urine blood detectionon 12-29 RBC Ql (U) Negative Negative [facility] Work Phone: Urine clarityon 01-24-2022 Clarity (U) Clear Clear [facility] Work Phone: Urine color determinationon 01-24-2022 Color (U) Yellow Yellow [facility] Work Phone: Urine glucose detectionon Glucose Ql (U) Normal mg/dl Normal [facility] Work Phone: Urine leukocyte esterase det ection by dipstickon 01-24-2022 Leukocyte esterase Test strip Ql (U) 25 /ul Negative [facility] Work Phone: Urine pHon 01-24-2022 pH (U) 5.0 [pH] [facility] Work Phone: Urine specific gravity measu rementon 01-24-2022 Specific gravity (U) [Rel density] 1.010 [facility] Work Phone: Urobilinogen Auto test strip Ql (U)on 01-24-2022 Urobilinogen Ql (U) Normal mg/dl Normal [facility] Work Phone: OBSOLETEon 10-07-2020 OBSOLETE Refill (AGGYNBMG) MARITA BARNES ([id number]) 1995 F Date Time Provider Department 10/07/20 [...] Encounter Status:Closed by MECCA ROMERO on 10/28/20 [facility] OBSOLETEon 04-24-2020 OBSOLETE Refill (AGOBHUD) MARITA BARNES ([id number]) 1995 F Date Time Provider Department 04/24/20 [...] Status:Closed by JASMINE ONEILL MD on 04/24/20 [facility] OBSOLETEon 01-31-2020 OBSOLETE Refill (DARSHANA) MARITA BARNES ([id number]) 1995 F Date Time Provider Department 01/31/20 JASMINE ONEILL During your visit today, we recorded the following information about you: Sera Mcbride LPN 01/31/2020 8:09 AM Signed Pharmacy faxed requesting the following refill Refill(s) Requested: Pending Prescriptions Disp Refills DROSPIRENONE 3 MG-ETHINYL ESTRADIOL 0.03 MG TABLET 84 tablet 0 Sig: TAKE 1 TABLET ONCE DAILY DAISY: Yes ALLERGIES No Known Allergies (home) [phone] (cell) Last Visit date: Visit date not [...] by JASMINE ONEILL MD on 01/31/20 Normal [facility] Pap,Cyto Gynon 10-04-2019 Pap,Cyto Computer Aide Test performed at [place] [address] NAME: MARITA BARNES REQUESTING: JASMINE ONEILL M.D. [...] 09, 2019 Page 1 of 1 Normal [facility] Comment on above: Performed By: #### C YTOP #### [place] [address] Vital Signs Date Time Vital Sign Value Performing Clinician Giuseppe ramirez 08-13-2025 15:30-0400 Body height 147.[address] Coby Carmona MD Work Phone: [facility] 08-13-2025 09:43-0400 Body mass index (BMI) [Ratio] 40.2 kg/m2 Dr. Coby Carmona MD Work Phone: [facility] 08-13-2025 09:43-0400 Body weight 87.[address] Coby Carmona MD Work Phone: [facility] 08-13-2025 09:43-0400 Diastolic blood pressure 72 mm[Hg] Dr. Coby Carmona MD Work Phone: [facility] 08-13-2025 09:43-0400 Systolic blood pressure 129 mm[Hg] Dr. Coby Carmona MD Work Phone: [facility] 07-28-2025 14:43-0400 Body height 147.[address] Coby Carmona MD Work Phone: [facility] 07-28-2025 14:43-0400 Body weight 87.[address] Coby Carmona MD Work Phone: [facility] 07-28-2025 13:56-0400 Body mass index (BMI) [Ratio] 40.2 kg/m2 Dr. Coby Carmona MD Work Phone: [facility] 07-28-2025 13:56-0400 Body weight 87.[address] Coby Carmona MD Work Phone: [facility] 07-28-2025 13:56-0400 Diastolic blood pressure 80 mm[Hg] Dr. Coby Carmona MD Work Phone: [facility] 07-28-2025 13:56-0400 Systolic blood pressure 123 mm[Hg] Dr. Coby Carmona MD Work Phone: [facility] 07-09-2025 14:27-0400 Body height 147.[address] Coby Carmona MD Work Phone: [facility] 07-09-2025 14:27-0400 Body mass index (BMI) [Ratio] 39.8 kg/m2 Dr. Coby Carmona MD Work Phone: [facility] 07-09-2025 14:27-0400 Body weight 86.[address] Coby Carmona MD Work Phone: [facility] 07-09-2025 14:27-0400 Diastolic blood pressure 83 mm[Hg] Dr. Coby Carmona MD Work Phone: [facility] 07-09-2025 14:27-0400 Systolic blood pressure 136 mm[Hg] Dr. Coby Carmona MD Work Phone: [facility] 06-11-2025 14:12-0400 Body height 147.[address] Coby Carmona MD Work Phone: [facility] 06-11-2025 14:11-0400 Body mass index (BMI) [Ratio] 39.7 kg/m2 Dr. Coby Carmona MD Work Phone: [facility] 06-11-2025 14:11-0400 Body weight 86.[address] Coby Carmona MD Work Phone: [facility] 06-11-2025 14:11-0400 Diastolic blood pressure 78 mm[Hg] Dr. Coby Carmona MD Work Phone: [facility] 06-11-2025 14:11-0400 Systolic blood pressure 120 mm[Hg] Dr. Coby Carmona MD Work Phone: [facility] 05-16-2025 14:39-0400 Body height 147.[address] Coby Carmona MD Work Phone: [facility] 05-16-2025 14:39-0400 Body mass index (BMI) [Ratio] 39.5 kg/m2 Dr. Coby Carmona MD Work Phone: [facility] 05-16-2025 14:39-0400 Body weight 85.[address] Coby Carmona MD Work Phone: [facility] 05-16-2025 14:39-0400 Diastolic blood pressure 81 mm[Hg] Dr. Coby Carmona MD Work Phone: [facility] 05-16-2025 14:39-0400 Systolic blood pressure 126 mm[Hg] Dr. Coby Carmona MD Work Phone: [facility] 04-21-2025 14:54-0400 Body height 147.[address] Coby Carmona MD Work Phone: [facility] 04-21-2025 14:54-0400 Body mass index (BMI) [Ratio] 39.2 kg/m2 Dr. Coby Carmona MD Work Phone: [facility] 04-21-2025 14:54-0400 Body weight 85.[address] Coby Carmona MD Work Phone: [facility] 04-21-2025 14:54-0400 Diastolic blood pressure 78 mm[Hg] Dr. Coby Carmona MD Work Phone: [facility] 04-21-2025 14:54-0400 Systolic blood pressure 118 mm[Hg] Dr. Coby Carmona MD Work Phone: [facility] 03-25-2025 13:40-0400 Body height 147.[address] Coby Carmona MD Work Phone: [facility] 03-25-2025 13:40-0400 Body mass index (BMI) [Ratio] 38.9 kg/m2 Dr. Coby Carmona MD Work Phone: [facility] 03-25-2025 13:40-0400 Body weight 84.[address] Coby Carmona MD Work Phone: [facility] 03-25-2025 13:40-0400 Diastolic blood pressure 87 mm[Hg] Dr. Coby Carmona MD Work Phone: [facility] 03-25-2025 13:40-0400 Systolic blood pressure 138 mm[Hg] Dr. Coby Carmona MD Work Phone: [facility] 02-28-2025 13:03-0400 Body mass index (BMI) [Ratio] 38.9 kg/m2 Dr. Coby Carmona MD Work Phone: [facility] 02-28-2025 13:03-0400 Body weight 84.[address] Coby Carmona MD Work Phone: [facility] 02-28-2025 13:03-0400 Diastolic blood pressure 80 mm[Hg] Dr. Coby Carmona MD Work Phone: [facility] 02-28-2025 13:03-0400 Systolic blood pressure 123 mm[Hg] Dr. Coby Carmona MD Work Phone: [facility] 02-11-2025 08:43-0400 Body mass index (BMI) [Ratio] 38.7 kg/m2 Dr. Coby Carmona MD Work Phone: [facility] 02-11-2025 08:43-0400 Body weight 84.[address] Coby Carmona MD Work Phone: [facility] 02-11-2025 08:43-0400 Diastolic blood pressure 72 mm[Hg] Dr. Coby Carmona MD Work Phone: [facility] 02-11-2025 08:43-0400 Systolic blood pressure 120 mm[Hg] Dr. Coby Carmona MD Work Phone: [facility] 10-06-2023 08:47-0500 Body height 147.[address] Coby Carmona Work Phone: [facility] 10-06-2023 08:47-0500 Body mass index (BMI) [Ratio] 39.7 kg/m2 Dr. Coby Carmona Work Phone: [facility] 10-06-2023 08:47-0500 Body temperature 98.7 [degF] Dr. Coby Carmona Work Phone: [facility] 10-06-2023 08:47-0500 Body weight 86.[address] Coby Carmona Work Phone: [facility] 10-06-2023 08:47-0500 Diastolic blood pressure 82 mm[Hg] Dr. Coby Carmona Work Phone: [facility] 10-06-2023 08:47-0500 Heart rate 78 /min Dr. Coby Carmona Work Phone: [facility] 10-06-2023 08:47-0500 Respiratory rate 18 /min Dr. Coby Carmona Work Phone: [facility] 10-06-2023 08:47-0500 SaO2% (BldA) [Mass fraction] 98 % Dr. Coby Carmona Work Phone: [facility] 10-06-2023 08:47-0500 Systolic blood pressure 126 mm[Hg] Dr. Coby Carmona Work Phone: [facility] 09-15-2023 15:31-0500 Body height 147.[address] Coby Carmona Work Phone: [facility] 09-15-2023 15:31-0500 Body mass index (BMI) [Ratio] 39.5 kg/m2 Dr. Coby Carmona Work Phone: [facility] 09-15-2023 15:31-0500 Body temperature 98.8 [degF] Dr. Coby Carmona Work Phone: [facility] 09-15-2023 15:31-0500 Body weight 85.[address] Coby Carmona Work Phone: [facility] 09-15-2023 15:31-0500 Diastolic blood pressure 78 mm[Hg] Dr. Coby Carmona Work Phone: [facility] 09-15-2023 15:31-0500 Heart rate 98 /min Dr. Coby Carmona Work Phone: [facility] 09-15-2023 15:31-0500 Respiratory rate 16 /min Dr. Coby Carmona Work Phone: [facility] 09-15-2023 15:31-0500 SaO2% (BldA) [Mass fraction] 98 % Dr. Coby Carmona Work Phone: [facility] 09-15-2023 15:31-0500 Systolic blood pressure 122 mm[Hg] Dr. Coby Carmona Work Phone: [facility] 09-08-2023 15:57-0500 Body mass index (BMI) [Ratio] 39.9 kg/m2 Dr. Coby Carmona Work Phone: [facility] 09-08-2023 15:57-0500 Body weight 86.[address] Coby Carmona Work Phone: [facility] 09-08-2023 15:57-0500 Diastolic blood pressure 88 mm[Hg] Dr. Coby Carmona Work Phone: [facility] 09-08-2023 15:57-0500 Systolic blood pressure 124 mm[Hg] Dr. Coby Carmona Work Phone: [facility] 06-21-2023 08:35-0400 Body height 147.[address] Coby Carmona Work Phone: [facility] 06-21-2023 08:35-0400 Body mass index (BMI) [Ratio] 38.6 kg/m2 Dr. Coby Carmona Work Phone: [facility] 06-21-2023 08:35-0400 Body temperature 96.2 [degF] Dr. Coby Carmona Work Phone: [facility] 06-21-2023 08:35-0400 Body weight 83.[address] Coby Cramona Work Phone: [facility] 06-21-2023 08:35-0400 Diastolic blood pressure 86 mm[Hg] Dr. Coby Carmona Work Phone: [facility] 06-21-2023 08:35-0400 Heart rate 96 /min Dr. Coby Carmona Work Phone: [facility] 06-21-2023 08:35-0400 Respiratory rate 18 /min Dr. Coby Carmona Work Phone: [facility] 06-21-2023 08:35-0400 SaO2% (BldA) [Mass fraction] 99 % Dr. Coby Carmona Work Phone: [facility] 06-21-2023 08:35-0400 Systolic blood pressure 126 mm[Hg] Dr. Coby Carmona Work Phone: [facility] 08-15-2022 15:32-0400 Body height 147.[address] Coby Carmona Work Phone: [facility] Work Phone: 08-15-2022 15:32-0400 Heart rate 107 /min Dr. Coby Carmona Work Phone: [facility] Work Phone: 08-15-2022 15:32-0400 Body mass index (BMI) [Ratio] 37 kg/m2 Dr. Coby Carmona Work Phone: [facility] Work Phone: 08-15-2022 15:32-0400 Body weight 80.[address] Coby Carmona Work Phone: [facility] Work Phone: 08-15-2022 15:32-0400 Diastolic blood pressure 89 mm[Hg] Dr. Coby Carmona Work Phone: [facility] Work Phone: 08-15-2022 15:32-0400 Systolic blood pressure 126 mm[Hg] Dr. Coby Carmona Work Phone: [facility] Work Phone: 08-04-2022 13:24-0400 Body mass index (BMI) [Ratio] 37 kg/m2 Dr. Coby Carmona Work Phone: [facility] Work Phone: 08-04-2022 13:24-0400 Body temperature 97.7 [degF] Dr. Coby Carmona Work Phone: [facility] Work Phone: 08-04-2022 13:24-0400 Body weight 80.[address] Coby Carmona Work Phone: [facility] Work Phone: 08-04-2022 13:24-0400 Diastolic blood pressure 78 mm[Hg] Dr. Coby Carmona Work Phone: [facility] Work Phone: 08-04-2022 13:24-0400 Heart rate 101 /min Dr. Coby Carmona Work Phone: [facility] Work Phone: 08-04-2022 13:24-0400 Respiratory rate 14 /min Dr. Coby Carmona Work Phone: [facility] Work Phone: 08-04-2022 13:24-0400 SaO2% (BldA) [Mass fraction] 99 % Dr. Coby Carmona Work Phone: [facility] Work Phone: 08-04-2022 13:24-0400 Systolic blood pressure 114 mm[Hg] Dr. Coby Carmona Work Phone: [facility] Work Phone: 07-28-2022 08:55-0400 Body mass index (BMI) [Ratio] 36.2 kg/m2 Dr. Coby Carmona Work Phone: [facility] Work Phone: 07-28-2022 08:55-0400 Body weight 78.[address] Coby Carmona Work Phone: [facility] Work Phone: 07-28-2022 08:55-0400 Diastolic blood pressure 78 mm[Hg] Dr. Coby Carmona Work Phone: [facility] Work Phone: 07-28-2022 08:55-0400 Heart rate 80 /min Dr. Coby Carmona Work Phone: [facility] Work Phone: 07-28-2022 08:55-0400 Systolic blood pressure 112 mm[Hg] Dr. Coby Carmona Work Phone: [facility] Work Phone: 07-05-2022 11:19-0400 Body mass index (BMI) [Ratio] 33.3 kg/m2 Dr. Coby Carmona Work Phone: [facility] Work Phone: 07-05-2022 11:19-0400 Body weight [address] Coby Carmona Work Phone: [facility] Work Phone: 07-05-2022 11:19-0400 Diastolic blood pressure 75 mm[Hg] Dr. Coby Carmona Work Phone: [facility] Work Phone: 07-05-2022 11:19-0400 Systolic blood pressure 117 mm[Hg] Dr. Coby Carmona Work Phone: [facility] Work Phone: 05-26-2022 15:12-0400 Body mass index (BMI) [Ratio] 37.8 kg/m2 Dr. Coby Carmona Work Phone: [facility] Work Phone: 05-26-2022 15:12-0400 Body weight 82.[address] Coby Carmona Work Phone: [facility] Work Phone: 05-26-2022 15:12-0400 Diastolic blood pressure 86 mm[Hg] Dr. Coby Carmona Work Phone: [facility] Work Phone: 05-26-2022 15:12-0400 Systolic blood pressure 120 mm[Hg] Dr. Coby Carmona Work Phone: [facility] Work Phone: 02-28-2022 14:41-0400 Body height 147.[address] Coby Carmona Work Phone: [facility] Work Phone: 02-28-2022 14:41-0400 Body mass index (BMI) [Ratio] 36.6 kg/m2 Dr. Coby Carmona Work Phone: [facility] Work Phone: 02-28-2022 14:41-0400 Body weight 79.[address] Coby Carmona Work Phone: [facility] Work Phone: 02-28-2022 14:41-0400 Diastolic blood pressure 86 mm[Hg] Dr. Coby Carmona Work Phone: [facility] Work Phone: 02-28-2022 14:41-0400 Systolic blood pressure 138 mm[Hg] Dr. Coby Carmona Work Phone: [facility] Work Phone: 01-24-2022 08:23-0400 Body height 147.[address] Coby Carmona Work Phone: [facility] Work Phone: 01-24-2022 08:23-0400 Body mass index (BMI) [Ratio] 36.6 kg/m2 Dr. Coby Carmona Work Phone: [facility] Work Phone: 01-24-2022 08:23-0400 Body temperature 96.7 [degF] Dr. Coby Carmona Work Phone: [facility] Work Phone: 01-24-2022 08:23-0400 Body weight 79.[address] Coby Carmona Work Phone: [facility] Work Phone: 01-24-2022 08:23-0400 Diastolic blood pressure 80 mm[Hg] Dr. Coby Carmona Work Phone: [facility] Work Phone: 01-24-2022 08:23-0400 Heart rate 112 /min Dr. Coby Carmona Work Phone: [facility] Work Phone: 01-24-2022 08:23-0400 Respiratory rate 16 /min Dr. Coby Carmona Work Phone: [facility] Work Phone: 01-24-2022 08:23-0400 SaO2% (BldA) [Mass fraction] 99 % Dr. Coby Carmona Work Phone: [facility] Work Phone: 01-24-2022 08:23-0400 Systolic blood pressure 132 mm[Hg] Dr. Coby Carmona Work Phone: [facility] Work Phone: Encounters Encounter Date Encounter Type Care Provider Facility Start: 10-06-2025 ambulatory Coby Carmona Facili ty:[facility] Start: 09-11-2025 ambulatory Efewashley Carmona Facili ty:[facility] Start: 09-09-2025 ambulatory Ruth Thurston Facility :[facility] Start: 09-08-2025 ambulatory Ruth Thurston Facility :[facility] Start: 08-27-2025 End: 08-27-2025 ambulatory Coby Carmona [place] Start: 08-13-2025 End: 08-13-[address] Kaycee Pathak MD -[facility] Work Phone: Start: 08-13-2025 End: 08-13-[address] Coby Carmona MD Work Phone: -[facility] Start: 08-12-2025 Registered Recurring Ruth Thurston [employer] -Nutritional Services Work Phone: Start: 08-12-2025 End: 08-29-2025 ambulatory Ruth Thurston Facility:[facility] Start: 07-28-2025 End: 07-29-2025 Discharged Recurring Ruth Thurston [employer]C -Nutritional Servic es Work Phone: Start: 07-28-2025 End: 07-28-2025 Patient encounter procedure Ruth Thurston [employer] DEVEL[employer]-C -[facility] Work Phone: Start: 07-28-2025 End: 07-29-[address] Coby Carmona MD Work Phone: -[facility] Start: 07-18-2025 End: 07-18-[address] Coby Carmona MD Work Phone: -Laboratory Start: 07-18-2025 End: 07-18-2025 Patient encounter procedure Ruth Thurston [employer] DEVEL[employer]C -Laboratory Work Phone: Start: 07-18-2025 End: 07-18-2025 ambulatory Ruth Thurston Facility:[facility] Start: 07-09-2025 End: 07-09-2025 Patient encounter procedure Georgette Avalos CNM -[facility] Work Phone: Start: 07-09-2025 End: 07-09-[address] Coby Carmona MD Work Phone: -[facility] Start: 07-09-2025 End: 07-09-2025 ambulatory Chapis Chavez Facility:[facility] Start: 06-11-2025 End: 06-11-[address] Chapis Chavez DO -[facility] Work Phone: Start: 06-11-2025 End: 06-11-[address] Coby Carmona MD Work Phone: [facility] Start: 05-26-2025 End: 05-26-[address] Coby Carmona MD Work Phone: -Ultrasound [facility] Start: 05-26-2025 End: 05-26-2025 Patient encounter procedure Georgette Avalos CN -Ultrasound [facility] Work Phone: Start: 05-26-2025 End: 05-26-2025 ambulatory Coby Carmona Facility:[facility] Start: 05-16-2025 End: 05-16-[address] Kaycee Pathak MD -[facility] Work Phone: Start: 05-16-2025 End: 05-16-[address] Coby Carmona MD Work Phone: [facility] Start: 04-21-2025 End: 04-21-2025 Patient encounter procedure Ruth VARGAS -[facility] Work Phone: Start: 04-21-2025 End: 04-21-[address] Coby Carmona MD Work Phone: [facility] Work Phone: Start: 04-17-2025 End: 04-17-2025 Non-patient / Non-visit Dr. Janes Butler MD -[facility] Work Phone: Start: 04-17-2025 End: 04-17-[address] Coby Carmona MD Work Phone: [facility] Work Phone: Start: 04-17-2025 End: 04-17-[address] Kaycee Pathak MD -Pulmonary Services/Neurology Work Phone: Start: 04-17-2025 End: 04-17-2025 ambulatory [facility] Facility:[facility] Start: 03-25-2025 End: 03-25-2025 Patient encounter procedure Georgette Avalos CNM -[facility] Work Phone: Start: 03-25-2025 End: 03-25-[address] Coby Carmona MD Work Phone: [facility] Work Phone: Start: 02-28-2025 End: 02-28-[address] Kaycee Pathak MD -[facility] Start: 02-28-2025 End: 02-28-[address] Kaycee Pathak MD -[facility] Work Phone: Start: 02-28-2025 End: 02-28-2025 ambulatory [facility] Facility:[facility] Start: 02-28-2025 End: 02-28-2025 ambulatory [facility] Facility:[facility] Start: 02-11-2025 Non-patient / Non-visit Thuy Holt RN -[facility] Work Phone: Start: 02-11-2025 End: 02-11-2025 Patient encounter procedure Ruth VARGAS -[facility] Work Phone: Start: 02-11-2025 End: 02-11-2025 ambulatory [facility] Facility:[facility] Start: 10-06-2023 End: 10-06-[address] Coby Carmona Work Phone: [facility] Work Phone: Start: 10-06-2023 End: 10-06-[address] [facility] Start: 10-06-2023 End: 10-06-[address] Coby Carmona Work Phone: [facility] Endocrinology Work Phone: Start: 09-22-2023 End: 09-22-[address] Coby Carmona Work Phone: [facility] Work Phone: Start: 09-22-2023 End: 09-22-[address] Coby Carmona Work Phone: [facility]-Pulmonary Services/Neurology Work Phone: Start: 09-18-2023 End: 09-18-[address] Coby Carmona Work Phone: [facility] Work Phone: Start: 09-18-2023 End: 09-18-[address] [facility] Start: 09-15-2023 End: 09-15-[address] Coby Carmona Work Phone: [facility] Internal Medicine Work Phone: Start: 09-08-2023 End: 09-08-[address] Coby Carmona Work Phone: [facility] Women's Care Work Phone: Start: 09-04-2023 End: 09-04-[address] Coby Carmona Work Phone: [facility] Work Phone: Start: 09-04-2023 End: 09-04-[address] Coby Carmona Work Phone: [facility]-Physical Therapy Work Phone: Start: 09-04-[address] Carlos Carmona Work Phone: [facility]-Physical Therapy Work Phone: Start: 06-26-[address] Carlos Carmona Work Phone: [facility]-Physical Therapy Work Phone: Start: 06-21-2023 End: 06-21-[address] Coby Carmona Work Phone: [facility] Work Phone: Start: 06-21-[address] Coby Carmona Work Phone: [facility] Start: 06-21-2023 End: 06-21-2023 Encounter for general adult medical examination without abnormal findings Dr. Coby Carmona Work Phone: [facility] Start: 06-21-2023 End: 06-21-[address] Coby Carmona Work Phone: [facility] Internal Medicine Work Phone: Start: 06-12-[address] Kiley Carmona Work Phone: [facility]-Laboratory Work Phone: Start: 08-15-2022 End: 08-15-[address] Coby Carmona Work Phone: [facility] Work Phone: Start: 08-15-2022 End: 08-15-[address] Coby Santos Phone: [facility]-Pulmonary Services/Neurology Start: 08-15-2022 End: 08-15-[address] Coby Santos Phone: [facility] Start: 08-04-2022 End: 08-04-[address] Coby Santos Phone: [facility] Internal Medicine Start: 07-28-2022 End: 07-28-[address] Coby Santos Phone: [facility] Start: 07-15-[address] Kiley Santos Phone: [facility]-Employee Health Start: 07-05-2022 End: 07-05-[address] Coby Santos Phone: [facility] Start: 05-26-2022 End: 05-26-[address] Coby Santos Phone: [facility] Start: 03-02-[address] Carlos Santos Phone: [facility]-Physical Therapy Start: 02-28-2022 End: 02-28-[address] Coby Santos Phone: [facility]-Laboratory, Specimen Start: 02-28-2022 End: 02-28-[address] Coby Santos Phone: [facility] Start: 02-02-[address] Carlos Santos Phone: [facility]-Physical Therapy Start: 01-24-2022 End: 01-24-[address] Coby Carmona Work Phone: [facility]-Radiology, [facility] Start: 01-24-[address] [facility] Start: 01-24-2022 End: 01-24-[address] Coby Carmona Work Phone: [facility] Internal Medicine Start: 10-07-2020 End: 10-07-2020 Refill Jasmine Oneill Work Phone: [facility] Comment on above: Refill Request; Refi ll [...] no HPV testing was performed.Performed at: [address] [id number] Director: Neda Marie MD, Phone: [phone] Start: 02-28-2025 Hepatitis C antibody measurement Dr. [...] HCV Quant by PCR testing - HCVPCR #[id number] Non Reactive: < 0.8 Equivocal: >/= 0.8 [...] End: 07-28-2025 [facility] Work Phone: Start: 07-09-2025 CBC W Auto Differential panel - Blood [facility] Start: 07-09-2025 Measurement of glucose 2 hours after glucose challenge for glucose tolerance test [facility] Start: 07-09-2025 Serologic test for syphilis [facility] Start: 07-09-2025 [facility] Start: 04-21-2025 [facility] Start: 06-21-2023 Patient referral [facility] Work Phone: Start: 10-04-2022 PAP TESTING PAP TESTING [facility] Start: 01-24-2022 Patient referral [facility] Work Phone: Start: 06-30-2020 Influenza vaccination INFLUENZA (#1) [facility] Start: 2014 Urine microalbumin profile DTAP,TDAP,TD (1 - Tdap) [facility] Start: 2013 HEPATITIS C SCREENING HEPATITIS C SCREENING [facility] Start: 2013 HIV SCREENING HIV SCREENING [facility] Start: 2006 HPV VACCINE (1 - 2-dose series) HPV VACCINE (1 - 2-dose series) [facility] CBC W Auto Different ial panel - Blood [facility] Electrocardiographic procedure [facility] Erythrocyte mean cor puscular volume determination [facility] anatomy study [facility] Hematocrit [Volume F raction] of Blood [facility] Hemoglobin [Mass/vol ume] in Blood [facility] Leukocytes [#/volume] in Blood [facility] Mean corpuscular hem oglobin concentration determination [facility] Mean corpuscular hem oglobin determination [facility] Measurement of gluco se 2 hours after glucose challenge for glucose tolerance test [facility] Neutrophil count [facility] Neutrophil percent differential count [facility] Patient referral [facility] Work Phone: Platelets [#/volume] in Blood [facility] Red blood cell count [facility] Red cell distributio n width determination [facility] Serologic test for syphilis [facility] Ultrasound scan for growth [facility] Immunizations Immunization Date Immunization Notes Care Provider Fa [facility] 08-18-2025 influenza, seasonal, injectable, preservative free Dr. Coby Carmona MD Work Phone: [facility] 07-28-2025 tetanus toxoid, redu sienna diphtheria toxoid, and acellular pertussis vaccine, adsorbed Dr. Coby Carmona MD Work Phone: [facility] 08-30-2024 influenza, seasonal, injectable, preservative free Dr. Coby Carmona MD Work Phone: [facility] 08-07-2023 influenza, injectabl e, quadrivalent, preservative free Dr. Coby Carmona Work Phone: [facility] 2022 Hepatitis B vaccine (recombinant), CpG adjuvanted Dr. Coby Carmona Work Phone: [facility] 07-20-2022 Hepatitis B vaccine (recombinant), CpG adjuvanted Dr. Coby Carmona Work Phone: [facility] 07-15-2022 influenza, injectabl e, quadrivalent, preservative free Dr. Coby Carmona Work Phone: [facility] 07-15-2022 influenza, seasonal, injectable Dr. Coby Carmona Work Phone: [facility] Payers Date Payer Category Payer Self-pay [id number] Unknown [id number] 2025 Unknown [id number] 2018 Unknown [employer] PPO [id number] 2018-Present PPO [id number] Unknown [id number] Unknown [id number] Unknown [facility] [id number] Unknown [id number] Unknown [id number] Unknown [id number] [id number] Unknown [id number] Unknown [id number] [id number] Unknown [id number] [id number] Unknown [id number] [id number] Unknown [id number] [id number] Unknown [id number] [id number] Unknown [id number] [id number] Unknown [id number] 2.840.1.339026.3.579.2.462 Unknown [id number] 2.840.1.181159.3.579.2.462 Unknown [id number] [id number] Unknown [id number] 2.840.1.540223.3.579.2.462 Unknown [id number] [id number] Unknown [id number] [id number] Unknown [id number] [id number] Unknown [id number] [id number] Unknown [id number] 2.840.1.393278.3.579.2.462 Unknown [id number] [id number] Unknown [id number] [id number] Unknown [id number] [id number] Unknown [id number] Social History Date Type Detail Facility Start: 10-04-2019 End: 03-25-2025 Tobacco smoking status NHIS Never smoker [facility] Start: 10-04-2019 Tobacco use and exposure Never used [facility] Start: 10-04-2019 Alcohol intake 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) [facility] Start: 1995 Sex Assigned At Not on file [facility] Start: 01-24-2022 End: 10-06-2023 Tobacco smoking status NHIS Unknown if ever smoked [facility] Start: 1995 Sex Assigned At Female W [facility] Sex Female [facility] Medical Equipment Procedure Code Equipment Code Equipment [...] & Type Note Facility 08-13-2025 Progress note [facility] 08-13-2025 Progress note Note Date/Time August 13, 2025 4:29pm [facility] [address], [address] [place] [address] OFFICE VISIT Date of Service: 08/13/25 MR#: [id number] Acct: [id number] Name: MARITA BERGERON Rep #: [id number] : 1995 Provider: Dr. Dorian Pathak MD Age/Sex: 29/F [place] [facility] [place]: Signed Intake Vital Signs 06/11/25 14:12 07/28/25 14:43 08/13/25 09:43 08/13/25 15:30 Height 4 ft 10 in 4 ft 10 in 4 ft 10 in 4 ft 10 in Weight: 192 lb 8 oz BMI 40.2 BP 129/72 H Intake Visit Reasons: 32wk ob Door To Door Selling Agent Required: No Is patient in pain?: No [...] Zika: Zika virus screening: Negative : No [facility] Medical History (Updated 08/13/25 @ 16:[address] 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 current occupational exposures/hazards: [...] 3-4 times per week duration: 15-30 minutes/day josselyn/moravian: Caodaism seatbelt use: always do you feel safe at home: Yes 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: : 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 History 1 Elective abortions Hx Para [...] POC Urinalysis 2 Dip (Clinic) Today 08/13/25 0468 <Electronically signed by Kaycee altman MD> Date _ Kaycee Pathak MD Cosign Signature: Date (if applicable) CC: ~ [facility] Work Phone: 1(479) 117-605509-29-2025 Progress [facility] [address], [address] [place] [id number] OFFICE VISIT Date of Service: 07/28/25 MR#: [id number] Acct: [id number] Name: MARITA BERGERON Rep #: [id number] : 1995 Provider: ALICIA Thurston Age/Sex: 29/F [place] [facility] [place]: Signed with Addenda ADDENDUM by Aura Bales on 07/28/25 at 1421 Office Procedure Documentation entered by Aura Bales 07/28/25 14:21: Immunizations Adacel(Tdap Adolesn/Adult)(PF) 2 Lf-(2.5-5-3-5)-5 Lf/0.5 mL IM syringe Performing Provider: Ruth Thurston NP, ALICIA Performing Location: [facility] Administered by: Aura Bales on 07/28/25 14:20 Dose Route Admin Location Dispensed Lot Number Expiration Date Pack age NDC NDC Security Guard Supervisor 0.5 mL IM Left Deltoid 0.5 mL [id number] 06/29/27 04466-639-44 [id number] [employer]- PASTEUR VIS Given Date VIS Provided [...] 30wk ob Chief Complaint: 30 Week OB Door To Door Selling Agent Required: No Is patient in pain?: No [...] house current occupational status: employed 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 07/28/25 1420 s NET MVC DEVELOPER NET MVC DEVELOPER-C> Date _ Ruth Thurston NET MVC DEVELOPER NET MVC DEVELOPER-C Cosigner Signature: Date (if applicable) CC: ~ [facility]09-29-2025 Progress note Author Ruth Thurston [facility] Note Date/Time July 28, 2025 2:19pm [facility] [address] [place] [address], [address] [place] [address] OFFICE VISIT Date of Service: 07/28/25 MR#: [id number] Acct: [id number] Name: MARITA BERGERON Rep #: [id number] : 1995 Provider: ALICIA Thurston Age/Sex: 29/F [place] [facility] [place]: Signed with Addenda ADDENDUM by Aura Bales on 07/28/25 at 1421 Office Procedure Documentation entered by Aura Bales 07/28/25 14:21: Immunizations Adacel(Tdap Adolesn/Adult)(PF) 2 Lf-(2.5-5-3-5)-5 Lf/0.5 mL IM syringe Performing Provider: Ruth Thurston NP, ALICIA Performing Location: [facility] Administered by: Aura Bales on 07/28/25 14:20 Dose Route Admin Location Dispensed Lot Number Expiration Date Pack age NDC NDC Security Guard Supervisor 0.5 mL IM Left Deltoid 0.5 mL [id number] 06/29/27 25626-693-43 [id number] [employer]- PASTEUR VIS Given Date VIS Provided VIS [...] 30wk ob Chief Complaint: 30 Week OB Door To Door Selling Agent Required: No Is patient in pain?: No [...] house current occupational status: employed 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 current occupational exposures/hazards: [...] 3-4 times per week duration: 15-30 minutes/day josselyn/moravian: Caodaism seatbelt use: always do you feel safe at home: Yes 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: : 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 History 1 Elective abortions Hx Para [...] 1420 <Electronically signed by Ruth abarca NP NET MVC DEVELOPER-C> Date _ Ruth Thurston NP NET MVC DEVELOPER-C Pauly Signature: Date (if applicable) CC: ~ [facility] Work Phone: 1(614) 752-330209-10-2025 Progress [facility] [address] [place] [address], [address] [place] [address] OFFICE VISIT Date of Service: 07/09/25 MR#: [id number] Acct: [id number] Name: MARITA BERGERON Rep #: [id number] : 1995 Provider: CHUY Avalos Age/Sex: 29/F [place] [facility] [place]: Signed Intake Vital Signs 05/16/25 14:39 06/11/25 14:12 07/09/25 14:27 Height 4 ft 10 in 4 ft 10 in 4 ft 10 in Weight: 190 lb 7 oz BMI 39.8 BP 136/83 H Intake Visit Reasons: 27wk ob/glucose Chief Complaint: 27wk OB/Glucose Door To Door Selling Agent Required: No Is patient in pain?: No [...] house current occupational status: employed 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 current occupational exposures/hazards: [...] 3-4 times per week duration: 15-30 minutes/day josselyn/moravian: Caodaism seatbelt use: always do you feel safe at home: Yes 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: : 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 History 1 Elective abortions Hx Para [...] Cosigner Signature: Date (if applicable) CC: ~ [facility]09-10-2025 Progress note Author Georgette Avalos [facility] Note Date/Time July 09, 2025 3:03pm [facility] [address], [address] [place] [address] OFFICE VISIT Date of Service: 07/09/25 MR#: [id number] Acct: [id number] Name: MARITA BERGERON Rep #: [id number] : 1995 Provider: CHUY Avalos Age/Sex: 29/F [place] [facility] [place]: Signed Intake Vital Signs 05/16/25 14:39 06/11/25 14:12 07/09/25 14:27 Height 4 ft 10 in 4 ft 10 in 4 ft 10 in Weight: 190 lb 7 oz BMI 39.8 BP 136/83 H Intake Visit Reasons: 27wk ob/glucose Chief Complaint: 27wk OB/Glucose Door To Door Selling Agent Required: No Is patient in pain?: No [...] house current occupational status: employed 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 current occupational exposures/hazards: [...] 3-4 times per week duration: 15-30 minutes/day josselyn/moravian: Caodaism seatbelt use: always do you feel safe at home: Yes 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 Coby Carmona MD Status: R EG CLI Study:OB Anatomy Scan Date of Exam: 04/30 06/23 Exam# [id number] Ordering Dr: Georgette Avalos CNM PROCEDURE: OB [...] of 20 weeks and 2days. Reading Location: [id number] CC: CHUY Avalos; Dr. Coby Carmona MD ~ Focus Puller: Signed [facility]07-18-2025 Evaluation note* Diagnosis Onset Date Resolution Status [...] (polycystic ovarian syndrome) chronic August 13 3:20pm [facility] [employer] Work Phone: [phone] Progress [facility] [address] [facility], [address] [place] [address] OFFICE VISIT Date of Service: 05/16/25 MR#: [id number] Acct: [id number] Name: MARITA BERGERON Rep #: [id number] : 1995 Provider: Dr. 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 current occupational exposures/hazards: [...] 3-4 times per week duration: 15-30 minutes/day josselyn/moravian: Caodaism seatbelt use: always do you feel safe at home: Yes 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 current occupational exposures/hazards: [...] 3-4 times per week duration: 15-30 minutes/day josselyn/moravian: Caodaism seatbelt use: always do you feel safe at home: Yes 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: : 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 History 1 Elective abortions Hx Para [...] Cosigner Signature: Date (if applicable) CC: ~ [facility] [employer] Work Phone: [phone]) 297-827706-23-2025 Evaluation note* Diagnosis Onset Date Resolution Status [...] ovarian syndrome) chronic July 28, 2025 1:54pm [facility] Work Phone: [phone]) 129-273005-27-2025 Evaluation note* Diagnosis Onset Date Resolution Status [...] ovarian syndrome) chronic July 09, 2025 2:12pm [facility] Work Phone: 1([phone]) 423-335105-27-2025 Progress [facility] [address], [address] [place] [id number] OFFICE VISIT Date of Service: 03/25/25 MR#: [id number] Acct: [id number] Name: MARITA BERGERON Rep #: [id number] : 1995 Provider: CHUY Avalos Age/Sex: 29/F [place] [facility] [place]: Signed Intake Vital Signs 09/06/24 10:59 02/28/25 13:03 03/25/25 13:40 Height 4 ft 10 in 4 ft 10 in 4 ft 10 in Weight: 186 lb 4 oz BMI 38.9 BP 138/87 H Intake Visit Reasons: 11 wk OB Chief Complaint: 11wk OB Door To Door Selling Agent Required: No Is patient in pain?: No [...] house current occupational status: employed 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 current occupational exposures/hazards: [...] 3-4 times per week duration: 15-30 minutes/day josselyn/moravian: Caodaism seatbelt use: always do you feel safe at home: Yes 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: : 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 History 1 Elective abortions Hx Para [...] of high-risk : Status: Acute Comment: , KNUAL 10/12/25, : Radha (3) : Status: Acute [...] Cosigner Signature: Date (if applicable) CC: ~ [facility]05-27-2025 Progress note Author Georgette Avalos [facility] Note Date/Time March 25, 2025 2:15p m [facility] [address], [address] [place] [address] OFFICE VISIT Date of Service: 03/25/25 MR#: [id number] Acct: [id number] Name: MARITA BERGERON Rep #: [id number] : 1995 Provider: CHUY Avalos Age/Sex: 29/F [place] [facility] [place]: Signed Intake Vital Signs 09/06/24 10:59 02/28/25 13:03 03/25/25 13:40 Height 4 ft 10 in 4 ft 10 in 4 ft 10 in Weight: 186 lb 4 oz BMI 38.9 BP 138/87 H Intake Visit Reasons: 11 wk OB Chief Complaint: 11wk OB Door To Door Selling Agent Required: No Is patient in pain?: No [...] house current occupational status: employed 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 current occupational exposures/hazards: [...] 3-4 times per week duration: 15-30 minutes/day josselyn/moravian: Caodaism seatbelt use: always do you feel safe at home: Yes 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: : 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 History 1 Elective abortions Hx Para [...] fallen in the past year?: No 03/25/25 5823 <Electronically signed by Georgette abarca CNM> Date _ Georgette Avalos CNM Cosigner Signature: Date (if applicable) CC: ~ [facility] [employer] Work Phone: 1(475) 409-715105-02-2025 Evaluation note* Diagnosis Onset Date Resolution Status [...] syndrome) chronic March 25, 2025 1 :36pm [facility] [employer] Work Phone: 1([phone]) [phone] Evaluation note* Diagnosis Onset Date Resolution Status [...] ovarian syndrome) chronic April 21, 2025 2:50pm [facility] [employer] Work Phone: 1([phone]) 371-848005-02-2025 Evaluation note* Diagnosis Onset Date Resolution Status [...] Hypertension chronic April 21, 2 025 2:50pm [facility] Work Phone: 1([phone]) 602-156505-02-2025 Evaluation note* Diagnosis Onset Date Resolution Status [...] ovarian syndrome) chronic May 16, 2025 2:35pm [facility] Work Phone: 1([phone]) [phone] Evaluation note* Diagnosis Onset Date Resolution Status [...] (polycystic ovarian syndrome) chronic June 11 2:08pm [facility] Work Phone: [phone]) 241-859312-28-2023 Discharge summary Author Chela Almaguer [facility] October 26, 2023 9:07am Note Date/Time October 26, 2023 9:08am [facility] Physical Therapy [facility] [address] [place] [address] [address] [place] [address] / REHABILITATION SERVICES DISCHARGE SUMMARY MR#: [id number] Acct: [id number] Name: MARITA BERGERON Rep #: [id number] : 1995 28 From: Chela Estes Referring Dr.: Dr. Coby Carmona MD Status : REG RCR Insurance: [facility] [employer] SELF PAY INSURANCE Patient Information Patient [...] Dr. Coby Carmona MD ~ ELR Signed [facility] Work Phone: evaluation note* Diagnosis Onset Date Resolution Status Elevated blood-pressure read ing without diagnosis of hypertension acute Chronic back pain chronic Left shoulder pain chronic PCOS (polycystic ovarian syndrome) chronic Shoulder tendinitis chronic [facility] Work Phone: Evaluation note* Diagnosis Onset Date Resolution Status Elevated blood-pressure read ing without diagnosis of hypertension acute Chronic back pain chronic Left shoulder pain chronic PCOS (polycystic ovarian syndrome) chronic Shoulder tendinitis chronic Anxiety acute White coat syndrome without diagnosis of hypertension acute [facility] Work Phone: Evaluation note* Diagnosis Onset Date Resolution Status Anxiety acute Metabolic syndrome acute Other obesity acute Chronic back pain chronic Hypertension chronic PCOS (polycystic ovarian syndrome) chronic Other obesity acute Encounter for school health examination acute Metabolic syndrome acute PCOS (polycystic ovarian syndrome) chronic [facility] Work Phone: Evaluation note* Diagnosis Onset Date Resolution Status Preventative health care acu te PCOS (polycystic ovarian syndrome) chronic Right shoulder pain chronic [facility] Work Phone: Evaluation note* Diagnosis Onset Date Resolution Status Preventative health care acu te PCOS (polycystic ovarian syndrome) chronic Right shoulder pain chronic Encounter for routine gynecological examination noneactive Sinus tachycardia by electrocardiogram acute [facility] Work Phone: Evaluation note* Diagnosis Onset Date Resolution Status Preventative health care acu te PCOS (polycystic ovarian syndrome) chronic Right shoulder pain chronic Encounter for routine gynecological examination noneactive Sinus tachycardia by electrocardiogram acute Obesity chronic PCOS (polycystic ovarian syndrome) [facility] Work Phone: Evaluation note* Diagnosis Onset Date Resolution Status Encounter for routine gynecological examination noneactive Sinus tachycardia by electrocardiogram acute Obesity chronic PCOS (polycystic ovarian syndrome) [facility] Work Phone: [facility] Phone[facility] Work Phone: Reason for referral (narrative)No reason for referral information availableLockbourne Medical Services Work Phone: Summary Purpose Family [...] Complaint and Reason for Visit Chief Complaint NET MVC DEVELOPER, EST. CARE- NPP [employer] LT SHOULDER PN / RX HERE Reason for Visit Elevated blood-press ure reading without diagnosis of hypertension Chronic back pain Left shoulder pain PCOS (polycystic ovarian syndrome) Shoulder tendinitis Chief Complaint NET MVC DEVELOPER, EST. 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 (FINANCIAL ASSISTANCE ADVISOR) elevated heartrate Tachycardia, unspecified Reason for Visit Preventative health care PCOS (polycystic ovarian syndrome) Right shoulder pain Encounter for routine gynecological examination Sinus tachycardia by electrocardiogram Chief Complaint YEARLY FALL RIGHT SHOULDER PAIN. 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 (FINANCIAL ASSISTANCE ADVISOR) elevated heartrate Tachycardia, unspecified PCOS Reason for [...] 09, 2025 2:12pm Supervision of high-risk Septe [facility] 2024 2:12pm Hypertension July 09, 2025 2:12pm PCOS (polycystic ovarian syndrome) [facility] 2024 2:12pm Chief Complaint Admit Date HTN [...] July 09, 2025 2:12pm [facility] 2024 2:12pm Hypertension July 09, 2025 2:12pm PCOS (polycystic ovarian syndrome) [facility] 2024 2:12pm Gestational diabetes July 28 1:54pm Obesity affecting July 282024 1:54pm July 28, 2025 1:54pm Supervision of high-risk [facility] 2024 1:54pm Hypertension July 28, 2025 1:54pm PCOS (polycystic ovarian syndrome) [facility] 2024 1:54pm Chief Complaint Admit Date 19 [...] July 09, 2025 2:12pm Supervision of high-risk [facility]2024 2:12pm PCOS (polycystic ovarian syndrome) [facility] 2024 2:12pm Hypertension July 09, 2025 2:12pm Gestational diabetes July 28 1:54pm Obesity affecting July 282024 1:54pm July 28, 2025 1:54pm Supervision of high-risk [facility] 2024 1:54pm PCOS (polycystic ovarian syndrome) [facility] 2024 1:54pm Hypertension July 28, 2025 1:54pm Gestational diabetes August 13, 2025 3:20pm Obesity affecting July 3:20pm August 13, 2025 3 :20pm Supervision of high-risk [facility] 2024 3:20pm PCOS (polycystic ovarian syndrome) [facility] 2024 3:20pm Additional Source Comments INFORMATION SOURCE (unrecogn ized section and content) DATE CREATED AUTHOR 10/10/2019 [facility] DATE CREATED AUTHOR AUTHOR'S ORGANIZ ATION 10/29/2020 [facility] DATE CREATED AUTHOR AUTHOR'S ORGANIZ ATION 09/09/2025 [facility] Source Comments (unrecognize d section and content) In the event this informatio n is protected by the Federal Confidentiality of Alcohol and Drug Abuse Patient Records regulations: The Federal rules restrict any use of the information to criminally investigate or prosecute any alcohol or drug abuse patient.[facility] Reason for Visit (unrecogniz ed section [...] End: February 11, 2025 Ruth Thurston NP, NET MVC DEVELOPER-C Attending Provider Active Start: February 11, 2025 [...] 2025 End: April 21, 2025 Ruth Thurston NET MVC DEVELOPER, NET MVC DEVELOPER-C Attending Provider Active Start: April 21, 2025 [...] 2025 End: February 11, 2025 Ruth Thurston NET MVC DEVELOPER, NET MVC DEVELOPER-C Attending Provider Active Start: February 11, 2025 [...] End: April 21, 2025 Ruth Thurston NP, NET MVC DEVELOPER-C Attending Provider Active Start: April 21, 2025 [...] End: April 21, 2025 Ruth Thurston NP, NET MVC DEVELOPER-C Attending Provider Active Start: April 21, 2025 [...] End: April 21, 2025 Ruth Thurston NP, NET MVC DEVELOPER-C Attending physician Active Start: April 21, 2025 [...] 26, 2025 End: May 26, 2025 Georgette Avaols CNM Attending physician Active Start: May 26, [...] e Start: July 18, 2025 Ruth Thurston NET MVC DEVELOPER, NET MVC DEVELOPER-C Attending physician Active Start: July 18, 2025 Ruth Thurston NET MVC DEVELOPER, NET MVC DEVELOPER-C Referring Provider Active Start: July 18, 2025 Team Status: Inactive Member Role/Relationship Status Dates Dr. Coby Carmona MD Primary care physician Activ e Start: July 28, 2025 End: July 28, 2025 Dr. Coby Carmona MD Referring Provider Active Start: July 28, 2025 End: July 28, 2025 Ruth Thurston NET MVC DEVELOPER, NET MVC DEVELOPER-C Attending physician Active Start: July 28, 2025 End: July 28, 2025 Team Status: Active Member Role/Relationship Status Dates Dr. Coby Carmona MD Primary care physician Activ e Start: July 28, 2025 Ruth Thurston NET MVC DEVELOPER, NET MVC DEVELOPER-C Attending physician Active Start: July 28, 2025 Ruth Thurston NET MVC DEVELOPER, NET MVC DEVELOPER-C Referring Provider Active Start: July 28, 2025 Team Status: Inactive Member Role/Relationship Status Dates Dr. Coby Carmona MD Primary care physician Activ e Start: July 28, 2025 End: July 29, 2025 Ruth Thurston NET MVC DEVELOPER, NET MVC DEVELOPER-C Attending physician Active Start: July 28, 2025 End: July 29, 2025 Ruth Thurston NET MVC DEVELOPER, NET MVC DEVELOPER-C Referring Provider Active Start: July 28, 2025 End: July 29, 2025 Team Status: Inactive Member Role/Relationship Status Dates Dr. Coby Carmona MD Primary care physician Activ e Start: July 18, 2025 End: July 18, 2025 Ruth Thurston NET [employer] DEVELOPER, [employer] DEVELOPER-C Attending physician Active Start: July 18, 2025 End: July 18, 2025 Ruth Thurston NET MVC DEVELOPER, [employer] DEVELOPER-C Referring Provider Active Start: July 18, 2025 [...] 2025 End: July 18, 2025 Ruth Thurston NET MVC DEVELOPER, [employer] DEVELOPER-C Attending physician Active Start: July 18, 2025 End: July 18, 2025 Ruth Thurston NET MVC DEVELOPER, NET MVC DEVELOPER-C Referring Provider Active Start: July 18, 2025 End: July 18, 2025 Team Status: Inactive Member Role/Relationship Status Dates Dr. Coby Carmona MD Primary care physician Activ e Start: July 28, 2025 End: July 28, 2025 Dr. Coby Carmona MD Referring Provider Active Start: July 28, 2025 End: July 28, 2025 Ruth Thurston NET MVC DEVELOPER, NET MVC DEVELOPER-C Attending physician Active Start: July 28, 2025 End: July 28, 2025 Team Status: Inactive Member Role/Relationship Status Dates Dr. Coby Carmona MD Primary care physician Activ e Start: July 28, 2025 End: July 29, 2025 Ruth Thurston NET MVC DEVELOPER, NET MVC DEVELOPER-C Attending physician Active Start: July 28, 2025 End: July 29, 2025 Ruth Thurston NET MVC DEVELOPER, NET MVC DEVELOPER-C Referring Provider Active Start: July 28, 2025 End: July 29, 2025 Team Status: Active Member Role/Relationship Status Dates Dr. Coby Carmona MD Primary care physician Activ e Start: August 12, 2025 Ruth Thurston NET MVC DEVELOPER, NET MVC DEVELOPER-C Attending physician Active Start: August 12, 2025 Ruth Thurston NET MVC DEVELOPER, NET MVC DEVELOPER-C Referring Provider Active Start: August 12, 2025 [...] BE BASED ON THE PRIMARY CLINICAL RECORDS. [employer] provides no warranty or guarantee of the accuracy or completeness of information in this document.
[2025-10-12 20:00] LABS: Hematocrit 40.1 % (37-47); Hemoglobin 13.3 g/dL (12.0-15.0); Immature Granulocytes Count 0.050 X10^3/uL (0.0-0.0); Mean Corp Hgb Conc 33.2 g/dL (32-36); Mean Corpuscular Volume 87.4 fL (81-99); Mean Platelet Vol. 11.2 fl (6.2-12.0); NRBC Flagged by Analyzer 0 % (0-5); Platelet Count 262 K/mm3 (150-450); RBC Distribution Width CV 12.4 % (11.6-14.6); RBC Distribution Width SD 39.8 fl (35.1-43.9); Red Blood Count 4.59 M/mm3 (4.2-5.4); White Blood Count 12.1 K/mm3 (4.4-11.0)
[2025-10-12 20:08] VITALS: PULSE 79; O2SAT 97
[2025-10-12 20:11] VITALS: BP 116/72; PULSE 72; RESP 16; TEMP 36.7
[2025-10-12 20:28] LABS: Syphilis Antibodies Nonreactive (Nonreactive)
[2025-10-13] VITALS (51 sets, daily range): BP systolic 87–156; BP diastolic 50–100; PULSE 68–127; RESP 16–26; TEMP 36.4–37.2; O2SAT 92–100
[2025-10-13 03:15] LABS: ROM Internal Control Test YES-OK TO RESULT pt. (Internal QC)
[2025-10-13 03:16] LABS: ROM Patient Test POSITIVE (Negative)
[2025-10-13 03:17] LABS: Record Kit Lot#, ROM+ K3607
[2025-10-13] MEDS: Lactated Ringers 1,000 ML 50 ML IV (03:45)
[2025-10-13] MEDS: LACTATED RINGERS 500 ML 999 ML IV (04:08)
[2025-10-13] MEDS: Lactated Ringers 1,000 ML 200 ML IV ×2 (06:25→11:14)
[2025-10-13] MEDS: fentaNYL-bupivacaine (epidural) 100 ML BAG EPIDURAL ×2 (06:48→11:30)
--- NOTE | 2025-10-13 08:00 | PCM.HP.OB ---
HPI - General General Date of Admission: 10/12/25 Chief Complaint: induction of labor HPI Narrative MARITA BOUDREAUX, is a 30 F who presents at 40w0d for induction of labor for gestational diabetes, diet controlled. She is GBS negative. Good movement, no contractions / leakage of fluid / vaginal bleeding. Maternal Data Information KUNAL Calculator Estimated Delivery Date Method Current WG Current Estimate 10/12/25 Ultrasound #1 40w 1d Other Estimates 10/06/25 LMP (Certain) 41w 0d PFSH [facility] Medical History (Updated 10/13/25 @ 18:[address] Georgette Arceo, DO) Depression Anxiety Gestational diabetes Palpitations Sinus tachycardia by electrocardiogram Hypertension PCOS (polycystic ovarian syndrome) Chronic back pain Home Medications ?Medication ?Instructions ?Recorded ?Last Taken ?Type docosahexaenoic acid 200 mg 200 mg PO DAILY 02/11/25 10/11/25 23:00 History capsule ( DHA) 200 mg aspirin 81 mg tablet 81 mg PO QDAY 06/11/25 10/11/25 23:00 History 81 mg blood sugar diagnostic (Blood #120 ea 07/21/25 Unknown Rx Glucose Test strips) blood-glucose meter #1 ea 07/21/25 Unknown Rx lancets #200 ea 07/21/25 Unknown Rx Allergy/AdvReac Type Severity Reaction Status Date / Time No Known Allergies Allergy Verified 10/12/25 19:35 Family History Grandmother Myocardial infarction Diabetes Grandfather Myocardial infarction Grandmother Colon cancer Surgical History S/P wisdom tooth extraction Social History adopted: No household members: spouse housing: house current occupational status: employed 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 current occupational exposures/hazards: No pets and animals: Yes (Not managing litterbox) pets and animals: cat(s) history of recent travel: No sexually active: Yes Smoking Status: Never smoker alcohol intake: current alcohol intake frequency: holidays/special occasions only details: Not while substance use type: does not use well-balanced diet: about half the time caffeine: Yes Type: tea eating out: 1-3 times/week during the past year weight has: remained stable what type of physical activity do you participate in: walking and weight training frequency: 3-4 times per week duration: 15-30 minutes/day josselyn/pentecostal: Islam seatbelt use: always do you feel safe at home: Yes 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 History 1 Elective abortions Hx Para 0 Spontaneous abortions 0 Hx # Term Pregnancies Ectopic pregnancies Hx # Pregnancies Multiple births # of living children Visit Details Expected Delivery Route/Plan Labor Preferences- CB/BF classes: done labor support person: yes labor intervention preferences: Radha pain management options preferred: open to epidural when requested cut cord/dad catch: yes : yes PP control planned: [] discussed possible routes of delivery and associated risks: [] special requests: [] Plans Covid status: [] Flu vaccine: [] Tdap vaccine: yes Rhogam: na LARC form signed: yes Problem list reviewed and updated with the most current plan of care details and appropriate orders placed. Relevant counseling for the gestational age provided. Continue routine care and follow up unless otherwise noted in visit notes/problem list details OB Flowsheet Initial Weight: 186 lb Date <del>?</del> EGA Weight BP Urine Prot <del>?</del> Glucose FHR FuHt Pres Dilation <del>?</del> Effaced St Visit Note 02/28/25 <del>?</del> 7w 5d 186 lb 8 oz (+8 oz) 123/80 <del>?</del> 170 <del>?</del> SM- crl 1.4 cm not cons with lmp 03/25/25 <del>?</del> 11w 2d 186 lb 4 oz (+4 oz) 138/87 Negative <del>?</del> Negative 168 <del>?</del> KW- no vb/cramping. US ordered. start asa 81 mg. 04/21/25 <del>?</del> 15w 1d 188 lb (+2 lb) 118/78 <del>?</del> 151 <del>?</del> MH-No VB. Feels well. No nausea. Denies concerns 05/16/25 <del>?</del> 18w 5d 189 lb 2 oz (+3 lb 2 oz) 126/81 Negative <del>?</del> Negative 145 <del>?</del> SM- no vb lof good fm no reuglar ctx 06/11/25 <del>?</del> 22w 3d 190 lb 5 oz (+4 lb 5 oz) 120/78 Negative <del>?</del> Negative 141 <del>?</del> JV- some pubic bone pain and going to see a pelvic floor therapist that is her friend. no lof, vaginal bleeding, and ++ fm. glucola next visit. 07/09/25 <del>?</del> 26w 3d 190 lb 7 oz (+4 lb 7 oz) 136/83 Negative <del>?</del> Negative 165 29 <del>?</del> KW- no vb/lof/ctx. good fm. 28 week labs today. LARC today. tdap next visit. 07/28/25 <del>?</del> 29w 1d 192 lb 8 oz (+6 lb 8 oz) 123/80 Negative <del>?</del> Negative 143 31 <del>?</del> -no VB, LOF. Good FM. GDM and 1 wk of testing and >90% reading WNL. Seeing dietitian today. Tdap given 08/13/25 <del>?</del> 31w 3d 192 lb 8 oz (+6 lb 8 oz) 129/72 Negative <del>?</del> Negative 155 32 <del>?</del> Sm- BS controlled no vb lof good fm no regular ctx 08/27/25 <del>?</del> 33w 3d 191 lb 5 oz (+5 lb 5 oz) 116/75 Negative <del>?</del> Negative 140 34 <del>?</del> JV- fasting glucose around or under 90, one time had a 102, 2 hr pp normal. got flu shot and rsv vaccines. plan 36 week growth scan. 09/10/25 <del>?</del> 35w 3d 189 lb 4 oz (+3 lb 4 oz) 126/83 Negative <del>?</del> Negative 130 <del>?</del> SM- no vb lof good fm no regular ctx discussed diagnosis 09/12/25 <del>?</del> 35w 5d 189 lb 7 oz (+3 lb 7 oz) 124/86 <del>?</del> 140 <del>?</del> JV- [facility] ultrasound was showing that the growth was 9th % but her due date was actually wrong in the computer. This was changed but recommend keeping MFM rpt ultrasound . GBS done today NSt reactive 09/18/25 <del>?</del> 36w 4d 188 lb 3 oz (+2 lb 3 oz) 101/70 Negative <del>?</del> Negative 136 36 <del>?</del> KV- With correct dates NOT FGR, no longer needs NSTs. Good FM. No ctx, LOF, and VB. BS reviewed and >75% within goal. 09/23/25 <del>?</del> 37w 2d 189 lb (+3 lb) 126/81 Negative <del>?</del> Negative 145 37 <del>?</del> SM- no vb lof good fm no regular ctx BS reviewed and mostly within control 09/29/25 <del>?</del> 38w 1d 188 lb 4 oz (+2 lb 4 oz) 117/82 Negative <del>?</del> Negative 141 37 Cephalic 0 <del>?</del> KV- Good FM. No ctx/LOF/VB. BG mostly within range. 10/08/25 <del>?</del> 39w 3d 187 lb 4 oz (+1 lb 4 oz) 120/83 Negative <del>?</del> Negative 140 39 Cephalic 0 <del>?</del> KW- no vb/lof/ctx. good fm. BS normal. IOL set up for 40 weeks NST FHR Rate Baby A Baseline: 130 Variability:: Moderate Accelerations:: 15 x 15 Decelerations:: None NST Reactive:: Yes FHR Category:: Category I Uterine Activity:: irregular Vital Signs Vital Signs Vital Signs: 10/12/25 20:08 10/12/25 20:08 10/12/25 20:11 Temperature Temperature Source Pulse Rate 79 Respiratory Rate Respiratory Depth Respiratory Pattern Blood Pressure 116/72 Blood Pressure Mean BP Systolic 116 BP Diastolic 72 Blood Pressure Source Blood Pressure Position Blood Pressure Location Baseline BP Pulse Ox 97 Oxygen Delivery Method 10/12/25 20:11 10/12/25 20:11 10/12/25 20:11 Temperature Temperature Source Temporal Pulse Rate 72 Respiratory Rate 16 Respiratory Depth Respiratory Pattern Blood Pressure Blood Pressure Mean BP Systolic BP Diastolic Blood Pressure Source Blood Pressure Position Blood Pressure Location Baseline BP Pulse Ox Oxygen Delivery Method 10/12/25 20:11 10/13/25 00:42 10/13/25 00:42 Temperature 98.1 F Temperature Source Pulse Rate 68 Respiratory Rate Respiratory Depth Respiratory Pattern Blood Pressure 116/69 Blood Pressure Mean BP Systolic 116 BP Diastolic 69 Blood Pressure Source Blood Pressure Position Blood Pressure Location Baseline BP Pulse Ox Oxygen Delivery Method 10/13/25 00:42 10/13/25 00:42 10/13/25 00:42 Temperature Temperature Source Temporal Pulse Rate 83 Respiratory Rate 16 Respiratory Depth Respiratory Pattern Blood Pressure Blood Pressure Mean BP Systolic BP Diastolic Blood Pressure Source Blood Pressure Position Blood Pressure Location Baseline BP Pulse Ox Oxygen Delivery Method 10/13/25 00:42 10/13/25 00:42 10/13/25 05:17 Temperature 97.7 F L Temperature Source Temporal Pulse Rate Respiratory Rate Respiratory Depth Respiratory Pattern Blood Pressure Blood Pressure Mean BP Systolic BP Diastolic Blood Pressure Source Blood Pressure Position Blood Pressure Location Baseline BP Pulse Ox 97 Oxygen Delivery Method 10/13/25 05:17 10/13/25 05:17 10/13/25 05:17 Temperature Temperature Source Pulse Rate 83 Respiratory Rate 16 Respiratory Depth Respiratory Pattern Blood Pressure 132/73 H Blood Pressure Mean BP Systolic 132 BP Diastolic 73 Blood Pressure Source Blood Pressure Position Blood Pressure Location Baseline BP Pulse Ox Oxygen Delivery Method 10/13/25 05:17 10/13/25 05:17 10/13/25 06:15 Temperature 98.2 F Temperature Source Pulse Rate Respiratory Rate Respiratory Depth Respiratory Pattern Blood Pressure 136/72 H Blood Pressure Mean BP Systolic 136 BP Diastolic 72 Blood Pressure Source Blood Pressure Position Blood Pressure Location Baseline BP Pulse Ox 98 Oxygen Delivery Method 10/13/25 06:15 10/13/25 06:26 10/13/25 06:26 Temperature Temperature Source Pulse Rate 86 82 Respiratory Rate Respiratory Depth Respiratory Pattern Blood Pressure Blood Pressure Mean BP Systolic BP Diastolic Blood Pressure Source Blood Pressure Position Blood Pressure Location Baseline BP Pulse Ox 98 Oxygen Delivery Method 10/13/25 06:29 10/13/25 06:29 10/13/25 06:29 Temperature Temperature Source Pulse Rate 78 Respiratory Rate 16 Respiratory Depth Respiratory Pattern Blood Pressure 142/72 H Blood Pressure Mean BP Systolic 142 BP Diastolic 72 Blood Pressure Source Blood Pressure Position Blood Pressure Location Baseline BP Pulse Ox Oxygen Delivery Method 10/13/25 06:31 10/13/25 06:31 10/13/25 06:36 Temperature Temperature Source Pulse Rate 97 Respiratory Rate Respiratory Depth Respiratory Pattern Blood Pressure 130/66 H Blood Pressure Mean BP Systolic 130 BP Diastolic 66 Blood Pressure Source Blood Pressure Position Blood Pressure Location Baseline BP Pulse Ox 98 Oxygen Delivery Method 10/13/25 06:36 10/13/25 06:36 10/13/25 06:36 Temperature Temperature Source Pulse Rate 87 78 Respiratory Rate Respiratory Depth Respiratory Pattern Blood Pressure Blood Pressure Mean BP Systolic BP Diastolic Blood Pressure Source Blood Pressure Position Blood Pressure Location Baseline BP Pulse Ox 98 Oxygen Delivery Method 10/13/25 06:39 10/13/25 06:39 10/13/25 06:39 Temperature Temperature Source Pulse Rate 86 Respiratory Rate 16 Respiratory Depth Respiratory Pattern Blood Pressure 129/65 H Blood Pressure Mean BP Systolic 129 BP Diastolic 65 Blood Pressure Source Blood Pressure Position Blood Pressure Location Baseline BP Pulse Ox Oxygen Delivery Method 10/13/25 06:41 10/13/25 06:41 10/13/25 06:44 Temperature Temperature Source Pulse Rate 88 Respiratory Rate Respiratory Depth Respiratory Pattern Blood Pressure 130/68 H Blood Pressure Mean BP Systolic 130 BP Diastolic 68 Blood Pressure Source Blood Pressure Position Blood Pressure Location Baseline BP Pulse Ox 98 Oxygen Delivery Method 10/13/25 06:44 10/13/25 06:44 10/13/25 06:46 Temperature Temperature Source Pulse Rate 88 95 Respiratory Rate 16 Respiratory Depth Respiratory Pattern Blood Pressure Blood Pressure Mean BP Systolic BP Diastolic Blood Pressure Source Blood Pressure Position Blood Pressure Location Baseline BP Pulse Ox Oxygen Delivery Method 10/13/25 06:46 10/13/25 06:49 10/13/25 06:49 Temperature Temperature Source Pulse Rate 86 Respiratory Rate Respiratory Depth Respiratory Pattern Blood Pressure 125/58 H Blood Pressure Mean BP Systolic 125 BP Diastolic 58 Blood Pressure Source Blood Pressure Position Blood Pressure Location Baseline BP Pulse Ox 99 Oxygen Delivery Method 10/13/25 06:49 10/13/25 06:51 10/13/25 06:51 Temperature Temperature Source Pulse Rate 101 H Respiratory Rate 16 Respiratory Depth Respiratory Pattern Blood Pressure Blood Pressure Mean BP Systolic BP Diastolic Blood Pressure Source Blood Pressure Position Blood Pressure Location Baseline BP Pulse Ox 100 Oxygen Delivery Method 10/13/25 06:54 10/13/25 06:54 10/13/25 06:54 Temperature Temperature Source Pulse Rate 90 Respiratory Rate 16 Respiratory Depth Respiratory Pattern Blood Pressure 120/57 L Blood Pressure Mean BP Systolic 120 BP Diastolic 57 Blood Pressure Source Blood Pressure Position Blood Pressure Location Baseline BP Pulse Ox Oxygen Delivery Method 10/13/25 06:56 10/13/25 06:56 10/13/25 07:00 Temperature Temperature Source Pulse Rate 86 94 Respiratory Rate Respiratory Depth Respiratory Pattern Blood Pressure Blood Pressure Mean BP Systolic BP Diastolic Blood Pressure Source Blood Pressure Position Blood Pressure Location Baseline BP Pulse Ox 100 Oxygen Delivery Method 10/13/25 07:00 10/13/25 07:02 10/13/25 07:02 Temperature Temperature Source Pulse Rate 91 Respiratory Rate Respiratory Depth Respiratory Pattern Blood Pressure Blood Pressure Mean BP Systolic BP Diastolic Blood Pressure Source Blood Pressure Position Blood Pressure Location Baseline BP Pulse Ox 92 100 Oxygen Delivery Method 10/13/25 07:04 10/13/25 07:04 10/13/25 07:07 Temperature Temperature Source Pulse Rate 127 H 122 H Respiratory Rate Respiratory Depth Respiratory Pattern Blood Pressure 156/87 H Blood Pressure Mean BP Systolic 156 BP Diastolic 87 Blood Pressure Source Blood Pressure Position Blood Pressure Location Baseline BP Pulse Ox Oxygen Delivery Method 10/13/25 07:07 10/13/25 07:12 10/13/25 07:12 Temperature Temperature Source Pulse Rate 118 H Respiratory Rate Respiratory Depth Respiratory Pattern Blood Pressure Blood Pressure Mean BP Systolic BP Diastolic Blood Pressure Source Blood Pressure Position Blood Pressure Location Baseline BP Pulse Ox 100 100 Oxygen Delivery Method 10/13/25 07:14 10/13/25 07:14 10/13/25 07:17 Temperature Temperature Source Pulse Rate 120 H 122 H Respiratory Rate Respiratory Depth Respiratory Pattern Blood Pressure 137/100 H Blood Pressure Mean BP Systolic 137 BP Diastolic 100 Blood Pressure Source Blood Pressure Position Blood Pressure Location Baseline BP Pulse Ox Oxygen Delivery Method 10/13/25 07:17 10/13/25 07:19 10/13/25 07:19 Temperature Temperature Source Pulse Rate 111 H Respiratory Rate Respiratory Depth Respiratory Pattern Blood Pressure 125/62 H Blood Pressure Mean BP Systolic 125 BP Diastolic 62 Blood Pressure Source Blood Pressure Position Blood Pressure Location Baseline BP Pulse Ox 100 Oxygen Delivery Method 10/13/25 07:22 10/13/25 07:22 10/13/25 07:24 Temperature Temperature Source Pulse Rate 113 H Respiratory Rate Respiratory Depth Respiratory Pattern Blood Pressure 132/83 H Blood Pressure Mean BP Systolic 132 BP Diastolic 83 Blood Pressure Source Blood Pressure Position Blood Pressure Location Baseline BP Pulse Ox 100 Oxygen Delivery Method 10/13/25 07:24 10/13/25 07:24 10/13/25 07:24 Temperature Temperature Source Temporal Pulse Rate 113 H Respiratory Rate 16 Respiratory Depth Respiratory Pattern Blood Pressure Blood Pressure Mean BP Systolic BP Diastolic Blood Pressure Source Blood Pressure Position Blood Pressure Location Baseline BP Pulse Ox Oxygen Delivery Method 10/13/25 07:24 10/13/25 08:07 10/13/25 08:07 Temperature 97.9 F Temperature Source Pulse Rate 83 Respiratory Rate Respiratory Depth Respiratory Pattern Blood Pressure 114/56 L Blood Pressure Mean BP Systolic 114 BP Diastolic 56 Blood Pressure Source Blood Pressure Position Blood Pressure Location Baseline BP Pulse Ox Oxygen Delivery Method 10/13/25 09:11 10/13/25 09:11 10/13/25 09:11 Temperature Temperature Source Pulse Rate 96 Respiratory Rate 16 Respiratory Depth Respiratory Pattern Blood Pressure 106/52 L Blood Pressure Mean BP Systolic 106 BP Diastolic 52 Blood Pressure Source Blood Pressure Position Blood Pressure Location Baseline BP Pulse Ox Oxygen Delivery Method 10/13/25 10:07 10/13/25 10:07 10/13/25 10:24 Temperature Temperature Source Temporal Pulse Rate 103 H Respiratory Rate Respiratory Depth Respiratory Pattern Blood Pressure 114/67 Blood Pressure Mean BP Systolic 114 BP Diastolic 67 Blood Pressure Source Blood Pressure Position Blood Pressure Location Baseline BP Pulse Ox Oxygen Delivery Method 10/13/25 10:24 10/13/25 11:33 10/13/25 11:33 Temperature 99.0 F Temperature Source Temporal Pulse Rate Respiratory Rate Respiratory Depth Respiratory Pattern Blood Pressure Blood Pressure Mean BP Systolic BP Diastolic Blood Pressure Source Blood Pressure Position Blood Pressure Location Baseline BP Pulse Ox 98 Oxygen Delivery Method 10/13/25 11:33 10/13/25 11:34 10/13/25 11:34 Temperature 98.8 F Temperature Source Pulse Rate 83 Respiratory Rate Respiratory Depth Respiratory Pattern Blood Pressure 130/65 H Blood Pressure Mean BP Systolic 130 BP Diastolic 65 Blood Pressure Source Blood Pressure Position Blood Pressure Location Baseline BP Pulse Ox Oxygen Delivery Method 10/13/25 12:42 10/13/25 12:42 10/13/25 14:50 Temperature 98 F Temperature Source Pulse Rate 75 92 Respiratory Rate 16 Respiratory Depth Respiratory Pattern Blood Pressure 100/54 L 115/74 Blood Pressure Mean BP Systolic 100 BP Diastolic 54 Blood Pressure Source Blood Pressure Position Blood Pressure Location Baseline BP Pulse Ox 100 Oxygen Delivery Method Room Air 10/13/25 15:00 10/13/25 15:04 10/13/25 15:04 Temperature 98.1 F Temperature Source Temporal Temporal Pulse Rate 83 Respiratory Rate 17 Respiratory Depth Respiratory Pattern Normal Blood Pressure 95/51 L 95/51 L Blood Pressure Mean 61 65 BP Systolic BP Diastolic Blood Pressure Source Monitor Monitor Blood Pressure Position Semi-Fowlers Blood Pressure Location Right Arm Baseline BP 100/54 Pulse Ox 98 Oxygen Delivery Method Room Air 10/13/25 15:05 10/13/25 15:15 10/13/25 15:16 Temperature Temperature Source Pulse Rate 94 92 104 H Respiratory Rate 20 H 23 H 21 H Respiratory Depth Respiratory Pattern Blood Pressure 87/50 L Blood Pressure Mean 61 BP Systolic BP Diastolic Blood Pressure Source Monitor Monitor Monitor Blood Pressure Position Blood Pressure Location Baseline BP Pulse Ox 97 97 Oxygen Delivery Method 10/13/25 15:17 10/13/25 15:30 10/13/25 15:30 Temperature Temperature Source Pulse Rate 103 H 88 81 Respiratory Rate 20 H 19 H 21 H Respiratory Depth Respiratory Pattern Blood Pressure 87/50 L 104/64 104/64 Blood Pressure Mean 62 77 78 BP Systolic BP Diastolic Blood Pressure Source Monitor Monitor Monitor Blood Pressure Position Sitting Sitting Blood Pressure Location Right Arm Right Arm Baseline BP 100/54 100/54 Pulse Ox 96 97 95 Oxygen Delivery Method Room Air 10/13/25 15:36 10/13/25 15:45 10/13/25 15:45 Temperature Temperature Source Pulse Rate 81 85 84 Respiratory Rate 19 H 19 H 19 H Respiratory Depth Normal Respiratory Pattern Blood Pressure 104/65 104/65 Blood Pressure Mean 78 76 BP Systolic BP Diastolic Blood Pressure Source Monitor Monitor Blood Pressure Position Sitting Blood Pressure Location Right Arm Baseline BP 100/54 Pulse Ox 97 97 97 Oxygen Delivery Method Room Air Room Air 10/13/25 16:00 10/13/25 16:15 10/13/25 16:30 Temperature Temperature Source Pulse Rate 77 80 92 Respiratory Rate 16 18 25 H Respiratory Depth Respiratory Pattern Blood Pressure 97/58 L 97/54 L 90/59 L Blood Pressure Mean 69 67 70 BP Systolic BP Diastolic Blood Pressure Source Monitor Monitor Monitor Blood Pressure Position Blood Pressure Location Baseline BP 100/54 100/54 100/54 Pulse Ox 97 96 95 Oxygen Delivery Method Room Air 10/13/25 16:45 10/13/25 17:03 10/13/25 17:03 Temperature 98.8 F Temperature Source Temporal Temporal Pulse Rate 85 87 Respiratory Rate 26 H 24 H Respiratory Depth Respiratory Pattern Blood Pressure 94/60 96/54 L Blood Pressure Mean 71 68 BP Systolic BP Diastolic Blood Pressure Source Monitor Monitor Blood Pressure Position Semi-Fowlers Semi-Fowlers Blood Pressure Location Right Arm Right Arm Baseline BP 100/54 100/54 Pulse Ox 95 95 Oxygen Delivery Method Room Air Room Air 10/13/25 17:58 Temperature Temperature Source Pulse Rate 83 Respiratory Rate 18 Respiratory Depth Normal Respiratory Pattern Blood Pressure 110/65 Blood Pressure Mean 80 BP Systolic BP Diastolic Blood Pressure Source Monitor Blood Pressure Position Semi-Fowlers Blood Pressure Location Right Arm Baseline BP Pulse Ox 97 Oxygen Delivery Method Room Air Weight Weight: 187 lb 9.814 oz Body Mass Index (BMI) 39.2 PRE- weight 186 lb PRE- Body Mass Index 39.0 (BMI) Physical Exam Const alert, no apparent distress and well nourished General Appearance: comfortable HEENT normocephalic Head and Scalp: atraumatic Neck full ROM Chest inspection of chest normal Resp normal respiratory effort GI soft to palpation and non-tender Labs Labs Labs: Blood Type A POSITIVE Antibody Screen NEGATIVE Hct, (37-47) 40.1 % Hgb, (12.0-15.0) 13.3 g/dL Obstetrics Ultrasound Syphilis Total Ab, (Nonreactive) Nonreactive Rubella IgG Antibody, (Nonreactive) REAC Hep Bs Antigen, (Nonreactive) Nonreactive Hepatitis C Antibody, (Nonreactive) Nonreactive Chlamydia DNA (RASHEED), (Negative) Negative N.gonorrhoeae DNA (RASHEED), (Negative) Negative HIV 1&2 Antibody, (Nonreactive) Nonreactive Glucose 1 Hr 50 gm, (70-140) 145 mg/dL H Gest Glucose Tolerance mg/dL Assessment & Plan (1) Labor and delivery indication for care or intervention: PLAN: GBS negative cytotec induction morejon balloon, pitocin, amniotomy prn epidural when requested (2) Gestational diabetes: QUALIFIERS: Gestational diabetes mellitus control: diet-controlled Trimester: third trimester Qualified Code(s): O24.410 - Gestational diabetes mellitus in , diet controlled COMMENT: QID glucose testing, ref dietitian, 36 wk growth US 36w1d EFW 2456g 19%, AC 28% PLAN: serial BG during labor (3) Obesity affecting : QUALIFIERS: Trimester: second trimester Obesity type affecting : unspecified obesity Qualified Code(s): O99.212 - Obesity complicating , second trimester COMMENT: BMI 38.7, HgBA1C ordered with NOB PLAN: Ancef 2g if for
[2025-10-13] MEDS: 0.9% Saline Lock 10 ML Syringe IV (09:27)
[2025-10-13] MEDS: 0.9% Normal Saline 500 ML IV.SOLN. INTRA-UTER (12:04)
--- NOTE | 2025-10-13 12:11 | PCM.PN.OB ---
Subjective Subjective Patient is comfortable with epidural. FHT intermittently category II with recurrent variable and late decelerations lasting ~30 minutes. Has also had two prolonged decelerations ~3 minutes down to 80 bpm during cervical exams. FHT improves with position changes temporarily. Pitocin has not been started and she continues to contract on her own q 2-4 minutes. Still having accelerations spontaneously and with scalp stim. Short periods of minimal variability, however moderate overall. SVE now 4/80/-1. Discussed with patient concerns about intolerance to labor. If another prolonged deceleration or recurrent decelerations last for an hour, would recommend proceeding with primary delivery. Also discussed possibility of still needing to proceed with if she is complete and pushing as we are not sure how baby will do at that point. All questions answered. Patient and FOB agreeable to plan. Objective Data Objective Data Vital Signs: Vital Signs Temp Pulse Resp BP Pulse Ox 98.8 F 83 16 130/65 H 98 10/13/25 11:33 10/13/25 11:34 10/13/25 09:11 10/13/25 11:34 10/13/25 11:33 Weight: 187 lb 9.814 oz Body Mass Index (BMI) 39.2 Intake & Output: Intake and Output for Last 24 Hours 10/11/25 10/12/25 10/13/25 23:59 23:59 23:59 Intake Total 2463.33 / 2463.33 Output Total 1150 / 1150 Balance 1313.33 / 1313.33 Lab / Micro Data 10/12/25 19:40 Labs: Laboratory Results - last 24 hr 10/12/25 19:40: WBC 12.1 H, RBC 4.59, Hgb 13.3, Hct 40.1, MCV 87.4, MCH 29.0, MCHC 33.2, RDW Std Deviation 39.8, RDW Coeff of Jae 12.4, Plt Count 262, MPV 11.2, Immature Gran % (Auto) 0.400, Neut % (Auto) 75.1 H, Lymph % (Auto) 17.4 L, [place] % (Auto) 5.1, Eos % (Auto) 1.8, Baso % (Auto) 0.2, Absolute Neuts (auto) 9.1 H, Absolute Lymphs (auto) 2.11, Nucleated RBC % 0, Syphilis Total Ab Nonreactive, Blood Type A POSITIVE, Antibody Screen NEGATIVE 10/12/25 19:59: POC Glucose 108 H 10/12/25 21:03: POC Glucose 104 10/13/25 00:45: POC Glucose 91 10/13/25 02:50: Vag Amniotic Fld Detect POSITIVE H 10/13/25 05:20: POC Glucose 96 10/13/25 09:00: POC Glucose 93 NST FHR Rate Baby A Baseline: 135 Variability:: Moderate Accelerations:: 15 x 15 Decelerations:: Late (intermittent), Variable (intermittent) and Prolonged (~3 minutes x2) NST Reactive:: Yes FHR Category:: Category II Uterine Activity:: q2-4 min
[2025-10-13] MEDS: Cefazolin 1 GM/5 ML Vial 2 GM IV (13:21)
[2025-10-13] MEDS: fentaNYL 100 MCG/2 ML Ampul EPIDURAL (13:26)
[2025-10-13] MEDS: 0.9% Normal Saline (1000mL) 600 ML IV (13:27)
--- NOTE | 2025-10-13 13:30 | PLAC_PTH ---
PATIENT: MARITA BERGERONNEACCT #:[id number] LOC: WP U#:[id number] AGE/SX: 30/F ROOM: WP002 RE10/12/[address]: Dr. Georgette Arceo DO : 1995 BED: 1 DIS: 10/15/2025 SPEC #: [id number] RECD: 10/14/25 07:30 STATUS: JANICE REAdilene #: [id number] ANTONIO: 10/13/25 13:[address]: Georgette Arceo DEPT: SURGICAL PATHOLOGY RECD BY: Syd Ames ENTERED: 10/14/25 10:02 SP TYPE: PLACENTA OTHR DR: MD Georgette Santoyo CNM Tissues: A - Placenta, NOS Procedures: Surgery Specimen Level V HEADER OPERATION: Primary section PRE-OP DIAGNOSIS: SGA TISSUE SUBMITTED: A- Placenta MICROSCOPIC DIAGNOSIS A. 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 - Unremarkable membranes. - Three vessel umbilical cord with no specific pathologic change. MICROSCOPIC DESCRIPTION Slides are reviewed. GROSS DESCRIPTION A. Received in formalin labeled with the patient's name and date of is a 361.9 g, 21.6 x 15.5 x 0.6-2.4 cm irregular placental disc. The membranes are vance-pink, translucent and edematous, inserting marginally. The hypercoiled, possibly tethered trivascular umbilical cord measures 34.9 cm in length by 1.1 cm in diameter and inserts eccentrically, 3.3 cm from the disc edge; there is a moderate amount of loosely adherent blood clot however no definitive umbilical avulsions are identified. The surface is blue-purple with patchy, subchorionic fibrin (<25%). The maternal surface is dark red-purple with diffuse fibrin (<30%); grossly, the maternal surface appears near complete. Sectioning reveals dark red, congested, spongy parenchyma with fibrin and hemorrhages throughout (<50%). Wallpaperer sections are submitted as follows: A1: Membrane rollA2: Umbilical cordA3: PlacentaA4: Placenta SC 10/14/2025 CPT:94384
[2025-10-13] MEDS: Azithromycin 500 MG Vial (SNAP) IV (13:31)
[2025-10-13] MEDS: morphine PF (epidural) 5 MG/10 ML Vial 3 MG EPIDURAL (14:19)
[2025-10-13] MEDS: Ketorolac 30 MG/ML Syringe IV ×2 (14:28→21:06)
[2025-10-13] MEDS: Lidocaine 2% (5ml sdv) 5 ML VIAL.MPF 20 ML EPIDURAL (14:31)
[2025-10-13] MEDS: fentaNYL 100 MCG/2 ML Ampul IV (14:39)
--- NOTE | 2025-10-13 14:50 | PCM.POST.ANE ---
Anesthesia: Postop Eval I Current Vital Signs Temperature: 98 F Pulse Rate: 92 Blood Pressure: 115/74 Respiratory Rate: 16 Pulse Ox: 100 Oxygen Delivery Method: Room Air Assessment Airway patent: Yes Spontaneous unlabored respirations: Yes Mental status: Awake and Calm nausea: No Vomiting: No Anesthesia Complication: No Fluid Hydration Crystalloid volume administer (ml): 1,200 Total IV fluid infused: 1,200 Progress Note Anesthesia document: Postop Eval 1 completed: Yes
--- NOTE | 2025-10-13 14:56 | POSTOPAN2_ITS ---
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 Anesthesia Postop Eval I: Fluid Summary Crystalloid volume administer 1,200 10/13/25 14:50 SPECIAL 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
--- NOTE | 2025-10-13 14:56 | PCM.POSTANE2 ---
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 Spontaneous unlabored Yes 10/13/25 14:50 ELECTRICAL/INSTRUMENT TECHNICIAN.MDOT respirations Mental status Awake,Calm 10/13/25 14:50 ELECTRICAL/INSTRUMENT TECHNICIAN.MDOT nausea No 10/13/25 14:50 ELECTRICAL/INSTRUMENT TECHNICIAN.MDOT Vomiting No 10/13/25 14:50 ELECTRICAL/INSTRUMENT TECHNICIAN.MDOT Anesthesia Postop Eval I: Fluid Summary Crystalloid volume administer 1,200 10/13/25 14:50 ELECTRICAL/INSTRUMENT TECHNICIAN.MDOT (ml) Colloids volume administered ( ml) Blood Product volume administered (ml) Total IV fluid infused 1,200 10/13/25 14:50 ELECTRICAL/INSTRUMENT TECHNICIAN.MDOT Anesthesia Postop Eval I: Summary Notes Anesthesia Complication No 10/13/25 14:50 ELECTRICAL/INSTRUMENT TECHNICIAN.MDOT Anesthesia Complication Comment: Post-operative progress note Anesthesia: Postop Eval II Evaluation Mental status: Awake and Calm Pain Level: 0 nausea: No Vomiting: No Complications Anesthesia Complication: No
[2025-10-13] MEDS: Oxytocin 15 Units/NS 250ml 15 UNITS/250 ML IV.SOLN 83 UNITS IV (15:15)
[2025-10-13] MEDS: Lactated Ringers 1,000 ML 100 ML IV (18:19)
--- NOTE | 2025-10-13 18:24 | EX.PCM.OBRPT ---
Maternal Data Information KUNAL Calculator Estimated Delivery Date Method Current WG Current Estimate 10/12/25 Ultrasound #1 40w 1d Other Estimates 10/06/25 LMP (Certain) 41w 0d Operative Report (OB) Procedure Details Date of Procedure: 10/13/25 Procedure Start Time: 13:35 Procedure Stop Time: 14:50 Pre-Operative Diagnosis: Nonreassuring Status Post-Operative Diagnosis: Same as Pre-operative diagnosis and Other Post-Operative Diag OTHER Post-Operative Diagnosis: cephalopelvic disproportion Classification: CM Type of Anesthesia: Epidural Antibiotic Given: Ancef 2 grams IV x1 and Zithromax 500 mg/5 mL X1 Drain: Espinoza to straight drain Estimated Blood Loss: 1000cc Findings Description of surgery: MARITA BOUDREAUX, is a 30 F who presents at 40w0d for induction of labor for gestational diabetes, diet controlled. She was GBS negative. She received two doses of cytotec and had spontaneous rupture of membranes. She received an epidural. During her labor course, FHT was category II with periods of variable and late decelerations. Pitocin was never started. IVF boluses, repositioning, and amnioinfusion were done for intrauterine resuscitation without sustained resolution of decelerations. She did not dilate beyond 4cm. Due to intolerance and remote from vaginal delivery, it was decided to proceed with primary delivery. Epidural anesthesia was re-dosed without difficulty. Espinoza catheter was already placed. The patient was placed in the dorsal supine position with leftward tilt. Patient was prepped and draped in the normal sterile fashion. Pfannenstiel skin incision was made with the scalpel and carried through to the underlying layer of fascia with the scalpel. Fascia was nicked in the midline and the incision extended laterally. Perforating vessels from the rectus muscles were cauterized. The rectus bellies were dissected off superiorly and inferiorly with out complication both sharply and bluntly. The peritoneum was entered digitally. The incision was stretched and a low transverse uterine incision was made with the scalpel. The 's head was noted to be deeply impacted in the pelvis with significant caput noted. Nuchal cord was also identified. The infant's head was delivered atraumatically followed by the anterior and posterior shoulders without complication the rest of the delivered. The cord was clamped and cut and the infant was handed off to awaiting nurse. The placenta was delivered spontaneously immediately following and was noted to be intact and have a three-vessel cord. Cord gases were obtained. The uterus was exteriorized cleared of all clots and debris, and the incision was closed in a double layer closure using #1 Monocryl. Several figure-of-8 stitches of #1 Monocryl were placed over the hysterotomy and hemoblast was used for hemostasis. The ovaries and fallopian tubes were noted to be within normal limits. The uterus was returned to the maternal abdomen and gutters were cleared of all clots and debris. The rectus muscles were examined and hemostatic. Fascia was closed with 0 PDS in a running fashion. Subcutaneous tissue was copiously irrigated and closed with 3-0 Monocryl. The skin was closed with 3-0 Monocryl in a subcuticular fashion. Mepilex dressing was applied without complication. Patient was taken to recovery in stable condition. It was discussed with the patient that based on the clinical information obtained during this encounter, combined with her history, at this time I would recommend scheduled repeat for future deliveries if further pregnancies are desired. Surgical findings: liveborn male, head deeply impacted in maternal pelvis normal appearing tubes and ovaries 3 x 2 cm pedunculated anterior fibroid Presentation: ROP Amniotic Membrane Rupture Type: Spontaneous Amniotic Fluid Description: Clear Placental Delivery Description: Spontaneous Placenta Disposition: [facility] Specimen collected: No Cord Vessel Description: 3 Vessels Cord Entanglement: Around neck x 1, loose Nuchal Cord Compression: With compression Cord Gases: ABG and VBG Infant A gender: Male (1 minute): 8 (5 minute): 9 Delayed Cord Clamping: No Inspector Hairspring chief pharmacist: Yes Insurance Claim Approver: Jacqueline Serrato Tasks completed by machine operator assistant: Closing, Hemostasis: Electrocautery and Retracting Additional him assistant?: No Complications Complications: No
[2025-10-14 01:19] VITALS: PULSE 78; RESP 16; O2SAT 98
[2025-10-14 02:21] VITALS: BP 92/68; PULSE 84; RESP 14; TEMP 36.3; O2SAT 99
[2025-10-14] MEDS: Ketorolac 30 MG/ML Syringe IV (02:47)
[2025-10-14] MEDS: 0.9% Saline Lock 10 ML Syringe IV (02:47)
[2025-10-14 05:31] LABS: Hematocrit 27.6 % (37-47); Hemoglobin 9.7 g/dL (12.0-15.0); Mean Corp Hgb Conc 35.1 g/dL (32-36); Mean Corpuscular Volume 86.3 fL (81-99); Mean Platelet Vol. 10.4 fl (6.2-12.0); Platelet Count 172 K/mm3 (150-450); RBC Distribution Width CV 12.7 % (11.6-14.6); RBC Distribution Width SD 40.3 fl (35.1-43.9); Red Blood Count 3.20 M/mm3 (4.2-5.4); White Blood Count 12.2 K/mm3 (4.4-11.0)
[2025-10-14 05:36] LABS: Scan Indicated on CBC? Y/N NO
--- NOTE | 2025-10-14 06:29 | PCM.PN.BLA ---
Progress Note Patient doing well without complaints. Pain well-controlled. Tolerating PO. Ambulating and voiding without difficulty. Having some trouble with baby latching on the left but doing great on the right. Denies headache, vision changes, chest pain, shortness of breath, calf pain/swelling, fevers, chills, lightheadedness. Hgb drop more than expected but she is asymptomatic with normal BPs and no dizziness when getting up. Physical Exam Const alert and no apparent distress General Appearance: comfortable HEENT Head and Scalp: normocephalic and atraumatic Neck full ROM and supple General: normal visual inspection Resp normal respiratory effort and normal air movement Effort and Inspection: able to speak in complete sentences GI soft to palpation, non-tender and non-distended Inspection: incision intact (clean, dry) Bimanual Exam - Vag & Uterus: uterus non-tender Uterus Palpation: uterus fundus firm (below Umbilicus) Assessment & Plan Assessment/Plan (1) delivery delivered: PLAN: s/p LTCS PPD # 1 1. routine post care 2. breast feeding- support given 3. rh positive 4. rubella immune 5. hgb dropped from 13.3->9.7, patient asymptomatic, will get CBC tomorrow AM and consider iron infusion
--- NOTE | 2025-10-14 06:37 | DCINST_ITS ---
Documented by User: Dr. Georgette Arceo DO 10/14/25 18:18 Discharge Instructions DC O2, CPAP, BIPAP needs Home O2 Discharge instructions: No Dressing / Incision Discharge Activity: May Not Drive (for 2 weeks or while taking narcotic pain medications.) and May Shower May shower in (days): 0 May resume sexual activity in: 4-6 weeks Weight Bearing Status: Full weight bearing Lifting Restrictions: 20 pounds Dressing / Incision Call your doctor if your incision/area has: Continuous Slow Oozing, Sudden Increased Bleeding, Increased Pain/ Swelling, Increased Redness and Foul Smelling Discharge Call your doctor if you observe: Fever of 101 or Higher and Using more than 1 pad per hour (for 2 hours) Suture Line Care: Avoid Pulling/Pushing and Avoid Pinching/Bending Cleanse incision/area with: Soap & Water and Keep Dressing Clean & Dry Follow Up Care When: Call [phone] to make an appointment for an incision check in 1-2 weeks. Test Results: Test results from this visit will be discussed in further detail at your follow- up appointment, if applicable. Discharge Plan Admission Admit Date/Time: 10/12/25 19:15 Primary Reason for Your Visit: labor and delivery Attending Provider: Georgette Arceo Primary Care Provider: Coby Carmona Consulting Providers: Georgette Avalos Discharge Orders/Prescriptions Prescriptions: New naproxen 500 mg tablet 500 mg PO BID PRN PRN (Reason: Pain) Qty: 30 1RF oxycodone-acetaminophen [Endocet] 2.5-325 mg tablet 1 tab PO Q8H PRN (Reason: pain) 7 Days Qty: 20 0RF Continued DHA 200 mg capsule 200 mg PO DAILY Discontinued aspirin 81 mg tablet 81 mg PO QDAY (DME) Blood Glucose Test Strip See Rx Instructions .MEDSUPPLY Qty: 120 5RF Rx Instructions: As directed-fasting & 2 hr post meals (DME) blood-glucose meter Misc See Rx Instructions .MEDSUPPLY Qty: 1 0RF Rx Instructions: As directed- Test fasting and 2 hours after meals (DME) lancets Misc See Rx Instructions .MEDSUPPLY Qty: 200 5RF Rx Instructions: As directed-fasting & 2 hr post meals Referrals / Follow Up: Coby Carmona MD [Primary Care Provider, Internal Medicine] Disposition Disposition (needs filled in before D/C Order can be placed): Home, Self Care Documented by User: Ruth Thurston NP, PRODUCT MGMT DEV MANAGER-C 10/15/25 07:04 Discharge Plan Admission Admit Date/Time: 10/12/25 19:15 Primary Reason for Your Visit: labor and delivery Attending Provider: Georgette Arceo Primary Care Provider: Coby Carmona Consulting Providers: Georgette Avalos Discharge Orders/Prescriptions Prescriptions: New naproxen 500 mg tablet 500 mg PO BID PRN PRN (Reason: Pain) Qty: 30 1RF oxycodone-acetaminophen [Endocet] 2.5-325 mg tablet 1 tab PO Q8H PRN (Reason: pain) 7 Days Qty: 20 0RF Continued DHA 200 mg capsule 200 mg PO DAILY Discontinued aspirin 81 mg tablet 81 mg PO QDAY (DME) Blood Glucose Test Strip See Rx Instructions .MEDSUPPLY Qty: 120 5RF Rx Instructions: As directed-fasting & 2 hr post meals (DME) blood-glucose meter Misc See Rx Instructions .MEDSUPPLY Qty: 1 0RF Rx Instructions: As directed- Test fasting and 2 hours after meals (DME) lancets Misc See Rx Instructions .MEDSUPPLY Qty: 200 5RF Rx Instructions: As directed-fasting & 2 hr post meals Referrals / Follow Up: Coby Carmona MD [Primary Care Provider, Internal Medicine] Disposition Disposition (needs filled in before D/C Order can be placed): Home, Self Care
[2025-10-14 07:40] LABS: Pathology Specimen OB SEE PATHOLOGY REPORT
[2025-10-14 07:45] VITALS: BP 108/74; PULSE 86; RESP 16; TEMP 36.2; O2SAT 97
[2025-10-14] MEDS: Senna/Docusate Sodium 1 Tablet PO (10:02)
[2025-10-14 13:26] VITALS: BP 108/65; PULSE 81; RESP 16; TEMP 36.7; O2SAT 98
[2025-10-14 20:00] VITALS: BP 116/65; PULSE 74; RESP 16; TEMP 36.9; O2SAT 100
[2025-10-15 01:05] VITALS: BP 117/64; PULSE 83; RESP 17; TEMP 37; O2SAT 97
[2025-10-15 05:36] LABS: Hematocrit 28.8 % (37-47); Hemoglobin 9.6 g/dL (12.0-15.0); Immature Granulocytes Count 0.040 X10^3/uL (0.0-0.0); Mean Corp Hgb Conc 33.3 g/dL (32-36); Mean Corpuscular Volume 87.5 fL (81-99); Mean Platelet Vol. 10.4 fl (6.2-12.0); NRBC Flagged by Analyzer 0 % (0-5); Platelet Count 206 K/mm3 (150-450); RBC Distribution Width CV 12.7 % (11.6-14.6); RBC Distribution Width SD 40.8 fl (35.1-43.9); Red Blood Count 3.29 M/mm3 (4.2-5.4); White Blood Count 10.9 K/mm3 (4.4-11.0)
--- NOTE | 2025-10-15 08:00 | PCM.PN.OB ---
Subjective Subjective Patient doing well without complaints. Tolerating PO. Ambulating and voiding without difficulty. Feeding well. Denies chest pain, shortness of breath, calf pain/swelling, fevers, chills, lightheadedness. Objective Data Objective Data Vital Signs: Vital Signs Temp Pulse Resp BP Pulse Ox O2 Del Method 98.6 F 83 17 117/64 97 Room Air 10/15/25 01:05 10/15/25 01:05 10/15/25 01:05 10/15/25 01:05 10/15/25 01:05 10/15/25 01:05 Oxygen Delivery Method Room Air Weight: 187 lb 9.814 oz Body Mass Index (BMI) 39.2 Intake & Output: Intake and Output for Last 24 Hours 10/13/25 10/14/25 10/15/25 23:59 23:59 23:59 Intake Total 3516.66 / 3516.66 843.33 / 843.33 Output Total 2300 / 2300 1000 / 1000 Balance 1216.66 / 1216.66 -156.67 / -156.67 Lab / Micro Data 10/15/25 05:00 Labs: Laboratory Results - last 24 hr 10/15/25 05:00: WBC 10.9, RBC 3.29 L, Hgb 9.6 L, Hct 28.8 L, MCV 87.5, MCH 29.2, MCHC 33.3 D, RDW Std Deviation 40.8, RDW Coeff of Jae 12.7, Plt Count 206, MPV 10.4, Immature Gran % (Auto) 0.400, Neut % (Auto) 67.1, Lymph % (Auto) 24.2, [place] % (Auto) 5.9, Eos % (Auto) 2.1, Baso % (Auto) 0.3, Absolute Neuts (auto) 7.3, Absolute Lymphs (auto) 2.63, Nucleated RBC % 0 Physical Exam Const alert and oriented x3 HEENT normocephalic Eyes PERRL Neck full ROM Resp normal respiratory effort GI soft to palpation GI Narrative: FF below U. Dressing dry and intact Palpation: tender Positive for other (appropriately) Assessment & Plan (1) delivery delivered: COMMENT: 10/13/25 KV IOL GDMA1 boy 5#9oz apgars 8/9 (2) Gestational diabetes: QUALIFIERS: Gestational diabetes mellitus control: diet-controlled Trimester: third trimester Qualified Code(s): O24.410 - Gestational diabetes mellitus in , diet controlled COMMENT: stable pp. diet controlled PLAN: Plan s/p LTCS PPD # 2 1. routine post care 2. breast feeding- support given 3. rh positive 4. rubella immune 5. glucose stable 6. home today
--- NOTE | 2025-10-15 08:02 | DS.PCM_ITS ---
Providers Date of Admission: 10/12/25 Primary Care Physician: Dr. Coby Carmona MD Reason For Visit: RIMARY C SECTION Diagnosis Discharge Diagnosis (1) delivery delivered: Status: Acute Code(s): O82 - Encounter for delivery without indication (2) Gestational diabetes: Status: Acute Code(s): O24.419 - Gestational diabetes mellitus in , unspecified control Qualifiers: Gestational diabetes mellitus control: diet-controlled Trimester: third trimester Qualified Code(s): O24.410 - Gestational diabetes mellitus in , diet controlled Plan s/p LTCS PPD # 2 1. routine post care 2. breast feeding- support given 3. rh positive 4. rubella immune 5. glucose stable 6. home today Medications at Discharge Home Medications docosahexaenoic acid 200 mg capsule ( DHA) 200 mg PO DAILY 02/11/25 naproxen 500 mg tablet 500 mg PO BID PRN PRN Pain #30 tabs 10/14/25 oxycodone-acetaminophen 2.5 mg-325 mg tablet (Endocet) 1 tab PO Q8H PRN pain 7 days #20 tabs 10/14/25 Hospital Course Operations section Summary of Care Provided Hospital Course: Patient underwent section with routine recovery, return of normal bowel and bladder function. Ambulating, voiding and tolerating PO. Stable for discharge home POD #3. Weight / BMI Weight Weight: 187 lb 9.814 oz Body Mass Index (BMI) 39.2 PRE- weight 186 lb PRE- Body Mass Index 39.0 (BMI) ABG / Lab / Microbiology Data 10/15/25 05:00 Laboratory: Laboratory Results - last 24 hr 10/15/25 05:00: WBC 10.9, RBC 3.29 L, Hgb 9.6 L, Hct 28.8 L, MCV 87.5, MCH 29.2, MCHC 33.3 D, RDW Std Deviation 40.8, RDW Coeff of Jae 12.7, Plt Count 206, MPV 10.4, Immature Gran % (Auto) 0.400, Neut % (Auto) 67.1, Lymph % (Auto) 24.2, [place] % (Auto) 5.9, Eos % (Auto) 2.1, Baso % (Auto) 0.3, Absolute Neuts (auto) 7.3, Absolute Lymphs (auto) 2.63, Nucleated RBC % 0 D/C Instructions May shower in (days): 0 May resume sexual activity in: 4-6 weeks Weight Bearing Status: Full weight bearing Call your doctor if your incision/area has: Continuous Slow Oozing, Sudden Increased Bleeding, Increased Pain/ Swelling, Increased Redness and Foul Smelling Discharge Call your doctor if you observe: Fever of 101 or Higher and Using more than 1 pad per hour (for 2 hours) Suture Line Care: Avoid Pulling/Pushing and Avoid Pinching/Bending Cleanse incision/area with: Soap & Water and Keep Dressing Clean & Dry DC O2, CPAP, BIPAP Needs Home O2 Discharge instructions: No When: Call [phone] to make an appointment for an incision check in 1-2 weeks. Meaningful Use Info Meaningful Use Meaningful Use Diagnoses (Choose all that apply): None applicable Discharge Plan Admission Admit Date/Time: 10/12/25 19:15 Primary Reason for Your Visit: labor and delivery Attending Provider: Georgette Arceo Primary Care Provider: Coby Carmona Consulting Providers: Georgette Avalos Discharge Orders/Prescriptions Prescriptions: New naproxen 500 mg tablet 500 mg PO BID PRN PRN (Reason: Pain) Qty: 30 1RF oxycodone-acetaminophen [Endocet] 2.5-325 mg tablet 1 tab PO Q8H PRN (Reason: pain) 7 Days Qty: 20 0RF Continued DHA 200 mg capsule 200 mg PO DAILY Discontinued aspirin 81 mg tablet 81 mg PO QDAY (DME) Blood Glucose Test Strip See Rx Instructions .MEDSUPPLY Qty: 120 5RF Rx Instructions: As directed-fasting & 2 hr post meals (DME) blood-glucose meter Misc See Rx Instructions .MEDSUPPLY Qty: 1 0RF Rx Instructions: As directed- Test fasting and 2 hours after meals (DME) lancets Misc See Rx Instructions .MEDSUPPLY Qty: 200 5RF Rx Instructions: As directed-fasting & 2 hr post meals Referrals / Follow Up: Coby Carmona MD [Primary Care Provider, Internal Medicine] Disposition Disposition (needs filled in before D/C Order can be placed): Home, Self Care
[2025-10-15 08:21] VITALS: BP 114/76; PULSE 75; RESP 16; TEMP 36.4; O2SAT 99
[2025-10-15] MEDS: Senna/Docusate Sodium 1 Tablet PO (08:25)
--- NOTE | 2025-10-19 10:48 | NURSING ---
F/up questions asked at IBCLC visit on 10/18 at 1230. Pt. reports feeling good. Lochia minimal, incision sore but no drainage on bandage. improving, infant still being supplemented. Denies further questions or concerns. Encouragement and support given.
== END 2025-10-15 11:05 | disposition home or self-care (01) | DRG 787 ==
PROVIDERS: Advanced Practice Midwife; Admitting Provider Student in an Organized Health Care Education/Training Program; PCP Internal Medicine; Visit Provider Student in an Organized Health Care Education/Training Program
DX: O76 Abnormality in fetal heart rate and rhythm complicating labor and delivery (principal); D62 Acute posthemorrhagic anemia; O72.1 Other immediate postpartum hemorrhage; O99.214 Obesity complicating childbirth; O24.420 Gestational diabetes mellitus in childbirth, diet controlled; D25.9 Leiomyoma of uterus, unspecified; Z37.0 Single live birth; O69.2XX0 Labor and delivery complicated by other cord entanglement, with compression, not applicable or unspecified; O33.9 Maternal care for disproportion, unspecified; O34.13 Maternal care for benign tumor of corpus uteri, third trimester; O99.893 Other specified diseases and conditions complicating puerperium; O99.03 Anemia complicating the puerperium; Z3A.40 40 weeks gestation of pregnancy
CPT/HCPCS: 59025; 59050; 82962; 84112; 85025; 85027; 86780; 86850; 86900; 86901; 88307; 99221; A4216; G0378; J2405